=== PATIENT | male | born 1990 | race Caucasian/White ===

== ENCOUNTER 2020-03-05 22:45 | Inpatient (IN) | payer SELFPAY ==
[2020-03-05 23:04] VITALS: BP 137/91; PULSE 89; RESP 16; TEMP 37.1; O2SAT 99; BMI 35.6
--- NOTE | 2020-03-05 23:11 | W.ED.PSYCH ---
HPI - Psych General: Chief Complaint: Psychiatric Symptoms Stated Complaint: mhe Time Seen by Provider: 03/05/20 23:03 History of Present Illness: HPI Narrative: Patient is a 29-year-old male who comes to the ED with suicidal ideation. Patient has been thinking about suicide for the last 2 days. He has thought about jumping in front of traffic or overdosing. Patient denies having a plan. He currently feels depressed and down due to his grandfather recently passing. Has had a loss of interest in activities but denies any sleep issues. He is currently stressed and says he hears voices that tell him about stuff that scared him as a child. He also says he has panic attacks and is very afraid of dogs due to an incident when he was a child when he was attacked by dog. Patient also says he has visual hallucinations of dogs. He denies taking any medications to overdose today. Patient did say that he also has homicidal ideation. He does not have anybody in particular that he thinks about hurting. Patient states he came in to get help. Associated symptoms: Reports auditory hallucinations, visual hallucinations, depression, homicidal ideation and suicidal ideation Review of Systems Const: Denies: fever, chills or fatigue Eyes: Denies: change in vision or eye discomfort ENMT: Denies: throat pain, painful swallowing, nasal discharge or nasal congestion Card: Denies: chest pain, palpitations, edema, swelling of feet/ankles, shortness of breath on exertion or shortness of breath when lying down Resp: Denies: shortness of breath, productive cough or non-productive cough GI: Denies: abdominal pain, nausea, vomiting, diarrhea, constipation or blood in stool : Denies: flank pain, difficulty urinating, painful urination or blood in urine Musc: Denies: neck pain, back pain or extremity swelling Skin/Breast: Denies: rash or new lesion Neuro: Denies: headache, numbness in extremities or weakness in extremities Psych: Reports: depression, panic attacks, visual hallucinations, auditory hallucinations, suicidal ideation and homicidal ideation [facility] ED PFSH: Social History Smoking and tobacco status: current every day smoker Physical Exam Const: COMMON NORMALS: no apparent distress and oriented x3 GENERAL APPEARANCE: cooperative ORIENTATION/CONSCIOUSNESS: Yes awake, Yes oriented to person and Yes oriented to place HENMT: COMMON NORMALS: normocephalic HEAD & SCALP: normocephalic MOUTH: oral and palatal mucosa normal THROAT: posterior oropharynx normal and uvula midline Neck/C-Spine: COMMON NORMALS: supple GENERAL: Yes normal visual inspection Resp: COMMON NORMALS: normal respiratory effort, no retractions, no use of accessory muscles and clear to auscultation bilaterally EFFORT & INSPECTION: Yes able to speak in complete sentences, No respiratory distress and No labored AUSCULTATION: clear to auscultation bilaterally Cardio: COMMON NORMALS: regular rate, regular rhythm, S1 normal heart sound, S2 normal heart sound, no gallops, no clicks, no murmurs and peripheral pulses 2+ throughout RATE: regular rate RHYTHM: regular rhythm HEART SOUNDS: S1 normal and S2 normal PERIPHERAL PULSES: pulses 2+ throughout GI: COMMON NORMALS: normal to inspection, nondistended, normoactive bowel sounds, soft to palpation, non-tender and no masses PALPATION: Yes soft : COMMON NORMALS: Yes no CVA tenderness BLADDER/KIDNEY EXAM: Yes no CVA tenderness Back/Pelvis: COMMON NORMALS: no CVA tenderness Extremity: COMMON NORMALS: normal to inspection Neuro: COMMON NORMALS: oriented x3 and moves all extremities SENSORIUM/ORIENTATION: Yes oriented to person and Yes oriented to place Psych: COMMON NORMALS: mental status grossly normal and speech normal APPEARANCE: Yes grossly normal ATTITUDE: Yes calm ACTIVITY/MOTOR BEHAVIOR: Yes appropriate eye contact SPEECH: Yes normal speech MOOD & AFFECT: Yes depressed mood THOUGHT PROCESS: tangential THOUGHT CONTENT: Yes suicidality and Yes phobia(s) (scared of dogs) ATTENTION/CONCENTRATION: Yes attention grossly intact and Yes concentration grossly intact MEMORY/COGNITION: Yes memory grossly intact INSIGHT: fair JUDGEMENT: fair Skin: COMMON NORMALS: no rashes or lesions noted GENERAL SKIN EXAM: no rashes or lesions noted and dry skin MDM - Psych MDM Narrative: Medical decision making narrative: Patient is a 29-year-old male who comes into the ED with SI. I contacted Dr. Tubbs to discuss patient case and he approved for patient to get admitted. I talked with Dr. Aranda here in the ED and he handled the admitting orders and the rest of the admission process. Lab Data: Attestation: I reviewed the patient's lab results. Labs: Lab Results 03/05/20 03/05/20 03/05/20 Range/Units 23:21 23:21 23:21 WBC 10.6 H (4.0-10.0) 10^3/ uL RBC 5.22 (4.1-5.3) 10^6/u L Hgb 16.4 (11.7-16.6) g/dL Hct 49.2 (42.0-52.0) % MCV 94.3 H (80-94) fL MCH 31.4 (28.0-34.0) pg MCHC 33.3 (30.0-36.0) g/dL RDW 11.7 L (12.1-15.1) % Plt Count 249 (130-400) 10^3/c mm MPV 10.3 (7.4-10.4) fL Neut % (Auto) 62.3 % Lymph % (Auto) 27.1 % [place] % (Auto) 9.3 % Eos % (Auto) 0.7 % Baso % (Auto) 0.4 % Neut # (Auto) 6.6 (1.8-7.7) 10^3/u L Lymph # (Auto) 2.9 (0.8-4.8) 10^3/u L [place] # (Auto) 1.0 H (0.2-0.9) 10^3/u L Eos # (Auto) 0.1 (0.0-0.8) 10^3/u L Baso # (Auto) 0.0 (0.0-0.1) 10^3/u L Nucleated RBC % (a uto) 0 % Nucleated RBCs # 0.0 /100WBC Sodium 138 (136-145) mmol/L Potassium 3.2 L (3.5-5.1) mmol/L Chloride 95 L (98-107) mmol/L Carbon Dioxide 26 (22-29) mmol/L Anion Gap 20.2 H (5-19) BUN 5 L (6-20) mg/dL Creatinine 0.9 (0.7-1.2) mg/dL GFR Calculation 100.5 (90-130) mL/min Glucose 79 (65-115) mg/dL POC Glucose (70-110) mg/dL Calculated Osmolal ity 281 L (285-295) mOsm/k g Calcium 9.6 (8.5-10.5) mg/dL Total Bilirubin 1.2 (0.15-1.2) mg/dL AST 19 (0-40) U/L ALT 15 (0-41) U/L Alkaline Phosphata se 76 (40-130) IU/L Total Protein 8.2 (6.6-8.7) g/dL Albumin 4.8 (3.5-5.2) g/dL Globulin 3.4 (1.3-4.6) g/dL TSH 2.52 (0.27-4.20) uIU/ mL Urine Color Yellow (Yellow) Urine Appearance Sl cloudy A (CLEAR) Urine pH 5 (5-7) Ur Specific Gravit y 1.020 (1.005-1.030) Urine Protein Neg (Negative) Urine Glucose (UA) Norm (Normal) Urine Ketones 1+ H (Negative) Urine Blood 2+ H (Negative) Urine Nitrate Negative (Negative) Urine Bilirubin 1+ H (NEGATIVE) Urine Urobilinogen 1 H (Negative) mg/dL Ur Leukocyte Nette ase Negative (Negative) Urine RBC 0-4 H (0-2) /hpf Urine WBC 0-4 H (0-5) /hpf Ur Squamous Epith Cells 0-4 H (0-5) Urine Bacteria 1+ H (NONE) Hyaline Casts 0-4 H Urine Mucus 2+ Salicylates < 0.3 L (3-10) mg/dL Urine Opiates Scre en (Negative) ng/mL Acetaminophen < 5.0 L (10-30) ug/mL Ur Barbiturates Sc reen (Negative) ng/mL Ur Phencyclidine S crn (Negative) ng/mL Ur Amphetamines Sc reen (Negative) ng/mL U Benzodiazepines Scrn (Negative) ng/mL Urine Cocaine Scre en (Negative) ng/mL U Marijuana (THC) Screen (Negative) ng/mL Ethyl Alcohol < 10 (0-10) mg/dL 03/05/20 03/05/20 Range/Units 23:21 23:30 WBC (4.0-10.0) 10^3/ uL RBC (4.1-5.3) 10^6/u L Hgb (11.7-16.6) g/dL Hct (42.0-52.0) % MCV (80-94) fL MCH (28.0-34.0) pg MCHC (30.0-36.0) g/dL RDW (12.1-15.1) % Plt Count (130-400) 10^3/c mm MPV (7.4-10.4) fL Neut % (Auto) % Lymph % (Auto) % [place] % (Auto) % Eos % (Auto) % Baso % (Auto) % Neut # (Auto) (1.8-7.7) 10^3/u L Lymph # (Auto) (0.8-4.8) 10^3/u L [place] # (Auto) (0.2-0.9) 10^3/u L Eos # (Auto) (0.0-0.8) 10^3/u L Baso # (Auto) (0.0-0.1) 10^3/u L Nucleated RBC % (a uto) % Nucleated RBCs # /100WBC Sodium (136-145) mmol/L Potassium (3.5-5.1) mmol/L Chloride (98-107) mmol/L Carbon Dioxide (22-29) mmol/L Anion Gap (5-19) BUN (6-20) mg/dL Creatinine (0.7-1.2) mg/dL GFR Calculation (90-130) mL/min Glucose (65-115) mg/dL POC Glucose 84 (70-110) mg/dL Calculated Osmolal ity (285-295) mOsm/k g Calcium (8.5-10.5) mg/dL Total Bilirubin (0.15-1.2) mg/dL AST (0-40) U/L ALT (0-41) U/L Alkaline Phosphata se (40-130) IU/L Total Protein (6.6-8.7) g/dL Albumin (3.5-5.2) g/dL Globulin (1.3-4.6) g/dL TSH (0.27-4.20) uIU/ mL Urine Color (Yellow) Urine Appearance (CLEAR) Urine pH (5-7) Ur Specific Gravit y (1.005-1.030) Urine Protein (Negative) Urine Glucose (UA) (Normal) Urine Ketones (Negative) Urine Blood (Negative) Urine Nitrate (Negative) Urine Bilirubin (NEGATIVE) Urine Urobilinogen (Negative) mg/dL Ur Leukocyte Nette ase (Negative) Urine RBC (0-2) /hpf Urine WBC (0-5) /hpf Ur Squamous Epith Cells (0-5) Urine Bacteria (NONE) Hyaline Casts Urine Mucus Salicylates (3-10) mg/dL Urine Opiates Scre en Negative (Negative) ng/mL Acetaminophen (10-30) ug/mL Ur Barbiturates Sc reen Negative (Negative) ng/mL Ur Phencyclidine S crn Negative (Negative) ng/mL Ur Amphetamines Sc reen Negative (Negative) ng/mL U Benzodiazepines Scrn Negative (Negative) ng/mL Urine Cocaine Scre en Negative (Negative) ng/mL U Marijuana (THC) Screen Positive H (Negative) ng/mL Ethyl Alcohol (0-10) mg/dL Discharge Plan Discharge Patient Disposition: Admitted As Inpatient Admit Provider: Kleber Tubbs Discharge Date/Time: 03/06/20 00:47 Coding Level of Care Code ED [employer] Fwd Exam Comprehensive
--- NOTE | 2020-03-05 23:32 | PC.NURSE ---
Patient glucose is 84, patient is also changed out and gave a UA
--- NOTE | 2020-03-05 23:45 | PC.NURSE ---
PATIENT STATES HE STARTED FEELING SUICIDAL A MONTH AGO AND THE FEELINGS HAVE STAYED PRETTY CONSTANT. PATIENT STATES HE THAT THE LOSS OF HIS GRANDFATHER MIGHT HAVE TRIGGERED HIS THOUGHTS BUT HE IS UNSURE. PATIENT STATES HE DOESNT HAVE A PLAN TO HURT HIMSELF. PATIENT STATES HE HAS PANIC ATTACKS. PATIENT STATES HE HAS HAD SIMILAR FEELINGS IN THE PAST.
--- NOTE | 2020-03-05 23:52 | PC.NURSE ---
1:[address], PATIENT IN GOWN AND MASK ON PATIENT.
[2020-03-05 23:57] LABS: Basophils % 0.4 %; Eosinophils # 0.1 10^3/uL (0.0-0.8); Eosinophils % 0.7 %; Hematocrit 49.2 % (42.0-52.0); Hemoglobin 16.4 g/dL (11.7-16.6); Lymphocytes # 2.9 10^3/uL (0.8-4.8); Lymphocytes % 27.1 %; Mean Corpuscular HGB Conc 33.3 g/dL (30.0-36.0); Mean Corpuscular Hemoglobin 31.4 pg (28.0-34.0); Mean Corpuscular Volume 94.3 fL (80-94); Mean Platelet Volume 10.3 fL (7.4-10.4); Monocytes % 9.3 %; Neutrophils # 6.6 10^3/uL (1.8-7.7); Neutrophils % 62.3 %; Nucleated Red Blood Cells % 0 %; Platelet Count 249 10^3/cmm (130-400); Red Blood Count 5.22 10^6/uL (4.1-5.3); Red Cell Distribution Width 11.7 % (12.1-15.1); White Blood Count 10.6 10^3/uL (4.0-10.0)
[2020-03-06 00:23] LABS: Alanine Aminotransferase 15 U/L (0-41); Albumin Level 4.8 g/dL (3.5-5.2); Alkaline Phosphatase 76 IU/L (40-130); Anion Gap 20.2 (5-19); Aspartate Amino Transferase 19 U/L (0-40); Blood Urea Nitrogen 5 mg/dL (6-20); Calcium 9.6 mg/dL (8.5-10.5); Carbon Dioxide 26 mmol/L (22-29); Chloride 95 mmol/L (98-107); Cocaine Screen Urine Negative (Negative); Globulin 3.4 g/dL (1.3-4.6); Glomerular Filtration Rate 100.5 mL/min (90-130); Glucose 79 mg/dL (65-115); Opiate Screen Urine Negative (Negative); Osmolality Calculated 281 mOsm/kg (285-295); PCP Screen Urine Negative (Negative); Potassium 3.2 mmol/L (3.5-5.1); Sodium 138 mmol/L (136-145); THC Screen Urine Positive (Negative); Thyroid Stimulating Hormone 2.52 uIU/mL (0.27-4.20); Total Bilirubin 1.2 mg/dL (0.15-1.2); Total Protein 8.2 g/dL (6.6-8.7)
[2020-03-06 00:25] LABS: Acetaminophen < 5.0 ug/mL (10-30); Alcohol Level < 10 mg/dL (0-10); Salicylate < 0.3 mg/dL (3-10)
[2020-03-06] MEDS: LORazepam 1 mg Tablet PO (00:28)
[2020-03-06 00:40] LABS: Add Urine Microscopic? YES; Bacteria Urine 1+; Bilirubin Urine 1+ (NEGATIVE); Blood Urine 2+ (Negative); Glucose Urine UA Norm (Normal); Hyaline Casts Urine 0-4; Ketones Urine 1+ (Negative); Leukocyte Esterase Urine Negative (Negative); Mucus Urine 2+; Nitrate Urine Negative (Negative); Protein Urine Neg (Negative); RBC Urine 0-4 /hpf (0-2); Squamous Epithelial Cell Urine 0-4 (0-5); Urine Color Yellow (Yellow); Urobilinogen Urine 1 mg/dL (Negative); WBC Urine 0-4 /hpf (0-5); pH Urine 5 (5-7)
[2020-03-06 00:41] LABS: Add Urine Culture? No
[2020-03-06 00:42] VITALS: BP 126/84; PULSE 84; RESP 16; O2SAT 97
[2020-03-06 00:49] LABS: Amphetamines Screen Urine Negative (Negative); Barbiturates Screen Urine Negative (Negative); Benzodiazepines Screen Urine Negative (Negative)
[2020-03-06 00:51] VITALS: BP 128/84; PULSE 83; RESP 21; TEMP 36.9; O2SAT 99
[2020-03-06 01:32] LABS: Glucose Point of Care 84 mg/dL (70-110)
[2020-03-06 06:00] VITALS: BP 118/74; PULSE 60; RESP 18; TEMP 36.9; O2SAT 99
[2020-03-06] MEDS: hyDROXYzine 25 mg Capsule 50 MG PO (12:16)
--- NOTE | 2020-03-06 12:16 | PC.NURSE ---
Addendum entered by Nubia Taveras LPN 03/06/20 13:24: PRN MED EFFECTIVE NO FURTHER C/O ANXIETY CURRENTLY Original Note: PRN VISTARIL 50 MG GIVEN PO PER PT C/O ANXIETY. WILL CONT TO MONITOR.
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
[2020-03-06 14:00] VITALS: BP 118/70; PULSE 68; RESP 17; TEMP 36.8; O2SAT 97
[2020-03-06] MEDS: trazodone 50 mg Tablet PO (20:31)
--- NOTE | 2020-03-06 20:31 | PC.NURSE ---
Pt given prn med trazodone at this time.
[2020-03-06 21:06] VITALS: BP 109/74; PULSE 83; RESP 18; TEMP 36.6; O2SAT 98
[2020-03-06] MEDS: acetaminophen 325 mg Tablet 650 MG PO (22:23)
--- NOTE | 2020-03-06 22:24 | PC.NURSE ---
Pt given tylenol per his request for restless legs.
[2020-03-07 06:00] VITALS: BP 94/61; PULSE 58; RESP 16; TEMP 36.4; O2SAT 99
[2020-03-07] MEDS: OLANZapine ODT 5 MG TABLET PO (08:38)
[2020-03-07] MEDS: ARIPiprazole 10 mg Tablet PO (08:38)
--- NOTE | 2020-03-07 08:38 | PC.NURSE ---
Addendum entered by Yasmin Joshua LPN 03/07/20 09:47: MEDICATION EFFECTIVE. PATIENT IS LYING IN BED RESTING, RESPIRATIONS EVEN AND UNLABORED. Original Note: PRN ZYPREXA ZYDIS ZYPREXA ZYDIS 5MG PO PER PATIENT C/O AGITATION/PSYCHOSIS. WILL CONTINUE TO MONITOR FOR MEDICATION EFFECTIVENESS.
[2020-03-07 14:00] VITALS: BP 111/76; PULSE 89; RESP 18; TEMP 36.9; O2SAT 99
--- NOTE | 2020-03-07 16:35 | P.PN_ITS ---
Subjective NPU Subjective: Interval history: Ruben presents today reporting that he is doing okay. He had some odd statements about what is going on that really did not make sense but he did report that he is tolerating medication and that he is hopeful that he will be able to continue to improve. We had a brief discussion about his addiction issues and he continues to be fairly resistant to having a discussion about the impact that marijuana might be having on his mental health and psychosis. But he does endorse that he is been doing better with the amphetamines and as noted previously his last 2 screens for amphetamines has been negative. He reports that he has been sleeping a lot try to catch up on sleep but otherwise he reports that he thinks things are going in the right direction. Mental Status Exam MSE Comments: This is an overweight, versus obese, white male, with adequate dress, grooming, and eye contact. No abnormal movements except for mild psychomotor retardation. Cooperative with exam in no acute distress. Speech was decreased rate and volume. Mood described as a little better; affect congruent. Thought process, mostly organized. Thought content: patient denied any suicidal or homicidal ideation, there were no delusions noted, but he endorsed paranoia. He endorsed hearing and seeing things. Attention, concentration, and memory appear intact but were not formally tested. He is alert and oriented times three. Insight and judgment are limited but improving. Vitals/I&O/Wt Last Vital Signs Temp 97.8 F 03/07/20 22:00 Pulse 69 03/07/20 22:00 Resp 18 03/07/20 22:00 BP 106/70 03/07/20 22:00 Pulse Ox 98 03/07/20 22:00 Weight last 48 hrs Weight 99.79 kg Home Medications No Known Home Medications 03/05/20 [History Confirmed 03/05/20] Active Medications Acetaminophen (Tylenol) 650 mg PO Q4H PRN PRN Reason: MILD PAIN Last Admin: 03/06/20 22:23 Dose: 650 mg Documented by: Aripiprazole (Abilify) 10 mg PO DAILY ELLIE Last Admin: 03/07/20 08:38 Dose: 10 mg Documented by: Benztropine Mesylate (Cogentin) 1 mg PO BID PRN PRN Reason: Mild Extrapyramidal symptoms Camphor/Menthol/Phenol (Blistex) 1 applic TOPICAL Q1H PRN PRN Reason: DRYNESS Diphenhydramine HCl (Benadryl) 50 mg IM ONCE PRN PRN Reason: Severe Extrapyramidal Symptoms Diphenhydramine HCl (Benadryl) 50 mg IM Q4H PRN PRN Reason: Severe Aggression Haloperidol (Haldol) 5 mg PO Q4H PRN PRN Reason: AGITATION Haloperidol Lactate (Haldol Inj) 5 mg IM Q4H PRN PRN Reason: Severe Aggression Hydroxyzine Pamoate (Vistaril) 50 mg PO Q6H PRN PRN Reason: ANXIETY Last Admin: 03/06/20 12:16 Dose: 50 mg Documented by: Loperamide HCl (Imodium Capsule) 2 mg PO Q6H PRN PRN Reason: DIARRHEA Lorazepam (Ativan) 2 mg IM Q4H PRN PRN Reason: Severe Aggression Nicotine (Nicoderm 21 Mg Patch) 1 patch TRANSDERMA DAILY PRN PRN Reason: NICOTINE WITHDRAWAL Nicotine Polacrilex (Nicorette) 2 mg BUCCAL Q2H PRN PRN Reason: NICOTINE WITHDRAWAL Olanzapine (Zyprexa Zydis) 5 mg PO Q4H PRN PRN Reason: Agitation/Psychosis Last Admin: 03/07/20 08:38 Dose: 5 mg Documented by: Ondansetron HCl (Zofran) 4 mg PO Q6H PRN PRN Reason: NAUSEA AND VOMITING Data NPU : 03/05/20 23:21 03/05/20 23:21 A&P Additional A&P Information This is a 29 year old, white male, with a history of psychosis, possibly secondary to substances, but he has a diagnosis of schizophrenia and reports that there have been times that he has had psychosis with distant drug use, not current, but this is the dilemma normally with psychosis with people that use, is it the cause of it or is it a coping mechanism that is adopted, and he has a history of PTSD with recent reports of hypervigilance and sleep disruption and nightmares. It is unclear if he has kojo flashbacks, who presents off medication and reporting a plan to re-engage in treatment. Continue current medication. Encourage individual, group, and milieu therapy. Continue q 15-minute checks for safety. Encourage discharge to sober living treatment at the highest level of care to which he is willing to commit. Involuntary Hold Information 96 Hour Hold: 96 Hour Involuntary Admission: No Attestations NPU Medical Necessity Statement*: Inpatient hospitalization is medically necessary and the clinically appropriate intervention at this time. We will monitor medication and titrate to affect. Likely length of stay 3-5 days. Coding Level of Care Code Acute Reimbursement Coordinator for Pete Ruiz
[2020-03-07] MEDS: trazodone 50 mg Tablet PO (21:31)
--- NOTE | 2020-03-07 21:31 | PC.NURSE ---
pt given prn trazodone per request at this time.
[2020-03-07 22:00] VITALS: BP 106/70; PULSE 69; RESP 18; TEMP 36.6; O2SAT 98
[2020-03-08 06:00] VITALS: BP 98/64; PULSE 78; RESP 16; TEMP 36.7
[2020-03-08] MEDS: ARIPiprazole 10 mg Tablet PO (08:58)
[2020-03-08 14:00] VITALS: BP 107/66; PULSE 78; RESP 18; TEMP 36.8; O2SAT 98
[2020-03-08] MEDS: acetaminophen 325 mg Tablet 650 MG PO (14:43)
--- NOTE | 2020-03-08 17:52 | PM.NPN ---
Subjective NPU Subjective: Interval history: Ruben presents today reporting that he is feeling a little better. It is noteworthy that, for the first time, I saw him erect and interactive. He reports that he feels the medication is helpful, and as the medication has helped he is starting to get some sleep, which he reports he feels he probably really needed. We discussed the risks, benefits, and alternatives of increasing the Abilify up to the 15, where it had been, and he understood and agreed to proceed with that increase. This is a well-nourished, well-developed, white male, with adequate dress, grooming, and eye contact. No abnormal movements. Cooperative with exam in no acute distress. Speech was more normal rate and volume. Mood described as a little better; affect congruent. Thought process, organized. Thought content: patient denied any suicidal or homicidal ideation, there were no delusions reported or noted, patient denied any auditory or visual hallucinations. Attention, concentration, and memory appeared intact but were not formally tested. Alert and oriented times three. Insight and judgment are limited but improving. Mental Status Exam MSE Comments: This is a well-nourished, well-developed, white male, with adequate dress, grooming, and eye contact. No abnormal movements. Cooperative with exam in no acute distress. Speech was more normal rate and volume. Mood described as a little better; affect congruent. Thought process, organized. Thought content: patient denied any suicidal or homicidal ideation, there were no delusions reported or noted, patient denied any auditory or visual hallucinations. Attention, concentration, and memory appeared intact but were not formally tested. Alert and oriented times three. Insight and judgment are limited but improving. Vitals/I&O/Wt Last Vital Signs Temp 98.3 F 03/08/20 20:59 Pulse 75 03/08/20 20:59 Resp 18 03/08/20 20:59 BP 103/68 03/08/20 20:59 Pulse Ox 97 03/08/20 20:59 Data NPU : 03/05/20 23:21 03/05/20 23:21 A&P Additional A&P Information This is a 29 year old, white male, with a history of psychosis, possibly secondary to substances, but he has a diagnosis of schizophrenia and reports that there have been times that he has had psychosis with distant drug use, not current, but this is the dilemma normally with psychosis with people that use, is it the cause of it or is it a coping mechanism that is adopted, and he has a history of PTSD with recent reports of hypervigilance and sleep disruption and nightmares. It is unclear if he has kojo flashbacks, who presents off medication and reporting a plan to re-engage in treatment. Continue current medication. Except increase abilify to 15mg po qam Encourage individual, group, and milieu therapy. Continue q 15-minute checks for safety. Encourage discharge to sober living treatment at the highest level of care to which he is willing to commit. Involuntary Hold Information 96 Hour Hold: 96 Hour Involuntary Admission: No Attestations NPU Medical Necessity Statement*: Inpatient hospitalization is medically necessary and the clinically appropriate intervention at this time. We will monitor medication and titrate to affect. Likely length of stay 2-4 days. Coding Level of Care Code Acute Business Controller for Pete Ruiz
[2020-03-08] MEDS: hyDROXYzine 25 mg Capsule 50 MG PO (20:55)
--- NOTE | 2020-03-08 20:55 | PC.NURSE ---
pt given prn trazodone at this time per pt request.
[2020-03-08 20:59] VITALS: BP 103/68; PULSE 75; RESP 18; TEMP 36.8; O2SAT 97
[2020-03-09 06:00] VITALS: BP 99/56; PULSE 66; RESP 16; TEMP 36.8; O2SAT 93
[2020-03-09] MEDS: ARIPiprazole 10 mg Tablet 15 MG PO (08:17)
[2020-03-09] MEDS: acetaminophen 325 mg Tablet 650 MG PO ×2 (09:21→19:34)
[2020-03-09 14:00] VITALS: BP 116/71; PULSE 72; RESP 20; TEMP 37.1; O2SAT 99
--- NOTE | 2020-03-09 18:34 | PM.NPN ---
Subjective NPU Subjective: Interval history: Ruben presents today reporting that the medication increase has helped. He reports that he feels the 15 mg is better than the previous dose. He reports that he is starting to think a little clearer. This is likely the first day that he has not had moments in our interview where he communicates as if he is saying something clearly and it is not really all that clear what he is talking about, so there is certainly improvement. We discussed his home situation and he reports a plan to go back to live with his brother. We agreed that likely we could work on getting him out of here by Saturday. We will work with the treatment team and the social workers to make sure we have everything in place by that time. Mental Status Exam MSE Comments: This is an overweight versus obese, white male, with adequate dress, grooming, and eye contact. No abnormal movements. Cooperative with exam in no acute distress. Speech was normal rate and volume with less confusing conversation. Mood described as better; affect less odd. Thought process, more organized. Thought content: patient denied any suicidal or homicidal ideation, there were no delusions reported or noted, patient denied any auditory or visual hallucinations. Attention, concentration, and memory appeared intact but were not formally tested. He is alert and oriented times three. Insight and judgment are limited but improving. Vitals/I&O/Wt Last Vital Signs Temp 98.8 F 03/09/20 14:00 Pulse 72 03/09/20 14:00 Resp 20 H 03/09/20 14:00 BP 116/71 03/09/20 14:00 Pulse Ox 99 03/09/20 14:00 Data NPU : 03/05/20 23:21 03/05/20 23:21 A&P Additional A&P Information This is a 29 year old, white male, with a history of psychosis, possibly secondary to substances, but he has a diagnosis of schizophrenia and reports that there have been times that he has had psychosis with distant drug use, not current, but this is the dilemma normally with psychosis with people that use, is it the cause of it or is it a coping mechanism that is adopted, and he has a history of PTSD with recent reports of hypervigilance and sleep disruption and nightmares. It is unclear if he has kojo flashbacks, who presents off medication and reporting a plan to re-engage in treatment. Continue current medication. Encourage individual, group, and milieu therapy. Continue q 15-minute checks for safety. Encourage discharge to sober living treatment at the highest level of care to which he is willing to commit. Involuntary Hold Information 96 Hour Hold: 96 Hour Involuntary Admission: No Attestations NPU Medical Necessity Statement*: Inpatient hospitalization is medically necessary and the clinically appropriate intervention at this time. We will monitor medication and titrate to affect. Likely length of stay 1-3 days. Coding Level of Care Code Acute Speedboat Operator for Pete Ruiz
[2020-03-09 21:28] VITALS: BP 119/75; PULSE 64; RESP 17; TEMP 36.4; O2SAT 99
[2020-03-10 06:00] VITALS: BP 115/76; PULSE 68; RESP 18; TEMP 36.6; O2SAT 98
[2020-03-10] MEDS: ARIPiprazole 10 mg Tablet 15 MG PO (08:09)
[2020-03-10] MEDS: acetaminophen 325 mg Tablet 650 MG PO (08:40)
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
[2020-03-10 11:33] VITALS: BP 115/76; PULSE 68; RESP 18; TEMP 36.6; O2SAT 98
== END 2020-03-10 11:56 | disposition home or self-care (01) | DRG 885 ==
LOC: ER 23:14 → NP 03-06 00:46
PROVIDERS: Admitting Provider Psychiatry & Neurology Psychiatry; Emergency Provider Physician Assistant; Visit Provider Psychiatry & Neurology Psychiatry
DX: F23 Brief psychotic disorder (principal); F12.10 Cannabis abuse, uncomplicated; F43.11 Post-traumatic stress disorder, acute; F17.210 Nicotine dependence, cigarettes, uncomplicated; Z81.8 Family history of other mental and behavioral disorders; F41.9 Anxiety disorder, unspecified
CPT/HCPCS: 12345; 36416; 80053; 80306; 80307; 81001; 82962; 84443; 85025; 99284

== ENCOUNTER 2020-03-19 14:58 | Inpatient (IN) | payer SELFPAY ==
[2020-03-19 15:07] VITALS: BMI 36.9
[2020-03-19 15:12] VITALS: BP 127/90; PULSE 90; RESP 16; TEMP 36.8; O2SAT 98
--- NOTE | 2020-03-19 15:16 | W.ED.PSYCH ---
HPI - Psych General: Chief Complaint: Psychiatric Symptoms Stated Complaint: mhe Time Seen by Provider: 03/19/20 15:14 History of Present Illness: HPI Narrative: Pt states he has been seeing and hearing things that arent there. He is supposed to be on meds for this but he statesit causes his legs to shuffle really badly so he stopped it a few days ago. He was recently admitted to psych but he thinks he didnt get better enough and yoselin home too soon, and he needs to go back. Denies suicidal or homicidal ideations . complaint: feels depressed Onset (ago): day(s) Duration: constant History of same: Yes Relieving factors: none Exacerbating factors: none Context: not taking psychiatric medications Associated psychiatric symptoms: depression, auditory hallucinations and visual hallucinations Associated symptoms: Reports auditory hallucinations, visual hallucinations and depression; Deny homicidal ideation or suicidal ideation Treatments prior to arrival: none Review of Systems General: Reports: 10 or more systems reviewed and unremarkable except in HPI and below Const: Denies: fever, chills or fatigue ENMT: Denies: throat pain Card: Denies: chest pain or swelling of feet/ankles Resp: Denies: shortness of breath or productive cough GI: Denies: abdominal pain, nausea, vomiting, diarrhea, constipation or blood in stool Musc: Denies: back pain or extremity swelling Skin/Breast: Denies: rash Neuro: Denies: headache, numbness in extremities or weakness in extremities Psych: Reports: depression, panic attacks, visual hallucinations and auditory hallucinations; Denies: suicidal ideation or homicidal ideation [facility] ED PFSH: Social History Smoking and tobacco status: current every day smoker Physical Exam Const: COMMON NORMALS: no apparent distress and oriented x3 GENERAL APPEARANCE: cooperative; not in distress HENMT: COMMON NORMALS: normocephalic HEAD & SCALP: normal to inspection and normocephalic MOUTH: oral and palatal mucosa normal and lip normal Neck/C-Spine: COMMON NORMALS: full ROM, no lymphadenopathy, supple and no meningeal signs GENERAL: Yes normal visual inspection and Yes trachea midline Chest: COMMONS NORMALS: inspection of chest normal Resp: COMMON NORMALS: normal respiratory effort and clear to auscultation bilaterally EFFORT & INSPECTION: Yes able to speak in complete sentences and No respiratory distress AUSCULTATION: clear to auscultation bilaterally, no rales, no rhonchi and no wheezes Cardio: COMMON NORMALS: regular rate, regular rhythm, S1 normal heart sound, S2 normal heart sound and no murmurs RATE: regular rate RHYTHM: regular rhythm HEART SOUNDS: S1 normal and S2 normal PERIPHERAL PULSES: radial pulses present and dorsalis pedis pulses present GI: COMMON NORMALS: normal to inspection, nondistended, normoactive bowel sounds, soft to palpation and non-tender INSPECTION: Yes normal to inspection AUSCULTATION: Yes normoactive bowel sounds PALPATION: Yes soft, No tender, No guarding and No rigid RECTAL EXAM: Yes deferred : COMMON NORMALS: Yes no CVA tenderness BLADDER/KIDNEY EXAM: Yes no CVA tenderness Back/Pelvis: COMMON NORMALS: no CVA tenderness Extremity: COMMON NORMALS: normal to inspection, full ROM, normal capillary refill, no calf tenderness and no pedal edema Neuro: COMMON NORMALS: oriented x3, CN's II-XII intact bilaterally, moves all extremities and no focal motor deficits MENINGEAL SIGNS: Yes no meningeal signs Skin: COMMON NORMALS: no rashes or lesions noted GENERAL SKIN EXAM: no rashes or lesions noted MDM - Psych MDM Narrative: Medical decision making narrative: Pt is voluntary and admits to seeing and hearing things and not taking his meds,. Dr Cornell states he will admit the pt. labs are normal Lab Data: Attestation: I reviewed the patient's lab results. Labs: Lab Results 03/19/20 03/19/20 03/19/20 Range/Units 15:37 16:05 16:05 WBC 9.5 (4.0-10.0) 10^3/ uL RBC 5.13 (4.1-5.3) 10^6/u L Hgb 16.0 (11.7-16.6) g/dL Hct 48.6 (42.0-52.0) % MCV 94.7 H (80-94) fL MCH 31.2 (28.0-34.0) pg MCHC 32.9 (30.0-36.0) g/dL RDW 11.9 L (12.1-15.1) % Plt Count 204 (130-400) 10^3/c mm MPV 10.0 (7.4-10.4) fL Neut % (Auto) 65.2 % Lymph % (Auto) 24.3 % [place] % (Auto) 7.9 % Eos % (Auto) 1.6 % Baso % (Auto) 0.7 % Neut # (Auto) 6.2 (1.8-7.7) 10^3/u L Lymph # (Auto) 2.3 (0.8-4.8) 10^3/u L [place] # (Auto) 0.8 (0.2-0.9) 10^3/u L Eos # (Auto) 0.2 (0.0-0.8) 10^3/u L Baso # (Auto) 0.1 (0.0-0.1) 10^3/u L Nucleated RBC % (a uto) 0 % Nucleated RBCs # 0.0 /100WBC Sodium 139 (136-145) mmol/L Potassium 3.8 (3.5-5.1) mmol/L Chloride 99 (98-107) mmol/L Carbon Dioxide 29 (22-29) mmol/L Anion Gap 14.8 (5-19) BUN 11 (6-20) mg/dL Creatinine 0.6 L (0.7-1.2) mg/dL GFR Calculation 160.4 H (90-130) mL/min Glucose 89 (65-115) mg/dL Calculated Osmolal ity 284 L (285-295) mOsm/k g Calcium 9.7 (8.5-10.5) mg/dL Total Bilirubin 0.6 (0.15-1.2) mg/dL AST 13 (0-40) U/L ALT 10 (0-41) U/L Alkaline Phosphata se 111 (40-130) IU/L Total Protein 7.6 (6.6-8.7) g/dL Albumin 4.6 (3.5-5.2) g/dL Globulin 3.0 (1.3-4.6) g/dL Salicylates < 0.3 L (3-10) mg/dL Urine Opiates Scre en Negative (Negative) ng/mL Acetaminophen < 5.0 L (10-30) ug/mL Ur Barbiturates Sc reen Negative (Negative) ng/mL Ur Phencyclidine S crn Negative (Negative) ng/mL Ur Amphetamines Sc reen Negative (Negative) ng/mL U Benzodiazepines Scrn Negative (Negative) ng/mL Urine Cocaine Scre en Negative (Negative) ng/mL U Marijuana (THC) Screen Negative (Negative) ng/mL Ethyl Alcohol < 10 (0-10) mg/dL Discharge Plan Discharge Prescriptions: No Action aripiprazole 15 mg tablet 15 mg PO DAILY 30 Days Qty: 30 RF: 1 Coding Level of Care Code ED Applied Behavior Science Specialist for Pete Fwd Exam Comprehensive
[2020-03-19 16:13] LABS: Basophils # 0.1 10^3/uL (0.0-0.1); Basophils % 0.7 %; Eosinophils # 0.2 10^3/uL (0.0-0.8); Eosinophils % 1.6 %; Hematocrit 48.6 % (42.0-52.0); Lymphocytes # 2.3 10^3/uL (0.8-4.8); Lymphocytes % 24.3 %; Mean Corpuscular HGB Conc 32.9 g/dL (30.0-36.0); Mean Corpuscular Hemoglobin 31.2 pg (28.0-34.0); Mean Corpuscular Volume 94.7 fL (80-94); Monocytes # 0.8 10^3/uL (0.2-0.9); Monocytes % 7.9 %; Neutrophils # 6.2 10^3/uL (1.8-7.7); Neutrophils % 65.2 %; Nucleated Red Blood Cells % 0 %; Platelet Count 204 10^3/cmm (130-400); Red Blood Count 5.13 10^6/uL (4.1-5.3); Red Cell Distribution Width 11.9 % (12.1-15.1); White Blood Count 9.5 10^3/uL (4.0-10.0)
[2020-03-19 16:32] LABS: Amphetamines Screen Urine Negative (Negative); Barbiturates Screen Urine Negative (Negative); Benzodiazepines Screen Urine Negative (Negative); Cocaine Screen Urine Negative (Negative); Opiate Screen Urine Negative (Negative); PCP Screen Urine Negative (Negative); THC Screen Urine Negative (Negative)
[2020-03-19] MEDS: water for injection-sterile 10 ML 1.2 ML (16:32)
[2020-03-19] MEDS: ziprasidone 20 mg/mL SDV IM (16:33)
[2020-03-19 16:35] LABS: Alanine Aminotransferase 10 U/L (0-41); Albumin Level 4.6 g/dL (3.5-5.2); Alkaline Phosphatase 111 IU/L (40-130); Anion Gap 14.8 (5-19); Aspartate Amino Transferase 13 U/L (0-40); Blood Urea Nitrogen 11 mg/dL (6-20); Calcium 9.7 mg/dL (8.5-10.5); Carbon Dioxide 29 mmol/L (22-29); Chloride 99 mmol/L (98-107); Glomerular Filtration Rate 160.4 mL/min (90-130); Glucose 89 mg/dL (65-115); Osmolality Calculated 284 mOsm/kg (285-295); Potassium 3.8 mmol/L (3.5-5.1); Sodium 139 mmol/L (136-145); Total Bilirubin 0.6 mg/dL (0.15-1.2); Total Protein 7.6 g/dL (6.6-8.7)
[2020-03-19 16:36] LABS: Acetaminophen < 5.0 ug/mL (10-30); Alcohol Level < 10 mg/dL (0-10); Salicylate < 0.3 mg/dL (3-10)
[2020-03-19 17:22] VITALS: BP 130/86; PULSE 84; RESP 16; O2SAT 99
[2020-03-19 17:48] VITALS: BP 130/86; PULSE 89; RESP 18; TEMP 36.5; O2SAT 98
[2020-03-19 22:00] VITALS: BP 121/82; PULSE 99; RESP 17; TEMP 36.6; O2SAT 98
[2020-03-20] MEDS: acetaminophen 325 mg Tablet 650 MG PO (01:40)
[2020-03-20 06:00] VITALS: BP 127/88; PULSE 66; RESP 18; TEMP 36.6; O2SAT 99
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
[2020-03-20 14:00] VITALS: BP 130/78; PULSE 78; RESP 17; TEMP 36.8; O2SAT 98
[2020-03-20] MEDS: ARIPiprazole 10 mg Tablet PO (15:47)
[2020-03-20] MEDS: benztropine 1 mg Tablet PO (17:26)
[2020-03-20] MEDS: trazodone 50 mg Tablet PO (21:20)
[2020-03-20] MEDS: OLANZapine ODT 5 MG TABLET PO (21:20)
[2020-03-20 21:37] VITALS: BP 121/81; PULSE 66; RESP 23; TEMP 37.2; O2SAT 99
--- NOTE | 2020-03-20 21:44 | PC.NURSE ---
Pt given prn trazodone for sleep at 2119.
[2020-03-21 06:00] VITALS: BP 101/61; PULSE 55; RESP 16; TEMP 36.7; O2SAT 97
[2020-03-21] MEDS: benztropine 1 mg Tablet PO ×2 (08:12→17:02)
[2020-03-21] MEDS: ARIPiprazole 10 mg Tablet PO (08:12)
[2020-03-21] MEDS: acetaminophen 325 mg Tablet 650 MG PO ×2 (08:12→20:38)
[2020-03-21 14:00] VITALS: BP 115/74; PULSE 74; RESP 20; TEMP 36.6; O2SAT 98
--- NOTE | 2020-03-21 14:54 | P.PN_ITS ---
Subjective NPU Subjective: Interval history: Ruben presented today reporting that things are feeling much better on the lower dose of the Abilify. He reports that it really was just overwhelming how his legs felt when he took the 15 mg vs the 10 mg. He also acknowledged that it is possible that the Cogentin is assisting in how he is feeling in relation to the Abilify. He reports that is really all that he felt was challenging him and the reason why he came in, overall. We discussed the risks, benefits, and alternatives of considering discharge tomorrow, if he continues to feel this way without incident or side effects, and he understood and agreed to proceed as is documented in this note. Mental Status Exam MSE Comments: This is an overweight versus obese, white male, with adequate dress, grooming, and eye contact. No abnormal movements, except for mild psychomotor retardation. Cooperative with exam in no acute distress. Speech was decreased rate and volume. Mood described as better; affect congruent. Thought process, organized. Thought content: patient denied any suicidal or homicidal ideation, there were no delusions reported or noted, he denied any auditory or visual hallucinations. Attention, concentration, and memory appeared intact but were not formally tested. He is alert and oriented times three. Insight and judgment are fair. Vitals/I&O/Wt Last Vital Signs Temp 97.8 F 03/21/20 14:00 Pulse 74 03/21/20 14:00 Resp 20 H 03/21/20 14:00 BP 115/74 03/21/20 14:00 Pulse Ox 98 03/21/20 14:00 Weight last 48 hrs Weight 100.516 kg Weight 127.006 kg Home Medications aripiprazole 15 mg PO DAILY 30 Days #30 tab 03/10/20 [Rx Confirmed 03/19/20] Active Medications Acetaminophen (Tylenol) 650 mg PO Q4H PRN PRN Reason: MILD PAIN Last Admin: 03/21/20 08:12 Dose: 650 mg Documented by: Aripiprazole (Abilify) 10 mg PO DAILY [facility] Last Admin: 03/21/20 08:12 Dose: 10 mg Documented by: Benztropine Mesylate (Cogentin) 1 mg PO BID PRN PRN Reason: Mild Extrapyramidal symptoms Benztropine Mesylate (Cogentin) 1 mg PO BID [facility] Last Admin: 03/21/20 08:12 Dose: 1 mg Documented by: Camphor/Menthol/Phenol (Blistex) 1 applic TOPICAL Q1H PRN PRN Reason: DRYNESS Diphenhydramine HCl (Benadryl) 50 mg IM ONCE PRN PRN Reason: Severe Extrapyramidal Symptoms Diphenhydramine HCl (Benadryl) 50 mg IM Q4H PRN PRN Reason: Severe Aggression Haloperidol (Haldol) 5 mg PO Q4H PRN PRN Reason: AGITATION Haloperidol Lactate (Haldol Inj) 5 mg IM Q4H PRN PRN Reason: Severe Aggression Hydroxyzine Pamoate (Vistaril) 50 mg PO Q6H PRN PRN Reason: ANXIETY Loperamide HCl (Imodium Capsule) 2 mg PO Q6H PRN PRN Reason: DIARRHEA Lorazepam (Ativan) 2 mg IM Q4H PRN PRN Reason: Severe Aggression Nicotine (Nicoderm 21 Mg Patch) 1 patch TRANSDERMA DAILY PRN PRN Reason: NICOTINE WITHDRAWAL Nicotine Polacrilex (Nicorette) 2 mg BUCCAL Q2H PRN PRN Reason: NICOTINE WITHDRAWAL Olanzapine (Zyprexa Zydis) 5 mg PO Q4H PRN PRN Reason: Agitation/Psychosis Last Admin: 03/20/20 21:20 Dose: 5 mg Documented by: Ondansetron HCl (Zofran) 4 mg PO Q6H PRN PRN Reason: NAUSEA AND VOMITING Trazodone HCl (Desyrel) 50 mg PO BEDTIME PRN PRN Reason: SLEEP Last Admin: 03/20/20 21:20 Dose: 50 mg Documented by: Data NPU : 03/19/20 16:05 03/19/20 16:05 A&P Additional A&P Information This is a 29 year old, white male, with a history of psychosis, possibly secondary to substances, but he has a diagnosis of schizophrenia and reports that there have been times that he has had psychosis with distant drug use, and he has a history of PTSD with recent reports of hypervigilance and sleep disruption and nightmares. It is unclear if he has kojo flashbacks, who presents off medication secondary to higher discharge dose causing restless legs. Continue current medication. Encourage individual, group, and milieu therapy. Continue q 15-minute checks for safety. Encourage discharge to sober living treatment at the highest level of care to which he is willing to commit. Involuntary Hold Information 96 Hour Hold: 96 Hour Involuntary Admission: No Attestations NPU Medical Necessity Statement*: Inpatient hospitalization is medically necessary and the clinically appropriate intervention at this time. We will monitor medication and titrate to affect. Likely length of stay 1-3 days. Tentative plan for discharge tomorrow. Coding Level of Care Code Acute Rn Practitioner for Pete Ruiz
[2020-03-21] MEDS: trazodone 50 mg Tablet PO (20:38)
[2020-03-21] MEDS: hyDROXYzine 25 mg Capsule 50 MG PO (20:38)
--- NOTE | 2020-03-21 21:45 | PC.NURSE ---
Pt given visteril for anxiety, trazodone for sleep and tylenol for rt toe pain at 2037.
[2020-03-21 22:00] VITALS: BP 125/81; PULSE 77; RESP 16; TEMP 37.2; O2SAT 98
[2020-03-22 05:51] VITALS: BP 112/77; PULSE 71; RESP 18; TEMP 36.7; O2SAT 100
[2020-03-22] MEDS: benztropine 1 mg Tablet PO (08:05)
[2020-03-22] MEDS: ARIPiprazole 10 mg Tablet PO (08:05)
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
[2020-03-22 11:43] VITALS: BP 112/77; PULSE 71; RESP 18; TEMP 36.7; O2SAT 100
--- NOTE | 2020-03-22 12:56 | PC.SOCIAL ---
patient did do his [facility] intake immediately after discharge. He has his [facility] medication delivered and he had an [employer] ride.
== END 2020-03-22 12:09 | disposition home or self-care (01) | DRG 881 ==
LOC: ER 16:50 → NP 17:07
PROVIDERS: Admitting Provider Psychiatry & Neurology Psychiatry; Emergency Provider Emergency Medicine; Visit Provider Psychiatry & Neurology Psychiatry
DX: F32.9 Major depressive disorder, single episode, unspecified (principal); R45.851 Suicidal ideations; G25.81 Restless legs syndrome; F17.210 Nicotine dependence, cigarettes, uncomplicated; Z81.8 Family history of other mental and behavioral disorders
CPT/HCPCS: 12345; 36415; 80053; 80306; 80307; 85025; 96372; 99284; A9270; J3486

== ENCOUNTER 2020-03-31 11:26 | Inpatient (IN) | payer SELFPAY ==
[2020-03-31 11:26] VITALS: RESP 17; O2SAT 98
--- NOTE | 2020-03-31 11:32 | W.ED.PSYCH ---
HPI - Psych General: Chief Complaint: Psychiatric Symptoms Stated Complaint: SI Time Seen by Provider: 03/31/20 11:28 Source: patient Mode of arrival: ambulatory Limitations: no limitations History of Present Illness: HPI Narrative: 29-year-old male who has a history of depression states he has had suicidal thoughts over the last 2 to 3 days. He states he was recently placed on Abilify and states it does not work. He has no specific plan but states he needs admitted for help. Denies any worsening or improving factors. MD complaint: suicidal ideation Onset (ago): day(s) Duration: constant Relieving factors: none Exacerbating factors: none Associated symptoms: Reports depression and suicidal ideation Review of Systems Const: Denies: fever, chills, body aches or change in appetite Eyes: Denies: blurry vision or eye discomfort ENMT: Denies: throat pain or dental pain Card: Denies: chest pain Resp: Denies: shortness of breath GI: Denies: abdominal pain, nausea, vomiting or diarrhea : Denies: painful urination Musc: Denies: neck pain or back pain Skin/Breast: Denies: rash Neuro: Denies: headache Psych: Reports: depression and suicidal ideation Nolan/Lymph: Denies: easy bruising All/Imm: Denies: hives PFSH ED PFSH: Social History Smoking and tobacco status: current every day smoker Current gender identity: Male Physical Exam Const: COMMON NORMALS: no apparent distress, oriented x3 and healthy appearing HENMT: COMMON NORMALS: normocephalic and head/scalp atraumatic HEAD & SCALP: normocephalic and atraumatic Eye: COMMON NORMALS: PERRL and EOMs intact bilaterally PUPIL: Yes PERRL Neck/C-Spine: COMMON NORMALS: full ROM and supple Chest: COMMONS NORMALS: inspection of chest normal and palpation of chest normal Resp: COMMON NORMALS: normal respiratory effort, no retractions, no use of accessory muscles and clear to auscultation bilaterally AUSCULTATION: clear to auscultation bilaterally Cardio: COMMON NORMALS: regular rate, regular rhythm and no murmurs RATE: regular rate RHYTHM: regular rhythm GI: COMMON NORMALS: normal to inspection, nondistended, normoactive bowel sounds, soft to palpation, non-tender and no masses PALPATION: Yes soft Extremity: COMMON NORMALS: normal to inspection and full ROM Neuro: COMMON NORMALS: oriented x3, moves all extremities and no focal motor deficits Psych: COMMON NORMALS: mental status grossly normal, thought process normal and cooperative THOUGHT PROCESS: normal thought process THOUGHT CONTENT: Yes suicidality Skin: COMMON NORMALS: no rashes or lesions noted and no wounds GENERAL SKIN EXAM: no rashes or lesions noted MDM - Psych MDM Narrative: Medical decision making narrative: Patient presents here with suicidal ideations and he states his Abilify is not working. I spoke to Dr. Tubbs patient is medically cleared and will admit to the psychiatric unit. Lab Data: Labs: Lab Results 03/31/20 03/31/20 03/31/20 Range/Units 11:44 12:03 12:03 WBC 8.4 (4.0-10.0) 10^3/ uL RBC 5.42 H (4.1-5.3) 10^6/u L Hgb 16.9 H (11.7-16.6) g/dL Hct 50.8 (42.0-52.0) % MCV 93.7 (80-94) fL MCH 31.2 (28.0-34.0) pg MCHC 33.3 (30.0-36.0) g/dL RDW 12.2 (12.1-15.1) % Plt Count 228 (130-400) 10^3/c mm MPV 9.7 (7.4-10.4) fL Neut % (Auto) 63.6 % Lymph % (Auto) 24.3 % [place] % (Auto) 10.0 % Eos % (Auto) 1.1 % Baso % (Auto) 0.6 % Neut # (Auto) 5.3 (1.8-7.7) 10^3/u L Lymph # (Auto) 2.0 (0.8-4.8) 10^3/u L [place] # (Auto) 0.8 (0.2-0.9) 10^3/u L Eos # (Auto) 0.1 (0.0-0.8) 10^3/u L Baso # (Auto) 0.1 (0.0-0.1) 10^3/u L Nucleated RBC % (a uto) 0 % Nucleated RBCs # 0.0 /100WBC Sodium 141 (136-145) mmol/L Potassium 3.6 (3.5-5.1) mmol/L Chloride 100 (98-107) mmol/L Carbon Dioxide 28 (22-29) mmol/L Anion Gap 16.6 (5-19) BUN 4 L (6-20) mg/dL Creatinine 0.9 (0.7-1.2) mg/dL GFR Calculation 100.5 (90-130) mL/min Glucose 91 (65-115) mg/dL Calculated Osmolal ity 287 (285-295) mOsm/k g Calcium 10.1 (8.5-10.5) mg/dL Total Bilirubin 0.9 (0.15-1.2) mg/dL AST 16 (0-40) U/L ALT 13 (0-41) U/L Alkaline Phosphata se 80 (40-130) IU/L Total Protein 7.9 (6.6-8.7) g/dL Albumin 4.8 (3.5-5.2) g/dL Globulin 3.1 (1.3-4.6) g/dL Salicylates < 0.3 L (3-10) mg/dL Urine Opiates Scre en Negative (Negative) ng/mL Acetaminophen < 5.0 L (10-30) ug/mL Ur Barbiturates Sc reen Negative (Negative) ng/mL Ur Phencyclidine S crn Negative (Negative) ng/mL Ur Amphetamines Sc reen Negative (Negative) ng/mL U Benzodiazepines Scrn Negative (Negative) ng/mL Urine Cocaine Scre en Negative (Negative) ng/mL U Marijuana (THC) Screen Positive H (Negative) ng/mL Ethyl Alcohol < 10 (0-10) mg/dL Discharge Plan Discharge Patient Disposition: Admitted As Inpatient Admit Provider: Kleber Tubbs Clinical Impression: Suicidal ideation Condition: Stable Coding Level of Care Code ED Ict Account Manager for Pete Fwd Exam Comprehensive
[2020-03-31 11:34] VITALS: BP 125/86; PULSE 99; RESP 18; TEMP 36.8; O2SAT 98; BMI 33.6
[2020-03-31 12:07] VITALS: RESP 17
[2020-03-31 12:08] LABS: Basophils # 0.1 10^3/uL (0.0-0.1); Basophils % 0.6 %; Eosinophils # 0.1 10^3/uL (0.0-0.8); Eosinophils % 1.1 %; Hematocrit 50.8 % (42.0-52.0); Hemoglobin 16.9 g/dL (11.7-16.6); Lymphocytes % 24.3 %; Mean Corpuscular HGB Conc 33.3 g/dL (30.0-36.0); Mean Corpuscular Hemoglobin 31.2 pg (28.0-34.0); Mean Corpuscular Volume 93.7 fL (80-94); Mean Platelet Volume 9.7 fL (7.4-10.4); Monocytes # 0.8 10^3/uL (0.2-0.9); Neutrophils # 5.3 10^3/uL (1.8-7.7); Neutrophils % 63.6 %; Nucleated Red Blood Cells % 0 %; Platelet Count 228 10^3/cmm (130-400); Red Blood Count 5.42 10^6/uL (4.1-5.3); Red Cell Distribution Width 12.2 % (12.1-15.1); White Blood Count 8.4 10^3/uL (4.0-10.0)
[2020-03-31 12:27] LABS: Alanine Aminotransferase 13 U/L (0-41); Albumin Level 4.8 g/dL (3.5-5.2); Alkaline Phosphatase 80 IU/L (40-130); Anion Gap 16.6 (5-19); Aspartate Amino Transferase 16 U/L (0-40); Blood Urea Nitrogen 4 mg/dL (6-20); Calcium 10.1 mg/dL (8.5-10.5); Carbon Dioxide 28 mmol/L (22-29); Chloride 100 mmol/L (98-107); Globulin 3.1 g/dL (1.3-4.6); Glomerular Filtration Rate 100.5 mL/min (90-130); Glucose 91 mg/dL (65-115); Osmolality Calculated 287 mOsm/kg (285-295); Potassium 3.6 mmol/L (3.5-5.1); Sodium 141 mmol/L (136-145); Total Bilirubin 0.9 mg/dL (0.15-1.2); Total Protein 7.9 g/dL (6.6-8.7)
[2020-03-31 12:28] LABS: Acetaminophen < 5.0 ug/mL (10-30); Alcohol Level < 10 mg/dL (0-10); Salicylate < 0.3 mg/dL (3-10)
[2020-03-31] MEDS: LORazepam 2 mg/mL INJ 1 mL IM (12:35)
[2020-03-31 12:53] LABS: Amphetamines Screen Urine Negative (Negative); Barbiturates Screen Urine Negative (Negative); Benzodiazepines Screen Urine Negative (Negative); Cocaine Screen Urine Negative (Negative); Opiate Screen Urine Negative (Negative); PCP Screen Urine Negative (Negative); THC Screen Urine Positive (Negative)
[2020-03-31 13:15] VITALS: BP 114/78; PULSE 92; RESP 20; O2SAT 99
[2020-03-31 13:30] VITALS: BP 120/75; PULSE 70; RESP 18; O2SAT 98
[2020-03-31] MEDS: acetaminophen 325 mg Tablet 650 MG PO ×2 (14:12→19:51)
[2020-03-31 21:30] VITALS: BP 128/85; PULSE 80; RESP 18; TEMP 37; O2SAT 98
[2020-03-31] MEDS: trazodone 50 mg Tablet PO (21:32)
--- NOTE | 2020-03-31 21:33 | PC.NURSE ---
PRN TRAZODONE PT REQUESTING SLEEP AID. ADMINISTERED TRAZODONE 50 MG PO. WILL MONITOR FOR MEDICATION EFFECTIVENESS.
[2020-04-01 06:00] VITALS: BP 93/53; PULSE 74; RESP 16; TEMP 36.7; O2SAT 96
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
[2020-04-01 14:00] VITALS: BP 107/67; PULSE 82; RESP 20; TEMP 37; O2SAT 98
[2020-04-01] MEDS: paliperidone ER 6 mg Tablet PO (15:53)
[2020-04-01 19:35] VITALS: BP 108/73; PULSE 70; RESP 17; TEMP 36.8; O2SAT 98
[2020-04-01] MEDS: trazodone 50 mg Tablet PO (20:23)
--- NOTE | 2020-04-01 20:25 | PC.NURSE ---
PRN TRAZODONE PT REQUESTING SLEEP AID. ADMINISTERED TRAZODONE 50 MG PO. WILL MONITOR FOR MEDICATION EFFECTIVENESS
[2020-04-02 06:00] VITALS: BP 95/61; PULSE 69; RESP 16; TEMP 36.5; O2SAT 97
[2020-04-02] MEDS: paliperidone ER 6 mg Tablet PO (07:51)
[2020-04-02] MEDS: acetaminophen 325 mg Tablet 650 MG PO ×2 (07:52→17:31)
[2020-04-02 12:59] VITALS: BP 103/64; PULSE 97; RESP 18; TEMP 36.8; O2SAT 100
--- NOTE | 2020-04-02 13:49 | PM.NPN ---
Subjective NPU Subjective: Interval history: Ruben presents today for his third hospitalization in a very short period of time. He presents again this time saying that even at the decreased dose with the Cogentin, that the Abilify was causing significant restless legs and he could just not take it. He is not interested in taking the Abilify anymore just because he is worried that even our adjustment of the medication for EPS, that he might be stuck with that feeling, and he would rather try something else. We had a long discussion about the options and agreed that a medication like Invega, that is like Abilify, would give him a chance for a long acting injectable would be the best next answer and he understood and agreed to proceed with that as our plan. He has not really commented at this point on the injection, but we agreed on having the possibility for that makes the most sense. Today he reported that he denied any problem from the oral medication thus far and feels like he is doing pretty well. Mental Status Exam MSE Comments: This is an obese, white male, with adequate dress, grooming, and eye contact. No abnormal movements except for psychomotor retardation. Cooperative with exam in no acute distress. Speech was decreased rate and volume with limited prosody. Mood described as a little better; affect congruent. Thought process, organized. Thought content: patient denied any suicidal or homicidal ideation, there were no delusions reported or noted, patient denied any auditory or visual hallucinations. Attention, concentration, and memory appeared intact but were not formally tested. Alert and oriented times three. Insight and judgment are limited but improving. Vitals/I&O/Wt Last Vital Signs Temp 98.2 F 04/02/20 12:59 Pulse 97 04/02/20 12:59 Resp 18 04/02/20 12:59 BP 103/64 04/02/20 12:59 Pulse Ox 100 04/02/20 12:59 Data NPU : 03/31/20 12:03 03/31/20 12:03 A&P Additional A&P Information (1) Suicidal ideation: This is a 29 year old, white male, with a history of psychosis, possibly secondary to substances, but he has a diagnosis of schizophrenia and reports that there have been times that he has had psychosis with distant drug use, and he has a history of PTSD with recent reports of hypervigilance and sleep disruption and nightmares. It is unclear if he has kojo flashbacks, who presents off medication secondary to higher discharge dose causing restless legs. Continue current medication. Encourage individual, group, and milieu therapy. Continue q 15-minute checks for safety. Encourage discharge to sober living treatment at the highest level of care to which he is willing to commit. (2) Posttraumatic stress disorder: (3) Cannabis abuse: (4) Schizophrenia: (5) Depression: Involuntary Hold Information 96 Hour Hold: 96 Hour Involuntary Admission: No Attestations NPU Medical Necessity Statement*: Inpatient hospitalization is medically necessary and the clinically appropriate intervention at this time. We will monitor medication and titrate to affect. Likely length of stay 2-4 days. Coding Level of Care Code Acute An/Sqq 89(V)15 [employer] System Journeyman for Pete Ruiz
[2020-04-02 20:04] VITALS: BP 107/69; PULSE 79; RESP 19; TEMP 36.6; O2SAT 98
[2020-04-03] MEDS: trazodone 50 mg Tablet PO ×2 (00:05→20:45)
[2020-04-03 06:00] VITALS: BP 99/58; PULSE 82; RESP 19; TEMP 36.5; O2SAT 97
[2020-04-03] MEDS: paliperidone ER 6 mg Tablet PO (09:06)
[2020-04-03 14:00] VITALS: BP 101/66; PULSE 91; RESP 18; TEMP 36.7
--- NOTE | 2020-04-03 16:34 | P.PN_ITS ---
Subjective NPU Subjective: Interval history: Ruben presents today reporting that he feels like the change in Invega has been an improvement. He denies any issues with restless leg. He endorses that he feels better overall. We discussed a plan to meet with the treatment team in the morning and identify what resources are necessary for safe return and avoidance of a rebound back to the hospital. He denies that there are any issues with his living arrangement at this time. Mental Status Exam MSE Comments: This is an overweight, versus obese, white male, with adequate dress, grooming, and eye contact. No abnormal movements except for psychomotor retardation. Cooperative with exam in no acute distress. Speech was decreased rate and volume. Mood described as pretty good; affect congruent. Thought process, organized. Thought content: patient denied any suicidal or homicidal ideation, there were no delusions reported or noted, patient denied any auditory or visual hallucinations. Attention, concentration, and memory appeared intact but were not formally tested. Alert and oriented times three. Insight and judgment are improving. Vitals/I&O/Wt Last Vital Signs Temp 98.3 F 04/03/20 20:41 Pulse 67 04/03/20 20:41 Resp 18 04/03/20 20:41 BP 112/73 04/03/20 20:41 Pulse Ox 98 04/03/20 20:41 Weight last 48 hrs Weight 101.264 kg Data NPU : 03/31/20 12:03 03/31/20 12:03 A&P Additional A&P Information (1) Suicidal ideation: This is a 29 year old, white male, with a history of psychosis, possibly secondary to substances, but he has a diagnosis of schizophrenia and reports that there have been times that he has had psychosis with distant drug use, and he has a history of PTSD with recent reports of hypervigilance and sleep disruption and nightmares. It is unclear if he has kojo flashbacks, who presents off medication secondary to higher discharge dose causing restless le gs. Continue current medication. Encourage individual, group, and milieu therapy. Continue q 15-minute checks for safety. Encourage discharge to sober living treatment at the highest level of care to which he is willing to commit. (2) Posttraumatic stress disorder: (3) Cannabis abuse: (4) Schizophrenia: (5) Depression: Involuntary Hold Information 96 Hour Hold: 96 Hour Involuntary Admission: No Attestations NPU Medical Necessity Statement*: Inpatient hospitalization is medically necessary and the clinically appropriate intervention at this time. We will monitor medication and titrate to affect. Likely length of stay 1-3 days. Coding Level of Care Code Acute Agency Sales Representative for Pete Ruiz
[2020-04-03] MEDS: acetaminophen 325 mg Tablet 650 MG PO (16:46)
[2020-04-03 20:41] VITALS: BP 112/73; PULSE 67; RESP 18; TEMP 36.8; O2SAT 98
[2020-04-03] MEDS: hyDROXYzine 25 mg Capsule 50 MG PO (20:45)
[2020-04-04 06:00] VITALS: BP 102/63; PULSE 70; RESP 16; TEMP 36.8; O2SAT 98
[2020-04-04] MEDS: paliperidone ER 6 mg Tablet PO (10:00)
[2020-04-04] MEDS: benztropine 1 mg Tablet PO (13:59)
[2020-04-04 14:00] VITALS: BP 140/57; PULSE 90; RESP 20; TEMP 37.1; O2SAT 99
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
[2020-04-04 14:26] VITALS: BP 102/63; PULSE 70; RESP 16; TEMP 36.8; O2SAT 98
== END 2020-04-04 17:44 | disposition home or self-care (01) | DRG 885 ==
LOC: ER 12:39 → NP 12:59
PROVIDERS: Admitting Provider Psychiatry & Neurology Psychiatry; Emergency Provider Emergency Medicine; Visit Provider Psychiatry & Neurology Psychiatry
DX: F33.1 Major depressive disorder, recurrent, moderate (principal); R45.851 Suicidal ideations; F17.210 Nicotine dependence, cigarettes, uncomplicated; G25.81 Restless legs syndrome; F12.10 Cannabis abuse, uncomplicated; F20.9 Schizophrenia, unspecified; F43.10 Post-traumatic stress disorder, unspecified; Z81.1 Family history of alcohol abuse and dependence; Z81.8 Family history of other mental and behavioral disorders
CPT/HCPCS: 12345; 36415; 80053; 80306; 80307; 85025; 96372; 99284; J2060

== ENCOUNTER 2020-04-24 16:54 | Emergency (ER) | payer SELFPAY ==
[2020-04-24 17:07] VITALS: BP 112/76; PULSE 116; RESP 18; TEMP 36.4; O2SAT 97; BMI 33.0
--- NOTE | 2020-04-24 17:31 | XR_ITS ---
WS: [id number] PORTABLE CHEST HISTORY: syncope, dyspnea COMPARISON: 04/25/2018 Lungs are clear and well expanded. No pleural effusion or pneumothorax. Cardiac size: Normal. Mediastinum/Aorta: Normal mediastinum. No osseous abnormality seen. XR/XR chest 1V portable [id number] IMPRESSION: Unremarkable portable chest.
--- NOTE | 2020-04-24 17:54 | PC.NURSE ---
laying HR 84 BP 113/65 SITTING HR 113 BP 112/68 STANDING HR 140 BP 102/63
--- NOTE | 2020-04-24 18:09 | PC.NURSE ---
FLUIDS GIVEN FOR PATIENT TO DRINK
--- NOTE | 2020-04-24 18:45 | PC.NURSE ---
FOOD AND DRINK GIVEN
[2020-04-24 19:13] VITALS: BP 109/73; PULSE 82; RESP 18; O2SAT 100
--- NOTE | 2020-04-24 19:15 | PC.NURSE ---
Meal provided 100% consumed Pt. tolerated well. Pt. consumed two large cups of water. Reports feeling much better.
[2020-04-24] MEDS: doxycycline 100 mg Tablet PO (19:53)
--- NOTE | 2020-04-24 20:30 | ED_ITS ---
HPI - General Adult General: Chief complaint: General Medical Stated complaint: near syncope, sob Time Seen by Provider: 04/24/20 17:16 History of Present Illness: HPI narrative: Patient is a 29-year-old male who presents today with complaints of shortness of breath and nearly passing out. He is concerned that he has COVID. He has not been exposed to anyone with COVID and has not been traveling anywhere. He said that today he was standing up eating a honey bun at the gas station when he almost passed out. He really cannot give me any details of how he feels or describe these episodes to me. He says he is been having them daily or multiple times a day for a month. He also has had a cough but does not think he is had a fever. He has a history of psychiatric disease. He does not currently have a primary care physician he tells me because Dr. Perez retired. Onset (ago): month(s) (1) Associated symptoms: Reports dyspnea; Deny chest pain, headache(s), malaise, nausea, rash or vomiting Review of Systems General: Reports: 10 or more systems reviewed and unremarkable except in HPI and below Const: Denies: fever(s), chills, fatigue or malaise Eyes: Denies: change in vision ENMT: Denies: odynophagia Card: Reports: pre-syncope; Denies: chest pain or swelling of feet/ankles Resp: Reports: dyspnea and productive cough; Denies: non-productive cough GI: Denies: abdominal pain, nausea or vomiting : Denies: flank pain Musc: Denies: neck pain or back pain Skin/Breast: Denies: rash Neuro: Denies: headache(s), numbness in extremities or weakness in extremities Nolan/Lymph: Denies: easy bruising or easy bleeding PFSH ED PFSH: Social History Smoking and tobacco status: current every day smoker Current gender identity: Male Physical Exam Const: COMMON NORMALS: no acute distress, patient oriented x3, no limitations and alert GENERAL APPEARANCE: cooperative and comfortable HENMT: HEAD & SCALP: normal to inspection FACE & SINUS: normal facial exam Eye: GENERAL EYE: appearance normal, both eyes and all related structures Neck/C-Spine: COMMON NORMALS: supple, no meningeal signs and no JVD Chest: COMMONS NORMALS: normal inspection of the chest Resp: COMMON NORMALS: normal respiratory effort, No use of accessory muscles and clear to auscultation bilaterally AUSCULTATION: clear to auscultation bilaterally Cardio: COMMON NORMALS: no JVD, regular rate, regular rhythm and No murmurs present (Cardio) RATE: regular rate RHYTHM: regular rhythm GI: COMMON NORMALS: Normal to inspection, nondistended, normoactive bowel sounds present, Soft to palpation and non-tender INSPECTION: Yes normal to inspection AUSCULTATION: Yes normoactive bowel sounds PALPATION: Yes Soft to palpation Back/Pelvis: COMMON NORMALS: thoracic and lumbar spine normal to inspection Extremity: COMMON NORMALS: normal to inspection Neuro: COMMON NORMALS: patient oriented x3, moves all extremities, no focal motor deficits and no sensory deficits noted SENSORIUM/ORIENTATION: Yes alert MENINGEAL SIGNS: Yes no meningeal signs Psych: COMMON NORMALS: mental status grossly normal, cooperative and normal affect Skin: COMMON NORMALS: no rashes or lesions noted and turgor normal GENERAL SKIN EXAM: no rashes or lesions noted and turgor normal Course ED course: Patient was orthostatic on his initial evaluation. He was given p lenty of food and drink and felt much better afterward. I do think his chest x- ray showed a left lower lobe infiltrate and I am putting him on doxycycline for possible pneumonia. Of also put in a consult for case management to help him find a primary care physician. Vital Signs: Vital signs: Vital Signs Temperature 97.5 F L 04/24/20 17:07 Pulse Rate 82 04/24/20 19:13 Respiratory Rate 18 04/24/20 19:13 Blood Pressure 109/73 04/24/20 19:13 Pulse Oximetry 100 04/24/20 19:13 Discharge Plan Discharge Patient Disposition: Home, Self-Care Clinical Impression: Acute dehydration Pneumonia Qualifiers: Pneumonia type: due to unspecified organism Laterality: left Lung location: lower lobe of lung Qualified Code(s): J18.9 - Pneumonia, unspecified organism Condition: Stable Prescriptions: New doxycycline hyclate 100 mg tablet 100 mg PO BID 7 Days Qty: 14 RF: 0 No Action benztropine 2 mg tablet 2 mg PO BID 30 Days Qty: 60 RF: 1 trazodone 50 mg Tablet 50 mg PO BEDTIME PRN (Reason: Insomnia) 30 Days Qty: 30 RF: 1 paliperidone 6 mg Tablet Extended Release 24hr 6 mg PO DAILY 30 Days Qty: 30 RF: 1 Discharge Orders: Discharge Order (Routine); Ordered 04/24/20 Ordered By: Lianne Guzman Referrals: Jimbo Perez, [Primary Care Provider] - Discharge Diet: Usual diet Discharge Activity: Resume usual activity Patient Instructions: Pneumonia (ED) Activity Restrictions/Additional Instructions: Make sure to drink plenty of fluids and take the antibiotic as prescribed. Follow up with a new primary care doctor. The can help you find one if needed. Return to the ED if worse in any way. Coding Level of Care Code ED Cigar Packer And Grader for Pete Ruiz
[2020-04-24 20:52] VITALS: BP 131/87; PULSE 73; RESP 17; O2SAT 97
--- NOTE | 2020-04-27 10:09 | DCPLANNER ---
underwriting operations manager had message to speak with patient about getting established with a primary care physician. underwriting operations manager is unable to speak with patient due to no phone number. underwriting operations manager called patients brother phone number, unable to leave a voicemail.
== END 2020-04-24 20:53 | disposition home or self-care (01) ==
PROVIDERS: Emergency Provider Emergency Medicine; PCP Family Medicine
DX: J18.9 Pneumonia, unspecified organism (principal); E86.0 Dehydration; F17.210 Nicotine dependence, cigarettes, uncomplicated
CPT/HCPCS: 12345; 71045; 99281; 99283

== ENCOUNTER 2020-11-11 22:49 | Inpatient (IN) | payer SELFPAY ==
[2020-11-11 22:52] VITALS: BP 141/99; PULSE 124; RESP 24; TEMP 36.4; O2SAT 98; BMI 26.4
--- NOTE | 2020-11-11 23:02 | ECG_ITS ---
[facility] Test Date: 2020-11-12 Pat Name: Ruben Horan Department: Room: 151 Gender: Male Business Resiliency Manager: : 1990 Requested By: Olya Guzman Order Number: [id number] Lana MD: ERVIN SCOTT Measurements Intervals [place] Rate: 81 P: 58 AK: 165 QRS: 79 QRSD: 118 T: 34 QT: 280 QTc: 326 Interpretive Statements SINUS RHYTHM MODERATE INTRAVENTRICULAR CONDUCTION DELAY [110+ ms QRS DURATION] NONSPECIFIC T-WAVE ABNORMALITY Compared to ECG 07/28/2019 21:25:07 T-wave abnormality now present Electronically Signed On 11-12-2020 18:55:05 TEACHING SUPERVISOR by ERVIN SCOTT [id number]
[2020-11-11] MEDS: haloperidol inj 5 mg/mL INJ 1 mL IM (23:27)
[2020-11-11 23:30] LABS: Basophils % 0.3 %; Eosinophils # 0.1 10^3/uL (0.0-0.8); Hematocrit 47.8 % (42.0-52.0); Hemoglobin 16.6 g/dL (11.7-16.6); Lymphocytes # 2.7 10^3/uL (0.8-4.8); Lymphocytes % 22.4 %; Mean Corpuscular HGB Conc 34.7 g/dL (30.0-36.0); Mean Corpuscular Hemoglobin 31.7 pg (28.0-34.0); Mean Corpuscular Volume 91.2 fL (80-94); Mean Platelet Volume 9.9 fL (7.4-10.4); Monocytes # 1.3 10^3/uL (0.2-0.9); Monocytes % 10.9 %; Neutrophils # 7.89 10^3/uL (1.8-7.7); Neutrophils % 65.1 %; Nucleated Red Blood Cells % 0 %; Platelet Count 280 10^3/cmm (130-400); Red Blood Count 5.24 10^6/uL (4.1-5.3); White Blood Count 12.1 10^3/uL (4.0-10.0)
[2020-11-11 23:41] LABS: Amphetamines Screen Urine Positive (Negative); Barbiturates Screen Urine Negative (Negative); Benzodiazepines Screen Urine Negative (Negative); Cocaine Screen Urine Negative (Negative); Opiate Screen Urine Negative (Negative); PCP Screen Urine Negative (Negative); THC Screen Urine Positive (Negative)
[2020-11-12 00:05] LABS: Alanine Aminotransferase 10 U/L (0-41); Albumin Level 4.6 g/dL (3.5-5.2); Alkaline Phosphatase 87 IU/L (40-130); Anion Gap 17.6 (5-19); Aspartate Amino Transferase 13 U/L (0-40); Blood Urea Nitrogen 12 mg/dL (6-20); Calcium 9.9 mg/dL (8.5-10.5); Carbon Dioxide 23 mmol/L (22-29); Chloride 101 mmol/L (98-107); Creatinine Clr Calc Pharmacy 144.2781; Globulin 3.2 g/dL (1.3-4.6); Glomerular Filtration Rate 99.8 mL/min (90-130); Glucose 133 mg/dL (65-115); Osmolality Calculated 288 mOsm/kg (285-295); Potassium 3.6 mmol/L (3.5-5.1); Salicylate 0.5 mg/dL (3-10); Sodium 138 mmol/L (136-145); Thyroid Stimulating Hormone 1.72 uIU/mL (0.27-4.20); Total Bilirubin 1.1 mg/dL (0.15-1.2); Total Protein 7.8 g/dL (6.6-8.7)
[2020-11-12 00:06] LABS: Acetaminophen < 5.0 ug/mL (10-30); Alcohol Level < 10 mg/dL (0-10)
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
[2020-11-12] MEDS: LORazepam 1 mg Tablet PO (00:39)
[2020-11-12 01:57] VITALS: BP 116/59; PULSE 96; RESP 18; O2SAT 99
--- NOTE | 2020-11-12 03:04 | PC.NURSE ---
Skin assessment revealed no wounds, injuries, scars.
[2020-11-12 03:55] VITALS: BP 129/85; PULSE 102; RESP 18; TEMP 36.9; O2SAT 96
[2020-11-12 05:38] VITALS: BP 129/85; PULSE 102; RESP 18; TEMP 36.9; O2SAT 96
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
[2020-11-12 13:42] VITALS: BP 119/61; PULSE 89; RESP 18; TEMP 36.9
--- NOTE | 2020-11-12 16:11 | PC.NURSE ---
INFLUENZA VACCINE 0.5 ML GIVEN IM IN RIGHT DELTOID. PT EDUCATED ON MED GIVEN & PT VERBALIZED UNDERSTANDING. WILL CONT TO MONITOR INJECTION SITE FOR ANY REDNESS, SWELLING, OR IRRITATION. LOT [id number] EXP 05/31/21
[2020-11-12 19:58] VITALS: BP 113/72; PULSE 99; RESP 17; TEMP 36.9; O2SAT 96
[2020-11-12] MEDS: hyDROXYzine 25 mg Capsule 50 MG PO (20:14)
[2020-11-12] MEDS: trazodone 50 mg Tablet PO (20:14)
[2020-11-13 06:00] VITALS: BP 115/78; PULSE 92; RESP 15; TEMP 36.8; O2SAT 96
[2020-11-13] MEDS: paliperidone ER 6 mg Tablet PO (08:05)
[2020-11-13 14:00] VITALS: BP 105/64; PULSE 96; RESP 20; TEMP 36.9; O2SAT 96
--- NOTE | 2020-11-13 14:59 | PM.NPN ---
Subjective NPU Subjective: Interval history: Ruben presents today reporting that he is feeling a little better. He still experiencing significant psychosis and is being fairly isolative but he does report that he is getting some sleep and that he is eating okay and starting to be noticed outside of the room a little bit more. He denied any issues with the resumption of the Invega and we discussed considerations for the injection with concerns related to access to affordable care if we went in that direction. Mental Status Exam MSE Comments: This is an overweight versus obese, white male in hospital scrubs with adequate grooming, and eye contact. No abnormal movements, except for mild psychomotor retardation. Cooperative with exam in no acute distress. Speech was decreased rate and volume. Mood described as a little better; affect congruent. Thought process, organized. Thought content: patient denied any suicidal or homicidal ideation, there were no delusions reported but some paranoia was noted, he denied any auditory or visual hallucinations. Attention, concentration, and memory appeared limited but were not formally tested. He is alert and oriented times three. Insight and judgment are limited, impulse control is impaired. Vitals/I&O/Wt Last Vital Signs Temp 98.6 F 11/13/20 20:10 Pulse 85 11/13/20 20:10 Resp 17 11/13/20 20:10 BP 120/72 11/13/20 20:10 Pulse Ox 97 11/13/20 20:10 Weight last 48 hrs Weight 90.718 kg Data NPU : 11/11/20 23:15 11/11/20 23:15 A&P Additional A&P Information (1) Suicidal ideation: (2) Chronic schizophrenia: (3) Depression: (4) Posttraumatic stress disorder: (5) Cannabis abuse: (6) Methamphetamine abuse: This is a 30-year-old white male with a long history of psychosis but additional history of active addiction who presents with a positive UDS, off of medication with psychotic symptoms. 1. Continue current medication. 2. Continue every 15 minute checks for safety. 3. Encourage individual, group and milieu therapy. 4. Encourage sober living treatment after discharge at the highest level of care to which he is willing to commit. Involuntary Hold Information 96 Hour Hold: 96 Hour Involuntary Admission: Yes 96 Hour Hold Ending Date: 11/17/20 96 Hour Hold Ending Time: 23:28 Attestations NPU Medical Necessity Statement*: Inpatient hospitalization is medically necessary and the clinically appropriate intervention at this time. We will monitor medication and titrate to affect. Likely length of stay 2-4 days. Coding Level of Care Code Acute Sheet Metal Erector for Pete Ruiz
--- NOTE | 2020-11-13 19:55 | PC.NURSE ---
PATIENT LAYING IN BED, APPEARS DEPRESSED. MUMBLES WHEN HE TALKS AND HARD TO UNDERSTAND AT TIMES. DENIES WANTING TO HARM SELF OR OTHERS. PLEASANT.
[2020-11-13] MEDS: hyDROXYzine 25 mg Capsule 50 MG PO (20:06)
[2020-11-13] MEDS: trazodone 50 mg Tablet PO (20:07)
[2020-11-13 20:10] VITALS: BP 120/72; PULSE 85; RESP 17; TEMP 37; O2SAT 97
[2020-11-14 06:00] VITALS: BP 106/67; PULSE 71; RESP 16; TEMP 36.9; O2SAT 97
[2020-11-14] MEDS: paliperidone ER 6 mg Tablet PO (08:03)
[2020-11-14 13:38] VITALS: BP 111/74; PULSE 88; RESP 18; TEMP 37.1; O2SAT 98
--- NOTE | 2020-11-14 13:41 | PC.RESP ---
Smoking Cessation information sent to patient.
--- NOTE | 2020-11-14 15:57 | P.PN_ITS ---
Subjective NPU Subjective: Interval history: Ruben presents today reporting that he is feeling a little better. He had had no difficulty and is denying any major side effects at this time. He reports he is eating fine and sleeping less during the day. Little less isolative. We discussed the possibility of discharge within the next 48 hours but also discussed the importance of him making his [facility] follow-up. Mental Status Exam MSE Comments: This is an overweight versus obese, white male in hospital scrubs with adequate grooming, and eye contact. No abnormal movements, except for mild psychomotor retardation. Cooperative with exam in no acute distress. Speech was decreased rate and volume. Mood described as a little better; affect congruent. Thought process, organized. Thought content: patient denied any suicidal or homicidal ideation, there were no delusions reported but some paranoia was noted, he denied any auditory or visual hallucinations. Attention, concentration, and memory appeared limited but were not formally tested. He is alert and oriented times three. Insight and judgment are limited, impulse control is impaired. Vitals/I&O/Wt Last Vital Signs Temp 100.0 F H 11/14/20 21:29 Pulse 86 11/14/20 21:29 Resp 14 11/14/20 21:29 BP 119/77 11/14/20 21:29 Pulse Ox 98 11/14/20 21:29 Weight last 48 hrs Weight 90.718 kg Data NPU : 11/11/20 23:15 11/11/20 23:15 A&P Additional A&P Information (1) Suicidal ideation: (2) Chronic schizophrenia: (3) Depression: (4) Posttraumatic stress disorder: (5) Cannabis abuse: (6) Methamphetamine abuse: This is a 30-year-old white male with a long history of psychosis but additional history of active addiction who presents with a positive UDS, off of medication with psychotic symptoms. 1. Continue current medication. 2. Continue every 15 minute checks for safety. 3. Encourage individual, group and milieu therapy. 4. Encourage sober living treatment after discharge at the highest level of care to which he is willing to commit. Involuntary Hold Information 96 Hour Hold: 96 Hour Involuntary Admission: Yes 96 Hour Hold Ending Date: 11/17/20 96 Hour Hold Ending Time: 23:28 Attestations NPU Medical Necessity Statement*: Inpatient hospitalization is medically necessary and the clinically appropriate intervention at this time. We will monitor medication and titrate to affect. Likely length of stay 1-3 days. Coding Level of Care Code Acute Tent Finisher for Pete Ruiz
[2020-11-14 21:29] VITALS: BP 119/77; PULSE 86; RESP 14; TEMP 37.8; O2SAT 98
--- NOTE | 2020-11-14 21:45 | PC.NURSE ---
LAYING IN ROOM IN DARK, MUMBLES WHEN TALKS, APPEARS DEPRESSED. DID GO TO DAY ROOM FOR SNACKS
[2020-11-14] MEDS: hyDROXYzine 25 mg Capsule 50 MG PO (22:04)
[2020-11-14] MEDS: trazodone 50 mg Tablet PO (22:07)
--- NOTE | 2020-11-15 00:25 | PC.NURSE ---
vISTERIL/tRAZODONE @2207 pT REQUESTED MEDICATION FOR INCREASED ANXIETY AND INABILITY TO SLEEP. pT WAS GIVEN 50MG PO TRAZODONE FOR SLEEP AND VISTERIL 50MG PO FOR ANXIETY. @2300 pT IS RESTING IN HIS ROOM. NO APPARENT S/S STRESS AT THIS TIME. WILL CONTINUE TO MONITOR
[2020-11-15 06:00] VITALS: BP 111/70; PULSE 74; RESP 15; TEMP 36.6; O2SAT 95
[2020-11-15] MEDS: paliperidone ER 6 mg Tablet PO (08:18)
[2020-11-15 14:00] VITALS: BP 105/64; PULSE 67; RESP 16; TEMP 36.8; O2SAT 95
[2020-11-15 15:31] VITALS: BP 105/64; PULSE 67; RESP 16; TEMP 36.8; O2SAT 95
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
== END 2020-11-15 15:50 | disposition home or self-care (01) | DRG 885 ==
LOC: ER 11-12 01:28 → NP 11-12 01:49
PROVIDERS: Admitting Provider Psychiatry & Neurology Psychiatry; Emergency Provider Emergency Medicine; PCP Family Medicine; Visit Provider Psychiatry & Neurology Psychiatry
DX: F33.1 Major depressive disorder, recurrent, moderate (principal); R45.851 Suicidal ideations; F20.9 Schizophrenia, unspecified; F15.10 Other stimulant abuse, uncomplicated; F12.10 Cannabis abuse, uncomplicated; F43.11 Post-traumatic stress disorder, acute; Z91.5 Personal history of self-harm
CPT/HCPCS: 12345; 70450; 70486; 80053; 80306; 80307; 84443; 85025; 90471; 90686; 93005; 96372; 99284; J1630

== ENCOUNTER 2020-12-01 05:00 | Emergency (ER) | payer SELFPAY ==
[2020-12-01 05:04] VITALS: BP 119/68; PULSE 84; RESP 16; TEMP 36.4; O2SAT 98; BMI 36.9
--- NOTE | 2020-12-01 05:11 | XR_ITS ---
WS: [id number] Exam: XR foot RT min 3V* [id number] Date/Time of Exam: 12/01/2020 5:12 AM Reason For Exam: injury Findings: The foot was examined in multiple views and reveals no fractures or displacements of bone. No bony a nomalies are noted. The bony elements are in adequate alignment. The joint spaces are smooth and eq uidistant. XR/XR foot RT min 3V* [id number] IMPRESSION: Negative right foot.
--- NOTE | 2020-12-01 05:11 | XR_ITS ---
WS: [id number] Exam: XR ankle RT min 3V* [id number] Date/Time of Exam: 12/01/2020 5:13 AM Reason For Exam: injury Findings: Multiple views of the ankle reveal no fracture or displacements of bone. No soft tissue swelling is present. There are no periosteal reactions noted. The talus and calcaneus are in adequate position. The joint space is smooth and equidistant. XR/XR ankle RT min 3V* [id number] IMPRESSION: Negative right ankle.
--- NOTE | 2020-12-01 05:15 | ED_ITS ---
HPI - Extremity Problem General: Chief complaint: Extremity Problem,Nontraumatic Stated complaint: leg injury Time Seen by Provider: 12/01/20 05:08 Source: patient Mode of arrival: ambulatory Limitations: no limitations History of Present Illness: HPI Narrative: 30-year-old male who states he tripped over her dog earlier today. He states he had some slight pain in his right ankle that happened this worsened throughout the day. States pain is now 4 out of 10 and worse with walking. Denies any other injuries. Denies any knee pain. Associated symptoms: Deny chest pain, fever(s) or rash Review of Systems Const: Denies: fever(s), chills, body aches or change in appetite Eyes: Denies: blurry vision or eye discomfort ENMT: Denies: throat pain or dental pain Card: Denies: chest pain Resp: Denies: dyspnea GI: Denies: abdominal pain, nausea, vomiting or diarrhea : Denies: dysuria Musc: Reports: extremity pain Skin/Breast: Denies: rash Neuro: Denies: headache(s) Psych: Denies: depression Nolan/Lymph: Denies: easy bruising All/Imm: Denies: urticaria PFSH ED PFSH: Medical History (Updated 12/01/20 @ 05:18 by Daniela Kaur MD) Cannabis abuse Depression Posttraumatic stress disorder Schizophrenia Social History Smoking and tobacco status: current every day smoker Current gender identity: Male Physical Exam Const: COMMON NORMALS: no acute distress, patient oriented x3 and healthy sari earing HENMT: COMMON NORMALS: normocephalic and atraumatic HEAD & SCALP: normocephalic and atraumatic Eye: COMMON NORMALS: Equal, round and reactive pupils present and EOMs intact bilaterally PUPIL: Yes Equal, round and reactive pupils present Neck/C-Spine: COMMON NORMALS: full ROM and supple Chest: COMMONS NORMALS: normal inspection of the chest and normal palpation of entire chest wall Resp: COMMON NORMALS: normal respiratory effort, No retractions, No use of accessory muscles and clear to auscultation bilaterally AUSCULTATION: clear to auscultation bilaterally Cardio: COMMON NORMALS: regular rate, regular rhythm and No murmurs present (Cardio) RATE: regular rate RHYTHM: regular rhythm GI: COMMON NORMALS: Normal to inspection, nondistended, normoactive bowel sounds present, Soft to palpation, non-tender and no masses PALPATION: Yes Soft to palpation Extremity: COMMON NORMALS: normal to inspection NARRATIVE EXTREMITY EXAM: No swelling on exam slight tenderness over right lateral ankle Neuro: COMMON NORMALS: patient oriented x3, moves all extremities and no focal motor deficits Psych: COMMON NORMALS: mental status grossly normal, Normal thought process present and cooperative THOUGHT PROCESS: Normal thought process present Skin: COMMON NORMALS: no rashes or lesions noted and no wounds GENERAL SKIN EXAM: no rashes or lesions noted Course Vital Signs: Vital signs: Vital Signs Temperature 97.5 F L 12/01/20 05:04 Pulse Rate 84 12/01/20 05:04 Respiratory Rate 16 12/01/20 05:04 Blood Pressure 119/68 12/01/20 05:04 Pulse Oximetry 98 12/01/20 05:04 MDM - Extremity (Nontraumatic) MDM Narrative: Medical decision making narrative: 30-year-old presents here with a likely mild ankle sprain. X-ray shows no fracture. Will place patient in Jimi wrap and prescribed Naprosyn and he is to ice and rest. He is to follow- up PCP in 2 to 4 days return if worsening. Imaging Data^: X-ray right ankle: Attestation: I personally reviewed and interpreted this imaging study as follows: My impression: No acute abnormality X-ray right foot: My impression: No acute abnormality Discharge Plan Discharge Patient Disposition: Home Clinical Impression: Sprain of ankle Qualifiers: Encounter type: initial encounter Involved ligament of ankle: unspecified ligament Laterality: right Qualified Code(s): S93.401A - Sprain of unspecified ligament of right ankle, initial encounter Condition: Stable Prescriptions: No Action trazodone 50 mg tablet 50 mg PO BEDTIME 30 Days Qty: 30 RF: 1 paliperidone 6 mg Tablet Extended Release 24hr 6 mg PO DAILY 30 Days Qty: 30 RF: 1 Discharge Orders: Discharge ED (Routine); Ordered 12/01/20 Ordered By: Daniela Kaur Referrals: Jimbo Perez DO [Primary Care Provider] - 1-3 days Discharge Diet: Advance as tolerated Discharge Activity: Resume usual activity Patient Instructions: Ankle Sprain (ED) Coding Level of Care Code ED Embosser Apprentice for Chg Fwd Exam Comprehensive
[2020-12-01] MEDS: naproxen 500 mg Tablet PO (05:18)
[2020-12-01 05:44] VITALS: PULSE 78
[2020-12-01 05:58] VITALS: BP 120/71; PULSE 80; RESP 18; O2SAT 99
== END 2020-12-01 05:58 | disposition home or self-care (01) ==
PROVIDERS: Emergency Provider Emergency Medicine; PCP Family Medicine
DX: S93.401A Sprain of unspecified ligament of right ankle, initial encounter (principal); F17.210 Nicotine dependence, cigarettes, uncomplicated; W01.0XXA Fall on same level from slipping, tripping and stumbling without subsequent striking against object, initial encounter
CPT/HCPCS: 12345; 73610; 73630; 99281; 99283

== ENCOUNTER 2021-05-28 22:14 | Emergency (ER) | payer SELFPAY ==
[2021-05-28 22:20] VITALS: BP 130/81; PULSE 99; RESP 16; TEMP 36.9; O2SAT 98; BMI 28.5
[2021-05-29] MEDS: tetanus-diphtheria tox (adult) 0.5 mL SDV IM (00:10)
--- NOTE | 2021-05-29 00:25 | ED_ITS ---
HPI - Wound/Laceration General: Chief Complaint: Wound/Laceration Stated Complaint: left leg lac Time Seen by Provider: 05/29/21 00:11 Source: patient Mode of arrival: ambulatory Limitations: no limitations History of Present Illness: HPI narrative: Patient is a 30-year-old male here for evaluation of a left lower leg laceration that he sustained after cutting it on a piedad wire fence today. Last tetanus is unknown. Onset (ago): hour(s) Extremity Location: Left: lower leg Place: home Patient tetanus UTD: No Context: accidental Associated symptoms: Reports no associated symptoms; Denies chills or fever(s) Review of Systems Const: Denies: fever(s), chills, body aches, fatigue or malaise Musc: Reports: extremity pain; Denies: extremity swelling, joint pain or joint swelling Skin/Breast: Reports: other (L LE laceration) Neuro: Denies: numbness in extremities or sensory changes PFS ED PFSH: Medical History (Updated 05/29/21 @ 00:41 by BASIL Saavedra) Cannabis abuse Depression Posttraumatic stress disorder Schizophrenia Social History Smoking and tobacco status: current every day smoker Current gender identity: Male Physical Exam Const: COMMON NORMALS: no acute distress, average body habitus, patient oriented x3, no limitations, healthy appearing, alert and well nourished Extremity: NARRATIVE EXTREMITY EXAM: small 1.5 cm laceration to L posterior lower leg; no bleeding; does not involve muscle layer Neuro: COMMON NORMALS: patient oriented x3, moves all extremities, no focal motor deficits and no sensory deficits noted SENSORIUM/ORIENTATION: Yes alert Skin: NARRATIVE SKIN EXAM: L LE laceration Procedures Laceration Laceration 1: Site: lower extremity Side (If applicable): left Size (cm): 1.5 Description: linear Depth: simple, single layer Local Anesthetic: lidocaine 1% and with epi Amount of anesthesia used (mL): 2.0 Pre-repair: wound explored and irrigated extensively Skin layer closed with: nylon Size (cm): 4-0 Number of sutures: 3 Technique: simple, interrupted Course ED course: Tetanus updated Vital Signs: Vital signs: Vital Signs Temperature 98.4 F 05/28/21 22:20 Pulse Rate 99 06/27/21 22:20 Respiratory Rate 16 05/28/21 22:20 Blood Pressure 130/81 05/28/21 22:20 Pulse Oximetry 98 05/28/21 22:20 Discharge Plan Discharge Patient Disposition: Home Clinical Impression: Laceration of left lower leg Qualifiers: Encounter type: initial encounter Qualified Code(s): S81.812A - Laceration without foreign body, left lower leg, initial encounter Condition: Stable Prescriptions: No Action trazodone 50 mg tablet 50 mg PO BEDTIME 30 Days Qty: 30 RF: 1 paliperidone 6 mg Tablet Extended Release 24hr 6 mg PO DAILY 30 Days Qty: 30 RF: 1 Discharge Orders: Discharge ED (Routine); Ordered 05/29/21 Ordered By: Krystle Solis Patient Instructions: Suture Care (ED), Laceration (ED) Activity Restrictions/Additional Instructions: Keep wound/laceration clean with warm soap and water twice daily. Monitor for signs of infection such as redness, swelling, increased pain, or drainage. Please seek medical re-evaluation if these occur. If you received sutures today these will need to be removed (unless you were told by the provider that they are absorbable). The provider should have discussed with you the length of time until removal-7 days. You may return to the emergency department for this service. If your wound was closed with Steri-Strips or glue/adhesive these will fall off within the next week or so. Coding Level of Care Code ED Projection Welding Machine Operator for Pete Ruiz
== END 2021-05-29 00:54 | disposition home or self-care (01) ==
PROVIDERS: Emergency Provider Physician Assistant
DX: S81.812A Laceration without foreign body, left lower leg, initial encounter (principal); F17.210 Nicotine dependence, cigarettes, uncomplicated; W26.8XXA Contact with other sharp object(s), not elsewhere classified, initial encounter; Z23 Encounter for immunization
CPT/HCPCS: 12001; 90471; 90714; 99282

== ENCOUNTER 2021-06-06 01:23 | Inpatient (IN) | payer SELFPAY ==
--- NOTE | 2021-06-06 02:12 | W.ED.PSYCH ---
HPI - Psych General: Chief Complaint: Psychiatric Symptoms Stated Complaint: SI/pt requesting stress unit Time Seen by Provider: 06/06/21 01:30 Source: patient Mode of arrival: ambulatory Limitations: no limitations History of Present Illness: HPI Narrative: 30-year-old male states has been having suicidal thoughts over the last 3 to 4 days. He states he has a plan but he will not tell it to me. Patient avoids eye contact here and states that he just does not really feel like talking about it currently. States he has a long psychiatric history and is supposed to be on medicines but is not been taking them for quite some time. He states he is just having severe depression does not want to live anymore. Associated symptoms: Reports depression and suicidal ideation Review of Systems Const: Denies: fever(s), chills, body aches or change in appetite Eyes: Denies: blurry vision or eye discomfort ENMT: Denies: throat pain or dental pain Card: Denies: chest pain Resp: Denies: dyspnea GI: Denies: abdominal pain, nausea, vomiting or diarrhea : Denies: dysuria Musc: Denies: neck pain or back pain Skin/Breast: Denies: rash Neuro: Denies: headache(s) Psych: Reports: depression and suicidal ideation Nolan/Lymph: Denies: easy bruising All/Imm: Denies: urticaria PFSH ED PFSH: Medical History (Updated 06/06/21 @ 04:15 by Daniela Kaur MD) Cannabis abuse Depression Posttraumatic stress disorder Schizophrenia Social History Smoking and tobacco status: current every day smoker Current gender identity: Male Physical Exam Const: COMMON NORMALS: no acute distress, patient oriented x3 and healthy appearing HENMT: COMMON NORMALS: normocephalic and atraumatic HEAD & SCALP: normocephalic and atraumatic Eye: COMMON NORMALS: Equal, round and reactive pupils present and EOMs intact bilaterally PUPIL: Yes Equal, round and reactive pupils present Neck/C-Spine: COMMON NORMALS: full ROM and supple Chest: COMMONS NORMALS: normal inspection of the chest and normal palpation of entire chest wall Resp: COMMON NORMALS: normal respiratory effort, No retractions, No use of accessory muscles and clear to auscultation bilaterally AUSCULTATION: clear to auscultation bilaterally Cardio: COMMON NORMALS: regular rate, regular rhythm and No murmurs present (Cardio) RATE: regular rate RHYTHM: regular rhythm GI: COMMON NORMALS: Normal to inspection, nondistended, normoactive bowel sounds present, Soft to palpation, non-tender and no masses PALPATION: Yes Soft to palpation Extremity: COMMON NORMALS: normal to inspection and full ROM Neuro: COMMON NORMALS: patient oriented x3, moves all extremities and no focal motor deficits Psych: COMMON NORMALS: mental status grossly normal, Normal thought process present and cooperative ACTIVITY/MOTOR BEHAVIOR: Yes Avoids eye contact (attititude/behavior) MOOD & AFFECT: Yes depressed mood and Yes Flat affect present THOUGHT PROCESS: Normal thought process present THOUGHT CONTENT: Yes Suicidality present Skin: COMMON NORMALS: no rashes or lesions noted and no wounds GENERAL SKIN EXAM: no rashes or lesions noted Course Vital Signs: Vital signs: Vital Signs Temperature 97.7 F 06/06/21 03:34 Pulse Rate 70 06/06/21 03:34 Respiratory Rate 16 06/06/21 03:34 Blood Pressure 129/82 06/06/21 03:34 Pulse Oximetry 98 06/06/21 03:34 MDM - Psych MDM Narrative: Medical decision making narrative: Patient presents for suicidal ideation. Patient is medically cleared well-appearing here. I spoke to psychiatrist and will admit. Lab Data: Labs: Lab Results 06/06/21 06/06/21 06/06/21 Range/Units 02:30 03:30 03:30 WBC 8.2 (4.0-10.0) 10^3/ uL RBC 4.43 (4.1-5.3) 10^6/u L Hgb 14.1 (11.7-16.6) g/dL Hct 42.4 (42.0-52.0) % MCV 95.7 H (80-94) fL MCH 31.8 (28.0-34.0) pg MCHC 33.3 (30.0-36.0) g/dL RDW 12.2 (12.1-15.1) % Plt Count 193 (130-400) 10^3/c mm MPV 10.5 H (7.4-10.4) fL Neut % (Auto) 46.2 % Lymph % (Auto) 38.1 % [place] % (Auto) 12.8 % Eos % (Auto) 2.2 % Baso % (Auto) 0.5 % Neut # (Auto) 3.79 (1.8-7.7) 10^3/u L Lymph # (Auto) 3.1 (0.8-4.8) 10^3/u L [place] # (Auto) 1.1 H (0.2-0.9) 10^3/u L Eos # (Auto) 0.2 (0.0-0.8) 10^3/u L Baso # (Auto) 0.0 (0.0-0.1) 10^3/u L Nucleated RBC % (a uto) 0 % Nucleated RBCs # 0.0 /100WBC Sodium 136 (136-145) mmol/L Potassium 4.1 (3.5-5.1) mmol/L Chloride 101 (98-107) mmol/L Carbon Dioxide 28 (22-29) mmol/L Anion Gap 11.1 (5-19) BUN 11 (6-20) mg/dL Creatinine 0.8 (0.7-1.2) mg/dL GFR Calculation 114.3 (90-130) mL/min Glucose 86 (65-115) mg/dL Calculated Osmolal ity 281 L (285-295) mOsm/k g Calcium 9.0 (8.5-10.5) mg/dL Total Bilirubin 0.8 (0.15-1.2) mg/dL AST 13 (0-40) U/L ALT 11 (0-41) U/L Alkaline Phosphata se 76 (40-130) IU/L Total Protein 6.4 L (6.6-8.7) g/dL Albumin 4.1 (3.5-5.2) g/dL Globulin 2.3 (1.3-4.6) g/dL Salicylates 0.5 L (3-10) mg/dL Urine Opiates Scre en Negative (Negative) ng/mL Acetaminophen < 5.0 L (10-30) ug/mL Ur Barbiturates Sc reen Negative (Negative) ng/mL Ur Phencyclidine S crn Negative (Negative) ng/mL Ur Amphetamines Sc reen Negative (Negative) ng/mL U Benzodiazepines Scrn Negative (Negative) ng/mL Urine Cocaine Scre en Negative (Negative) ng/mL U Marijuana (THC) Screen Positive H (Negative) ng/mL Ethyl Alcohol < 10 (0-10) mg/dL Discharge Plan Discharge Patient Disposition: Admitted As Inpatient Clinical Impression: Suicidal ideation Condition: Stable Coding Level of Care Code ED Agricultural Extension Specialist for Pete Ruiz Exam Comprehensive
[2021-06-06 03:34] VITALS: BP 129/82; PULSE 70; RESP 16; TEMP 36.5; O2SAT 98; BMI 24.4
[2021-06-06 03:37] LABS: Basophils % 0.5 %; Eosinophils # 0.2 10^3/uL (0.0-0.8); Eosinophils % 2.2 %; Hematocrit 42.4 % (42.0-52.0); Hemoglobin 14.1 g/dL (11.7-16.6); Lymphocytes # 3.1 10^3/uL (0.8-4.8); Lymphocytes % 38.1 %; Mean Corpuscular HGB Conc 33.3 g/dL (30.0-36.0); Mean Corpuscular Hemoglobin 31.8 pg (28.0-34.0); Mean Corpuscular Volume 95.7 fL (80-94); Mean Platelet Volume 10.5 fL (7.4-10.4); Monocytes # 1.1 10^3/uL (0.2-0.9); Monocytes % 12.8 %; Neutrophils # 3.79 10^3/uL (1.8-7.7); Neutrophils % 46.2 %; Nucleated Red Blood Cells % 0 %; Platelet Count 193 10^3/cmm (130-400); Red Blood Count 4.43 10^6/uL (4.1-5.3); Red Cell Distribution Width 12.2 % (12.1-15.1); White Blood Count 8.2 10^3/uL (4.0-10.0)
[2021-06-06 03:58] LABS: Acetaminophen < 5.0 ug/mL (10-30); Alanine Aminotransferase 11 U/L (0-41); Albumin Level 4.1 g/dL (3.5-5.2); Alcohol Level < 10 mg/dL (0-10); Alkaline Phosphatase 76 IU/L (40-130); Anion Gap 11.1 (5-19); Aspartate Amino Transferase 13 U/L (0-40); Blood Urea Nitrogen 11 mg/dL (6-20); Carbon Dioxide 28 mmol/L (22-29); Chloride 101 mmol/L (98-107); Creatinine Clr Calc Pharmacy 152.6612; Globulin 2.3 g/dL (1.3-4.6); Glomerular Filtration Rate 114.3 mL/min (90-130); Glucose 86 mg/dL (65-115); Osmolality Calculated 281 mOsm/kg (285-295); Potassium 4.1 mmol/L (3.5-5.1); Salicylate 0.5 mg/dL (3-10); Sodium 136 mmol/L (136-145); Total Bilirubin 0.8 mg/dL (0.15-1.2); Total Protein 6.4 g/dL (6.6-8.7)
[2021-06-06 04:05] LABS: Amphetamines Screen Urine Negative (Negative); Barbiturates Screen Urine Negative (Negative); Benzodiazepines Screen Urine Negative (Negative); Cocaine Screen Urine Negative (Negative); Opiate Screen Urine Negative (Negative); PCP Screen Urine Negative (Negative); THC Screen Urine Positive (Negative)
[2021-06-06] MEDS: LORazepam 2 mg Tablet PO (05:08)
--- NOTE | 2021-06-06 05:12 | PC.NURSE ---
Pt began yelling out, nonsensical things; talking about people who are not in the room; stating if I just had a gun I would just end it! Pt given ativan PO and sandwich and he is now calm and cooperative.
--- NOTE | 2021-06-06 05:20 | PC.NURSE ---
Pt has been calm and cooperative for most of the time he has been here, with occasional bouts of flight of ideas, paranoia, yelling incoherent thoughts and pacing the room. He is easily redirected with calm voice.
--- NOTE | 2021-06-06 06:11 | PC.NURSE ---
Pt now resting, eyes closed, even rise and fall of chest. Calm and cooperative.
[2021-06-06 06:19] VITALS: BP 137/86; PULSE 80; RESP 16; O2SAT 98
[2021-06-06 06:57] VITALS: BP 115/68; PULSE 78; RESP 15; TEMP 37.1; O2SAT 98
--- NOTE | 2021-06-06 12:37 | P.HP_ITS ---
Providers/Chief Complaint Admitting Physician: Huseyin Lora DO Chief Complaint: SI/pt requesting stress unit HPI NPU History of Present Illness Ruben Horan is a 30 year old male with past history of polysubstance abuse to include methamphetamine and near daily marijuana use with current UDS positive for cannabis presented to the emergency department with complaint of worsening depressive symptoms and worsening auditory hallucinations although patient does not provide any details about any recent circumstances exacerbating his symptoms. Patient states that last suicidal ideation was around the time that he was brought to the unit with no subsequent episodes. He does report ongoing depressive symptoms, low mood, decreased motivation and interest. Patient also states that last auditory hallucinations were just prior to coming to the unit but does not describe the quality or frequency of these auditory hallucinations, denies any visual hallucinations, denies any delusions. Denies past or recent hypomanic or manic episodes. Patient states last use of methamphetamine was a few months ago and states his last use of substance was a couple months ago despite his previous statement that he uses marijuana near daily and currently has a positive UDS. Patient reports psychiatric review of systems is otherwise negative. Patient states that he has been off of medication pretty much the duration of time since his last psychiatric hospitalization in November 2020. He denies compliance with psychiatry follow-up. Patient reports unstable living arrangement and is unable to currently site where he stays and reports that he will likely have to go to a residential and does not really like talking about the circumstances leading to his unstable living situation. Review of Systems General: Reports: 10 or more systems reviewed and unremarkable except in HPI and below Meds NPU Home Medications Medication Instructions Recorded Confirmed Last Taken Type No Known Home Medications 06/06/21 06/06/21 Unknown History Allergies Allergy/AdvReac Type Severity Reaction Status Date / Time nickel Allergy ALGY-Rash Verified 05/28/21 22:24 PFSH NPU 2 PFSH: Medical History Cannabis abuse Depression Posttraumatic stress disorder Schizophrenia Social History Smoking and tobacco status: current every day smoker Current gender identity: Male Other Psychiatric History: Other Psychiatric History: Per above, patient with no consistent outpatient follow-up, last psychiatric hospitalization in November 2020 at this facility Reports multiple past psychiatric hospitalizations Denies past suicide attempts although multiple presentations with suicidal ideation but no active intent or plan, denies history of self-harm behavior Mental Status Exam MSE Comments: Disheveled, unkempt, tired appearing, poor eye contact Psychomotor activity is decreased, no agitation Speech is low volume, normal rate, spontaneous, not pressured, fair articulation I feel depressed, congruent affect, flat, not labile Alert and oriented to person, place, time, situation Memory and concentration appear to be fair at best. Review Intellectual functioning appears to be below average to average at best based on vocabulary, interview Thought process, delayed, linear but brief, no flight of ideas, no looseness of associations Thought content, no delusions, does not appear to be attending to any internal stimuli, no suicidal or homicidal ideation Insight and judgment appear to be fair to intact Vitals/I&O/Wt Last Vital Signs Temp 98.8 F 06/06/21 06:57 Pulse 78 06/06/21 06:57 Resp 15 06/06/21 06:57 BP 115/68 06/06/21 06:57 Pulse Ox 98 06/06/21 06:57 Weight last 48 hrs Weight 81.647 kg Data NPU : 06/06/21 03:30 06/06/21 03:30 A&P Assessment and plan (1) Suicidal ideation: Status: Acute (2) Depression: Status: Acute Qualifiers: Active/Remission status: currently active Depression Type: major depressive disorder Major depression episode severity: moderate Major depression recurrence: recurrent Qualified Code(s): F33.1 - Major depressive disorder, recurrent, moderate (3) Cannabis abuse: Status: Acute (4) Acute psychosis: Status: Acute Additional A&P Information Patient with report of worsening depressive symptoms and worsening suicidal ideation as well as worsening psychotic symptoms with near daily cannabis use and unstable living arrangement off of medication for 6 months. INVOLUNTARY ADMIT to inpatient psychiatry START fluoxetine 10 mg daily targeting depressive symptoms START olanzapine 5 mg twice daily targeting psychotic symptoms, mood Coordinate with socially responsible investment adviser for post discharge mental health care follow-up, substance treatment/counseling Involuntary Hold Information 96 Hour Hold: 96 Hour Involuntary Admission: Yes 96 Hour Hold Ending Date: 06/12/21 96 Hour Hold Ending Time: 02:20 Attestations NPU Medical Necessity Statement*: Psychiatric hospitalization is indicated for medication stabilization, coordination for safe discharge Anticipate hospital stay to exceed 2 midnights Time Spent in Patient Care: Greater than 35 minutes (>than 50% of time spent in counselling and/or direct pt care on unit) . Coding Level of Care Code Acute Breast Trimmer for Albertg Fwd Diagnoses Suicidal ideation R45.851 Depression F33.1 Active/Remission status: currently active Depression Type: major depressive disorder Major depression episode severity: moderate Major depression recurrence: recurrent Cannabis abuse F12.10 Acute psychosis F23
[2021-06-06] MEDS: fluoxetine 10 mg Capsule PO (13:07)
[2021-06-06] MEDS: OLANZapine 5 mg TABLET PO ×2 (13:07→17:58)
[2021-06-06 13:11] VITALS: BP 115/68; PULSE 78; RESP 15; TEMP 37.1; O2SAT 98
[2021-06-06 20:56] VITALS: BP 120/68; PULSE 92; RESP 18; TEMP 37.1; O2SAT 99
[2021-06-07 06:00] VITALS: BP 100/64; PULSE 86; RESP 17; TEMP 37.1; O2SAT 97
[2021-06-07] MEDS: OLANZapine 5 mg TABLET PO (09:29)
[2021-06-07] MEDS: fluoxetine 10 mg Capsule PO (09:29)
--- NOTE | 2021-06-07 13:48 | PM.NPN ---
Subjective NPU Subjective: Interval history: Initially lying in bed but goes to the day room for interview, starts making a nonsensical rant about nothing making sense Patient states that he feels like he is getting gang banged by 16, no 20 people. Reports ongoing depressive symptoms, reports passive suicidal ideation Per staff, patient mostly staying in room, no interval behavioral disturbances Mental Status Exam MSE Comments: Sitting in the day room, disheveled, unkempt, tired appearing, poor eye contact Psychomotor activity is decreased, occasional verbal agitation Speech is low volume, normal rate, spontaneous, not pressured, fair articulation I feel bad, congruent affect, flat, not labile Alert and oriented to person, place, time, situation Memory and concentration appear to be fair at best. Review Thought process, delayed, disorganized, loose associations Thought content, bizarre statements with no stated delusions, does not appear to be attending to any internal stimuli, no suicidal or homicidal ideation Insight and judgment appear to be fair to intact Vitals/I&O/Wt Last Vital Signs Temp 98.7 F 06/07/21 06:00 Pulse 86 06/07/21 06:00 Resp 17 06/07/21 06:00 BP 100/64 06/07/21 06:00 Pulse Ox 97 06/07/21 06:00 Weight last 48 hrs Weight 81.647 kg Data NPU : 06/06/21 03:30 06/06/21 03:30 A&P Assessment and plan (1) Suicidal ideation: Status: Acute (2) Acute psychosis: Status: Acute (3) Depression: Status: Acute Qualifiers: Active/Remission status: currently active Depression Type: major depressive disorder Major depression episode severity: moderate Major depression recurrence: recurrent Qualified Code(s): F33.1 - Major depressive disorder, recurrent, moderate (4) Cannabis abuse: Status: Acute (5) Methamphetamine abuse: Status: Acute (6) Posttraumatic stress disorder: Status: Acute Additional A&P Information Patient acting somewhat bizarrely making nonsensical statements, making rants INCREASE to fluoxetine 20 mg daily INCREASE to olanzapine 5 mg daily and 10 mg at bedtime Involuntary Hold Information 96 Hour Hold: 96 Hour Involuntary Admission: Yes 96 Hour Hold Ending Date: 06/12/21 96 Hour Hold Ending Time: 02:20 Attestations NPU Medical Necessity Statement*: Continues to require psychiatric hospitalization for medication stabilization Coding Level of Care Code Acute Marble Ceiling Installer for g Fwd Diagnoses Suicidal ideation R45.851 Acute psychosis F23 Depression F33.1 Active/Remission status: currently active Depression Type: major depressive disorder Major depression episode severity: moderate Major depression recurrence: recurrent Cannabis abuse F12.10 Methamphetamine abuse F15.10 Posttraumatic stress disorder F43.10
[2021-06-07 14:00] VITALS: BP 114/65; PULSE 59; RESP 16; TEMP 36.9; O2SAT 98
[2021-06-07] MEDS: hyDROXYzine 25 mg Capsule 50 MG PO (21:27)
[2021-06-07] MEDS: acetaminophen 325 mg Tablet 650 MG PO (21:27)
[2021-06-07] MEDS: OLANZapine 10 mg TABLET PO (21:27)
[2021-06-07] MEDS: ondansetron 4 MG Tablet PO (21:28)
[2021-06-07] MEDS: trazodone 50 mg Tablet PO (21:28)
--- NOTE | 2021-06-07 21:30 | PC.NURSE ---
Addendum entered by Katie Lazo RN 06/08/21 02:05: @2300 pt is sleeping flacc 0 pain, no nausea noted, pt is sleeping calmly without any visible signs of anxiety at this time. Sleeping soundly. @0200 Pt is still sleeping. Original Note: PRN's PT given tylenol 650mg po given for headache, posterior, no vision changes, but sensitive to sound, rated 7 on 1-10 pain scale pt is nauseated, given 4mg PO zofran. Crackers and water provided also. Pt states he is anxious d/t seeing his grandpa that at the nurses desk. pt is tearful. Pt requested medication to help him sleep, provided Trazodone 50mg PO
--- NOTE | 2021-06-07 21:33 | PC.NURSE ---
PM Assessment Pt is anxious, nauseated, reports a headache, and inability to rest or go to sleep. Medication requested. Med Nurse NOtified. Pt states, I am seeing my grandfather at the nurses desk.I can see him talking, hear something, but can not make it out. Pt denies active or current SI.Says he was SI earlier tonight. Became tearful while talking about it. Pt wanted a hug, he is hurting over this loss. Denies HI. Will continue to observe pt the remainder of shift.
[2021-06-07 22:00] VITALS: BP 121/71; PULSE 74; RESP 15; TEMP 36.9; O2SAT 99
[2021-06-08 06:00] VITALS: BP 105/66; PULSE 65; RESP 15; TEMP 36.4; O2SAT 98
--- NOTE | 2021-06-08 06:51 | PC.RESP ---
SMOKING CESSATION INFORMATION SENT TO PATIENT.
[2021-06-08] MEDS: OLANZapine 5 mg TABLET PO (09:16)
[2021-06-08] MEDS: fluoxetine 10 mg Capsule 20 MG PO (09:16)
--- NOTE | 2021-06-08 09:41 | P.PN_ITS ---
Subjective NPU Subjective: Interval history: Reports 8/10 depression but reports a little bit improvement in motivation, interest Denies any interval suicidal ideation Reports significant improvement in auditory hallucinations Reports some grogginess but states that he has been compliant with medication Reports improved sleep Mental Status Exam MSE Comments: Initially sitting on his bed but comes to the day room for interview, continues to be unkempt, wearing hospital scrubs, calm, cooperative, interactive, good eye contact Psychomotor activity is neither increased nor decreased, no agitation Speech is normal volume, normal rate, spontaneous, not pressured, fair articulation I feel little better, constricted, not labile Alert and oriented to person, place, time, situation Memory and concentration appear to be fair to intact per interview Thought process, linear, no flight of ideas, no loose associations Thought content, no stated delusions, no hallucinations, no suicidal or homicidal ideation Insight and judgment appear to be fair to intact Vitals/I&O/Wt Last Vital Signs Temp 97.6 F 06/08/21 06:00 Pulse 65 06/08/21 06:00 Resp 15 06/08/21 06:00 BP 105/66 06/08/21 06:00 Pulse Ox 98 06/08/21 06:00 Data NPU : 06/06/21 03:30 06/06/21 03:30 A&P Assessment and plan (1) Suicidal ideation: Status: Acute (2) Acute psychosis: Status: Acute (3) Depression: Status: Acute Qualifiers: Active/Remission status: currently active Depression Type: major depressive disorder Major depression episode severity: moderate Major depression recurrence: recurrent Qualified Code(s): F33.1 - Major depressive disorder, recurrent, moderate (4) Cannabis abuse: Status: Acute (5) Methamphetamine abuse: Status: Acute (6) Posttraumatic stress disorder: Status: Acute (7) Chronic schizophrenia: Status: Acute Additional A&P Information Ongoing depressive symptoms, reports some improvement in psychotic symptoms INCREASE to fluoxetine 40 mg daily CONTINUE other medication, continue to monitor Involuntary Hold Information 96 Hour Hold: 96 Hour Involuntary Admission: Yes 96 Hour Hold Ending Date: 06/12/21 96 Hour Hold Ending Time: 02:20 Attestations NPU Medical Necessity Statement*: Continues to require psychiatric hospitalization for medication stabilization Coding Level of Care Code Acute Health Lead for [facility] 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
[2021-06-08 13:38] VITALS: BP 100/64; PULSE 97; RESP 17; TEMP 36.9; O2SAT 98
[2021-06-08 19:37] VITALS: BP 114/71; PULSE 73; RESP 18; TEMP 36.6; O2SAT 96
[2021-06-08] MEDS: acetaminophen 325 mg Tablet 650 MG PO (19:51)
[2021-06-08] MEDS: nicotine 2 mg Gum BUCCAL (19:51)
[2021-06-08] MEDS: trazodone 50 mg Tablet PO (19:52)
--- NOTE | 2021-06-08 19:57 | PC.NURSE ---
PRN Trazodone 50mg PO given for sleep. Tylenol 650PO given for neck pain rated 7 Pt provided personal hygiene products, scrubs, towels for shower.
[2021-06-08] MEDS: OLANZapine 10 mg TABLET PO (21:00)
--- NOTE | 2021-06-09 05:49 | PC.NURSE ---
Laceration/Suture Removal needed for this pt. Pt just brought this issue to me regarding an incident where he cut his leg with bobwire, pt has 3 sutures still in his left lower posterior calf. Needs to be removed.Placed on 05/29/21. ED physician said they should be removed in 7 days. Today is day 11 of them in his leg. Discharge Orders: Discharge ED (Routine); Ordered 05/29/21 Ordered By: Krystle Solis Patient Instructions: Suture Care (ED), Laceration (ED) Activity Restrictions/Additional Instructions: Keep wound/laceration clean with warm soap and water twice daily. Monitor for signs of infection such as redness, swelling, increased pain, or drainage. Please seek medical re-evaluation if these occur. If you received sutures today these will need to be removed (unless you were told by the provider that they are absorbable). The provider should have discussed with you the length of time until removal-7 days. You may return to the emergency department for this service. If your wound was closed with Steri-Strips or glue/adhesive these will fall off within the next week or so.
[2021-06-09 06:00] VITALS: BP 108/66; PULSE 75; RESP 17; TEMP 36.7; O2SAT 98
[2021-06-09] MEDS: fluoxetine 20 mg Capsule 40 MG PO (07:50)
[2021-06-09] MEDS: OLANZapine 5 mg TABLET PO (07:50)
[2021-06-09 14:00] VITALS: BP 117/73; PULSE 74; RESP 16; TEMP 36.5; O2SAT 98
--- NOTE | 2021-06-09 14:07 | P.PN_ITS ---
Subjective NPU Subjective: Interval history: Reports significant improvement in mood, depressive symptoms 01/11, denies any interval suicidal ideation Reports significant improvement in psychotic symptoms, minimal auditory destinations, no delusions, no visual hallucinations Reports being compliant with his medication, denies any medication side effects Reports good appetite Reports improved sleep Mental Status Exam MSE Comments: Sitting in the day room for interview, wearing hospital scrubs, calm, cooperative, interactive, good eye contact Psychomotor activity is neither increased nor decreased, no agitation Speech is normal volume, normal rate, spontaneous, not pressured, fair articulation I feel better, constricted, not labile Alert and oriented to person, place, time, situation Memory and concentration appear to be fair to intact per interview Thought process, linear, no flight of ideas, no loose associations Thought content, no stated delusions, no hallucinations, no suicidal or ho micidal ideation Insight and judgment appear to be fair to intact Vitals/I&O/Wt Last Vital Signs Temp 98.0 F 06/09/21 06:00 Pulse 75 06/09/21 06:00 Resp 17 06/09/21 06:00 BP 108/66 06/09/21 06:00 Pulse Ox 98 06/09/21 06:00 Data NPU : 06/06/21 03:30 06/06/21 03:30 A&P Assessment and plan (1) Suicidal ideation: Status: Acute (2) Acute psychosis: Status: Acute (3) Depression: Status: Acute Qualifiers: Active/Remission status: currently active Depression Type: major depressive disorder Major depression episode severity: moderate Major depression recurrence: recurrent Qualified Code(s): F33.1 - Major depressive disorder, recurrent, moderate (4) Cannabis abuse: Status: Acute (5) Methamphetamine abuse: Status: Acute (6) Posttraumatic stress disorder: Status: Acute (7) Chronic schizophrenia: Status: Acute Additional A&P Information Improving CONTINUE current medication, continue to monitor Involuntary Hold Information 96 Hour Hold: 96 Hour Involuntary Admission: Yes 96 Hour Hold Ending Date: 06/12/21 96 Hour Hold Ending Time: 02:20 Attestations NPU Medical Necessity Statement*: Continues to require psychiatric hospitalization for medication stabilization Coding Level of Care Code 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
[2021-06-09] MEDS: acetaminophen 325 mg Tablet 650 MG PO (14:21)
[2021-06-09] MEDS: OLANZapine 10 mg TABLET PO (20:18)
[2021-06-09] MEDS: hyDROXYzine 25 mg Capsule 50 MG PO (21:22)
[2021-06-09] MEDS: trazodone 50 mg Tablet PO (21:23)
[2021-06-09 22:00] VITALS: BP 100/66; PULSE 82; RESP 20; TEMP 37; O2SAT 97
[2021-06-10] MEDS: acetaminophen 325 mg Tablet 650 MG PO ×2 (00:48→15:12)
[2021-06-10] MEDS: trazodone 50 mg Tablet PO (00:48)
[2021-06-10 06:00] VITALS: BP 99/71; PULSE 61; RESP 20; TEMP 36.6; O2SAT 97
[2021-06-10] MEDS: fluoxetine 20 mg Capsule 40 MG PO (08:53)
[2021-06-10] MEDS: OLANZapine 5 mg TABLET PO (08:53)
--- NOTE | 2021-06-10 10:12 | PM.NPN ---
Subjective NPU Subjective: Interval history: Continues report depressive symptoms, 07/11, denies any interval suicidal ideation Reports significant improvement in his psychotic symptoms, minimal auditory hallucinations Reports being compliant with medication, denies any medication side effects Reports improving appetite Reports improving sleep No interval behavioral disturbances Mental Status Exam MSE Comments: Lying in bed, calm, cooperative, interactive, good eye contact Psychomotor activity is neither increased nor decreased, no agitation Speech is normal volume, normal rate, spontaneous, not pressured, fair articulation I feel okay, constricted, not labile Alert and oriented to person, place, time, situation Memory and concentration appear to be fair to intact per interview Thought process, linear, no flight of ideas, no loose associations Thought content, no stated delusions, no hallucinations, no suicidal or homicidal ideation Insight and judgment appear to be fair to intact Vitals/I&O/Wt Last Vital Signs Temp 97.9 F 06/10/21 06:00 Pulse 61 06/10/21 06:00 Resp 20 H 06/10/21 06:00 BP 99/71 06/10/21 06:00 Pulse Ox 97 06/10/21 06:00 Data NPU : 06/06/21 03:30 06/06/21 03:30 A&P Assessment and plan (1) Suicidal ideation: Status: Acute (2) Acute psychosis: Status: Acute (3) Depression: Status: Acute Qualifiers: Active/Remission status: currently active Depression Type: major depressive disorder Major depression episode severity: moderate Major depression recurrence: recurrent Qualified Code(s): F33.1 - Major depressive disorder, recurrent, moderate (4) Cannabis abuse: Status: Acute (5) Methamphetamine abuse: Status: Acute (6) Posttraumatic stress disorder: Status: Acute (7) Chronic schizophrenia: Status: Acute Additional A&P Information Continues report depressive symptoms, improving psychotic symptoms INCREASE to fluoxetine 60 mg daily CONTINUE other medication, continue to monitor Involuntary Hold Information 96 Hour Hold: 96 Hour Involuntary Admission: Yes 96 Hour Hold Ending Date: 06/12/21 96 Hour Hold Ending Time: 02:20 Attestations NPU Medical Necessity Statement*: Continues to require psychiatric hospitalization for medication stabilization Coding Level of Care Code 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
[2021-06-10 14:00] VITALS: BP 93/57; PULSE 68; RESP 18; TEMP 36.1; O2SAT 97
[2021-06-10] MEDS: OLANZapine 10 mg TABLET PO (20:09)
[2021-06-10 20:57] VITALS: BP 103/71; PULSE 65; RESP 20; TEMP 36.7; O2SAT 99
[2021-06-10] MEDS: hyDROXYzine 25 mg Capsule 50 MG PO (21:44)
--- NOTE | 2021-06-10 21:48 | PC.NURSE ---
pt requesting anxiety med due to thunderstorms, Vistaril 50mg po given.
[2021-06-11 06:00] VITALS: BP 102/68; PULSE 57; RESP 18; TEMP 36.6; O2SAT 99
[2021-06-11] MEDS: fluoxetine 20 mg Capsule 60 MG PO (08:11)
[2021-06-11] MEDS: OLANZapine 5 mg TABLET PO (08:11)
--- NOTE | 2021-06-11 10:36 | P.PN_ITS ---
Subjective NPU Subjective: Interval history: Patient reports feeling much better but continues to report occasional auditory hallucinations Reports improved mood, denies any interval suicidal ideation States that he is compliant with his medication and denies any medication side effects Per staff, patient more interactive and up on the unit walking and watching TV in the day room, no interval behavioral disturbances Mental Status Exam MSE Comments: Sitting in the day room, watching TV, appropriately groomed and dressed wearing hospital scrubs, polite, interactive, good eye contact Psychomotor activity is neither increased nor decreased, no agitation Speech is normal volume, normal rate, spontaneous, not pressured, fair articulation I feel better, full range, not labile Alert and oriented to person, place, time, situation Memory and concentration appear to be fair to intact per interview Thought process, linear, no flight of ideas, no loose associations Thought content, no stated delusions, no hallucinations, no suicidal or homicidal ideation Insight and judgment appear to be fair to intact Vitals/I&O/Wt Last Vital Signs Temp 97.8 F 06/11/21 06:00 Pulse 57 L 06/11/21 06:00 Resp 18 06/11/21 06:00 BP 102/68 06/11/21 06:00 Pulse Ox 99 06/11/21 06:00 Data NPU : 06/06/21 03:30 06/06/21 03:30 A&P Assessment and plan (1) Suicidal ideation: Status: Acute (2) Acute psychosis: Status: Acute (3) Depression: Status: Acute Qualifiers: Active/Remission status: currently active Depression Type: major depressive disorder Major depression episode severity: moderate Major depression recurrence: recurrent Qualified Code(s): F33.1 - Major depressive disorder, recurrent, moderate (4) Cannabis abuse: Status: Acute (5) Methamphetamine abuse: Status: Acute (6) Posttraumatic stress disorder: Status: Acute (7) Chronic schizophrenia: Status: Acute Additional A&P Information Improving, some auditory hallucinations, improving mood CONTINUE current medication, continue to monitor Involuntary Hold Information 96 Hour Hold: 96 Hour Involuntary Admission: Yes 96 Hour Hold Ending Date: 06/12/21 96 Hour Hold Ending Time: 02:20 Attestations NPU Medical Necessity Statement*: Continues to require psychiatric hospitalization for medication stabilization Coding Level of Care Code 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
[2021-06-11 14:00] VITALS: BP 115/74; PULSE 53; RESP 18; TEMP 36.1; O2SAT 100
[2021-06-11] MEDS: acetaminophen 325 mg Tablet 650 MG PO (16:28)
--- NOTE | 2021-06-11 16:29 | PC.NURSE ---
Patient requested Tylenol for his headache. PRN Tylenol administered
[2021-06-11 20:09] VITALS: BP 116/77; PULSE 76; RESP 15; TEMP 37.1; O2SAT 100
[2021-06-11] MEDS: OLANZapine 10 mg TABLET PO (20:34)
[2021-06-12 06:00] VITALS: BP 115/78; PULSE 55; RESP 16; TEMP 36.2; O2SAT 99
[2021-06-12] MEDS: fluoxetine 20 mg Capsule 60 MG PO (08:37)
[2021-06-12] MEDS: OLANZapine 5 mg TABLET PO (08:37)
--- NOTE | 2021-06-12 10:52 | PM.NDC ---
Diagnoses at Discharge Discharge Diagnosis (1) Suicidal ideation: Status: Acute (2) Acute psychosis: Status: Acute (3) Depression: Status: Acute Qualifiers: Active/Remission status: currently active Depression Type: major depressive disorder Major depression episode severity: moderate Major depression recurrence: recurrent Qualified Code(s): F33.1 - Major depressive disorder, recurrent, moderate (4) Cannabis abuse: Status: Acute (5) Methamphetamine abuse: Status: Acute (6) Posttraumatic stress disorder: Status: Acute (7) Chronic schizophrenia: Status: Acute Reason for Visit Reason for Visit: SI/pt requesting stress unit Hospital Course Hospital Course 30 year old male with past history of polysubstance abuse to include methamphetamine and near daily marijuana use with current UDS positive for cannabis presented to the emergency department with complaint of worsening depressive symptoms and worsening auditory hallucinations although patient does not provide any details about any recent circumstances exacerbating his symptoms. Patient states that last suicidal ideation was around the time that he was brought to the unit with no subsequent episodes. He does report ongoing depressive symptoms, low mood, decreased motivation and interest. Patient also states that last auditory hallucinations were just prior to coming to the unit but does not describe the quality or frequency of these auditory hallucinations, denies any visual hallucinations, denies any delusions. Patient continued to report psychotic symptoms at the time of his admission as well as depressive symptoms and was started on olanzapine which was titrated up to olanzapine 5 mg daily and olanzapine 10 mg at bedtime with good effect decreasing his auditory hallucinations with no reported impairment. Patient was started on fluoxetine which was titrated up to fluoxetine 60 mg with significant improvement of his mood symptoms reporting no depressive symptoms and denying any suicidal ideation. Patient tolerated medication changes well with no reports of any medication side effects. Patient demonstrated increased social interaction on the unit with improvement in no reports of any behavioral disturbances. Patient was not suicidal and was not demonstrating any psychotic behavior and with no psychiatric symptoms being endorsed at the time of discharge and did not appear to pose an imminent threat of harm to self or others. Low to moderate risk of harm to self given no current suicidal ideation and no report of any psychotic symptoms although patient's risk may continue to be elevated if he is not compliant with his discharge instructions and continues to use any substances of abuse leading to unexpected, impulsive behavior. Risk mitigation included psychiatric hospitalization, medication stabilization, recommendation to abstain from use of substances and alcohol as well as the need for compliance with his medication, medication management and substance counseling/treatment. Patient was able to communicate his understanding of the need to abstain from use of substances and alcohol as well as the need for compliance with his medication, medication management and substance counseling/treatment in order to further mitigate his risk of harm to self and others. Involuntary Hold Information 96 Hour Hold: 96 Hour Involuntary Admission: Yes 96 Hour Hold Ending Date: 06/12/21 96 Hour Hold Ending Time: 02:20 Mental Status Exam MSE Comments: Calm, cooperative, interactive, appropriately groomed and dressed, good eye contact Psychomotor activity is neither increased nor decreased, no agitation Speech is normal volume, normal rate, spontaneous, not pressured, fair articulation I feel good, full range, smiles appropriately at times during interview, not labile Alert and oriented to person, place, time, situation Memory and concentration appear to be fair to intact per interview Thought process, linear, no flight of ideas, no loose associations Thought content, no stated delusions, no hallucinations, no suicidal or homicidal ideation Insight and judgment appear to be fair to intact Discharge Data Vitals: Last Vital Signs Temp 97.2 F L 06/12/21 06:00 Pulse 55 L 06/12/21 06:00 Resp 16 06/12/21 06:00 BP 115/78 06/12/21 06:00 Pulse Ox 99 06/12/21 06:00 Discharge Plan Discharge Patient Disposition: Home Condition: Stable Prescriptions: New olanzapine 5 mg Tablet 5 mg PO DAILY Qty: 30 RF: 0 olanzapine 10 mg Tablet 10 mg PO BEDTIME Qty: 30 RF: 0 fluoxetine 20 mg Capsule 60 mg PO DAILY Qty: 90 RF: 0 Discharge Orders: Discharge Order (Routine); Ordered 06/12/21 Ordered By: Huseyin Lora Referrals: [facility] [Outside] (Initial assessments are done by walk-in Saturday through Saturday 7:30am to 3pm.) [facility] [Outside] Discharge Diet: Regular Discharge Activity: Resume usual activity Patient Instructions: Opioid Safety Discharge Attestations NPU Time Spent in Discharge Care*: greater than 30 min Status at Discharge: Cognitive status at discharge: cognitively intact, Behavioral status at discharge: cooperative, Functional status at discharge: independent ambulation Overall status at discharge: patient is back to baseline Coding Level of Care Code Acute Chg FW DC note 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
[2021-06-12 10:54] VITALS: BP 115/78; PULSE 55; RESP 16; TEMP 36.2; O2SAT 99
== END 2021-06-12 11:06 | disposition home or self-care (01) | DRG 885 ==
LOC: ER 04:15 → NP 08:04
PROVIDERS: Admitting Provider Psychiatry & Neurology Psychiatry; Emergency Provider Emergency Medicine; Visit Provider Psychiatry & Neurology Psychiatry
DX: F33.1 Major depressive disorder, recurrent, moderate (principal); R45.851 Suicidal ideations; F20.9 Schizophrenia, unspecified; F12.159 Cannabis abuse with psychotic disorder, unspecified; F17.200 Nicotine dependence, unspecified, uncomplicated; F43.10 Post-traumatic stress disorder, unspecified; F15.10 Other stimulant abuse, uncomplicated; Z91.14 Patient's other noncompliance with medication regimen
CPT/HCPCS: 80053; 80306; 80307; 85025; 99285; Q0162

== ENCOUNTER 2021-10-24 20:39 | Inpatient (IN) | payer MEDICAID, SELFPAY ==
[2021-10-24 20:52] VITALS: BP 111/69; PULSE 73; RESP 16; TEMP 36.8; O2SAT 97; BMI 27.1
--- NOTE | 2021-10-24 21:27 | W.ED.PSYCHS ---
HPI - Psych General: Chief Complaint: Psychiatric Symptoms Stated Complaint: SI Time Seen by Provider: 10/24/21 21:06 History of Present Illness: HPI Narrative: Patient is a 31-year-old male comes to the ED with SI. Patient has a past medical history of depression, methamphetamine abuse, schizophrenia and PTSD. His increased thoughts of suicide started yesterday. He does not have a plan currently states he wants to get help. He also endorses hearing voices but does not want to talk about it. He has been hospitalized for SI in the past. Endorses HI as well. Patient says he is not currently taking any medications. Associated symptoms: Reports auditory hallucinations, homicidal ideation and suicidal ideation Review of Systems Const: Denies: fever(s), chills or fatigue Eyes: Denies: change in vision or eye discomfort ENMT: Denies: throat pain, odynophagia, nasal discharge or nasal congestion Card: Denies: chest pain, palpitations, edema, swelling of feet/ankles, dyspnea on exertion or orthopnea Resp: Denies: dyspnea, productive cough or non-productive cough GI: Denies: abdominal pain, nausea, vomiting, diarrhea, constipation or hematochezia : Denies: flank pain, difficulty urinating, dysuria or hematuria Musc: Denies: neck pain, back pain or extremity swelling Skin/Breast: Denies: rash or new lesions Neuro: Denies: headache(s), numbness in extremities or weakness in extremities Psych: Reports: auditory hallucinations, suicidal ideation and homicidal ideation PFS ED PFSH: Medical History Cannabis abuse Depression Posttraumatic stress disorder Schizophrenia Social History Smoking and tobacco status: current every day smoker Current gender identity: Male Physical Exam Const: COMMON NORMALS: no acute distress, patient oriented x3 and alert GENERAL APPEARANCE: cooperative and comfortable HENMT: COMMON NORMALS: normocephalic HEAD & SCALP: normocephalic MOUTH: Normal oral and palatal mucosa present THROAT: posterior oropharynx normal and uvula midline Neck/C-Spine: COMMON NORMALS: supple GENERAL: Yes normal visual inspection Resp: COMMON NORMALS: normal respiratory effort, No retractions, No use of accessory muscles and clear to auscultation bilaterally AUSCULTATION: clear to auscultation bilaterally Cardio: COMMON NORMALS: regular rate, regular rhythm, S1 normal heart sound present, S2 normal heart sound present, No gallops present (Cardio), No clicks present (Cardio), No murmurs present (Cardio) and Peripheral pulses 2+ throughout RATE: regular rate RHYTHM: regular rhythm HEART SOUNDS: S1 normal heart sound present and S2 normal heart sound present PERIPHERAL PULSES: Peripheral pulses 2+ throughout GI: COMMON NORMALS: Normal to inspection, nondistended, normoactive bowel sounds present, Soft to palpation, non-tender and no masses PALPATION: Yes Soft to palpation : COMMON NORMALS: Yes no CVA tenderness BLADDER/KIDNEY EXAM: Yes no CVA tenderness Back/Pelvis: COMMON NORMALS: no CVA tenderness Extremity: COMMON NORMALS: normal to inspection Neuro: COMMON NORMALS: patient oriented x3 and moves all extremities SENSORIUM/ORIENTATION: Yes alert Psych: COMMON NORMALS: mental status grossly normal, Normal thought process present and speech normal APPEARANCE: Yes grossly normal ATTITUDE: Yes calm ACTIVITY/MOTOR BEHAVIOR: Yes appropriate eye contact SPEECH: Yes normal speech MOOD & AFFECT: Yes depressed mood THOUGHT PROCESS: Normal thought process present THOUGHT CONTENT: Yes Suicidality present, Yes Homicidality present and Yes Hallucination(s) present auditory ATTENTION/CONCENTRATION: Yes attention grossly intact and Yes concentration grossly intact MEMORY/COGNITION: Yes memory grossly intact and Yes cognition grossly intact INSIGHT: Fair insight present (Psych) JUDGEMENT: Fair judgement present (Psych) Skin: GENERAL SKIN EXAM: dry skin Course Consultations: Consultation #1: I contacted the psych on-call physician Dr. Mcgraw and talk to him about patient case. He agreed to have patient admitted into the NPU. Time: 22:10 Vital Signs: Vital signs: Vital Signs Temperature 98.2 F 10/25/21 01:30 Pulse Rate 78 10/25/21 01:30 Respiratory Rate 18 10/25/21 01:30 Blood Pressure 128/72 10/25/21 01:30 Pulse Oximetry 99 10/25/21 01:30 MDM - Psych MDM Narrative: Medical decision making narrative: Patient is a 31-year-old male comes to the ED with SI, HI and auditory hallucinations. Patient is a history of schizophrenia, PTSD, depression and methamphetamine abuse. He denies being on any current medications. Screening labs performed and urine drug screen just showed marijuana. I contacted Dr. Mcgraw told about patient case and he agreed with admission of patient into the NPU. Dr. Kaur placed the admitting orders. Lab Data: Attestation: I reviewed the patient's lab results. Labs: Lab Results 10/24/21 10/24/21 10/24/21 21:40 21:40 21:40 WBC 9.0 10^3/uL 10^3/ uL (4.0-10.0) RBC 4.90 10^6/uL 10^6 /uL (4.1-5.3) Hgb 15.7 g/dL g/dL (11.7-16.6) Hct 46.0 % % (42.0-52.0) MCV 93.9 fl fl (80-94) MCH 32.0 pg pg (28.0-34.0) MCHC 34.1 g/dL g/dL (30.0-36.0) RDW 11.9 % L % (12.1-15.1) Plt Count 199 10^3/cmm 10^3 /cmm (130-400) MPV 10.6 fL H fL (7.4-10.4) Neut % (Auto) 61.6 % % Lymph % (Auto) 25.4 % % Weber % (Auto) 9.8 % % Eos % (Auto) 2.0 % % Baso % (Auto) 0.6 % % Neut # (Auto) 5.55 10^3/uL 10^3 /uL (1.8-7.7) Lymph # (Auto) 2.3 10^3/uL 10^3/ uL (0.8-4.8) Weber # (Auto) 0.9 10^3/uL 10^3/ uL (0.2-0.9) Eos # (Auto) 0.2 10^3/uL 10^3/ uL (0.0-0.8) Baso # (Auto) 0.1 10^3/uL 10^3/ uL (0.0-0.1) Nucleated RBC % (a uto) 0 % % Nucleated RBCs # 0.0 /100WBC /100W BC Sodium 137 mmol/L mmol/L (136-145) Potassium 3.8 mmol/L mmol/L (3.5-5.1) Chloride 101 mmol/L mmol/L (98-107) Carbon Dioxide 23 mmol/L mmol/L (22-29) Anion Gap 16.8 (5-19) BUN 11 mg/dL mg/dL (6-20) Creatinine 0.6 mg/dL L mg/dL (0.7-1.2) GFR Calculation 158.2 mL/min H mL /min (90-130) Glucose 79 mg/dL mg/dL (65-115) Calculated Osmolal ity 282 mOsm/kg L mOs m/kg (285-295) Calcium 8.9 mg/dL mg/dL (8.5-10.5) Total Bilirubin 0.6 mg/dL mg/dL (0.15-1.2) AST 14 U/L U/L (0-40) ALT 11 U/L U/L (0-41) Alkaline Phosphata se 69 IU/L IU/L (40-130) Total Protein 6.7 g/dL g/dL (6.6-8.7) Albumin 4.3 g/dL g/dL (3.5-5.2) Globulin 2.4 g/dL g/dL (1.3-4.6) Salicylates < 0.3 mg/dL L mg/ dL (3-10) Urine Opiates Scre en Negative ng/mL ng /mL (Negative) Acetaminophen < 5.0 ug/mL L ug/ mL (10-30) Ur Barbiturates Sc reen Negative ng/mL ng /mL (Negative) Ur Phencyclidine S crn Negative ng/mL ng /mL (Negative) Ur Amphetamines Sc reen Negative ng/mL ng /mL (Negative) U Benzodiazepines Scrn Negative ng/mL ng /mL (Negative) Urine Cocaine Scre en Negative ng/mL ng /mL (Negative) U Marijuana (THC) Screen Positive ng/mL H ng/mL (Negative) Ethyl Alcohol < 10 mg/dL mg/dL (0-10) Discharge Plan Discharge Patient Disposition: Admitted As Inpatient Admit Provider: Geovanni Mcgraw Clinical Impression: Suicidal ideation Condition: Stable Coding Level of Care Code 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
[2021-10-24 21:51] LABS: Basophils # 0.1 10^3/uL (0.0-0.1); Basophils % 0.6 %; Eosinophils # 0.2 10^3/uL (0.0-0.8); Hemoglobin 15.7 g/dL (11.7-16.6); Lymphocytes # 2.3 10^3/uL (0.8-4.8); Lymphocytes % 25.4 %; Mean Corpuscular HGB Conc 34.1 g/dL (30.0-36.0); Mean Corpuscular Volume 93.9 fl (80-94); Mean Platelet Volume 10.6 fL (7.4-10.4); Monocytes # 0.9 10^3/uL (0.2-0.9); Monocytes % 9.8 %; Neutrophils # 5.55 10^3/uL (1.8-7.7); Neutrophils % 61.6 %; Nucleated Red Blood Cells % 0 %; Platelet Count 199 10^3/cmm (130-400); Red Cell Distribution Width 11.9 % (12.1-15.1)
[2021-10-24 22:01] LABS: Amphetamines Screen Urine Negative (Negative); Barbiturates Screen Urine Negative (Negative); Benzodiazepines Screen Urine Negative (Negative); Cocaine Screen Urine Negative (Negative); Opiate Screen Urine Negative (Negative); PCP Screen Urine Negative (Negative); THC Screen Urine Positive (Negative)
[2021-10-24 22:19] LABS: Alanine Aminotransferase 11 U/L (0-41); Albumin Level 4.3 g/dL (3.5-5.2); Alkaline Phosphatase 69 IU/L (40-130); Anion Gap 16.8 (5-19); Aspartate Amino Transferase 14 U/L (0-40); Blood Urea Nitrogen 11 mg/dL (6-20); Calcium 8.9 mg/dL (8.5-10.5); Carbon Dioxide 23 mmol/L (22-29); Chloride 101 mmol/L (98-107); Globulin 2.4 g/dL (1.3-4.6); Glomerular Filtration Rate 158.2 mL/min (90-130); Glucose 79 mg/dL (65-115); Osmolality Calculated 282 mOsm/kg (285-295); Potassium 3.8 mmol/L (3.5-5.1); Sodium 137 mmol/L (136-145); Total Bilirubin 0.6 mg/dL (0.15-1.2); Total Protein 6.7 g/dL (6.6-8.7)
[2021-10-24 22:22] LABS: Acetaminophen < 5.0 ug/mL (10-30); Alcohol Level < 10 mg/dL (0-10); Salicylate < 0.3 mg/dL (3-10)
[2021-10-25 01:30] VITALS: BP 128/72; PULSE 78; RESP 18; TEMP 36.8; O2SAT 99
[2021-10-25 01:53] VITALS: BP 117/77; PULSE 60; RESP 15; O2SAT 98
--- NOTE | 2021-10-25 02:55 | PC.ADMIT ---
[facility] Admission Note: Ruben Horan is a 31 year old male who reports he called EMS to bring him to the ED for suicidal ideations with a plan to maddie Nasreen and give it to my girlfriend to kill herself. Patient is alert and oriented. He denies current suicidal ideation. He reports a history of hallucinations but denies hallucinations at this time. Patient reports he has a history of concussions that affects how he processes and imparts information. Patient's mood is euthymic with flat affect. He has some thought blocking and delayed response to questions. His speech is clear with normal rate and volume. He reports he has no medical history. He is a poor historian, often giving conflicting information. No skin abnormalities noted on assessment. Patient's skin is warm/dry. Respirations even/unlabored. Comfort measures addressed. Safety checks initiated upon arrival to NPU. Continue to monitor. The patient,Ruben Horan,31 y/o, was given written information regarding hospital policies, unit procedures and contact persons. Patient's smoking status: current every day smoker. Vital Signs - 8 hr 10/24/21 20:52 10/25/21 01:30 10/25/21 01:53 Temperature 98.2 F 98.2 F Pulse Rate 73 78 60 Respiratory Rate 16 18 15 Blood Pressure 111/69 128/72 117/77 Pulse Oximetry 97 99 98
[2021-10-25 06:00] VITALS: RESP 17
--- NOTE | 2021-10-25 08:29 | P.NPUHP_ITS ---
Providers/Chief Complaint Admitting Physician: Geovanni Mcgraw MD Chief Complaint: SI HPI NPU History of Present Illness Ruben Horan is a 31 year old male was admitted through the emergency department with the following report: HPI Narrative: Patient is a 31-year-old male comes to the ED with SI. Patient has a past medical history of depression, methamphetamine abuse, schizophrenia and PTSD. His increased thoughts of suicide started yesterday. He does not have a plan currently states he wants to get help. He also endorses hearing voices but does not want to talk about it. He has been hospitalized for SI in the past. Endorses HI as well. Patient says he is not currently taking any medications. Associated symptoms: Reports auditory hallucinations, homicidal ideation and suicidal ideation He was admitted to the hospital and June of this year with the following evaluation: History of Present Illness Ruben Horan is a 30 year old male with past history of polysubstance abuse to include methamphetamine and near daily marijuana use with current UDS positive for cannabis presented to the emergency department with complaint of worsening depressive symptoms and worsening auditory hallucinations although patient does not provide any details about any recent circumstances exacerbating his symptoms. Patient states that last suicidal ideation was around the time that he was brought to the unit with no subsequent episodes. He does report ongoing depressive symptoms, low mood, decreased motivation and interest. Patient also states that last auditory hallucinations were just prior to coming to the unit but does not describe the quality or frequency of these auditory hallucinations, denies any visual hallucinations, denies any delusions. Denies past or recent hypomanic or manic episodes. Patient states last use of methamphetamine was a few months ago and states his last use of substance was a couple months ago despite his previous statement that he uses marijuana near daily and currently has a positive UDS. Patient reports psychiatric review of systems is otherwise negative. Patient states that he has been off of medication pretty much the duration of time since his last psychiatric hospitalization in November 2020. He denies compliance with psychiatry follow-up. Patient reports unstable living arrangement and is unable to currently site where he stays and reports that he will likely have to go to a [place] [facility] facility and does not really like talking about the circumstances leading to his unstable living situation. Hospital course 30 year old male with past history of polysubstance abuse to include methamphetamine and near daily marijuana use with current UDS positive for cannabis presented to the emergency department with complaint of worsening depressive symptoms and worsening auditory hallucinations although patient does not provide any details about any recent circumstances exacerbating his symptoms. Patient states that last suicidal ideation was around the time that he was brought to the unit with no subsequent episodes. He does report ongoing depressive symptoms, low mood, decreased motivation and interest. Patient also states that last auditory hallucinations were just prior to coming to the unit but does not describe the quality or frequency of these auditory hallucinations, denies any visual hallucinations, denies any delusions. Patient continued to report psychotic symptoms at the time of his admission as well as depressive symptoms and was started on olanzapine which was titrated up to olanzapine 5 mg daily and olanzapine 10 mg at bedtime with good effect decreasing his auditory hallucinations with no reported impairment. Patient was started on fluoxetine which was titrated up to fluoxetine 60 mg with significant improvement of his mood symptoms reporting no depressive symptoms and denying any suicidal ideation. Patient tolerated medication changes well with no reports of any medication side effects. Patient demonstrated increased social interaction on the unit with improvement in no reports of any behavioral disturbances. Patient was not suicidal and was not demonstrating any psychotic behavior and with no psychiatric symptoms being endorsed at the time of discharge and did not appear to pose an imminent threat of harm to self or others. Low to moderate risk of harm to self given no current suicidal ideation and no report of any psychotic symptoms although patient's risk may continue to be elevated if he is not compliant with his discharge instructions and continues to use any substances of abuse leading to unexpected, impulsive behavior. Risk mitigation included psychiatric hospitalization, medication stabilization, recommendation to abstain from use of substances and alcohol as well as the need for compliance with his medication, medication management and substance counseling/treatment. Patient was able to communicate his understanding of the need to abstain from use of substances and alcohol as well as the need for compliance with his medication, medication management and substance counselin g/treatment in order to further mitigate his risk of harm to self and others. He was admitted for definitive treatment of these issues. He says that it has been about 1 year since he has been in the hospital. He said that he was compliant with his medications for several months after but then did not get around to following up and getting refills on the medication. He said that he forgets whether or not the Zyprexa did anything. He does not think that the Prozac helped his depression. He would like to go back on the Zyprexa and try different antidepressant. He did not think that he gained weight on the Zyprexa. He says he really does not remember. He said that he has been hearing voices since he stopped taking the medication. The suicidal ideation just has been for the last couple of days but he has suicidal ideation off and on. PAST PSYCHIATRIC HISTORY AND SOCIAL HISTORY is as above. Meds NPU Home Medications Medication Instructions Recorded Confirmed Last Taken Type fluoxetine 60 mg PO DAILY #90 cap 06/12/21 10/25/21 Unknown Rx olanzapine 5 mg PO DAILY #30 tab 06/12/21 10/25/21 Unknown Rx olanzapine 10 mg PO BEDTIME #30 tab 06/12/21 10/25/21 Unknown Rx Allergies Allergy/AdvReac Type Severity Reaction Status Date / Time nickel Allergy ALGY-Rash Verified 10/24/21 20:52 PFSH NPU PFSH: Medical History Cannabis abuse Depression Posttraumatic stress disorder Schizophrenia Social History Smoking and tobacco status: current every day smoker Current gender identity: Male Mental Status Exam MSE Comments: This is a 31-year-old thin, well-developed and well-nourished male of about his stated age in no acute distress. He was found in his bed at 1 PM asleep. He awoke with some difficulty. He is in hospital scrubs and somewhat disheveled. psychomotor activity about normal.. Speech is at a regular rate and rhythm, normal volume, good articulation, not pressured. Alert, oriented X3 Attention and concentration seem within normal limits. Memory is intact Mood is depressed. Affect is mildly dysphoric. Thought process is logical and goal-directed. Thought content: He admits to auditory hallucinations. He says they talk about various things. Nothing in particular. He denies visual hallucinations. No delusions or paranoia are noted. No current suicidal ideation but even today would rather be ., He denies homicidal ideation. Insight and judgment appear to be fair. Impulse control is fair as well. Vitals/I&O/Wt Last Vital Signs Temp 98.2 F 10/25/21 01:30 Pulse 60 10/25/21 01:53 Resp 17 10/25/21 06:00 BP 117/77 10/25/21 01:53 Pulse Ox 98 10/25/21 01:53 Weight last 48 hrs Weight 90.718 kg Data NPU : 10/24/21 21:40 10/24/21 21:40 A&P Assessment and plan (1) Chronic schizophrenia: Plan: 1. Continue restart Zyprexa 5 mg in the morning and 5 mg at bedtime. We will increase bedtime dose to 10 mg as tolerated. We will change to Lexapro instead of Prozac because he did not feel that it worked. 2. Continue every 15 minute checks for safety. 3. Encourage individual, group and milieu therapies. 4. Encourage sober living treatment after discharge at the highest level of care to which he is willing to commit. 5. We will monitor for safety for himself in the community prior to discharge. Status: Acute (2) Posttraumatic stress disorder: Status: Acute (3) Methamphetamine abuse: Status: Acute (4) Cannabis abuse: Status: Acute (5) Depression: Status: Acute Qualifiers: Active/Remission status: currently active Depression Type: major depressive disorder Major depression episode severity: moderate Major depression recurrence: recurrent Qualified Code(s): F33.1 - Major depressive disorder, recurrent, moderate (6) Suicidal ideation: Status: Acute Involuntary Hold Information 96 Hour Hold: 96 Hour Involuntary Admission: No 96 Hour Hold Ending Date: 06/12/21 96 Hour Hold Ending Time: 02:20 Attestations NPU Medical Necessity Statement*: Inpatient hospitalization is medically necessary and the clinically appropriate intervention at this time. We will initiate medications and make changes as indicated. He will be in the hospital for over 2 midnights. 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
[2021-10-25] MEDS: fluoxetine 20 mg Capsule 60 MG PO (08:51)
[2021-10-25] MEDS: OLANZapine 5 mg TABLET PO (08:51)
--- NOTE | 2021-10-25 13:07 | NPU.GN ---
[facility] Unit Group Topic:Group Topic: Pie of Emotions, Coping, and Supports General Mood of Group: Ruben did not attend group. He was sleeping. This senior writer did meet with patient and aided in completing the intake packet. He stated that he needs all services and he is also homeless.
[2021-10-25 14:00] VITALS: BP 94/55; PULSE 86; RESP 20; TEMP 36.6; O2SAT 97
[2021-10-25 21:03] VITALS: BP 127/84; PULSE 76; RESP 16; O2SAT 98
[2021-10-25] MEDS: OLANZapine 10 mg TABLET PO (21:16)
[2021-10-26 06:00] VITALS: RESP 16
[2021-10-26] MEDS: OLANZapine 5 mg TABLET PO (08:52)
[2021-10-26] MEDS: fluoxetine 20 mg Capsule 60 MG PO (08:53)
[2021-10-26] MEDS: acetaminophen 325 mg Tablet 650 MG PO (09:59)
--- NOTE | 2021-10-26 13:10 | W.PM.NPUPNS ---
Subjective NPU Subjective: Interval history: He says that he is doing about the same. He continues to be depressed and feel like he would be better off . Hallucinations are about the same. He has not had side effects from his medications. Mental Status Exam MSE Comments: This is a 31-year-old thin, well-developed and well-nourished male of about his stated age in no acute distress. He was found in his bed at 1 PM asleep. He awoke with some difficulty. He is in hospital scrubs and somewhat disheveled. psychomotor activity about normal.. Speech is at a regular rate and rhythm, normal volume, good articulation, not pressured. Alert, oriented X3 Attention and concentration seem within normal limits. Memory is intact Mood is depressed. Affect is mildly dysphoric. Thought process is logical and goal-directed. Thought content: He admits to auditory hallucinations. He says they talk about various things. Nothing in particular. He denies visual hallucinations. No delusions or paranoia are noted. No current suicidal ideation but even today would rather be ., He denies homicidal ideation. Insight and judgment appear to be fair. Impulse control is fair as well. Cognition: Patient Appearance: Disheveled/Poor Hygiene Level of Consciousness: Awake, Alert and Follows Commands Patient Cognition Impaired: No Ability to Follow Directions: Fair Patient Orientation (long list): Person, Place and Birthday Comprehension Ability: No Impairment Hallucination Type: None Delusion Description: Paranoid Ideation Thought Process: Disorganized and Tangential Affect: Affect Description: Anxious, [place] and [place] Behavior: Patient Behavior: Cooperative Speech Pattern: Appropriate and Clear Vitals/I&O/Wt Last Vital Signs Temp 97.5 F L 10/26/21 19:13 Pulse 58 L 10/26/21 19:13 Resp 16 10/27/21 05:33 BP 104/66 10/26/21 19:13 Pulse Ox 98 10/26/21 19:13 Data NPU : 10/24/21 21:40 10/24/21 21:40 A&P Assessment and plan (1) Chronic schizophrenia: Plan: 1. Continue Zyprexa 5 mg in the morning and 10 mg at bedtime. We will change to Lexapro instead of Prozac because he did not feel that it worked. 2. Continue every 15 minute checks for safety. 3. Encourage individual, group and milieu therapies. 4. Encourage sober living treatment after discharge at the highest level of care to which he is willing to commit. 5. We will monitor for safety for himself in the community prior to discharge. Status: Acute (2) Posttraumatic stress disorder: Status: Acute (3) Methamphetamine abuse: Status: Acute (4) Cannabis abuse: Status: Acute (5) Depression: Status: Acute Qualifiers: Active/Remission status: currently active Depression Type: major depressive disorder Major depression episode severity: moderate Major depression recurrence: recurrent Qualified Code(s): F33.1 - Major depressive disorder, recurrent, moderate (6) Suicidal ideation: Status: Acute Involuntary Hold Information 96 Hour Hold: 96 Hour Involuntary Admission: No 96 Hour Hold Ending Date: 06/12/21 96 Hour Hold Ending Time: 02:20 Attestations U Medical Necessity Statement*: Inpatient hospitalization is medically necessary and the clinically appropriate intervention at this time. We will initiate medications and make changes as indicated. Coding Level of Care Code Acute Hoop Punch And Coiler Operator Helper for Pete Ruiz Diagnoses Chronic schizophrenia F20.9 Posttraumatic stress disorder F43.10 Methamphetamine abuse F15.10 Cannabis abuse F12.10 Depression F33.1 Active/Remission status: currently active Depression Type: major depressive disorder Major depression episode severity: moderate Major depression recurrence: recurrent Suicidal ideation R45.851
--- NOTE | 2021-10-26 13:58 | W.PM.NPUPNS ---
Subjective NPU Subjective: Interval history: He was found in bed at 2 PM. He says that he is doing well. He says he is about the same. His voices are about the same. He has not had any side effects from the Zyprexa or Prozac. He would like to change the Prozac to Lexapro. Mental Status Exam MSE Comments: This is a 31-year-old thin, well-developed and well-nourished male of about his stated age in no acute distress. He was found in his bed at 1 PM asleep. He awoke with some difficulty. He is in hospital scrubs and somewhat disheveled. psychomotor activity about normal.. Speech is at a regular rate and rhythm, normal volume, good articulation, not pressured. Alert, oriented X3 Attention and concentration seem within normal limits. Memory is intact Mood is depressed. Affect is mildly dysphoric. Thought process is logical and goal-directed. Thought content: He admits to auditory hallucinations. He says they talk about various things. Nothing in particular. He denies visual hallucinations. No delusions or paranoia are noted. No current suicidal ideation but even today would rather be ., He denies homicidal ideation. Insight and judgment appear to be fair. Impulse control is fair as well. Cognition: Patient Appearance: Disheveled/Poor Hygiene Level of Consciousness: Awake, Alert and Follows Commands Patient Cognition Impaired: No Ability to Follow Directions: Fair Patient Orientation (long list): Person, Place and Birthday Comprehension Ability: No Impairment Hallucination Type: None Delusion Description: Paranoid Ideation Thought Process: Disorganized and Tangential Affect: Affect Description: Anxious, [place] and [place] Behavior: Patient Behavior: Cooperative Speech Pattern: Appropriate and Clear Vitals/I&O/Wt Last Vital Signs Temp 98 F 10/25/21 14:00 Pulse 76 10/25/21 21:03 Resp 16 10/26/21 06:00 BP 127/84 10/25/21 21:03 Pulse Ox 98 10/25/21 21:03 Weight last 48 hrs Weight 90.718 kg Data NPU : 10/24/21 21:40 10/24/21 21:40 A&P Assessment and plan (1) Chronic schizophrenia: Plan: 1. Continue Zyprexa 5 mg in the morning and 10 mg at bedtime. We will change to Lexapro instead of Prozac because he did not feel that it worked. 2. Continue every 15 minute checks for safety. 3. Encourage individual, group and milieu therapies. 4. Encourage sober living treatment after discharge at the highest level of care to which he is willing to commit. 5. We will monitor for safety for himself in the community prior to discharge. Status: Acute (2) Posttraumatic stress disorder: Status: Acute (3) Methamphetamine abuse: Status: Acute (4) Cannabis abuse: Status: Acute (5) Depression: Status: Acute Qualifiers: Active/Remission status: currently active Depression Type: major depressive disorder Major depression episode severity: moderate Major depression recurrence: recurrent Qualified Code(s): F33.1 - Major depressive disorder, recurrent, moderate (6) Suicidal ideation: Status: Acute Involuntary Hold Information 96 Hour Hold: 96 Hour Involuntary Admission: No 96 Hour Hold Ending Date: 06/12/21 96 Hour Hold Ending Time: 02:20 Attestations NPU Medical Necessity Statement*: Inpatient hospitalization is medically necessary and the clinically appropriate intervention at this time. We will initiate medications and make changes as indicated. Coding Level of Care Code Acute Media Planner for Albert Fwd Diagnoses Chronic schizophrenia F20.9 Posttraumatic stress disorder F43.10 Methamphetamine abuse F15.10 Cannabis abuse F12.10 Depression F33.1 Active/Remission status: currently active Depression Type: major depressive disorder Major depression episode severity: moderate Major depression recurrence: recurrent Suicidal ideation R45.851
[2021-10-26 14:00] VITALS: BP 127/84; PULSE 76; RESP 16; TEMP 36.6; O2SAT 98
[2021-10-26 19:13] VITALS: BP 104/66; PULSE 58; RESP 16; TEMP 36.4; O2SAT 98
[2021-10-26] MEDS: OLANZapine 10 mg TABLET PO (21:15)
[2021-10-27 05:33] VITALS: RESP 16
[2021-10-27] MEDS: OLANZapine 5 mg TABLET PO (09:48)
[2021-10-27] MEDS: fluoxetine 20 mg Capsule 60 MG PO (09:48)
[2021-10-27 14:00] VITALS: BP 104/67; PULSE 79; RESP 18; TEMP 36.9; O2SAT 96
--- NOTE | 2021-10-27 14:15 | P.NPUPN_ITS ---
Subjective NPU Subjective: Interval history: He says that he is doing about the same. He continues to have suicidal ideation but it is decreasing. His auditory and visual hallucinations are also decreasing. He had both the Lexapro and Prozac today and denies any side effects from that. We will do that for 1 more day and then changed to just Lexapro. This is actually the documentation for October 28 and the one that is listed as October 28 was for the . Mental Status Exam MSE Comments: This is a 31-year-old thin, well-developed and well-nourished male of about his stated age in no acute distress. He was found in his bed at 2 PM asleep. He awoke without much difficulty. He is in hospital scrubs and somewhat disheveled. psychomotor activity about normal.. Speech is at a regular rate and rhythm, normal volume, good articulation, not pressured. Alert, oriented to person and place but not the date Attention and concentration seem within normal limits. Memory is intact Mood is depressed. Affect is somewhat blunted mildly dysphoric. Thought process is logical and goal-directed. Thought content: He admits to auditory and visual hallucinations but they are both improving. No delusions or paranoia are noted. No current suicidal ideation but even today would rather be but those thoughts are decreasing., He denies homicidal ideation. Insight and judgment appear to be fair. Impulse control is fair as well. Cognition: Patient Appearance: Disheveled/Poor Hygiene Level of Consciousness: Awake, Alert and Follows Commands Patient Cognition Impaired: No Ability to Follow Directions: Fair Patient Orientation (long list): Person, Place and Birthday Comprehension Ability: No Impairment Hallucination Type: None Delusion Description: Paranoid Ideation Thought Process: Disorganized and Tangential Affect: Affect Description: [place] and Calm Behavior: Patient Behavior: Appropriate Speech Pattern: Appropriate Vitals/I&O/Wt Last Vital Signs Temp 98.0 F 10/27/21 20:25 Pulse 78 10/27/21 20:25 Resp 17 10/28/21 05:58 BP 121/83 10/27/21 20:25 Pulse Ox 98 10/27/21 20:25 Data NPU : 10/24/21 21:40 10/24/21 21:40 A&P Assessment and plan (1) Chronic schizophrenia: Plan: 1. Continue Zyprexa 5 mg in the morning and 10 mg at bedtime. We will change to Lexapro instead of Prozac because he did not feel that it worked. 2. Continue every 15 minute checks for safety. 3. Encourage individual, group and milieu therapies. 4. Encourage sober living treatment after discharge at the highest level of care to which he is willing to commit. 5. We will monitor for safety for himself in the community prior to discharge. Status: Acute (2) Posttraumatic stress disorder: Status: Acute (3) Methamphetamine abuse: Status: Acute (4) Cannabis abuse: Status: Acute (5) Depression: Status: Acute Qualifiers: Active/Remission status: currently active Depression Type: major depressive disorder Major depression episode severity: moderate Major depression recurrence: recurrent Qualified Code(s): F33.1 - Major depressive disorder, recurrent, moderate (6) Suicidal ideation: Status: Acute Involuntary Hold Information 96 Hour Hold: 96 Hour Involuntary Admission: No 96 Hour Hold Ending Date: 06/12/21 96 Hour Hold Ending Time: 02:20 Attestations NPU Medical Necessity Statement*: Inpatient hospitalization is medically necessary and the clinically appropriate intervention at this time. We will initiate medications and make changes as indicated. Coding Level of Care Code Acute Optometry Doctor for Pete Fwd Diagnoses Chronic schizophrenia F20.9 Posttraumatic stress disorder F43.10 Methamphetamine abuse F15.10 Cannabis abuse F12.10 Depression F33.1 Active/Remission status: currently active Depression Type: major depressive disorder Major depression episode severity: moderate Major depression recurrence: recurrent Suicidal ideation R45.851
[2021-10-27] MEDS: OLANZapine 10 mg TABLET PO (20:21)
[2021-10-27 20:25] VITALS: BP 121/83; PULSE 78; RESP 18; TEMP 36.7; O2SAT 98
[2021-10-28 05:58] VITALS: RESP 17
[2021-10-28] MEDS: escitalopram 10 mg Tablet 20 MG PO (10:32)
[2021-10-28] MEDS: OLANZapine 5 mg TABLET PO (10:33)
[2021-10-28] MEDS: fluoxetine 20 mg Capsule PO (10:33)
[2021-10-28] MEDS: acetaminophen 325 mg Tablet 650 MG PO ×2 (10:35→16:10)
[2021-10-28 14:00] VITALS: BP 118/80; PULSE 51; RESP 20; TEMP 36.4; O2SAT 99
--- NOTE | 2021-10-28 14:46 | P.NPUPN_ITS ---
Subjective NPU Subjective: Interval history: He says that he is doing about the same. He continues to be depressed and feel like he would be better off . Hallucinations are a little better. He has not had side effects from his medications. He wanted to change from the Prozac to Lexapro. Mental Status Exam MSE Comments: This is a 31-year-old thin, well-developed and well-nourished male of about his stated age in no acute distress. He was found in his bed at 11 AM asleep. He awoke without much difficulty. He is in hospital scrubs and somewhat disheveled. psychomotor activity about normal.. Speech is at a regular rate and rhythm, normal volume, good articulation, not pressured. Alert, oriented to person and place but not the date Attention and concentration seem within normal limits. Memory is intact Mood is depressed. Affect is mildly dysphoric. Thought process is logical and goal-directed. Thought content: He admits to auditory hallucinations. He says they talk about various things. Nothing in particular. He denies visual hallucinations. No delusions or paranoia are noted. No current suicidal ideation but even today would rather be ., He denies homicidal ideation. Insight and judgment appear to be fair. Impulse control is fair as well. Cognition: Patient Appearance: Disheveled/Poor Hygiene Level of Consciousness: Awake, Alert and Follows Commands Patient Cognition Impaired: No Ability to Follow Directions: Fair Patient Orientation (long list): Person, Place and Birthday Comprehension Ability: No Impairment Hallucination Type: None Delusion Description: Paranoid Ideation Thought Process: Disorganized and Tangential Affect: Affect Description: [place] and Calm Behavior: Patient Behavior: Appropriate Speech Pattern: Appropriate Vitals/I&O/Wt Last Vital Signs Temp 98.0 F 10/27/21 20:25 Pulse 78 10/27/21 20:25 Resp 17 10/28/21 05:58 BP 121/83 10/27/21 20:25 Pulse Ox 98 10/27/21 20:25 Data NPU : 10/24/21 21:40 10/24/21 21:40 A&P Assessment and plan (1) Chronic schizophrenia: Plan: 1. Continue Zyprexa 5 mg in the morning and 10 mg at bedtime. We will change to Lexapro instead of Prozac because he did not feel that it worked. 2. Continue every 15 minute checks for safety. 3. Encourage individual, group and milieu therapies. 4. Encourage sober living treatment after discharge at the highest level of care to which he is willing to commit. 5. We will monitor for safety for himself in the community prior to discharge. Status: Acute (2) Posttraumatic stress disorder: Status: Acute (3) Methamphetamine abuse: Status: Acute (4) Cannabis abuse: Status: Acute (5) Depression: Status: Acute Qualifiers: Active/Remission status: currently active Depression Type: major depressive disorder Major depression episode severity: moderate Major depression recurrence: recurrent Qualified Code(s): F33.1 - Major depressive disorder, recurrent, moderate (6) Suicidal ideation: Status: Acute Involuntary Hold Information 96 Hour Hold: 96 Hour Involuntary Admission: No 96 Hour Hold Ending Date: 06/12/21 96 Hour Hold Ending Time: 02:20 Attestations NPU Medical Necessity Statement*: Inpatient hospitalization is medically necessary and the clinically appropriate intervention at this time. We will initiate medications and make changes as indicated. 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
[2021-10-28 19:42] VITALS: BP 121/71; PULSE 52; RESP 17; TEMP 36.7; O2SAT 98
[2021-10-28] MEDS: OLANZapine 10 mg TABLET PO (20:38)
[2021-10-29 06:00] VITALS: RESP 16; BMI 27.1
[2021-10-29] MEDS: OLANZapine 5 mg TABLET PO (09:16)
[2021-10-29] MEDS: fluoxetine 20 mg Capsule PO (09:16)
[2021-10-29] MEDS: escitalopram 10 mg Tablet 20 MG PO (09:16)
[2021-10-29] MEDS: acetaminophen 325 mg Tablet 650 MG PO ×2 (10:00→14:48)
--- NOTE | 2021-10-29 10:49 | P.NPUPN_ITS ---
Subjective NPU Subjective: Interval history: He says that both the suicidal ideations and wishes for as well as the auditory hallucinations are decreasing. He says that they are not there all the time now. He is optimistic that his medications will work soon and that he will be able to go home in 2 or 3 days. He is sleeping well. He does not feel that he has side effects from his medications. Mental Status Exam MSE Comments: This is a 31-year-old thin, well-developed and well-nourished C aucasian male of about his stated age in no acute distress. He was up walking in the hallway at 10:30 AM. He is in hospital scrubs and somewhat disheveled. psychomotor activity about normal.. Speech is at a regular rate and rhythm, normal volume, good articulation, not pressured. Alert, oriented to person and place but not the date Attention and concentration seem within normal limits. Memory is intact Mood is depressed. Affect is somewhat blunted mildly dysphoric. Thought process is logical and goal-directed. Thought content: He admits to auditory and visual hallucinations but they are both improving. No delusions or paranoia are noted. No current suicidal ideation but even today would rather be but those thoughts are decreasing., He denies homicidal ideation. Insight and judgment appear to be fair. Impulse control is fair as well. Cognition: Patient Appearance: Disheveled/Poor Hygiene Level of Consciousness: Awake, Alert and Follows Commands Patient Cognition Impaired: No Ability to Follow Directions: Fair Patient Orientation (long list): Person, Place and Birthday Comprehension Ability: No Impairment Hallucination Type: None Delusion Description: Paranoid Ideation Thought Process: Disorganized and Tangential Affect: Affect Description: Appropriate Behavior: Patient Behavior: Appropriate Speech Pattern: Appropriate Vitals/I&O/Wt Last Vital Signs Temp 98.1 F 10/28/21 19:42 Pulse 52 L 10/28/21 19:42 Resp 16 10/29/21 06:00 BP 121/71 10/28/21 19:42 Pulse Ox 98 10/28/21 19:42 Weight last 48 hrs Weight 90.718 kg Data NPU : 10/24/21 21:40 10/24/21 21:40 A&P Assessment and plan (1) Chronic schizophrenia: Plan: 1. Continue Zyprexa 5 mg in the morning and 10 mg at bedtime. Discontinue Pro martine and increase Lexapro to 30 mg tomorrow. 2. Continue every 15 minute checks for safety. 3. Encourage individual, group and milieu therapies. 4. Encourage sober living treatment after discharge at the highest level of care to which he is willing to commit. 5. We will monitor for safety for himself in the community prior to discharge. Status: Acute (2) Posttraumatic stress disorder: Status: Acute (3) Methamphetamine abuse: Status: Acute (4) Cannabis abuse: Status: Acute (5) Depression: Status: Acute Qualifiers: Active/Remission status: currently active Depression Type: major depressive disorder Major depression episode severity: moderate Major depression recurrence: recurrent Qualified Code(s): F33.1 - Major depressive disorder, recurrent, moderate (6) Suicidal ideation: Status: Acute Involuntary Hold Information 96 Hour Hold: 96 Hour Involuntary Admission: No 96 Hour Hold Ending Date: 06/12/21 96 Hour Hold Ending Time: 02:20 Attestations NPU Medical Necessity Statement*: Inpatient hospitalization is medically necessary and the clinically appropriate intervention at this time. We will initiate medications and make changes as indicated. 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
[2021-10-29 14:00] VITALS: BP 119/77; PULSE 79; RESP 16; TEMP 36.3; O2SAT 98
[2021-10-29] MEDS: OLANZapine 10 mg TABLET PO (20:47)
[2021-10-29 21:36] VITALS: BP 124/88; PULSE 73; RESP 17; TEMP 36.7; O2SAT 99
[2021-10-30 06:00] VITALS: RESP 18
[2021-10-30] MEDS: escitalopram 10 mg Tablet 30 MG PO (09:29)
[2021-10-30] MEDS: OLANZapine 5 mg TABLET PO (09:29)
--- NOTE | 2021-10-30 10:30 | P.NPUPN_ITS ---
Subjective NPU Subjective: Interval history: He says that he has not had suicidal ideation today. He had suicidal ideation intermittently yesterday. The voices are intermittent today but continue. He thinks he might be ready to go home in a couple of days. His ankle is hurting and he wanted to know if I would increase the Tylenol above the standard dose and he agreed to try changing to some ibuprofen. He said he always takes 800 mg. Mental Status Exam MSE Comments: This is a 31-year-old thin, well-developed and well-nourished male of about his stated age in no acute distress. He was up walking in the hallway at 10:30 AM. He is in hospital scrubs and somewhat disheveled. psychomotor activity about normal.. Speech is at a regular rate and rhythm, normal volume, good articulation, not pressured. Alert, oriented to person and place but not the date Attention and concentration seem within normal limits. Memory is intact Mood is depressed. Affect is somewhat blunted mildly dysphoric. Thought process is logical and goal-directed. Thought content: He admits to auditory and visual hallucinations but they are both improving. No delusions or paranoia are noted. No current suicidal ideation or wishes for today. He denies homicidal ideation. Insight and judgment appear to be fair. Impulse control is fair as well. Cognition: Patient Appearance: Disheveled/Poor Hygiene Level of Consciousness: Awake, Alert and Follows Commands Patient Cognition Impaired: No Ability to Follow Directions: Fair Patient Orientation (long list): Person, Place and Birthday Comprehension Ability: No Impairment Hallucination Type: None Delusion Description: Paranoid Ideation Thought Process: Disorganized and Tangential Affect: Affect Description: Appropriate Behavior: Patient Behavior: Appropriate Speech Pattern: Clear Vitals/I&O/Wt Last Vital Signs Temp 98.0 F 10/29/21 21:36 Pulse 73 10/29/21 21:36 Resp 18 10/30/21 06:00 BP 124/88 10/29/21 21:36 Pulse Ox 99 10/29/21 21:36 Weight last 48 hrs Weight 90.718 kg Data NPU : 10/24/21 21:40 10/24/21 21:40 A&P Assessment and plan (1) Chronic schizophrenia: Plan: 1. Continue Zyprexa 5 mg in the morning and 10 mg at bedtime. Discontinue Prozac and increase Lexapro to 30 mg tomorrow. 2. Continue every 15 minute checks for safety. 3. Encourage individual, group and milieu therapies. 4. Encourage sober living treatment after discharge at the highest level of care to which he is willing to commit. 5. We will monitor for safety for himself in the community prior to discharge. Status: Acute (2) Posttraumatic stress disorder: Status: Acute (3) Methamphetamine abuse: Status: Acute (4) Cannabis abuse: Status: Acute (5) Depression: Status: Acute Qualifiers: Active/Remission status: currently active Depression Type: major depressive disorder Major depression episode severity: moderate Major depression recurrence: recurrent Qualified Code(s): F33.1 - Major depressive disorder, recurrent, moderate (6) Suicidal ideation: Status: Acute Involuntary Hold Information 96 Hour Hold: 96 Hour Involuntary Admission: No 96 Hour Hold Ending Date: 06/12/21 96 Hour Hold Ending Time: 02:20 Attestations NPU Medical Necessity Statement*: Inpatient hospitalization is medically necessary and the clinically appropriate intervention at this time. We will initiate medications and make changes as indicated. Coding Level of Care Code Acute Administrative Director for Albert Fwd Diagnoses Chronic schizophrenia F20.9 Posttraumatic stress disorder F43.10 Methamphetamine abuse F15.10 Cannabis abuse F12.10 Depression F33.1 Active/Remission status: currently active Depression Type: major depressive disorder Major depression episode severity: moderate Major depression recurrence: recurrent Suicidal ideation R45.851
[2021-10-30 14:00] VITALS: BP 110/75; PULSE 81; RESP 18; TEMP 36.4; O2SAT 96
[2021-10-30] MEDS: ibuprofen 800 mg tablet PO (16:16)
[2021-10-30] MEDS: OLANZapine 10 mg TABLET PO (20:21)
[2021-10-30 21:19] VITALS: BP 120/70; PULSE 57; RESP 17; O2SAT 98
[2021-10-31 06:30] VITALS: BP 126/84; PULSE 72; RESP 18; TEMP 36.2; O2SAT 98
[2021-10-31] MEDS: acetaminophen 325 mg Tablet 650 MG PO ×2 (08:32→16:27)
[2021-10-31] MEDS: OLANZapine 5 mg TABLET PO (08:32)
[2021-10-31] MEDS: escitalopram 10 mg Tablet 30 MG PO (08:33)
--- NOTE | 2021-10-31 10:06 | P.NPUPN_ITS ---
Subjective NPU Subjective: Interval history: He says that he has not had suicidal ideation yesterday or today. The voices were intermittent yesterday but he has not heard any today. He thinks he might be ready to go home tomorrow. Mental Status Exam MSE Comments: his is a 31-year-old thin, well-developed and well-nourished male of about his stated age in no acute distress. He was up walking in the hallway at 10:00 AM. He is in hospital scrubs and somewhat disheveled. psychomotor activity about normal.. Speech is at a regular rate and rhythm, normal volume, good articulation, not pressured. Alert, oriented to person and place but not the date Attention and concentration seem within normal limits. Memory is intact Mood is mildly depressed. Affect is somewhat blunted. Thought process is logical and goal-directed. Thought content: He denies auditory and visual hallucinations. No delusions or paranoia are noted. No current suicidal ideation or wishes for today. He denies homicidal ideation. Insight and judgment appear to be fair. Impulse control is fair as well. Cognition: Patient Appearance: Disheveled/Poor Hygiene Level of Consciousness: Awake, Alert and Follows Commands Patient Cognition Impaired: No Ability to Follow Directions: Fair Patient Orientation (long list): Person, Place and Birthday Comprehension Ability: No Impairment Hallucination Type: None Delusion Description: Paranoid Ideation Thought Process: Disorganized and Tangential Affect: Affect Description: Appropriate Behavior: Patient Behavior: Appropriate Speech Pattern: Appropriate Vitals/I&O/Wt Last Vital Signs Temp 97.2 F L 10/31/21 06:30 Pulse 72 10/31/21 06:30 Resp 18 10/31/21 06:30 BP 126/84 10/31/21 06:30 Pulse Ox 98 10/31/21 06:30 Data NPU : 10/24/21 21:40 10/24/21 21:40 A&P Assessment and plan (1) Chronic schizophrenia: Plan: 1. Continue Zyprexa 5 mg in the morning and 10 mg at bedtime. Continue Lexapro to 30 mg tomorrow. Will probably discharge on 40 mg 2. Continue every 15 minute checks for safety. 3. Encourage individual, group and milieu therapies. 4. Encourage sober living treatment after discharge at the highest level of care to which he is willing to commit. 5. We will monitor for safety for himself in the community prior to discharge. Status: Acute (2) Posttraumatic stress disorder: Status: Acute (3) Methamphetamine abuse: Status: Acute (4) Cannabis abuse: Status: Acute (5) Depression: Status: Acute Qualifiers: Active/Remission status: currently active Depression Type: major depressive disorder Major depression episode severity: moderate Major depression recurrence: recurrent Qualified Code(s): F33.1 - Major depressive disorder, recurrent, moderate (6) Suicidal ideation: Status: Acute Involuntary Hold Information 96 Hour Hold: 96 Hour Involuntary Admission: No 96 Hour Hold Ending Date: 06/12/21 96 Hour Hold Ending Time: 02:20 Attestations NPU Medical Necessity Statement*: Inpatient hospitalization is medically necessary and the clinically appropriate intervention at this time. We will initiate medications and make changes as indicated. Coding Level of Care Code Acute Sales Representative Marine [employer] for Pete Fwd Diagnoses Chronic schizophrenia F20.9 Posttraumatic stress disorder F43.10 Methamphetamine abuse F15.10 Cannabis abuse F12.10 Depression F33.1 Active/Remission status: currently active Depression Type: major depressive disorder Major depression episode severity: moderate Major depression recurrence: recurrent Suicidal ideation R45.851
--- NOTE | 2021-10-31 13:21 | NPU.GN ---
[facility] Group Topic:Depression [place] General Mood of Group: Ruben did attend group and participated and did well. His hygiene is ok. He seemed in a good mind set.
[2021-10-31 14:00] VITALS: BP 119/88; PULSE 72; RESP 18; TEMP 36.4; O2SAT 99
[2021-10-31] MEDS: OLANZapine 5 mg ODT PO (18:49)
[2021-10-31] MEDS: ibuprofen 800 mg tablet PO (19:12)
[2021-10-31] MEDS: OLANZapine 10 mg TABLET PO (21:13)
[2021-10-31 22:00] VITALS: RESP 16
[2021-11-01 06:00] VITALS: RESP 16
--- NOTE | 2021-11-01 08:19 | P.NPUDS_ITS ---
Diagnoses at Discharge Discharge Diagnosis (1) Chronic schizophrenia: Status: Acute (2) Posttraumatic stress disorder: Status: Acute (3) Methamphetamine abuse: Status: Acute (4) Cannabis abuse: Status: Acute (5) Depression: Status: Acute Qualifiers: Active/Remission status: currently active Depression Type: major depressive disorder Major depression episode severity: moderate Major depression recurrence: recurrent Qualified Code(s): F33.1 - Major depressive disorder, recurrent, moderate (6) Suicidal ideation: Status: Acute Reason for Visit Reason for Visit: SI Brief History: HPI [facility] History of Present Illness Ruben Horan is a 31 year old male was admitted through the emergency department with the following report: HPI Narrative: Patient is a 31-year-old male comes to the ED with SI. Patient has a past medical history of depression, methamphetamine abuse, schizophrenia and PTSD. His increased thoughts of suicide started yesterday. He does not have a plan currently states he wants to get help. He also endorses hearing voices but does not want to talk about it. He has been hospitalized for SI in the past. Endorses HI as well. Patient says he is not currently taking any medications. Associated symptoms: Reports auditory hallucinations, homicidal ideation and suicidal ideation He was admitted to the hospital and June of this year with the following evaluation: History of Present Illness Ruben Horan is a 30 year old male with past history of polysubstance abuse to include methamphetamine and near daily marijuana use with current UDS positive for cannabis presented to the emergency department with complaint of worsening depressive symptoms and worsening auditory hallucinations although patient does not provide any details about any recent circumstances exacerbating his symptoms. Patient states that last suicidal ideation was around the time that he was brought to the unit with no subsequent episodes. He does report ongoing depressive symptoms, low mood, decreased motivation and interest. Patient also states that last auditory hallucinations were just prior to coming to the unit but does not describe the quality or frequency of these auditory hallucinations, denies any visual hallucinations, denies any delusions. Denies past or recent hypomanic or manic episodes. Patient states last use of methamphetamine was a few months ago and states his last use of substance was a couple months ago despite his previous statement that he uses marijuana near daily and currently has a positive UDS. Patient reports psychiatric review of systems is otherwise negative. Patient states that he has been off of medication pretty much the duration of time since his last psychiatric hospitalization in November 2020. He denies compliance with psychiatry follow-up. Patient reports unstable living arrangement and is unable to currently site where he stays and reports that he will likely have to go to a nursing home and does not really like talking about the circumstances leading to his unstable living situation. Hospital course 30 year old male with past history of polysubstance abuse to include methamphetamine and near daily marijuana use with current UDS positive for cannabis presented to the emergency department with complaint of worsening depressive symptoms and worsening auditory hallucinations although patient does not provide any details about any recent circumstances exacerbating his symptoms. Patient states that last suicidal ideation was around the time that he was brought to the unit with no subsequent episodes. He does report ongoing depressive symptoms, low mood, decreased motivation and interest. Patient also states that last auditory hallucinations were just prior to coming to the unit but does not describe the quality or frequency of these auditory hallucinations, denies any visual hallucinations, denies any delusions. Patient continued to report psychotic symptoms at the time of his admission as well as depressive symptoms and was started on olanzapine which was titrated up to olanzapine 5 mg daily and olanzapine 10 mg at bedtime with good effect decreasing his auditory hallucinations with no reported impairment. Patient was started on fluoxetine which was titrated up to fluoxetine 60 mg with significant improvement of his mood symptoms reporting no depressive symptoms and denying any suicidal ideatio n. Patient tolerated medication changes well with no reports of any medication side effects. Patient demonstrated increased social interaction on the unit with improvement in no reports of any behavioral disturbances. Patient was not suicidal and was not demonstrating any psychotic behavior and with no psychiatric symptoms being endorsed at the time of discharge and did not appear to pose an imminent threat of harm to self or others. Low to moderate risk of harm to self given no current suicidal ideation and no report of any psychotic symptoms although patient's risk may continue to be isabela vated if he is not compliant with his discharge instructions and continues to use any substances of abuse leading to unexpected, impulsive behavior. Risk mitigation included psychiatric hospitalization, medication stabilization, recommendation to abstain from use of substances and alcohol as well as the need for compliance with his medication, medication management and substance counseling/treatment. Patient was able to communicate his understanding of the need to abstain from use of substances and alcohol as well as the need for compliance with his medication, medication management and substance counseling/treatment in order to further mitigate his risk of harm to self and others. He was admitted for definitive treatment of these issues. He says that it has been about 1 year since he has been in the hospital. He said that he was compliant with his medications for several months after but then did not get around to following up and getting refills on the medication. He said that he forgets whether or not the Zyprexa did anything. He does not think that the Prozac helped his depression. He would like to go back on the Zyprexa and try different antidepressant. He did not think that he gained weight on the Zyprexa. He says he really does not remember. He said that he has been hearing voices since he stopped taking the medication. The suicidal ideation just has been for the last couple of days but he has suicidal ideation off and on. PAST PSYCHIATRIC HISTORY AND SOCIAL HISTORY is as above. Hospital Course Hospital Course He slowly acclimated to the individual, group and milieu therapies provided. He was restarted on his Zyprexa 15 mg daily. He did not feel that Prozac had been helpful and he was changed to Lexapro 40 mg. He tolerated these doses and showed steady improvement during his stay. He was able to contract for safety outside hospital prior to discharge. During the hospitalization, patient had routine laboratory studies which were within normal limits except for few outliers. Additionally there was a general medical evaluation which was also within normal limits and revealed no new acute processes. Discharge Summary: At the time of discharge, lethality was denied and psychosis was resolving. Mood and anxiety were well managed. Patient endorsed a plan to follow-up with the aftercare recommendations of the treatment team. Patient was evaluated and deemed to be absent credible lethality, and had achieved the maximum benefit from an inpatient hospitalization, so was discharged. Involuntary Hold Information 96 Hour Hold: 96 Hour Involuntary Admission: No 96 Hour Hold Ending Date: 06/12/21 96 Hour Hold Ending Time: 02:20 Mental Status Exam MSE Comments: his is a 31-year-old thin, well-developed and well-nourished male of about his stated age in no acute distress. He was up being on his bed at 8:00 AM. He is in hospital scrubs and somewhat disheveled. psychomotor activity about normal.. Speech is at a regular rate and rhythm, normal volume, good articulation, not pressured. Alert, oriented to person and place but not the date Attention and concentration seem within normal limits. Memory is intact Mood is good. Affect is somewhat blunted. Thought process is logical and goal-directed. Thought content: He denies auditory and visual hallucinations for the last 2 days. No delusions or paranoia are noted. No current suicidal ideation or wishes for last 3 days. He denies homicidal ideation. Insight and judgment appear to be fair. Impulse control is fair as well. Cognition: Patient Appearance: Disheveled/Poor Hygiene Level of Consciousness: Awake, Alert and Follows Commands Patient Cognition Impaired: No Ability to Follow Directions: Fair Patient Orientation (long list): Person, Place and Birthday Comprehension Ability: No Impairment Hallucination Type: None Delusion Description: Paranoid Ideation Thought Process: Disorganized and Tangential Affect: Affect Description: Appropriate Behavior: Patient Behavior: Appropriate Speech Pattern: Appropriate and Clear Discharge Data Vitals: Last Vital Signs Temp 97.6 F 10/31/21 14:00 Pulse 72 10/31/21 14:00 Resp 16 11/01/21 06:00 BP 119/88 10/31/21 14:00 Pulse Ox 99 10/31/21 14:00 Discharge Plan Discharge Patient Disposition: Home Condition: Stable Prescriptions: New ibuprofen 800 mg Tablet 800 mg PO Q8H PRN (Reason: Pain) 30 Days Qty: 60 RF: 0 escitalopram oxalate 10 mg Tablet 40 mg PO DAILY 30 Days Qty: 120 RF: 1 Continued olanzapine 5 mg Tablet 5 mg PO DAILY Qty: 30 RF: 0 olanzapine 10 mg Tablet 10 mg PO BEDTIME Qty: 30 RF: 0 Discontinued fluoxetine 20 mg Capsule 60 mg PO DAILY Qty: 90 RF: 0 Discharge Orders: Discharge Order (Routine); Ordered 11/01/21 Ordered By: Geovanni Mcgraw Discharge Diet: Regular Discharge Activity: Resume usual activity Patient Instructions: Opioid Safety Discharge Attestations NPU Time Spent in Discharge Care*: less than 30 min Specific Discharge Activities: Specific discharge activities: educating patient, discussing with home health care case manager/social workers/dc planners, documenting/other paperwork and evaluating patient/reviewing data Status at Discharge: Cognitive status at discharge: cognitively intact , Behavioral status at discharge: cooperative , Coding Level of Care Code Acute [facility] DC note Diagnoses Chronic schizophrenia F20.9 Posttraumatic stress disorder F43.10 Methamphetamine abuse F15.10 Cannabis abuse F12.10 Depression F33.1 Active/Remission status: currently active Depression Type: major depressive disorder Major depression episode severity: moderate Major depression recurrence: recurrent Suicidal ideation R44.697
[2021-11-01] MEDS: escitalopram 10 mg Tablet 40 MG PO (08:33)
[2021-11-01] MEDS: OLANZapine 5 mg TABLET PO (08:33)
[2021-11-01] MEDS: acetaminophen 325 mg Tablet 650 MG PO (08:33)
[2021-11-01 10:18] VITALS: BP 128/76; PULSE 88; RESP 16; O2SAT 99
== END 2021-11-01 12:04 | disposition home or self-care (01) | DRG 885 ==
LOC: ER 21:16 → NP 23:56
PROVIDERS: Emergency Medicine; Admitting Provider Psychiatry & Neurology Psychiatry; Emergency Provider Physician Assistant; Visit Provider Psychiatry & Neurology Psychiatry
DX: F20.9 Schizophrenia, unspecified (principal); F33.1 Major depressive disorder, recurrent, moderate; R45.851 Suicidal ideations; F43.10 Post-traumatic stress disorder, unspecified; F15.10 Other stimulant abuse, uncomplicated; F12.10 Cannabis abuse, uncomplicated; R45.850 Homicidal ideations; F17.200 Nicotine dependence, unspecified, uncomplicated
CPT/HCPCS: 80053; 80306; 80307; 85025; 97165; 99285

== ENCOUNTER 2021-11-21 13:15 | Emergency (ER) | payer MEDICAID, SELFPAY ==
[2021-11-21 13:55] VITALS: BP 124/77; PULSE 76; RESP 16; TEMP 37; O2SAT 97; BMI 36.9
--- NOTE | 2021-11-21 15:01 | W.ED.PSYCHS ---
Documented by User: BASIL Saavedra 11/21/21 15:52 HPI - Psych General: Chief Complaint: Psychiatric Symptoms Stated Complaint: Emotional Doesn't wanna talk about it Time Seen by Provider: 11/21/21 14:31 Source: patient Mode of arrival: ambulatory Limitations: no limitations History of Present Illness: HPI Narrative: Patient is a 31-year-old male who presents to ED today with a complaint of suicidal ideations. Patient states he has a plan to slit his wrist. He reports previous suicide attempts. Patient feels like his suicidality is secondary to a nickel allergy . When further questioned on this he seems fixated on nickels and states he gets like this when they touch his skin and feels like he has nickels in his head. Patient also reporting hallucinations although he refuses to elaborate on these. Patient was released from [facility] approximately 3 weeks ago. He is denying any drug use since discharge. MD complaint: suicidal ideation Associated symptoms: Reports auditory hallucinations, visual hallucinations, depression and suicidal ideation; Deny homicidal ideation Review of Systems Const: Denies: fever(s) or chills Card: Denies: chest pain, palpitations, lightheadedness or syncope Resp: Denies: dyspnea GI: Denies: abdominal pain, nausea, vomiting or diarrhea Skin/Breast: Denies: rash Neuro: Denies: headache(s) Psych: Reports: anxiety, depression, visual hallucinations, auditory hallucinations and suicidal ideation; Denies: homicidal ideation [facility] ED PFSH: Medical History Cannabis abuse Depression Posttraumatic stress disorder Psychiatric care Schizophrenia Social History Smoking and tobacco status: current every day smoker Current gender identity: Male Physical Exam Const: COMMON NORMALS: no acute distress, no limitations and alert GENERAL APPEARANCE: cooperative Resp: COMMON NORMALS: normal respiratory effort and clear to auscultation bilaterally AUSCULTATION: clear to auscultation bilaterally Cardio: COMMON NORMALS: regular rate and regular rhythm RATE: regular rate RHYTHM: regular rhythm Neuro: PHI COMA SCALE: document GCS findings [place] coma scale eye opening: Spontaneous Phi coma scale verbal response: Orientated Phi coma scale motor response: Obey commands [place] coma scale total score: 15 SENSORIUM/ORIENTATION: Yes alert Psych: COMMON NORMALS: mental status grossly normal and speech normal APPEARANCE: Yes grossly normal ATTITUDE: Yes calm ACTIVITY/MOTOR BEHAVIOR: Yes other (pulls beanie hat over his eyes) SPEECH: Yes normal speech MOOD & AFFECT: Yes euthymic mood THOUGHT PROCESS: Illogical thought process present ATTENTION/CONCENTRATION: Yes attention grossly intact and Yes concentration grossly intact MEMORY/COGNITION: Yes memory grossly intact INSIGHT: Limited insight present (Psych) JUDGEMENT: Fair judgement present (Psych) Course Consultations: Consultation #1: Dr. Mcgraw-stated we do not have any [facility] beds at this time Vital Signs: Vital signs: Vital Signs Temperature 98.2 F 11/21/21 23:00 Pulse Rate 60 11/21/21 23:00 Respiratory Rate 16 11/21/21 23:00 Blood Pressure 127/81 11/21/21 23:00 Pulse Oximetry 98 11/21/21 23:00 MDM - Psych MDM Narrative: Medical decision making narrative: We currently do not have any beds at [facility] available. Affidavit was placed on the chart at the recommendation of Dr. Mcgraw/psychiatrist. Will work on possible transfer. Lab Data: Labs: Lab Results 11/21/21 11/21/21 11/21/21 13:50 15:39 15:39 WBC 10.9 10^3/uL H 10 ^3/uL (4.0-10.0) RBC 4.37 10^6/uL 10^6 /uL (4.1-5.3) Hgb 14.1 g/dL g/dL (11.7-16.6) Hct 42.7 % % (42.0-52.0) MCV 97.7 fl H fl (80-94) MCH 32.3 pg pg (28.0-34.0) MCHC 33.0 g/dL g/dL (30.0-36.0) RDW 12.6 % % (12.1-15.1) Plt Count 215 10^3/cmm 10^3 /cmm (130-400) MPV 9.8 fL fL (7.4-10.4) Neut % (Auto) 55.2 % % Lymph % (Auto) 29.8 % % [place] % (Auto) 10.9 % % Eos % (Auto) 2.7 % % Baso % (Auto) 0.6 % % Neut # (Auto) 6.02 10^3/uL 10^3 /uL (1.8-7.7) Lymph # (Auto) 3.3 10^3/uL 10^3/ uL (0.8-4.8) [place] # (Auto) 1.2 10^3/uL H 10^ 3/uL (0.2-0.9) Eos # (Auto) 0.3 10^3/uL 10^3/ uL (0.0-0.8) Baso # (Auto) 0.1 10^3/uL 10^3/ uL (0.0-0.1) Nucleated RBC % (a uto) 0 % % Nucleated RBCs # 0.0 /100WBC /100W BC Sodium 147 mmol/L H mmol /L (136-145) Potassium 4.2 mmol/L mmol/L (3.5-5.1) Chloride 105 mmol/L mmol/L (98-107) Carbon Dioxide 25 mmol/L mmol/L (22-29) Anion Gap 21.2 H (5-19) BUN 12 mg/dL mg/dL (6-20) Creatinine 0.7 mg/dL mg/dL (0.7-1.2) GFR Calculation 132.4 mL/min H mL /min (90-130) Glucose 96 mg/dL mg/dL (65-115) Calculated Osmolal ity 304 mOsm/kg H mOs m/kg (285-295) Calcium 8.9 mg/dL mg/dL (8.5-10.5) Total Bilirubin 0.2 mg/dL mg/dL (0.15-1.2) AST 24 U/L U/L (0-40) ALT 36 U/L U/L (0-41) Alkaline Phosphata se 105 IU/L IU/L (40-130) Total Protein 6.8 g/dL g/dL (6.6-8.7) Albumin 4.3 g/dL g/dL (3.5-5.2) Globulin 2.5 g/dL g/dL (1.3-4.6) Salicylates < 0.3 mg/dL L mg/ dL (3-10) Urine Opiates Scre en Negative ng/mL ng /mL (Negative) Acetaminophen < 5.0 ug/mL L ug/ mL (10-30) Ur Barbiturates Sc reen Negative ng/mL ng /mL (Negative) Ur Phencyclidine S crn Negative ng/mL ng /mL (Negative) Ur Amphetamines Sc reen Negative ng/mL ng /mL (Negative) U Benzodiazepines Scrn Negative ng/mL ng /mL (Negative) Urine Cocaine Scre en Negative ng/mL ng /mL (Negative) U Marijuana (THC) Screen Positive ng/mL H ng/mL (Negative) Ethyl Alcohol < 10 mg/dL mg/dL (0-10) Coronavirus 229E ( PCR) SARS-CoV-2 (PCR) 11/21/21 20:25 WBC RBC Hgb Hct MCV MCH MCHC RDW Plt Count MPV Neut % (Auto) Lymph % (Auto) [place] % (Auto) Eos % (Auto) Baso % (Auto) Neut # (Auto) Lymph # (Auto) [place] # (Auto) Eos # (Auto) Baso # (Auto) Nucleated RBC % (a uto) Nucleated RBCs # Sodium Potassium Chloride Carbon Dioxide Anion Gap BUN Creatinine GFR Calculation Glucose Calculated Osmolal ity Calcium Total Bilirubin AST ALT Alkaline Phosphata se Total Protein Albumin Globulin Salicylates Urine Opiates Scre en Acetaminophen Ur Barbiturates Sc reen Ur Phencyclidine S crn Ur Amphetamines Sc reen U Benzodiazepines Scrn Urine Cocaine Scre en U Marijuana (THC) Screen Ethyl Alcohol Coronavirus 229E ( PCR) Not detected (NOT DETECT) SARS-CoV-2 (PCR) Not detected (NOT DETECT) Discharge Plan Discharge Clinical Impression: Suicidal ideation, Acute psychosis Condition: Stable Prescriptions: No Action ibuprofen 800 mg Tablet 800 mg PO Q8H PRN (Reason: Pain) 30 Days Qty: 60 RF: 0 escitalopram oxalate 10 mg Tablet 40 mg PO DAILY 30 Days Qty: 120 RF: 1 olanzapine 5 mg Tablet 5 mg PO DAILY Qty: 30 RF: 0 olanzapine 10 mg Tablet 10 mg PO BEDTIME Qty: 30 RF: 0 Sign Out Sign Out Data: Patient Sign Out occurred on 11/21/21 at 17:16. Patient's care was discussed, and care was transferred from to BASIL Medeiros. Coding Level of Care Code ED Auction Block Clerk for g Fwd Exam Detailed Documented by User: BASIL Medeiros 11/22/21 02:34 HPI - Psych General: Chief Complaint: Psychiatric Symptoms Stated Complaint: Emotional Doesn't wanna talk about it Time Seen by Provider: 11/21/21 14:31 PFSH ED PFSH: Medical History Cannabis abuse Depression Posttraumatic stress disorder Psychiatric care Schizophrenia Social History Smoking and tobacco status: current every day smoker Current gender identity: Male Course Vital Signs: Vital signs: Vital Signs Temperature 98.2 F 11/21/21 23:00 Pulse Rate 60 11/21/21 23:00 Respiratory Rate 16 11/21/21 23:00 Blood Pressure 127/81 11/21/21 23:00 Pulse Oximetry 98 11/21/21 23:00 MDM - Psych MDM Narrative: Medical decision making narrative: Nurse called around to facilities and [facility] has a bed available. Labs and reports were faxed over to [facility] and they reviewed patient case and accept transfer patient to their facility. Dr. Burton is the accepting doctor at [facility]. Pt set up for transfer at 7am. Lab Data: Attestation: I reviewed the patient's lab results. Labs: Lab Results 11/21/21 11/21/21 11/21/21 13:50 15:39 15:39 WBC 10.9 10^3/uL H 10 ^3/uL (4.0-10.0) RBC 4.37 10^6/uL 10^6 /uL (4.1-5.3) Hgb 14.1 g/dL g/dL (11.7-16.6) Hct 42.7 % % (42.0-52.0) MCV 97.7 fl H fl (80-94) MCH 32.3 pg pg (28.0-34.0) MCHC 33.0 g/dL g/dL (30.0-36.0) RDW 12.6 % % (12.1-15.1) Plt Count 215 10^3/cmm 10^3 /cmm (130-400) MPV 9.8 fL fL (7.4-10.4) Neut % (Auto) 55.2 % % Lymph % (Auto) 29.8 % % [place] % (Auto) 10.9 % % Eos % (Auto) 2.7 % % Baso % (Auto) 0.6 % % Neut # (Auto) 6.02 10^3/uL 10^3 /uL (1.8-7.7) Lymph # (Auto) 3.3 10^3/uL 10^3/ uL (0.8-4.8) [place] # (Auto) 1.2 10^3/uL H 10^ 3/uL (0.2-0.9) Eos # (Auto) 0.3 10^3/uL 10^3/ uL (0.0-0.8) Baso # (Auto) 0.1 10^3/uL 10^3/ uL (0.0-0.1) Nucleated RBC % (a uto) 0 % % Nucleated RBCs # 0.0 /100WBC /100W BC Sodium 147 mmol/L H mmol /L (136-145) Potassium 4.2 mmol/L mmol/L (3.5-5.1) Chloride 105 mmol/L mmol/L (98-107) Carbon Dioxide 25 mmol/L mmol/L (22-29) Anion Gap 21.2 H (5-19) BUN 12 mg/dL mg/dL (6-20) Creatinine 0.7 mg/dL mg/dL (0.7-1.2) GFR Calculation 132.4 mL/min H mL /min (90-130) Glucose 96 mg/dL mg/dL (65-115) Calculated Osmolal ity 304 mOsm/kg H mOs m/kg (285-295) Calcium 8.9 mg/dL mg/dL (8.5-10.5) Total Bilirubin 0.2 mg/dL mg/dL (0.15-1.2) AST 24 U/L U/L (0-40) ALT 36 U/L U/L (0-41) Alkaline Phosphata se 105 IU/L IU/L (40-130) Total Protein 6.8 g/dL g/dL (6.6-8.7) Albumin 4.3 g/dL g/dL (3.5-5.2) Globulin 2.5 g/dL g/dL (1.3-4.6) Salicylates < 0.3 mg/dL L mg/ dL (3-10) Urine Opiates Scre en Negative ng/mL ng /mL (Negative) Acetaminophen < 5.0 ug/mL L ug/ mL (10-30) Ur Barbiturates Sc reen Negative ng/mL ng /mL (Negative) Ur Phencyclidine S crn Negative ng/mL ng /mL (Negative) Ur Amphetamines Sc reen Negative ng/mL ng /mL (Negative) U Benzodiazepines Scrn Negative ng/mL ng /mL (Negative) Urine Cocaine Scre en Negative ng/mL ng /mL (Negative) U Marijuana (THC) Screen Positive ng/mL H ng/mL (Negative) Ethyl Alcohol < 10 mg/dL mg/dL (0-10) Coronavirus 229E ( PCR) SARS-CoV-2 (PCR) 11/21/21 20:25 WBC RBC Hgb Hct MCV MCH MCHC RDW Plt Count MPV Neut % (Auto) Lymph % (Auto) [place] % (Auto) Eos % (Auto) Baso % (Auto) Neut # (Auto) Lymph # (Auto) [place] # (Auto) Eos # (Auto) Baso # (Auto) Nucleated RBC % (a uto) Nucleated RBCs # Sodium Potassium Chloride Carbon Dioxide Anion Gap BUN Creatinine GFR Calculation Glucose Calculated Osmolal ity Calcium Total Bilirubin AST ALT Alkaline Phosphata se Total Protein Albumin Globulin Salicylates Urine Opiates Scre en Acetaminophen Ur Barbiturates Sc reen Ur Phencyclidine S crn Ur Amphetamines Sc reen U Benzodiazepines Scrn Urine Cocaine Scre en U Marijuana (THC) Screen Ethyl Alcohol Coronavirus 229E ( PCR) Not detected (NOT DETECT) SARS-CoV-2 (PCR) Not detected (NOT DETECT) Discharge Plan Discharge Clinical Impression: Suicidal ideation, Acute psychosis Condition: Stable Prescriptions: No Action ibuprofen 800 mg Tablet 800 mg PO Q8H PRN (Reason: Pain) 30 Days Qty: 60 RF: 0 escitalopram oxalate 10 mg Tablet 40 mg PO DAILY 30 Days Qty: 120 RF: 1 olanzapine 5 mg Tablet 5 mg PO DAILY Qty: 30 RF: 0 olanzapine 10 mg Tablet 10 mg PO BEDTIME Qty: 30 RF: 0 Sign Out Sign Out Data: Patient Sign Out occurred on 11/21/21 at 17:16. Patient's care was discussed, and care was transferred from to BASIL Medeiros. Coding Level of Care Code ED Auction Block Clerk for Chg Fwd Exam Detailed
[2021-11-21 15:45] LABS: Basophils # 0.1 10^3/uL (0.0-0.1); Basophils % 0.6 %; Eosinophils # 0.3 10^3/uL (0.0-0.8); Eosinophils % 2.7 %; Hematocrit 42.7 % (42.0-52.0); Hemoglobin 14.1 g/dL (11.7-16.6); Lymphocytes # 3.3 10^3/uL (0.8-4.8); Lymphocytes % 29.8 %; Mean Corpuscular Hemoglobin 32.3 pg (28.0-34.0); Mean Corpuscular Volume 97.7 fl (80-94); Mean Platelet Volume 9.8 fL (7.4-10.4); Monocytes # 1.2 10^3/uL (0.2-0.9); Monocytes % 10.9 %; Neutrophils # 6.02 10^3/uL (1.8-7.7); Neutrophils % 55.2 %; Nucleated Red Blood Cells % 0 %; Platelet Count 215 10^3/cmm (130-400); Red Blood Count 4.37 10^6/uL (4.1-5.3); Red Cell Distribution Width 12.6 % (12.1-15.1); White Blood Count 10.9 10^3/uL (4.0-10.0)
[2021-11-21 16:24] LABS: Alanine Aminotransferase 36 U/L (0-41); Albumin Level 4.3 g/dL (3.5-5.2); Alkaline Phosphatase 105 IU/L (40-130); Anion Gap 21.2 (5-19); Aspartate Amino Transferase 24 U/L (0-40); Blood Urea Nitrogen 12 mg/dL (6-20); Calcium 8.9 mg/dL (8.5-10.5); Carbon Dioxide 25 mmol/L (22-29); Chloride 105 mmol/L (98-107); Globulin 2.5 g/dL (1.3-4.6); Glomerular Filtration Rate 132.4 mL/min (90-130); Glucose 96 mg/dL (65-115); Osmolality Calculated 304 mOsm/kg (285-295); Potassium 4.2 mmol/L (3.5-5.1); Sodium 147 mmol/L (136-145); Total Bilirubin 0.2 mg/dL (0.15-1.2); Total Protein 6.8 g/dL (6.6-8.7)
[2021-11-21 16:28] LABS: Acetaminophen < 5.0 ug/mL (10-30); Alcohol Level < 10 mg/dL (0-10); Salicylate < 0.3 mg/dL (3-10)
[2021-11-21 16:43] LABS: Amphetamines Screen Urine Negative (Negative); Barbiturates Screen Urine Negative (Negative); Benzodiazepines Screen Urine Negative (Negative); Cocaine Screen Urine Negative (Negative); Opiate Screen Urine Negative (Negative); PCP Screen Urine Negative (Negative); THC Screen Urine Positive (Negative)
--- NOTE | 2021-11-21 18:20 | PC.NURSE ---
Pt upset in hunt, cursing, stating If I had a shotgun I'd blow my fucking brains out my fucking head . Provider notified, security responding.
--- NOTE | 2021-11-21 18:24 | PC.NURSE ---
Pt standing at doorway yelling, states he wants something to eat or drink, I am going nuts, my brother enedina needs to leave me the fuck alone and quit calling me. I swear if I had a shotgun right now Id just blow my brains off, get me a sandwich or something . Pt given a sandwich and snacks
[2021-11-21 19:16] VITALS: BP 134/84; PULSE 78; RESP 20; TEMP 37.1; O2SAT 98
[2021-11-21] MEDS: acetaminophen 500 mg Tablet 1000 MG PO (20:23)
[2021-11-21] MEDS: OLANZapine 10 mg TABLET PO (20:24)
[2021-11-21 22:13] LABS: Adenovirus Not Detected (NOT DETECT); Chlamydia Pneumoniae Not Detected (NOT DETECT); Coronavirus 229E,HKU1,NL63,OC4 Not Detected (NOT DETECT); Human Metapneumovirus Not Detected (NOT DETECT); Human Rhinovirus/Enterovirus Not Detected (NOT DETECT); Influenza A Not Detected (NOT DETECT); Influenza A H1 Not Detected (NOT DETECT); Influenza A H1-2009 Not Detected (NOT DETECT); Influenza A H3 Not Detected (NOT DETECT); Influenza B Not Detected (NOT DETECT); Mycoplasma Pneumoniae Not Detected (NOT DETECT); Parainfluenza Virus Type 1 Not Detected (NOT DETECT); Parainfluenza Virus Type 2 Not Detected (NOT DETECT); Parainfluenza Virus Type 3 Not Detected (NOT DETECT); Parainfluenza Virus Type 4 Not Detected (NOT DETECT); Respiratory Syncytial Virus A Not Detected (NOT DETECT); Respiratory Syncytial Virus B Not Detected (NOT DETECT); SARS-COV-2 Not Detected (NOT DETECT)
[2021-11-21 23:00] VITALS: BP 127/81; PULSE 60; RESP 16; TEMP 36.8; O2SAT 98
[2021-11-22 03:00] VITALS: BP 126/78; PULSE 60; RESP 16; TEMP 36.9; O2SAT 98
== END 2021-11-22 07:59 ==
PROVIDERS: Physician Assistant; Emergency Provider Physician Assistant
DX: R45.851 Suicidal ideations (principal); F23 Brief psychotic disorder; F17.200 Nicotine dependence, unspecified, uncomplicated
CPT/HCPCS: 80053; 80306; 80307; 85025; 87635; 99285

== ENCOUNTER 2021-12-22 12:29 | Inpatient (IN) | payer MEDICAID, SELFPAY ==
[2021-12-22 12:33] VITALS: BP 157/81; PULSE 78; RESP 14; TEMP 36.4; O2SAT 99; BMI 39.3
--- NOTE | 2021-12-22 12:43 | PC.NURSE ---
UPDATED STEPHENS,CN ON PATIENT
--- NOTE | 2021-12-22 13:27 | ED.C_ITS ---
HPI - Psych General: Chief Complaint: Psychiatric Symptoms Stated Complaint: SI Time Seen by Provider: 12/22/21 12:44 Source: patient Mode of arrival: ambulatory Limitations: no limitations History of Present Illness: HPI Narrative: Patient is a 31-year-old male who presents to ED today stating he is suicidal. He states suicidal thoughts of been present over the past 2 to 3 days. He states he has a lot going on right now that he refuses to elaborate on. He has no specific plan at the moment. He does endorse previous suicide attempts. Patient has a history of chronic schizophrenia. He is not complaining of hallucinations or psychotic symptoms currently. He denies homicidal ideations. MD complaint: suicidal ideation Onset (ago): day(s) Duration: constant History of same: Yes Context: significant life stressor Associated psychiatric symptoms: depression and suicidal ideation Associated symptoms: Reports depression and suicidal ideation; Deny auditory hallucinations or homicidal ideation Treatments prior to arrival: none If self harm: admits thoughts of self harm Review of Systems Const: Denies: fever(s) or chills Card: Denies: chest pain, palpitations, lightheadedness or syncope Resp: Denies: dyspnea GI: Denies: abdominal pain, nausea, vomiting or diarrhea Skin/Breast: Denies: rash Neuro: Denies: headache(s) Psych: Reports: anxiety, depression and suicidal ideation; Denies: auditory hallucinations or homicidal ideation [facility] ED PFSH: Medical History Cannabis abuse Depression Posttraumatic stress disorder Psychiatric care Schizophrenia Social History Smoking and tobacco status: current every day smoker Current gender identity: Male Physical Exam Const: COMMON NORMALS: no acute distress, patient oriented x3, alert and well nourished GENERAL APPEARANCE: cooperative and well kempt Resp: COMMON NORMALS: normal respiratory effort and clear to auscultation bilaterally AUSCULTATION: clear to auscultation bilaterally Cardio: COMMON NORMALS: regular rate and regular rhythm RATE: regular rate RHYTHM: regular rhythm Neuro: COMMON NORMALS: patient oriented x3 SENSORIUM/ORIENTATION: Yes alert Psych: COMMON NORMALS: mental status grossly normal, Normal thought process present, cooperative, normal affect, speech normal, activity/motor behavior normal, denies hallucinations and denies homicidal ideation APPEARANCE: Yes grossly normal and Yes well kempt ATTITUDE: Yes calm ACTIVITY/MOTOR BEHAVIOR: Yes appropriate eye contact and No psychomotor agitation SPEECH: Yes normal speech MOOD & AFFECT: Yes euthymic mood THOUGHT PROCESS: Normal thought process present ATTENTION/CONCENTRATION: Yes attention grossly intact and Yes concentration grossly intact MEMORY/COGNITION: Yes memory grossly intact and Yes cognition grossly intact INSIGHT: Fair insight present (Psych) JUDGEMENT: Fair judgement present (Psych) Course Consultations: Consultation #1: Dr. Mcgraw-accepts to NPU Vital Signs: Vital signs: Vital Signs Temperature 97.6 F 12/22/21 12:33 Pulse Rate 78 12/22/21 12:33 Respiratory Rate 14 12/22/21 12:33 Blood Pressure 157/81 12/22/21 12:33 Pulse Oximetry 99 12/22/21 12:33 MDM - Psych Lab Data: Labs: Lab Results 12/22/21 12/22/21 12/22/21 14:15 14:15 14:15 WBC 9.7 10^3/uL 10^3/ uL (4.0-10.0) RBC 4.66 10^6/uL 10^6 /uL (4.1-5.3) Hgb 14.6 g/dL g/dL (11.7-16.6) Hct 44.0 % % (42.0-52.0) MCV 94.4 fl H fl (80-94) MCH 31.3 pg pg (28.0-34.0) MCHC 33.2 g/dL g/dL (30.0-36.0) RDW 12.4 % % (12.1-15.1) Plt Count 187 10^3/cmm 10^3 /cmm (130-400) MPV 9.9 fL fL (7.4-10.4) Neut % (Auto) 64.9 % % Lymph % (Auto) 22.9 % % [place] % (Auto) 9.5 % % Eos % (Auto) 1.6 % % Baso % (Auto) 0.4 % % Neut # (Auto) 6.26 10^3/uL 10^3 /uL (1.8-7.7) Lymph # (Auto) 2.2 10^3/uL 10^3/ uL (0.8-4.8) [place] # (Auto) 0.9 10^3/uL 10^3/ uL (0.2-0.9) Eos # (Auto) 0.2 10^3/uL 10^3/ uL (0.0-0.8) Baso # (Auto) 0.0 10^3/uL 10^3/ uL (0.0-0.1) Nucleated RBC % (a uto) 0 % % Nucleated RBCs # 0.0 /100WBC /100W BC Sodium 138 mmol/L mmol/L (136-145) Potassium 4.0 mmol/L mmol/L (3.5-5.1) Chloride 104 mmol/L mmol/L (98-107) Carbon Dioxide 26 mmol/L mmol/L (22-29) Anion Gap 12.0 (5-19) BUN 11 mg/dL mg/dL (6-20) Creatinine 0.7 mg/dL mg/dL (0.7-1.2) GFR Calculation 132.4 mL/min H mL /min (90-130) Glucose 83 mg/dL mg/dL (65-115) Calculated Osmolal ity 285 mOsm/kg mOsm/ kg (285-295) Calcium 8.2 mg/dL L mg/dL (8.5-10.5) Total Bilirubin 0.4 mg/dL mg/dL (0.15-1.2) AST 11 U/L U/L (0-40) ALT 12 U/L U/L (0-41) Alkaline Phosphata se 104 IU/L IU/L (40-130) Total Protein 6.1 g/dL L g/dL (6.6-8.7) Albumin 4.4 g/dL g/dL (3.5-5.2) Globulin 1.7 g/dL g/dL (1.3-4.6) Salicylates < 0.3 mg/dL L mg/ dL (3-10) Urine Opiates Scre en Negative ng/mL ng /mL (Negative) Acetaminophen < 5.0 ug/mL L ug/ mL (10-30) Ur Barbiturates Sc reen Negative ng/mL ng /mL (Negative) Ur Phencyclidine S crn Negative ng/mL ng /mL (Negative) Ur Amphetamines Sc reen Negative ng/mL ng /mL (Negative) U Benzodiazepines Scrn Negative ng/mL ng /mL (Negative) Urine Cocaine Scre en Negative ng/mL ng /mL (Negative) U Marijuana (THC) Screen Positive ng/mL H ng/mL (Negative) Ethyl Alcohol < 10 mg/dL mg/dL (0-10) Discharge Plan Discharge Patient Disposition: Admitted As Inpatient Clinical Impression: Suicidal ideation Condition: Stable Coding Level of Care Code ED [employer] for Pete Fwd Exam Expanded Problem Focused
[2021-12-22 14:28] LABS: Basophils % 0.4 %; Eosinophils # 0.2 10^3/uL (0.0-0.8); Eosinophils % 1.6 %; Hemoglobin 14.6 g/dL (11.7-16.6); Lymphocytes # 2.2 10^3/uL (0.8-4.8); Lymphocytes % 22.9 %; Mean Corpuscular HGB Conc 33.2 g/dL (30.0-36.0); Mean Corpuscular Hemoglobin 31.3 pg (28.0-34.0); Mean Corpuscular Volume 94.4 fl (80-94); Mean Platelet Volume 9.9 fL (7.4-10.4); Monocytes # 0.9 10^3/uL (0.2-0.9); Monocytes % 9.5 %; Neutrophils # 6.26 10^3/uL (1.8-7.7); Neutrophils % 64.9 %; Nucleated Red Blood Cells % 0 %; Platelet Count 187 10^3/cmm (130-400); Red Blood Count 4.66 10^6/uL (4.1-5.3); Red Cell Distribution Width 12.4 % (12.1-15.1); White Blood Count 9.7 10^3/uL (4.0-10.0)
[2021-12-22 14:39] LABS: Amphetamines Screen Urine Negative (Negative); Barbiturates Screen Urine Negative (Negative); Benzodiazepines Screen Urine Negative (Negative); Cocaine Screen Urine Negative (Negative); Opiate Screen Urine Negative (Negative); PCP Screen Urine Negative (Negative); THC Screen Urine Positive (Negative)
[2021-12-22 14:49] LABS: Acetaminophen < 5.0 ug/mL (10-30); Alanine Aminotransferase 12 U/L (0-41); Albumin Level 4.4 g/dL (3.5-5.2); Alcohol Level < 10 mg/dL (0-10); Alkaline Phosphatase 104 IU/L (40-130); Aspartate Amino Transferase 11 U/L (0-40); Blood Urea Nitrogen 11 mg/dL (6-20); Calcium 8.2 mg/dL (8.5-10.5); Carbon Dioxide 26 mmol/L (22-29); Chloride 104 mmol/L (98-107); Globulin 1.7 g/dL (1.3-4.6); Glomerular Filtration Rate 132.4 mL/min (90-130); Glucose 83 mg/dL (65-115); Osmolality Calculated 285 mOsm/kg (285-295); Salicylate < 0.3 mg/dL (3-10); Sodium 138 mmol/L (136-145); Total Bilirubin 0.4 mg/dL (0.15-1.2); Total Protein 6.1 g/dL (6.6-8.7)
--- NOTE | 2021-12-22 15:24 | PC.NURSE ---
REPORT GIVEN TO XIMENA RUDOLPH.
[2021-12-22 15:56] VITALS: RESP 16
[2021-12-22 16:43] VITALS: BP 148/87; PULSE 61; RESP 16; TEMP 36.7; O2SAT 100
[2021-12-22] MEDS: acetaminophen 325 mg Tablet 650 MG PO (18:13)
[2021-12-22] MEDS: hyDROXYzine 25 mg Capsule 50 MG PO ×2 (18:13→20:34)
[2021-12-22 20:32] VITALS: BP 118/72; PULSE 71; RESP 17; O2SAT 97
[2021-12-22] MEDS: trazodone 50 mg Tablet PO (20:34)
--- NOTE | 2021-12-23 03:00 | PC.NURSE ---
PRN administration Patient stated I usually take vistaril and trazodone to help me sleep. Given PRN trazodone and vistaril PO as ordered with noted effectiveness.
[2021-12-23 06:00] VITALS: BP 109/74; PULSE 97; RESP 16; TEMP 36.6; O2SAT 100
[2021-12-23] MEDS: multivitamin therapeutic Tablet 1 TAB PO (08:59)
--- NOTE | 2021-12-23 10:24 | P.NPUHP_ITS ---
Providers/Chief Complaint Admitting Physician: Geovanni Mcgraw MD Chief Complaint: SI HPI NPU History of Present Illness Ruben Horan is a 31 year old male who was admitted through the emergency department with the following report: HPI - Psych General: Chief Complaint: Psychiatric Symptoms Stated Complaint: SI Time Seen by Provider: 12/22/21 12:44 Source: patient Mode of arrival: ambulatory Limitations: no limitations History of Present Illness: HPI Narrative: Patient is a 31-year-old male who presents to ED today stating he is suicidal. He states suicidal thoughts of been present over the past 2 to 3 days. He states he has a lot going on right now that he refuses to elaborate on. He has no specific plan at the moment. He does endorse previous suicide attempts. Patient has a history of chronic schizophrenia. He is not complaining of hallucinations or psychotic symptoms currently. He denies homicidal ideations. complaint: suicidal ideation Onset (ago): day(s) Duration: constant History of same: Yes Context: significant life stressor Associated psychiatric symptoms: depression and suicidal ideation Associated symptoms: Reports depression and suicidal ideation; Deny auditory hallucinations or homicidal ideation Treatments prior to arrival: none If self harm: admits thoughts of self harm He was admitted to the neuropsychiatry unit for medication treatment of these issues. He was released from this hospital in October on Zyprexa 15 mg daily and Lexapro 40 mg daily. He said that he did okay for almost a month but had depression and worsening auditory hallucinations again. He came to our emergency room did not have beds and he was sent to [place]. He said that he was there for about 1 week. He says that family discharged him on Vistaril 50 mg 100 mg at bedtime and trazodone. He said that even with that the voices were improved for about 1 week. However after 1 week started having depression for hallucinations again and now is back in the hospital. He says that he thinks the Invega 6 mg that he was released on in November 2024 depressed. He was able to stay out of the hospital for about 8 months. He was not on antidepressant at that time. When he was admitted in June 2021 he said that he had been noncompliant with his medications most of the time since his last hospitalization. He has not been able to stay out of the hospital for very long since then. He also was not taking medications when he came back into the hospital October of last year. He says that he has been compliant with his medications since then but has never been able to stay out of the hospital for a few weeks. He is currently drug screen has been consistently positive for marijuana but no other drugs. To try back to the Invega. Below is the discharge summary from his admission in October 2021 for context. Diagnoses at Discharge Discharge Diagnosis (1) Chronic schizophrenia: Status: Acute (2) Posttraumatic stress disorder: Status: Acute (3) Methamphetamine abuse: Status: Acute (4) Cannabis abuse: Status: Acute (5) Depression: Status: Acute Qualifiers: Active/Remission status: currently active Depression Type: major depressive disorder Major depression episode severity: moderate Major depression recurrence: recurrent Qualified Code(s): F33.1 - Major depressive disorder, recurrent, moderate (6) Suicidal ideation: Status: Acute Reason for Visit Reason for Visit: SI Brief History: HPI NPU History of Present Illness Ruben Horan is a 31 year old male was admitted through the emergency departm ent with the following report: HPI Narrative: Patient is a 31-year-old male comes to the ED with SI. Patient has a past medical history of depression, methamphetamine abuse, schizophrenia and PTSD. His increased thoughts of suicide started yesterday. He does not have a plan currently states he wants to get help. He also endorses hearing voices but does not want to talk about it. He has been hospitalized for SI in the past. Endorses HI as well. Patient says he is not currently taking any medications. Associated symptoms: Reports auditory hallucinations, homicidal ideation and suicidal ideation He was admitted to the hospital and June of this year with the following evaluation: History of Present Illness Ruben Horan is a 30 year old male with past history of polysubstance abuse to include methamphetamine and near daily marijuana use with current UDS positive for cannabis presented to the emergency department with complaint of worsening depressive symptoms and worsening auditory hallucinations although patient does not provide any details about any recent circumstances exacerbating his symptoms. Patient states that last suicidal ideation was around the time that he was brought to the unit with no subsequent episodes. He does report ongoing depressive symptoms, low mood, decreased motivation and interest. Patient also states that last auditory hallucinations were just prior to coming to the unit but does not describe the quality or frequency of these auditory darryn lucinations, denies any visual hallucinations, denies any delusions. Denies past or recent hypomanic or manic episodes. Patient states last use of methamphetamine was a few months ago and states his last use of substance was a couple months ago despite his previous statement that he uses marijuana near daily and currently has a positive UDS. Patient reports psychiatric review of systems is otherwise negative. Patient states that he has been off of medication pretty much the duration of time since his last psychiatric hospitalization in November 2020. He denies compliance with psychiatry follow-up. Patient reports unstable living arrangement and is unable to currently site where he stays and reports that he will likely have to go to a [facility] and does not really like talking about the circumstances leading to his unstable living situation. Hospital course 30 year old male with past history of polysubstance abuse to include methamphetamine and near daily marijuana use with current UDS positive for cannabis presented to the emergency department with complaint of worsening depressive symptoms and worsening auditory hallucinations although patient does not provide any details about any recent circumstances exacerbating his symptoms. Patient states that last suicidal ideation was around the time that he was brought to the unit with no subsequent episodes. He does report ongoing depressive symptoms, low mood, decreased motivation and interest. Patient also states that last auditory hallucinations were just prior to coming to the unit but does not describe the quality or frequency of these auditory hallucinations, denies any visual hallucinations, denies any delusions. Patient continued to report psychotic symptoms at the time of his admission as well as depressive symptoms and was started on olanzapine which was titrated up to olanzapine 5 mg daily and olanzapine 10 mg at bedtime with good effect decreasing his auditory hallucinations with no reported impairment. Patient was started on fluoxetine which was titrated up to fluoxetine 60 mg with significant improvement of his mood symptoms reporting no depressive symptoms and denying any suicidal ideation. Patient tolerated medication changes well with no reports of any medication side effects. Patient demonstrated increased social interaction on the unit with improvement in no reports of any behavioral disturbances. Patient was not suicidal and was not demonstrating any psychotic behavior and with no psychiatric symptoms being endorsed at the time of discharge and did not appear to pose an imminent threat of harm to self or others. Low to moderate risk of harm to self given no current suicidal ideation and no report of any psychotic symptoms although patient's risk may continue to be elevated if he is not compliant with his discharge instructions and continues to use any substances of abuse leading to unexpected, impulsive behavior. Risk mitigation included psychiatric hospitalization, medication stabilization, recommendation to abstain from use of substances and alcohol as well as the need for compliance with his medication, medication management and substance counseling/treatment. Patient was able to communicate his understanding of the need to abstain from use of substances and alcohol as well as the need for compliance with his medication, medication management and substance counseling/treatment in order to further mitigate his risk of harm to self and others. He was admitted for definitive treatment of these issues. He says that it has been about 1 year since he has been in the hospital. He said that he was compliant with his medications for several months after but then did not get around to following up and getting refills on the medication. He said that he forgets whether or not the Zyprexa did anything. He does not think that the Prozac helped his depression. He would like to go back on the Zyprexa and try different antidepressant. He did not think that he gained weight on the Zyprexa. He says he really does not remember. He said that he has been hearing voices since he stopped taking the medication. The suicidal ideation just has been for the last couple of days but he has suicidal ideation off and on. PAST PSYCHIATRIC HISTORY AND SOCIAL HISTORY is as above. Hospital Course He slowly acclimated to the individual, group and milieu therapies provided. He was restarted on his Zyprexa 15 mg daily. He did not feel that Prozac had been helpful and he was changed to Lexapro 40 mg. He tolerated these doses and showed steady improvement during his stay. He was able to contract for safety outside hospital prior to discharge. During the hospitalization, patient had routine laboratory studies which were within normal limits except for few outliers. Additionally there was a general medical evaluation which was also within normal limits and revealed no new acute processes. Discharge Summary: At the time of discharge, lethality was denied and psychosis was resolving. Mood and anxiety were well managed. Patient endorsed a plan to follow-up with the aftercare recommendations of the treatment team. Patient was evaluated and deemed to be absent credible lethality, and had achieved the maximum benefit from an inpatient hospitalization, so was discharged. Meds NPU Home Medications Medication Instructions Recorded Confirmed Last Taken Type A-Z Multi Vitamin 1 tab PO DAILY 12/22/21 12/22/21 12/20/21 History calcium 500 mg PO DAILY 12/22/21 12/22/21 12/20/21 History hydroxyzine pamoate 50 mg PO QID PRN 12/22/21 12/22/21 12/20/21 History omega-3 fatty acids [Fish Oil] 1,250 mg PO DAILY 12/22/21 12/22/21 12/20/21 History trazodone 100 mg PO BEDTIME 12/22/21 12/22/21 12/20/21 History Allergies Allergy/AdvReac Type Severity Reaction Status Date / Time nickel Allergy ALGY-Rash Verified 12/22/21 12:32 PFSH NPU PFSH: Medical History Cannabis abuse Depression Posttraumatic stress disorder Psychiatric care Schizophrenia Social History Smoking and tobacco status: current every day smoker Current gender identity: Male Mental Status Exam MSE Comments: This is a 31-year-old male who appears approximately his stated age and is in no acute distress. He is dressed in hospital scrubs with good eye contact. He is pleasant and cooperative. psychomotor activity is normal. Speech is at a regular rate and rhythm, normal volume, good articulation, not pressured. Alert, oriented X3 Attention and concentration appears to be normal. Memory is intact Mood is depressed. Affect is mildly dysphoric. Thought process is logical and goal-directed. Thought content: He reports auditory hallucinations but no visual hallucinations. no delusions or paranoia are noted. Reports suicidal ideation with no plan but no homicidal ideation. Fund of knowledge is average. Insight and judgment appear to be poor. Impulse control is fair. Vitals/I&O/Wt Last Vital Signs Temp 98 F 12/23/21 06:00 Pulse 97 12/23/21 06:00 Resp 16 12/23/21 06:00 BP 109/74 12/23/21 06:00 Pulse Ox 100 12/23/21 06:00 Weight last 48 hrs Weight 131.542 kg Data NPU : 12/22/21 14:15 12/22/21 14:15 A&P Assessment and plan (1) Cannabis abuse: Status: Acute (2) Posttraumatic stress disorder: Status: Acute (3) Suicidal ideation: Status: Acute (4) Depression: Status: Acute Qualifiers: Active/Remission status: currently active Depression Type: major depressive disorder Major depression episode severity: moderate Major depression recurrence: recurrent Qualified Code(s): F33.1 - Major depressive disorder, recurrent, moderate (5) Chronic schizophrenia: Status: Acute Additional A&P Information This is a 31-year-old male with multiple hospitalizations for worsening hallucinations and suicidal ideation. Plan: 1. We will try to go back to Invega again at his request. We will also restart Lexapro. 2. Continue every 15 minute checks for safety. 3. Encourage individual, group and milieu therapies. 4. Encourage sober living treatment after discharge at the highest level of care to which he is willing to commit. 5. We will monitor for safety for himself in the community prior to discharge. Involuntary Hold Information 96 Hour Hold: 96 Hour Involuntary Admission: No Attestations NPU Medical Necessity Statement*: Inpatient hospitalization is medically necessary and the clinically appropriate intervention at this time. We will initiate medications and make changes as indicated. He will be in the hospital for over 2 midnights. Likely length of stay 4-6 days Coding Level of Care Code Acute Ambulance Driver Paramedic for [facility] Ruiz Diagnoses Cannabis abuse F12.10 Posttraumatic stress disorder F43.10 Suicidal ideation R45.851 Depression F33.1 Active/Remission status: currently active Depression Type: major depressive disorder Major depression episode severity: moderate Major depression recurrence: recurrent Chronic schizophrenia F20.9
[2021-12-23] MEDS: acetaminophen 325 mg Tablet 650 MG PO (10:52)
[2021-12-23] MEDS: escitalopram 10 mg Tablet PO (11:00)
[2021-12-23] MEDS: paliperidone ER 6 mg Tablet PO (11:00)
[2021-12-23 14:00] VITALS: BP 126/83; PULSE 73; RESP 17; O2SAT 98
[2021-12-23] MEDS: ibuprofen 600 mg Tablet PO (16:59)
[2021-12-23] MEDS: hyDROXYzine 25 mg Capsule 50 MG PO (19:05)
[2021-12-23] MEDS: trazodone 100 mg Tablet PO (20:10)
[2021-12-23 20:16] VITALS: BP 118/81; PULSE 65; RESP 17; O2SAT 99
[2021-12-24 05:49] VITALS: BP 118/81; PULSE 65; RESP 17; TEMP 36.6; O2SAT 99; BMI 39.3
[2021-12-24 07:01] VITALS: BP 121/71; PULSE 78; RESP 20; TEMP 37.3; O2SAT 98
[2021-12-24] MEDS: acetaminophen 325 mg Tablet 650 MG PO ×2 (07:09→16:54)
[2021-12-24] MEDS: escitalopram 10 mg Tablet PO (08:31)
[2021-12-24] MEDS: paliperidone ER 6 mg Tablet PO (08:31)
[2021-12-24] MEDS: multivitamin therapeutic Tablet 1 TAB PO (08:31)
[2021-12-24] MEDS: hyDROXYzine 25 mg Capsule 50 MG PO (08:50)
[2021-12-24 14:00] VITALS: BP 107/70; PULSE 99; RESP 18; TEMP 37; O2SAT 97
[2021-12-24] MEDS: ibuprofen 600 mg Tablet PO (14:29)
--- NOTE | 2021-12-24 14:31 | W.PM.NPUPNS ---
Subjective NPU Subjective: Interval history: He says that he feels like the Invega is already helping somewhat with the voices. They are decreased. His mood is a little better. He still feels like he has anxiety and would like to take something from that. He was reminded that the Lexapro 40 mg seemed to help with his anxiety prescribed that earlier. He seemed to remember that. Mental Status Exam MSE Comments: This is a 31-year-old male who appears approximately his stated age and is in no acute distress. He is dressed in hospital scrubs with good eye contact. He is pleasant and cooperative. psychomotor activity is normal. Speech is at a regular rate and rhythm, normal volume, good articulation, not pressured. Alert, oriented X3 Attention and concentration appears to be normal. Memory is intact Mood is depressed much better. Affect is mildly dysphoric. Thought process is logical and goal-directed. Thought content: He reports auditory hallucinations but they are improving. No visual hallucinations. no delusions or paranoia are noted. Reports suicidal ideation with no plan but no homicidal ideation. Fund of knowledge is average. Insight and judgment appear to be poor. Impulse control is fair. Cognition: Patient Appearance: Disheveled/Poor Hygiene Level of Consciousness: Awake, Alert, Appropriate and Follows Commands Patient Cognition Impaired: No Ability to Follow Directions: Good Patient Orientation (long list): Person, Place, Time, Name and Age Comprehension Ability: Understands Concepts Hallucination Type: None Delusion Description: Not Present Thought Process: Appropriate Affect: Affect Description: Calm Behavior: Patient Behavior: Cooperative Speech Pattern: Clear Vitals/I&O/Wt Last Vital Signs Temp 98.6 F 12/24/21 14:00 Pulse 99 12/24/21 14:00 Resp 18 12/24/21 14:00 BP 107/70 12/24/21 14:00 Pulse Ox 97 12/24/21 14:00 Weight last 48 hrs Weight 131.542 kg Data NPU : 12/22/21 14:15 12/22/21 14:15 A&P Assessment and plan (1) Cannabis abuse: Status: Acute (2) Posttraumatic stress disorder: Status: Acute (3) Suicidal ideation: Status: Acute (4) Depression: Status: Acute Qualifiers: Active/Remission status: currently active Depression Type: major depressive disorder Major depression episode severity: moderate Major depression recurrence: recurrent Qualified Code(s): F33.1 - Major depressive disorder, recurrent, moderate (5) Chronic schizophrenia: Status: Acute Additional A&P Information This is a 31-year-old male with multiple hospitalizations for worsening hallucinations and suicidal ideation. Plan: 1. We will try to go back to Invega again at his request. We will also restart Lexapro. 2. Continue every 15 minute checks for safety. 3. Encourage individual, group and milieu therapies. 4. Encourage sober living treatment after discharge at the highest level of care to which he is willing to commit. 5. We will monitor for safety for himself in the community prior to discharge. Involuntary Hold Information 96 Hour Hold: 96 Hour Involuntary Admission: No Attestations NPU Medical Necessity Statement*: Inpatient hospitalization is medically necessary and the clinically appropriate intervention at this time. We will initiate medications and make changes as indicated. Coding Level of Care Code Acute Manual Arts Therapist for Pete Ruiz Diagnoses Cannabis abuse F12.10 Posttraumatic stress disorder F43.10 Suicidal ideation R45.851 Depression F33.1 Active/Remission status: currently active Depression Type: major depressive disorder Major depression episode severity: moderate Major depression recurrence: recurrent Chronic schizophrenia F20.9
[2021-12-24] MEDS: OLANZapine 5 mg ODT PO (17:17)
[2021-12-24] MEDS: trazodone 100 mg Tablet PO (20:39)
[2021-12-24 20:41] VITALS: BP 117/71; PULSE 84; RESP 17; TEMP 36.8; O2SAT 97
[2021-12-25 06:00] VITALS: BP 115/79; PULSE 99; RESP 16; TEMP 36.3; O2SAT 97
[2021-12-25] MEDS: escitalopram 10 mg Tablet PO (08:37)
[2021-12-25] MEDS: paliperidone ER 6 mg Tablet PO (08:37)
[2021-12-25] MEDS: multivitamin therapeutic Tablet 1 TAB PO (08:37)
[2021-12-25] MEDS: acetaminophen 325 mg Tablet 650 MG PO ×2 (10:18→16:34)
[2021-12-25] MEDS: NON-FORMULARY MEDICATION (Calcium 500 mg Tablet) 500 EACH PO (10:52)
[2021-12-25] MEDS: hyDROXYzine 25 mg Capsule 50 MG PO (11:26)
--- NOTE | 2021-12-25 12:19 | P.NPUPN_ITS ---
Subjective NPU Subjective: Interval history: He says that he is doing significantly better. He only heard voices briefly this morning. His mood is good. He said he had some difficulty sleeping last night and will ask for some trazodone tonight. He thinks that he will be ready to go home tomorrow. Mental Status Exam MSE Comments: This is a 31-year-old male who appears approximately his stated age and is in no acute distress. He is dressed in hospital scrubs with good eye contact. He is pleasant and cooperative. psychomotor activity is normal. Speech is at a regular rate and rhythm, normal volume, good articulation, not pressured. Alert, oriented X3 Attention and concentration appears to be normal. Memory is intact Mood is good. Affect is euthymic Thought process is logical and goal-directed. Thought content: He reports auditory hallucinations but they are improving. No visual hallucinations. no delusions or paranoia are noted. Reports suicidal ideation with no plan but no homicidal ideation. Fund of knowledge is average. Insight and judgment appear to be poor. Impulse control is fair. Cognition: Patient Appearance: Appropriate Level of Consciousness: Awake, Alert, Appropriate and Follows Commands Patient Cognition Impaired: No Ability to Follow Directions: Good Patient Orientation (long list): Person, Place, Time, Name, Age, Birthday, Month, Time of Day and Year Comprehension Ability: Understands Concepts Hallucination Type: None Delusion Description: Not Present Thought Process: Appropriate Affect: Affect Description: Appropriate Behavior: Patient Behavior: Appropriate Speech Pattern: Appropriate Vitals/I&O/Wt Last Vital Signs Temp 97.4 F L 12/25/21 06:00 Pulse 99 12/25/21 06:00 Resp 16 12/25/21 06:00 BP 115/79 12/25/21 06:00 Pulse Ox 97 12/25/21 06:00 Weight last 48 hrs Weight 131.542 kg Data NPU : 12/22/21 14:15 12/22/21 14:15 A&P Assessment and plan (1) Cannabis abuse: Status: Acute (2) Posttraumatic stress disorder: Status: Acute (3) Suicidal ideation: Status: Acute (4) Depression: Status: Acute Qualifiers: Active/Remission status: currently active Depression Type: major depressive disorder Major depression episode severity: moderate Major depression recurrence: recurrent Qualified Code(s): F33.1 - Major depressive disorder, recurrent, moderate (5) Chronic schizophrenia: Status: Acute Additional A&P Information This is a 31-year-old male with multiple hospitalizations for worsening hallucinations and suicidal ideation. Plan: 1. continue Invega 6 mg and Lexapro 10 mg daily With a plan to increase gradually to 40 mg 2. Continue every 15 minute checks for safety. 3. Encourage individual, group and milieu therapies. 4. Encourage sober living treatment after discharge at the highest level of care to which he is willing to commit. 5. We will monitor for safety for himself in the community prior to discharge. Involuntary Hold Information 96 Hour Hold: 96 Hour Involuntary Admission: No Attestations NPU Medical Necessity Statement*: Inpatient hospitalization is medically necessary and the clinically appropriate intervention at this time. We will initiate medications and make changes as indicated. 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
[2021-12-25 13:52] VITALS: BP 119/77; PULSE 73; RESP 18; TEMP 36.3; O2SAT 98
[2021-12-25] MEDS: trazodone 100 mg Tablet PO (20:06)
[2021-12-25 20:27] VITALS: BP 117/76; PULSE 75; RESP 18; O2SAT 96
[2021-12-26 06:00] VITALS: BP 117/67; PULSE 86; RESP 20; TEMP 36.7; O2SAT 97
--- NOTE | 2021-12-26 08:32 | P.NPUDS_ITS ---
Diagnoses at Discharge Discharge Diagnosis (1) Cannabis abuse: Status: Acute (2) Posttraumatic stress disorder: Status: Acute (3) Suicidal ideation: Status: Acute (4) Depression: Status: Acute Qualifiers: Active/Remission status: currently active Depression Type: major depressive disorder Major depression episode severity: moderate Major depression recurrence: recurrent Qualified Code(s): F33.1 - Major depressive disorder, recurrent, moderate (5) Chronic schizophrenia: Status: Acute Reason for Visit Reason for Visit: SI Brief History: History of Present Illness Ruben Horan is a 31 year old male who was admitted through the emergency department with the following report: HPI - Psych General:?? Chief Complaint: Psychiatric Symptoms Stated Complaint: SI Time Seen by Provider: 12/22/21 12:44 Source: patient Mode of arrival: ambulatory Limitations: no limitations History of Present Illness:?? HPI Narrative: Patient is a 31-year-old male who presents to ED today stating he is suicidal.? He states suicidal thoughts of been present over the past 2 to 3 days.? He states he has a lot going on right now that he refuses to elaborate on.? He has no specific plan at the moment.? He does endorse previous suicide attempts.? Patient has a history of chronic schizophrenia.? He is not complaining of hallucinations or psychotic symptoms currently.? He denies homicidal ideations. complaint: suicidal ideation Onset (ago): day(s) Duration: constant History of same: Yes Context: significant life stressor Associated psychiatric symptoms: depression and suicidal ideation Associated symptoms: Reports depression and suicidal ideation; Deny auditory hallucinations or homicidal ideation Treatments prior to arrival: none If self harm: admits thoughts of self harm He was admitted to the neuropsychiatry unit for medication treatment of these issues.? He was released from this hospital in October on Zyprexa 15 mg daily and Lexapro 40 mg daily.? He said that he did okay for almost a month but had depression and worsening auditory hallucinations again.? He came to our emergency room did not have beds and he was sent to [facility].? He said that he was there for about 1 week.? He says that family discharged him on Vistaril 50 mg 100 mg at bedtime and trazodone.? He said that even with that the voices were improved for about 1 week.? However after 1 week started having depression for hallucinations again and now is back in the hospital.? He says that he thinks the Invega 6 mg that he was released on in November 2024 depressed.? He was able to stay out of the hospital for about 8 months.? He was not on antidepressant at that time.? When he was admitted in June 2021 he said that he had been noncompliant with his medications most of the time since his last hospitalization.? He has not been able to stay out of the hospital for very long since then.? He also was not taking medications when he came back into the hospital October of last year.? He says that he has been compliant with his medications since then but has never been able to stay out of the hospital for a few weeks.? He is currently drug screen has been consistently positive for m arijuana but no other drugs.? To try back to the Invega. Hospital Course Hospital Course He slowly acclimated to the individual, group and milieu therapies provided. Started on Invega 6 mg and restarted back on his Lexapro 10 mg with the intention of increasing gradually to 40 mg. He also was taking trazodone 100 mg for sleep. He tolerated these doses and showed steady improvement during his stay. He was able to contract for safety outside hospital prior to discharge. During the hospitalization, patient had routine laboratory studies which were within normal limits except for few outliers. Additionally there was a general medical evaluation which was also within normal limits and revealed no new acute processes. Discharge Summary: At the time of discharge, lethality was denied and psychosis was resolving. Mood and anxiety were well managed. Patient endorsed a plan to follow-up with the aftercare recommendations of the treatment team. Patient was evaluated and deemed to be absent credible lethality, and had achieved the maximum benefit from an inpatient hospitalization, so was discharged. Involuntary Hold Information 96 Hour Hold: 96 Hour Involuntary Admission: No Mental Status Exam MSE Comments: This is a 31-year-old male who appears approximately his stated age and is in no acute distress. He is dressed in hospital scrubs with good eye contact. He is pleasant and cooperative. psychomotor activity is normal. Speech is at a regular rate and rhythm, normal volume, good articulation, not pressured. Alert, oriented X3 Attention and concentration appears to be normal. Memory is intact Mood is good. Affect is euthymic Thought process is logical and goal-directed. Thought content: He denies auditory hallucinations for the last 35 hours or so. No visual hallucinations. no delusions or paranoia are noted. Reports suicidal ideation with no plan but no homicidal ideation. Fund of knowledge is average. Insight and judgment appear to be poor. Impulse control is fair. Cognition: Patient Appearance: Appropriate Level of Consciousness: Awake, Alert, Appropriate and Follows Commands Patient Cognition Impaired: No Ability to Follow Directions: Good Patient Orientation (long list): Person, Place, Time, Name, Age, Birthday, Month, Time of Day and Year Comprehension Ability: Understands Concepts Hallucination Type: None Delusion Description: Not Present Thought Process: Appropriate Affect: Affect Description: Appropriate and Calm Behavior: Patient Behavior: Appropriate and Cooperative Speech Pattern: Appropriate and Clear Discharge Data Vitals: Last Vital Signs Temp 98.0 F 12/26/21 06:00 Pulse 86 12/26/21 06:00 Resp 20 H 12/26/21 06:00 BP 117/67 12/26/21 06:00 Pulse Ox 97 12/26/21 06:00 Discharge Plan Discharge Patient Disposition: Home Condition: Stable Prescriptions: New escitalopram oxalate 10 mg Tablet 20 mg PO DAILY 30 Days Qty: 30 1RF paliperidone 6 mg Tablet Extended Release 24hr 6 mg PO DAILY 30 Days Qty: 30 1RF Continued A-Z Multi Vitamin 1 tab PO DAILY 0RF calcium 500 mg Tablet 500 mg PO DAILY 0RF hydroxyzine pamoate 50 mg capsule 50 mg PO QID PRN (Reason: Anxiety) 0RF omega-3 fatty acids Capsule 1,250 mg PO DAILY 0RF trazodone 100 mg tablet 100 mg PO BEDTIME 30 Days Qty: 30 0RF Discharge Orders: Discharge Order (Routine); Ordered 12/26/21 Ordered By: Geovanni Mcgraw Referrals: [facility] [Outside] - 01/01/22 1:30 pm (Initial assessment) Discharge Diet: Regular Discharge Activity: Resume usual activity Patient Instructions: Opioid Safety Discharge Attestations NPU Time Spent in Discharge Care*: less than 30 min Status at Discharge: Cognitive status at discharge: cognitively intact , Behavioral status at discharge: cooperative , Coding Level of Care Code Acute [facility] note Diagnoses Cannabis abuse F12.10 Posttraumatic stress disorder F43.10 Suicidal ideation R45.851 Depression F33.1 Active/Remission status: currently active Depression Type: major depressive disorder Major depression episode severity: moderate Major depression recurrence: recurrent Chronic schizophrenia F20.9
[2021-12-26] MEDS: acetaminophen 325 mg Tablet 650 MG PO (08:55)
[2021-12-26] MEDS: multivitamin therapeutic Tablet 1 TAB PO (08:57)
[2021-12-26] MEDS: paliperidone ER 6 mg Tablet PO (08:57)
[2021-12-26] MEDS: escitalopram 10 mg Tablet PO (08:57)
[2021-12-26 09:35] VITALS: BP 117/67; PULSE 86; RESP 20; TEMP 36.7; O2SAT 97
[2021-12-26 14:00] VITALS: BP 117/67; PULSE 86; RESP 20; TEMP 36.7; O2SAT 97
== END 2021-12-26 14:18 | disposition home or self-care (01) | DRG 885 ==
LOC: ER 13:49 → NP 15:14
PROVIDERS: Admitting Provider Psychiatry & Neurology Psychiatry; Emergency Provider Physician Assistant; Visit Provider Psychiatry & Neurology Psychiatry
DX: F25.1 Schizoaffective disorder, depressive type (principal); R45.851 Suicidal ideations; F12.10 Cannabis abuse, uncomplicated; F43.10 Post-traumatic stress disorder, unspecified; F17.210 Nicotine dependence, cigarettes, uncomplicated
CPT/HCPCS: 36415; 80053; 80306; 80307; 85025; 90471; 90686; 97150; 97165; 99285

== ENCOUNTER 2022-01-11 22:28 | Inpatient (IN) | payer MEDICAID, SELFPAY ==
[2022-01-11 22:36] VITALS: BP 115/73; PULSE 99; RESP 18; TEMP 36.6; O2SAT 97; BMI 38.0
--- NOTE | 2022-01-11 23:06 | ED.C_ITS ---
Documented by User: Daniela Kaur MD 01/14/22 05:48 HPI - Psych General: Chief Complaint: ER Hold Stated Complaint: SI Time Seen by Provider: 01/11/22 22:36 Source: patient Mode of arrival: ambulatory Limitations: no limitations History of Present Illness: 31-year-old male who states he has been having suicidal ideations and increased depression over the last 2 to 3 days. He states he been having a lot of problems at home especially with his brother. He states over the last he started having worsening thoughts with plans of killing himself by overdosing on pills or slitting his wrists he states that he would like to get help since he 70s worsening thoughts. He denies any recent suicide attempts Associated symptoms: Reports depression Review of Systems Const: Denies: fever(s), chills, body aches or change in appetite Eyes: Denies: blurry vision or eye discomfort ENMT: Denies: throat pain or dental pain Card: Denies: chest pain Resp: Denies: dyspnea GI: Denies: abdominal pain, nausea, vomiting or diarrhea : Denies: dysuria Musc: Denies: neck pain or back pain Skin/Breast: Denies: rash Neuro: Denies: headache(s) Psych: Reports: depression Nolan/Lymph: Denies: easy bruising All/Imm: Denies: urticaria PFSH ED PFSH: Medical History Cannabis abuse Depression Posttraumatic stress disorder Psychiatric care Schizophrenia Social History Smoking and tobacco status: current every day smoker Current gender identity: Male Physical Exam Const: COMMON NORMALS: no acute distress, patient oriented x3 and healthy appearing HENMT: COMMON NORMALS: normocephalic and atraumatic HEAD & SCALP: normocephalic and atraumatic Eye: COMMON NORMALS: Equal, round and reactive pupils present and EOMs intact bilaterally PUPIL: Yes Equal, round and reactive pupils present Neck/C-Spine: COMMON NORMALS: full ROM and supple Chest: COMMONS NORMALS: normal inspection of the chest and normal palpation of entire chest wall Resp: COMMON NORMALS: normal respiratory effort, No retractions, No use of accessory muscles and clear to auscultation bilaterally AUSCULTATION: clear to auscultation bilaterally Cardio: COMMON NORMALS: regular rate, regular rhythm and No murmurs present (Cardio) RATE: regular rate RHYTHM: regular rhythm GI: COMMON NORMALS: Normal to inspection, nondistended, normoactive bowel sounds present, Soft to palpation, non-tender and no masses PALPATION: Yes Soft to palpation Extremity: COMMON NORMALS: normal to inspection and full ROM Neuro: COMMON NORMALS: patient oriented x3, moves all extremities and no focal motor deficits Psych: COMMON NORMALS: mental status grossly normal, Normal thought process present and cooperative MOOD & AFFECT: Yes depressed mood THOUGHT PROCESS: Normal thought process present THOUGHT CONTENT: Yes Suicidality present Skin: COMMON NORMALS: no rashes or lesions noted and no wounds GENERAL SKIN EXAM: no rashes or lesions noted Course Vital Signs: Vital signs: Vital Signs Temperature 97.5 F L 01/16/22 22:00 Pulse Rate 73 01/16/22 22:00 Respiratory Rate 18 01/16/22 22:00 Blood Pressure 109/73 01/16/22 22:00 Pulse Oximetry 97 01/16/22 22:00 MDM - Psych Medical Decision Making Patient presents here with suicidal ideations patient is medically cleared I spoke to Dr. Brock and will admit Lab Data : 01/11/22 23:05 01/11/22 23:05 Laboratory Results WBC 13.4 10^3/uL (4.0-10.0) H 01/11/22 23:05 RBC 5.03 10^6/uL (4.1-5.3) 01/11/22 23:05 Hgb 16.3 g/dL (11.7-16.6) 01/11/22 23:05 Hct 48.1 % (42.0-52.0) 01/11/22 23:05 MCV 95.6 fl (80-94) H 01/11/22 23:05 MCH 32.4 pg (28.0-34.0) 01/11/22 23:05 MCHC 33.9 g/dL (30.0-36.0) 01/11/22 23:05 RDW 12.5 % (12.1-15.1) 01/11/22 23:05 Plt Count 225 10^3/cmm (130-400) 01/11/22 23:05 MPV 9.7 fL (7.4-10.4) 01/11/22 23:05 Neut % (Auto) 59.0 % 01/11/22 23:05 Lymph % (Auto) 29.5 % 01/11/22 23:05 [place] % (Auto) 9.1 % 01/11/22 23:05 Eos % (Auto) 1.0 % 01/11/22 23:05 Baso % (Auto) 0.4 % 01/11/22 23:05 Neut # (Auto) 7.90 10^3/uL (1.8-7.7) H 01/11/22 23:05 Lymph # (Auto) 3.9 10^3/uL (0.8-4.8) 01/11/22 23:05 [place] # (Auto) 1.2 10^3/uL (0.2-0.9) H 01/11/22 23:05 Eos # (Auto) 0.1 10^3/uL (0.0-0.8) 01/11/22 23:05 Baso # (Auto) 0.1 10^3/uL (0.0-0.1) 01/11/22 23:05 Nucleated RBC % (auto) 0 % 01/11/22 23:05 Nucleated RBCs # 0.0 /100WBC 01/11/22 23:05 Sodium 141 mmol/L (136-145) 01/11/22 23:05 Potassium 3.7 mmol/L (3.5-5.1) 01/11/22 23:05 Chloride 105 mmol/L (98-107) 01/11/22 23:05 Carbon Dioxide 23 mmol/L (22-29) 01/11/22 23:05 Anion Gap 16.7 (5-19) 01/11/22 23:05 BUN 13 mg/dL (6-20) 01/11/22 23:05 Creatinine 0.8 mg/dL (0.7-1.2) 01/11/22 23:05 GFR Calculation 113.5 mL/min (90-130) 01/11/22 23:05 Glucose 70 mg/dL (65-115) 01/11/22 23:05 Calculated Osmolality 291 mOsm/kg (285-295) 01/11/22 23:05 Calcium 8.5 mg/dL (8.5-10.5) 01/11/22 23:05 Total Bilirubin 0.2 mg/dL (0.15-1.2) 01/11/22 23:05 AST 17 U/L (0-40) 01/11/22 23:05 ALT 25 U/L (0-41) 01/11/22 23:05 Alkaline Phosphatase 114 IU/L (40-130) 01/11/22 23:05 Total Protein 7.2 g/dL (6.6-8.7) 01/11/22 23:05 Albumin 4.9 g/dL (3.5-5.2) 01/11/22 23:05 Globulin 2.3 g/dL (1.3-4.6) 01/11/22 23:05 Salicylates 1.2 mg/dL (3-10) L 01/11/22 23:05 Urine Opiates Screen Negative ng/mL (Negative) 01/11/22 23:29 Acetaminophen < 5.0 ug/mL (10-30) L 01/11/22 23:05 Ur Barbiturates Screen Negative ng/mL (Negative) 01/11/22 23:29 Ur Phencyclidine Scrn Negative ng/mL (Negative) 01/11/22 23:29 Ur Amphetamines Screen Negative ng/mL (Negative) 01/11/22 23:29 U Benzodiazepines Scrn Negative ng/mL (Negative) 01/11/22 23:29 Urine Cocaine Screen Negative ng/mL (Negative) 01/11/22 23:29 U Marijuana (THC) Screen Positive ng/mL (Negative) H 01/11/22 23:29 Ethyl Alcohol 188 mg/dL (0-10) H 01/11/22 23:05 Coronavirus 229E (PCR) Not detected (NOT DETECT) 01/11/22 23:29 SARS-CoV-2 (PCR) Not detected (NOT DETECT) 01/11/22 23:29 EKG Data EKG 1: I personally reviewed and interpreted this EKG as follows: EKG interpretation date: 01/11/22 EKG interpretation time: 23:25 Interpretation: nsr hr [address] or t wave abnormalities qrs 109 qtc 386 Discharge Plan Discharge Patient Disposition: Admitted As Inpatient Admit Provider: Geovanni Mcgraw Clinical Impression: Suicidal ideation, Chronic schizophrenia, Methamphetamine abuse, Cannabis abuse, Depression Condition: Stable Sign Out Sign Out Data: Patient Sign Out occurred on 01/12/22 at 06:36. Patient's care was discussed, and care was transferred from to Andrew Mixon DO. Coding Level of Care Code ED Product Safety Officer for Chg Fwd Exam Comprehensive Documented by User: Andrew Mixon DO 01/17/22 06:37 HPI - Psych General: Chief Complaint: ER Hold Stated Complaint: SI Time Seen by Provider: 01/11/22 22:36 History of Present Illness: MD complaint: suicidal ideation and feels depressed PFSH ED PFSH: Medical History Cannabis abuse Depression Posttraumatic stress disorder Psychiatric care Schizophrenia Social History Smoking and tobacco status: current every day smoker Current gender identity: Male Course Vital Signs: Vital signs: Vital Signs Temperature 97.5 F L 01/16/22 22:00 Pulse Rate 73 01/16/22 22:00 Respiratory Rate 18 01/16/22 22:00 Blood Pressure 109/73 01/16/22 22:00 Pulse Oximetry 97 01/16/22 22:00 MDM - Psych Medical Decision Making Patient presents here with suicidal ideations patient is medically cleared I spoke to Dr. Brock and will admit Care assumed a change of shift orders written patient admitted to psychiatry for suicidal ideation. Lab Data : 01/11/22 23:05 01/11/22 23:05 Laboratory Results WBC 13.4 10^3/uL (4.0-10.0) H 01/11/22 23:05 RBC 5.03 10^6/uL (4.1-5.3) 01/11/22 23:05 Hgb 16.3 g/dL (11.7-16.6) 01/11/22 23:05 Hct 48.1 % (42.0-52.0) 01/11/22 23:05 MCV 95.6 fl (80-94) H 01/11/22 23:05 MCH 32.4 pg (28.0-34.0) 01/11/22 23:05 MCHC 33.9 g/dL (30.0-36.0) 01/11/22 23:05 RDW 12.5 % (12.1-15.1) 01/11/22 23:05 Plt Count 225 10^3/cmm (130-400) 01/11/22 23:05 MPV 9.7 fL (7.4-10.4) 01/11/22 23:05 Neut % (Auto) 59.0 % 01/11/22 23:05 Lymph % (Auto) 29.5 % 01/11/22 23:05 [place] % (Auto) 9.1 % 01/11/22 23:05 Eos % (Auto) 1.0 % 01/11/22 23:05 Baso % (Auto) 0.4 % 01/11/22 23:05 Neut # (Auto) 7.90 10^3/uL (1.8-7.7) H 01/11/22 23:05 Lymph # (Auto) 3.9 10^3/uL (0.8-4.8) 01/11/22 23:05 [place] # (Auto) 1.2 10^3/uL (0.2-0.9) H 01/11/22 23:05 Eos # (Auto) 0.1 10^3/uL (0.0-0.8) 01/11/22 23:05 Baso # (Auto) 0.1 10^3/uL (0.0-0.1) 01/11/22 23:05 Nucleated RBC % (auto) 0 % 01/11/22 23:05 Nucleated RBCs # 0.0 /100WBC 01/11/22 23:05 Sodium 141 mmol/L (136-145) 01/11/22 23:05 Potassium 3.7 mmol/L (3.5-5.1) 01/11/22 23:05 Chloride 105 mmol/L (98-107) 01/11/22 23:05 Carbon Dioxide 23 mmol/L (22-29) 01/11/22 23:05 Anion Gap 16.7 (5-19) 01/11/22 23:05 BUN 13 mg/dL (6-20) 01/11/22 23:05 Creatinine 0.8 mg/dL (0.7-1.2) 01/11/22 23:05 GFR Calculation 113.5 mL/min (90-130) 01/11/22 23:05 Glucose 70 mg/dL (65-115) 01/11/22 23:05 Calculated Osmolality 291 mOsm/kg (285-295) 01/11/22 23:05 Calcium 8.5 mg/dL (8.5-10.5) 01/11/22 23:05 Total Bilirubin 0.2 mg/dL (0.15-1.2) 01/11/22 23:05 AST 17 U/L (0-40) 01/11/22 23:05 ALT 25 U/L (0-41) 01/11/22 23:05 Alkaline Phosphatase 114 IU/L (40-130) 01/11/22 23:05 Total Protein 7.2 g/dL (6.6-8.7) 01/11/22 23:05 Albumin 4.9 g/dL (3.5-5.2) 01/11/22 23:05 Globulin 2.3 g/dL (1.3-4.6) 01/11/22 23:05 Salicylates 1.2 mg/dL (3-10) L 01/11/22 23:05 Urine Opiates Screen Negative ng/mL (Negative) 01/11/22 23:29 Acetaminophen < 5.0 ug/mL (10-30) L 01/11/22 23:05 Ur Barbiturates Screen Negative ng/mL (Negative) 01/11/22 23:29 Ur Phencyclidine Scrn Negative ng/mL (Negative) 01/11/22 23:29 Ur Amphetamines Screen Negative ng/mL (Negative) 01/11/22 23:29 U Benzodiazepines Scrn Negative ng/mL (Negative) 01/11/22 23:29 Urine Cocaine Screen Negative ng/mL (Negative) 01/11/22 23:29 U Marijuana (THC) Screen Positive ng/mL (Negative) H 01/11/22 23:29 Ethyl Alcohol 188 mg/dL (0-10) H 01/11/22 23:05 Coronavirus 229E (PCR) Not detected (NOT DETECT) 01/11/22 23:29 SARS-CoV-2 (PCR) Not detected (NOT DETECT) 01/11/22 23:29 Discharge Plan Discharge Patient Disposition: Admitted As Inpatient Admit Provider: Geovanni Mcgraw Clinical Impression: Suicidal ideation, Chronic schizophrenia, Methamphetamine abuse, Cannabis abuse, Depression Condition: Stable Sign Out Sign Out Data: Patient Sign Out occurred on 01/12/22 at 06:36. Patient's care was discussed, and care was transferred from to Andrew Mixon DO. Coding Level of Care Code ED Product Safety Officer for Chg Fwd Exam Comprehensive
--- NOTE | 2022-01-11 23:08 | ECG_ITS ---
[facility] Test Date: 2022-01-11 Pat Name: Ruben Horan Department: Room: Gender: Male Flight Physician: : [id number] Requested By: Daniela Kaur Order Number: [id number] Lana MD: ERVIN SCOTT Measurements Intervals [place] Rate: 74 P: 39 TX: 190 QRS: 46 QRSD: 109 T: 44 QT: 359 QTc: 398 Interpretive Statements SINUS RHYTHM Compared to ECG 11/12/2020 01:29:10 Intraventricular conduction delay no longer present T-wave abnormality no longer present Electronically Signed On 01-12-2022 22:55:40 SENIOR SHAREPOINT ARCHITECT by ERVIN SCOTT [id number]
[2022-01-11 23:13] LABS: Basophils # 0.1 10^3/uL (0.0-0.1); Basophils % 0.4 %; Eosinophils # 0.1 10^3/uL (0.0-0.8); Hematocrit 48.1 % (42.0-52.0); Hemoglobin 16.3 g/dL (11.7-16.6); Lymphocytes # 3.9 10^3/uL (0.8-4.8); Lymphocytes % 29.5 %; Mean Corpuscular HGB Conc 33.9 g/dL (30.0-36.0); Mean Corpuscular Hemoglobin 32.4 pg (28.0-34.0); Mean Corpuscular Volume 95.6 fl (80-94); Mean Platelet Volume 9.7 fL (7.4-10.4); Monocytes # 1.2 10^3/uL (0.2-0.9); Monocytes % 9.1 %; Nucleated Red Blood Cells % 0 %; Platelet Count 225 10^3/cmm (130-400); Red Blood Count 5.03 10^6/uL (4.1-5.3); Red Cell Distribution Width 12.5 % (12.1-15.1); White Blood Count 13.4 10^3/uL (4.0-10.0)
[2022-01-11 23:40] LABS: Alanine Aminotransferase 25 U/L (0-41); Albumin Level 4.9 g/dL (3.5-5.2); Alcohol Level 188 mg/dL (0-10); Alkaline Phosphatase 114 IU/L (40-130); Anion Gap 16.7 (5-19); Aspartate Amino Transferase 17 U/L (0-40); Blood Urea Nitrogen 13 mg/dL (6-20); Calcium 8.5 mg/dL (8.5-10.5); Carbon Dioxide 23 mmol/L (22-29); Chloride 105 mmol/L (98-107); Globulin 2.3 g/dL (1.3-4.6); Glomerular Filtration Rate 113.5 mL/min (90-130); Glucose 70 mg/dL (65-115); Osmolality Calculated 291 mOsm/kg (285-295); Potassium 3.7 mmol/L (3.5-5.1); Salicylate 1.2 mg/dL (3-10); Sodium 141 mmol/L (136-145); Total Bilirubin 0.2 mg/dL (0.15-1.2); Total Protein 7.2 g/dL (6.6-8.7)
[2022-01-11 23:41] LABS: Acetaminophen < 5.0 ug/mL (10-30)
[2022-01-11 23:56] VITALS: BP 115/73; PULSE 99; RESP 18; TEMP 36.6; O2SAT 97
[2022-01-12] MEDS: acetaminophen 500 mg Tablet 1000 MG PO (00:03)
[2022-01-12 00:05] LABS: Amphetamines Screen Urine Negative (Negative); Barbiturates Screen Urine Negative (Negative); Benzodiazepines Screen Urine Negative (Negative); Cocaine Screen Urine Negative (Negative); Opiate Screen Urine Negative (Negative); PCP Screen Urine Negative (Negative); THC Screen Urine Positive (Negative)
[2022-01-12 01:21] LABS: Adenovirus Not Detected (NOT DETECT); Chlamydia Pneumoniae Not Detected (NOT DETECT); Coronavirus 229E,HKU1,NL63,OC4 Not Detected (NOT DETECT); Human Metapneumovirus Not Detected (NOT DETECT); Human Rhinovirus/Enterovirus Not Detected (NOT DETECT); Influenza A Not Detected (NOT DETECT); Influenza A H1 Not Detected (NOT DETECT); Influenza A H1-2009 Not Detected (NOT DETECT); Influenza A H3 Not Detected (NOT DETECT); Influenza B Not Detected (NOT DETECT); Mycoplasma Pneumoniae Not Detected (NOT DETECT); Parainfluenza Virus Type 1 Not Detected (NOT DETECT); Parainfluenza Virus Type 2 Not Detected (NOT DETECT); Parainfluenza Virus Type 3 Not Detected (NOT DETECT); Parainfluenza Virus Type 4 Not Detected (NOT DETECT); Respiratory Syncytial Virus A Not Detected (NOT DETECT); Respiratory Syncytial Virus B Not Detected (NOT DETECT); SARS-COV-2 Not Detected (NOT DETECT)
[2022-01-12 01:41] VITALS: BP 125/69; PULSE 87; RESP 18; TEMP 36.6; O2SAT 98
[2022-01-12] MEDS: LORazepam 2 mg Tablet PO (01:41)
[2022-01-12 03:30] VITALS: BP 137/75; PULSE 81; RESP 18; TEMP 36.6; O2SAT 98
[2022-01-12 07:17] VITALS: BP 135/85; PULSE 97; RESP 20; TEMP 36.1; O2SAT 99
[2022-01-12 14:00] VITALS: BP 135/85; PULSE 79; RESP 20; TEMP 36.1; O2SAT 99
[2022-01-12] MEDS: acetaminophen 325 mg Tablet 650 MG PO (14:45)
[2022-01-12] MEDS: ibuprofen 800 mg tablet PO (19:37)
[2022-01-12 19:40] VITALS: BP 110/74; PULSE 83; RESP 16; TEMP 36.6; O2SAT 96
[2022-01-12] MEDS: trazodone 100 mg Tablet PO (21:11)
[2022-01-12] MEDS: hyDROXYzine 25 mg Capsule 50 MG PO (21:11)
--- NOTE | 2022-01-12 23:28 | PC.NURSE ---
2110 rec'd vistaril for anxiety. 2210-resting in bed with eyes closed.
[2022-01-13 06:00] VITALS: BP 132/74; PULSE 71; RESP 18; TEMP 37.1; O2SAT 97
[2022-01-13] MEDS: escitalopram 10 mg Tablet 20 MG PO (07:46)
[2022-01-13] MEDS: thiamine 100 mg Tablet PO (07:46)
[2022-01-13] MEDS: paliperidone ER 6 mg Tablet PO (07:46)
[2022-01-13] MEDS: folic acid 1 mg Tablet PO (07:47)
[2022-01-13] MEDS: acetaminophen 325 mg Tablet 650 MG PO (07:47)
[2022-01-13] MEDS: multivitamin therapeutic Tablet 1 TAB PO (07:47)
[2022-01-13] MEDS: OLANZapine 10 mg TABLET 15 MG PO (10:03)
--- NOTE | 2022-01-13 11:31 | P.NPUHP_ITS ---
Providers/Chief Complaint Admitting Physician: Geovanni Mcgraw MD Chief Complaint: SI HPI NPU History of Present Illness Ruben Horan is a 31 year old male who was admitted to our emergency department with the following report: 31-year-old male who states he has been having suicidal ideations and increased depression over the last 2 to 3 days.? He states he been having a lot of problems at home especially with his brother.? He states over the last he started having worsening thoughts with plans of killing himself by overdosing on pills or slitting his wrists he states that he would like to get help since he 70s worsening thoughts.? He denies any recent suicide attempts Associated symptoms: Reports depression He was admitted to the neuropsychiatry unit for definitive treatment of these issues. He says that he initially did okay when he went home. He feels like his anxiety has been significantly worse the last few days. He said it is like a toothpick or a needle in his neck. She said it causes claustrophobia. He say that he is not anxious that it is anxiety which is similar to depression. He wonders this is the Invega that is causing the anxiety. He was reminded that we talked about anxiety at his last visit and he was told that Lexapro probably needed to be increased to 40 mg. He agreed to that happening. He said that he had problems with his family in the emergency department but today tells me that there has not been any extra stress and he has been getting along with his family well. He denies any drug or alcohol use recently. He denies any stress causing his anxiety or depression. He agreed to an increased dose of Lexapro to 40 mg. Meds NPU Home Medications Medication Instructions Recorded Confirmed Last Taken Type escitalopram oxalate 10 mg tablet 20 mg PO DAILY 30 Days #30 tab 12/26/21 01/12/22 Unknown Rx paliperidone 6 mg tablet,extended 6 mg PO DAILY 30 Days #30 tab 12/26/21 01/12/22 Unknown Rx release 24 hr trazodone 100 mg tablet 100 mg PO BEDTIME 30 Days #30 tab 12/26/21 01/12/22 Unknown Rx olanzapine 15 mg tablet 15 mg PO DAILY 01/12/22 01/12/22 Unknown History Allergies Allergy/AdvReac Type Severity Reaction Status Date / Time nickel Allergy ALGY-Rash Verified 01/12/22 10:04 PFS NPU PFSH: Medical History Cannabis abuse Depression Posttraumatic stress disorder Psychiatric care Schizophrenia Social History Smoking and tobacco status: current every day smoker Current gender identity: Male Mental Status Exam MSE Comments: This is a obese 31-year-old male who appears approximately his stated age and is in no acute distress. He is dressed in hospital scrubs and was pleasant and cooperative with evaluation. psychomotor activity is average. Speech is at a regular rate and rhythm, normal volume, good articulation, not pressured. Alert, oriented X3 Attention and concentration appear to be intact. Memory is intact Mood is depressed. Affect is somewhat flat. Thought process is logical and goal-directed. Thought content: Denies auditory and visual hallucinations. No delusions or paranoia are noted. No current suicidal ideation, and no homicidal ideation. Fund of knowledge is average. Insight and judgment appear to be only fair. Impulse control is only fair. Vitals/I&O/Wt Last Vital Signs Temp 98.7 F 01/13/22 06:00 Pulse 71 01/13/22 06:00 Resp 18 01/13/22 06:00 BP 132/74 01/13/22 06:00 Pulse Ox 97 01/13/22 06:00 Weight last 48 hrs Weight 127.006 kg Data NPU : 01/11/22 23:05 01/11/22 23:05 A&P Assessment and plan (1) Chronic schizophrenia: Status: Acute (2) Depression: Status: Acute Qualifiers: Active/Remission status: currently active Depression Type: major depressive disorder Major depression episode severity: moderate Major de pression recurrence: recurrent Qualified Code(s): F33.1 - Major depressive disorder, recurrent, moderate (3) Cannabis abuse: Status: Acute (4) Methamphetamine abuse: Status: Acute (5) Posttraumatic stress disorder: Status: Acute Plan This is a 31-year-old male with schizophrenia who has had frequent admissions for suicidal ideation and depression recently. He continues to report significant anxiety as a significant complaint Plan: 1. Continue current medication. Increase Lexapro to 40 mg daily 2. Continue every 15 minute checks for safety. 3. Encourage individual, group and milieu therapies. 4. Encourage sober living treatment after discharge at the highest level of ca re to which he is willing to commit. 5. We will monitor for safety for himself in the community prior to discharge. Involuntary Hold Information 96 Hour Hold: 96 Hour Involuntary Admission: Yes 96 Hour Hold Ending Date: 01/17/22 96 Hour Hold Ending Time: 23:40 Attestations NPU Medical Necessity Statement*: Inpatient hospitalization is medically necessary and the clinically appropriate intervention at this time. We will initiate medications and make changes as indicated. He will be in the hospital for over 2 midnights. 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
[2022-01-13] MEDS: OLANZapine 5 mg ODT PO (11:55)
[2022-01-13] MEDS: hyDROXYzine 25 mg Capsule 50 MG PO (11:55)
[2022-01-13 14:00] VITALS: BP 141/81; PULSE 58; RESP 16; O2SAT 96
[2022-01-13 21:16] VITALS: BP 110/74; PULSE 92; RESP 18; O2SAT 96
--- NOTE | 2022-01-14 03:55 | PC.NURSE ---
He did not take his trazodone. he was already asleep when offered.
[2022-01-14 04:09] VITALS: BMI 38.0
[2022-01-14 06:00] VITALS: BP 124/94; PULSE 83; RESP 16; TEMP 36.4; O2SAT 96
[2022-01-14] MEDS: acetaminophen 325 mg Tablet 650 MG PO ×2 (06:36→18:00)
[2022-01-14] MEDS: OLANZapine 10 mg TABLET 15 MG PO (09:24)
[2022-01-14] MEDS: paliperidone ER 6 mg Tablet PO (09:24)
[2022-01-14] MEDS: folic acid 1 mg Tablet PO (09:25)
[2022-01-14] MEDS: multivitamin therapeutic Tablet 1 TAB PO (09:25)
[2022-01-14] MEDS: thiamine 100 mg Tablet PO (09:25)
[2022-01-14] MEDS: escitalopram 10 mg Tablet 40 MG PO (09:25)
[2022-01-14] MEDS: ibuprofen 800 mg tablet PO (09:29)
--- NOTE | 2022-01-14 09:40 | P.NPUPN_ITS ---
Subjective NPU Subjective: Interval history: He says that his anxiety continues to be elevated. He slept well last night. Voices are still there but not bad. He has not had suicidal thoughts so far today but is not certain that they will not come back. He will have his first dose of Lexapro 40 mg shortly after we talked. He understands that might take a week to take effect. Mental Status Exam MSE Comments: This is a obese 31-year-old male who appears approximately his stated age and is in no acute distress. He is dressed in hospital scrubs and was pleasant and cooperative with evaluation. psychomotor activity is average. Speech is at a regular rate and rhythm, normal volume, good articulation, not pressured. Alert, oriented X3 Attention and concentration appear to be intact. Memory is intact Mood is depressed. But better. Affect is somewhat flat. Thought process is logical and goal-directed. Thought content: Only mild auditory and no visual hallucinations. No delusions or paranoia are noted. No current suicidal ideation, and no homicidal ideation. Fund of knowledge is average. Insight and judgment appear to be only fair. Impulse control is only fair. Cognition: Patient Appearance: Appropriate Level of Consciousness: Awake, Alert, Appropriate and Follows Commands Patient Cognition Impaired: No Ability to Follow Directions: Excellent Patient Orientation (long list): Person, Place and Time Comprehension Ability: No Impairment Hallucination Type: None Delusion Description: Not Present Thought Process: Appropriate Affect: Affect Description: Appropriate and Calm Depressive Symptoms: Hopelessness and Unhappiness Behavior: Patient Behavior: Appropriate and Cooperative Speech Pattern: Appropriate and Clear Vitals/I&O/Wt Last Vital Signs Temp 97.6 F 01/14/22 06:00 Pulse 83 01/14/22 06:00 Resp 16 01/14/22 06:00 BP 124/94 01/14/22 06:00 Pulse Ox 96 01/14/22 06:00 Weight last 48 hrs Weight 127.006 kg Data NPU : 01/11/22 23:05 01/11/22 23:05 A&P Assessment and plan (1) Chronic schizophrenia: Status: Acute (2) Depression: Status: Acute Qualifiers: Active/Remission status: currently active Depression Type: major depressive disorder Major depression episode severity: moderate Major depression recurrence: recurrent Qualified Code(s): F33.1 - Major depressive disorder, recurrent, moderate (3) Cannabis abuse: Status: Acute (4) Methamphetamine abuse: Status: Acute (5) Posttraumatic stress disorder: Status: Acute Plan This is a 31-year-old male with schizophrenia who has had frequent admissions for suicidal ideation and depression recently. He continues to report significant anxiety as a significant complaint Plan: 1. Continue current medication. Increase Lexapro to 40 mg daily 2. Continue every 15 minute checks for safety. 3. Encourage individual, group and milieu therapies. 4. Encourage sober living treatment after discharge at the highest level of care to which he is willing to commit. 5. We will monitor for safety for himself in the community prior to discharge. Involuntary Hold Information 96 Hour Hold: 96 Hour Involuntary Admission: Yes 96 Hour Hold Ending Date: 01/17/22 96 Hour Hold Ending Time: 23:40 Attestations U Medical Necessity Statement*: Inpatient hospitalization is medically necessary and the clinically appropriate intervention at this time. We will initiate medications and make changes as indicated. 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
[2022-01-14] MEDS: hyDROXYzine 25 mg Capsule 50 MG PO (11:31)
[2022-01-14 14:00] VITALS: BP 154/98; PULSE 78; RESP 18; TEMP 36.6; O2SAT 98
[2022-01-14] MEDS: haloperidol 5 mg Tablet PO (15:47)
[2022-01-14] MEDS: OLANZapine 5 mg ODT PO (15:47)
[2022-01-14] MEDS: LORazepam 2 mg Tablet PO (16:11)
[2022-01-14] MEDS: trazodone 100 mg Tablet PO (20:21)
[2022-01-14 21:30] VITALS: BP 123/76; PULSE 67; RESP 17; TEMP 37; O2SAT 97
[2022-01-15 06:00] VITALS: BP 131/85; PULSE 80; RESP 15; TEMP 37; O2SAT 98
[2022-01-15] MEDS: folic acid 1 mg Tablet PO (11:18)
[2022-01-15] MEDS: multivitamin therapeutic Tablet 1 TAB PO (11:18)
[2022-01-15] MEDS: paliperidone ER 6 mg Tablet PO (11:18)
[2022-01-15] MEDS: thiamine 100 mg Tablet PO (11:18)
[2022-01-15] MEDS: OLANZapine 10 mg TABLET 15 MG PO (11:19)
[2022-01-15] MEDS: escitalopram 10 mg Tablet 40 MG PO (11:23)
--- NOTE | 2022-01-15 11:51 | NPU.GN ---
[facility] Neuro[facility] Unit Group Topic: Rajendra Nunez General Mood of Group: Ruben did not attend group.
--- NOTE | 2022-01-15 13:03 | W.PM.NPUPNS ---
Subjective NPU Subjective: Interval history: He said that he was a little groggy today. He thinks it is from his stomach. He said that his anxiety was bad yesterday but today it is much better. His depression might be a little worse. He has suicidal ideation his mind comes and goes. He does not feel that he has side effects from his medications. He would like to continue taking them unchanged. Mental Status Exam MSE Comments: This is a obese 31-year-old male who appears approximately his stated age and is in no acute distress. He is dressed in hospital scrubs and was pleasant and cooperative with evaluation. psychomotor activity is average. Speech is at a regular rate and rhythm, normal volume, good articulation, not pressured. Alert, oriented X3 Attention and concentration appear to be intact. Memory is intact Mood is depressed. A little worse than yesterday. Affect is somewhat flat. Thought process is logical and goal-directed. Thought content: Only mild auditory and no visual hallucinations. No delusions or paranoia are noted. No current suicidal ideation, and no homicidal ideation. Fund of knowledge is average. Insight and judgment appear to be only fair. Impulse control is only fair. Cognition: Patient Appearance: Appropriate Level of Consciousness: Awake, Alert, Appropriate and Follows Commands Patient Cognition Impaired: No Ability to Follow Directions: Excellent Patient Orientation (long list): Person, Place and Time Comprehension Ability: No Impairment Hallucination Type: None Delusion Description: Not Present Thought Process: Appropriate Affect: Affect Description: Appropriate and Calm Depressive Symptoms: Hopelessness and Unhappiness Behavior: Patient Behavior: Appropriate and Cooperative Speech Pattern: Appropriate and Clear Vitals/I&O/Wt Last Vital Signs Temp 98.6 F 01/15/22 06:00 Pulse 80 01/15/22 06:00 Resp 15 01/15/22 06:00 BP 131/85 01/15/22 06:00 Pulse Ox 98 01/15/22 06:00 Weight last 48 hrs Weight 127.006 kg Data NPU : 01/11/22 23:05 01/11/22 23:05 A&P Assessment and plan (1) Chronic schizophrenia: Status: Acute (2) Depression: Status: Acute Qualifiers: Active/Remission status: currently active Depression Type: major depressive disorder Major depression episode severity: moderate Major depression recurrence: recurrent Qualified Code(s): F33.1 - Major depressive disorder, recurrent, moderate (3) Cannabis abuse: Status: Acute (4) Methamphetamine abuse: Status: Acute (5) Posttraumatic stress disorder: Status: Acute Plan This is a 31-year-old male with schizophrenia who has had frequent admissions for suicidal ideation and depression recently. He continues to report significant anxiety as a significant complaint Plan: 1. Continue current medication. Second dose ofLexapro to 40 mg today. 2. Continue every 15 minute checks for safety. 3. Encourage individual, group and milieu therapies. 4. Encourage sober living treatment after discharge at the highest level of care to which he is willing to commit. 5. We will monitor for safety for himself in the community prior to discharge. Involuntary Hold Information 96 Hour Hold: 96 Hour Involuntary Admission: Yes 96 Hour Hold Ending Date: 01/17/22 96 Hour Hold Ending Time: 23:40 Attestations U Medical Necessity Statement*: Inpatient hospitalization is medically necessary and the clinically appropriate intervention at this time. We will initiate medications and make changes as indicated. 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
[2022-01-15 14:00] VITALS: BP 107/70; PULSE 93; RESP 18; TEMP 36.4; O2SAT 96
[2022-01-15 19:59] VITALS: BP 117/79; PULSE 88; RESP 20; TEMP 36.4; O2SAT 97
[2022-01-15] MEDS: trazodone 100 mg Tablet PO (20:21)
[2022-01-16 06:00] VITALS: BP 128/81; PULSE 88; RESP 18; TEMP 37; O2SAT 99
--- NOTE | 2022-01-16 08:56 | P.NPUPN_ITS ---
Subjective NPU Subjective: Interval history: He said that his anxiety is still somewhat reduced. He did have some suicidal thoughts this morning. His depression continues to be significant. Despite his saying that his anxiety was very much reduced with the Lexapro 40 mg he still asked me if there is something he can take as needed for anxiety. He was told that he could take some Vistaril or Zyprexa Zydis which everyone seemed to work best. Mental Status Exam MSE Comments: This is a obese 31-year-old male who appears approximately his stated age and is in no acute distress. He is dressed in hospital scrubs and was pleasant and cooperative with evaluation. psychomotor activity is average. Speech is at a regular rate and rhythm, normal volume, good articulation, not pressured. Alert, oriented X3 Attention and concentration appear to be intact. Memory is intact Mood is depressed. Affect is somewhat flat. Thought process is logical and goal-directed. Thought content: Only mild auditory and no visual hallucinations. No delusions or paranoia are noted. He reports some suicidal ideation this morning but no homicidal ideation. Fund of knowledge is average. Insight and judgment appear to be only fair. Impulse control is only fair. Cognition: Patient Appearance: Appropriate Level of Consciousness: Awake, Alert, Appropriate and Follows Commands Patient Cognition Impaired: No Ability to Follow Directions: Excellent Patient Orientation (long list): Person, Place and Time Comprehension Ability: No Impairment Hallucination Type: None Delusion Description: Not Present Thought Process: Appropriate Affect: Affect Description: Appropriate Depressive Symptoms: Hopelessness and Unhappiness Behavior: Patient Behavior: Appropriate Speech Pattern: Appropriate Vitals/I&O/Wt Last Vital Signs Temp 98.6 F 01/16/22 06:00 Pulse 88 01/16/22 06:00 Resp 18 01/16/22 06:00 BP 128/81 01/16/22 06:00 Pulse Ox 99 01/16/22 06:00 Data NPU : 01/11/22 23:05 01/11/22 23:05 A&P Assessment and plan (1) Chronic schizophrenia: Status: Acute (2) Depression: Status: Acute Qualifiers: Active/Remission status: currently active Depression Type: major depressive disorder Major depression episode severity: moderate Major depression recurrence: recurrent Qualified Code(s): F33.1 - Major depressive disorder, recurrent, moderate (3) Cannabis abuse: Status: Acute (4) Methamphetamine abuse: Status: Acute (5) Posttraumatic stress disorder: Status: Acute Plan This is a 31-year-old male with schizophrenia who has had frequent admissions for suicidal ideation and depression recently. He continues to report significant anxiety as a significant complaint Plan: 1. Continue current medication. Lexapro to 40 mg today. 2. Continue every 15 minute checks for safety. 3. Encourage individual, group and milieu therapies. 4. Encourage sober living treatment after discharge at the highest level of care to which he is willing to commit. 5. We will monitor for safety for himself in the community prior to discharge. Involuntary Hold Information 96 Hour Hold: 96 Hour Involuntary Admission: Yes 96 Hour Hold Ending Date: 01/17/22 96 Hour Hold Ending Time: 23:40 Attestations U Medical Necessity Statement*: Inpatient hospitalization is medically necessary and the clinically appropriate intervention at this time. We will initiate medications and make changes as indicated. 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
[2022-01-16] MEDS: acetaminophen 325 mg Tablet 650 MG PO ×2 (09:10→16:30)
[2022-01-16] MEDS: OLANZapine 10 mg TABLET 15 MG PO (09:15)
[2022-01-16] MEDS: multivitamin therapeutic Tablet 1 TAB PO (09:15)
[2022-01-16] MEDS: folic acid 1 mg Tablet PO (09:15)
[2022-01-16] MEDS: thiamine 100 mg Tablet PO (09:15)
[2022-01-16] MEDS: escitalopram 10 mg Tablet 40 MG PO (09:15)
[2022-01-16] MEDS: paliperidone ER 6 mg Tablet PO (09:15)
--- NOTE | 2022-01-16 11:56 | NPU.GN ---
[facility] Unit Group Topic:Dice Breaker Group Activity General Mood of Group: Ruben did not attend group today. He was sleeping.
[2022-01-16 14:00] VITALS: BP 117/75; PULSE 83; RESP 17; TEMP 36.1; O2SAT 98
[2022-01-16] MEDS: ibuprofen 800 mg tablet PO (14:48)
[2022-01-16] MEDS: hyDROXYzine 25 mg Capsule 50 MG PO (15:25)
[2022-01-16] MEDS: trazodone 100 mg Tablet PO (20:20)
[2022-01-16 22:00] VITALS: BP 109/73; PULSE 73; RESP 18; TEMP 36.4; O2SAT 97
[2022-01-17 06:00] VITALS: BP 96/65; PULSE 66; RESP 18; TEMP 36.9; O2SAT 98
[2022-01-17] MEDS: thiamine 100 mg Tablet PO (09:54)
[2022-01-17] MEDS: folic acid 1 mg Tablet PO (09:54)
[2022-01-17] MEDS: ibuprofen 800 mg tablet PO (09:54)
[2022-01-17] MEDS: paliperidone ER 6 mg Tablet PO (09:55)
[2022-01-17] MEDS: multivitamin therapeutic Tablet 1 TAB PO (09:55)
[2022-01-17] MEDS: OLANZapine 10 mg TABLET 15 MG PO (09:55)
[2022-01-17] MEDS: escitalopram 10 mg Tablet 40 MG PO (09:55)
--- NOTE | 2022-01-17 11:20 | NPU.GN ---
[facility] Unit Group Topic: Thought Process General Mood of Group: Ruben did not attend group today.
[2022-01-17] MEDS: acetaminophen 325 mg Tablet 650 MG PO (11:45)
--- NOTE | 2022-01-17 13:38 | P.NPUPN_ITS ---
Subjective NPU Subjective: Interval history: He says that his anxiety is still high. He still has some auditory hallucinations and still has some mild suicidal ideation. He said that when he was at [place] they gave him a green and white capsule that he said was helpful. After some discussion he decided that it was probably fluoxetine. He would like to change the Lexapro over to that. He is also been taking olanzapine 15 mg every morning and agreed to discontinue that. Mental Status Exam MSE Comments: This is a obese 31-year-old male who appears approximately his stated age and is in no acute distress. He is dressed in hospital scrubs and was pleasant and cooperative with evaluation. psychomotor activity is average. Speech is at a regular rate and rhythm, normal volume, good articulation, not pressured. Alert, oriented X3 Attention and concentration appear to be intact. Memory is intact Mood is depressed. Affect is somewhat flat. Thought process is logical and goal-directed. Thought content: Only mild auditory and no visual hallucinations. No delusions or paranoia are noted. He reports some suicidal ideation this morning but no homicidal ideation. Fund of knowledge is average. Insight and judgment appear to be only fair. Impulse control is only fair. Cognition: Patient Appearance: Appropriate Level of Consciousness: Awake, Alert, Appropriate and Follows Commands Patient Cognition Impaired: No Ability to Follow Directions: Excellent Patient Orientation (long list): Person, Place, Name, Age and Birthday Comprehension Ability: No Impairment Hallucination Type: None Delusion Description: Not Present Thought Process: Appropriate Affect: Affect Description: Appropriate Depressive Symptoms: Hopelessness and Unhappiness Behavior: Patient Behavior: Appropriate Speech Pattern: Appropriate Vitals/I&O/Wt Last Vital Signs Temp 98.4 F 01/17/22 06:00 Pulse 66 01/17/22 06:00 Resp 18 01/17/22 06:00 BP 96/65 01/17/22 06:00 Pulse Ox 98 01/17/22 06:00 Data NPU : 01/11/22 23:05 01/11/22 23:05 A&P Assessment and plan (1) Chronic schizophrenia: Status: Acute (2) Depression: Status: Acute (3) Cannabis abuse: Status: Acute (4) Methamphetamine abuse: Status: Acute (5) Posttraumatic stress disorder: Status: Acute Plan This is a 31-year-old male with schizophrenia who has had frequent admissions for suicidal ideation and depression recently. He continues to report significant anxiety as a significant complaint Plan: 1. Continue current medication. Reduce Lexapro to 20 mg and add fluoxetine 40 mg with the intention to cross taper over to 80 mg of fluoxetine. 2. Continue every 15 minute checks for safety. 3. Encourage individual, group and milieu therapies. 4. Encourage sober living treatment after discharge at the highest level of care to which he is willing to commit. 5. We will monitor for safety for himself in the community prior to discharge. Involuntary Hold Information 96 Hour Hold: 96 Hour Involuntary Admission: Yes 96 Hour Hold Ending Date: 01/17/22 96 Hour Hold Ending Time: 23:40 Attestations NPU Medical Necessity Statement*: Inpatient hospitalization is medically necessary and the clinically appropriate intervention at this time. We will initiate medications and make changes as indicated. 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
[2022-01-17 14:00] VITALS: BP 116/74; PULSE 64; RESP 16; TEMP 36.4; O2SAT 98
[2022-01-17] MEDS: trazodone 100 mg Tablet PO (20:41)
[2022-01-17 22:00] VITALS: BP 100/69; PULSE 70; RESP 18; TEMP 36.7; O2SAT 96
[2022-01-18 06:00] VITALS: BP 104/65; PULSE 74; RESP 18; TEMP 36.8; O2SAT 97
--- NOTE | 2022-01-18 08:12 | W.PM.NPUPNS ---
Subjective NPU Subjective: Interval history: He said that he was depressed yesterday and is not really suicidal. His anxiety was still high. He still wants to continue with the crossover taper to Prozac. He says that he slept fairly well last night. Mental Status Exam MSE Comments: This is a obese 31-year-old male who appears approximately his stated age and is in no acute distress. He is dressed in hospital scrubs and was pleasant and cooperative with evaluation. He was in bed at 8:05 AM after breakfast. psychomotor activity is average for a cal laying in bed after breakfast Speech is at a regular rate and rhythm, normal volume, good articulation, not pressured. Alert, oriented X3 Attention and concentration appear to be intact. Memory is intact Mood is depressed. Affect is somewhat flat. Thought process is logical and goal-directed. Thought content: Only mild auditory and no visual hallucinations. No delusions or paranoia are noted. He reports some denies suicidal ideation yesterday or this morning. no homicidal ideation. Fund of knowledge is average. Insight and judgment appear to be only fair. Impulse control is only fair. Cognition: Patient Appearance: Disheveled/Poor Hygiene Level of Consciousness: Awake, Alert, Appropriate and Follows Commands Patient Cognition Impaired: No Ability to Follow Directions: Excellent Patient Orientation (long list): Person, Place, Name, Age and Birthday Comprehension Ability: No Impairment Hallucination Type: None Delusion Description: Not Present Thought Process: Appropriate Affect: Affect Description: Appropriate and Calm Depressive Symptoms: Hopelessness and Unhappiness Behavior: Patient Behavior: Appropriate and Cooperative Speech Pattern: Appropriate Vitals/I&O/Wt Last Vital Signs Temp 98.2 F 01/18/22 06:00 Pulse 74 01/18/22 06:00 Resp 18 01/18/22 06:00 BP 104/65 01/18/22 06:00 Pulse Ox 97 01/18/22 06:00 Data NPU : 01/11/22 23:05 01/11/22 23:05 A&P Assessment and plan (1) Chronic schizophrenia: Status: Acute (2) Depression: Status: Acute (3) Cannabis abuse: Status: Acute (4) Methamphetamine abuse: Status: Acute (5) Posttraumatic stress disorder: Status: Acute Plan This is a 31-year-old male with schizophrenia who has had frequent admissions for suicidal ideation and depression recently. He continues to report significant anxiety as a significant complaint Plan: 1. Continue current medication. Reduce Lexapro to 20 mg and add fluoxetine 40 mg with the intention to cross taper over to 80 mg of fluoxetine. 2. Continue every 15 minute checks for safety. 3. Encourage individual, group and milieu therapies. 4. Encourage sober living treatment after discharge at the highest level of care to which he is willing to commit. 5. We will monitor for safety for himself in the community prior to discharge. Involuntary Hold Information 96 Hour Hold: 96 Hour Involuntary Admission: Yes 96 Hour Hold Ending Date: 01/17/22 96 Hour Hold Ending Time: 23:40 Attestations NPU Medical Necessity Statement*: Inpatient hospitalization is medically necessary and the clinically appropriate intervention at this time. We will initiate medications and make changes as indicated. Coding Level of Care Code Acute Hematologist for Pete Ruiz Diagnoses Chronic schizophrenia F20.9 Depression F32.9 Cannabis abuse F12.10 Methamphetamine abuse F15.10 Posttraumatic stress disorder F43.10
[2022-01-18] MEDS: escitalopram 10 mg Tablet 20 MG PO (08:30)
[2022-01-18] MEDS: folic acid 1 mg Tablet PO (08:30)
[2022-01-18] MEDS: paliperidone ER 6 mg Tablet PO (08:31)
[2022-01-18] MEDS: fluoxetine 20 mg Capsule 40 MG PO (08:31)
[2022-01-18] MEDS: multivitamin therapeutic Tablet 1 TAB PO (08:31)
[2022-01-18] MEDS: thiamine 100 mg Tablet PO (08:31)
[2022-01-18] MEDS: acetaminophen 325 mg Tablet 650 MG PO ×2 (09:27→13:50)
[2022-01-18 13:28] VITALS: BP 122/77; PULSE 98; RESP 26; TEMP 36.3; O2SAT 98
[2022-01-18] MEDS: ibuprofen 800 mg tablet PO (16:57)
[2022-01-18] MEDS: hyDROXYzine 25 mg Capsule 50 MG PO (17:43)
[2022-01-18 20:00] VITALS: BP 123/76; PULSE 56; RESP 14; TEMP 36.8; O2SAT 99
[2022-01-18] MEDS: trazodone 100 mg Tablet PO (21:00)
[2022-01-19 06:00] VITALS: BP 128/75; PULSE 81; RESP 16; TEMP 36.3; O2SAT 98
[2022-01-19] MEDS: escitalopram 10 mg Tablet 20 MG PO (08:50)
[2022-01-19] MEDS: thiamine 100 mg Tablet PO (08:50)
[2022-01-19] MEDS: fluoxetine 20 mg Capsule 40 MG PO (08:50)
[2022-01-19] MEDS: folic acid 1 mg Tablet PO (08:50)
[2022-01-19] MEDS: multivitamin therapeutic Tablet 1 TAB PO (08:50)
[2022-01-19] MEDS: paliperidone ER 6 mg Tablet PO (08:50)
[2022-01-19] MEDS: acetaminophen 325 mg Tablet 650 MG PO ×2 (08:53→13:45)
--- NOTE | 2022-01-19 11:22 | P.NPUPN_ITS ---
Subjective NPU Subjective: Interval history: He says that he is doing well today. He denies any hallucinations or suicidal ideation. He does not think that he had any side effects from the Lexapro, Prozac combination yesterday. He said he was a little bit groggy this morning before he took the medications but afterwards, he was fine. He is hoping he can go home soon. Mental Status Exam MSE Comments: This is a obese 31-year-old male who appears approximately his stated age and is in no acute distress. He is dressed in hospital scrubs and was pleasant and cooperative with evaluation. He was in group in the day room at AM after breakfast. psychomotor activity is average for a cal laying in bed after breakfast Speech is at a regular rate and rhythm, normal volume, good articulation, not pressured. Alert, oriented X3 Attention and concentration appear to be intact. Memory is intact Mood is mildly depressed. Affect is somewhat flat. Thought process is logical and goal-directed. Thought content: denies auditory and no visual hallucinations. No delusions or paranoia are noted. He denies suicidal ideation this morning. no homicidal ideation. Fund of knowledge is average. Insight and judgment appear to be only fair. Impulse control is only fair. Cognition: Patient Appearance: Disheveled/Poor Hygiene Level of Consciousness: Awake, Alert, Appropriate and Follows Commands Patient Cognition Impaired: No Ability to Follow Directions: Excellent Patient Orientation (long list): Person, Place, Name, Age and Birthday Comprehension Ability: No Impairment Hallucination Type: None Delusion Description: Not Present Thought Process: Appropriate Affect: Affect Description: Appropriate and Calm Depressive Symptoms: Hopelessness and Unhappiness Behavior: Patient Behavior: Appropriate and Cooperative Speech Pattern: Appropriate and Clear Vitals/I&O/Wt Last Vital Signs Temp 97.4 F L 01/19/22 06:00 Pulse 81 01/19/22 06:00 Resp 16 01/19/22 06:00 BP 128/75 01/19/22 06:00 Pulse Ox 98 01/19/22 06:00 Data NPU : 01/11/22 23:05 01/11/22 23:05 A&P Assessment and plan (1) Chronic schizophrenia: Status: Acute (2) Depression: Status: Acute (3) Cannabis abuse: Status: Acute (4) Methamphetamine abuse: Status: Acute (5) Posttraumatic stress disorder: Status: Acute Plan This is a 31-year-old male with schizophrenia who has had frequent admissions for suicidal ideation and depression recently. He continues to report significant anxiety as a significant complaint Plan: 1. Continue current medication. Reduce Lexapro to 20 mg and add fluoxetine 40 mg with the intention to cross taper over to 80 mg of fluoxetine. 2. Continue every 15 minute checks for safety. 3. Encourage individual, group and milieu therapies. 4. Encourage sober living treatment after discharge at the highest level of care to which he is willing to commit. 5. We will monitor for safety for himself in the community prior to discharge. Involuntary Hold Information 96 Hour Hold: 96 Hour Involuntary Admission: Yes 96 Hour Hold Ending Date: 01/17/22 96 Hour Hold Ending Time: 23:40 Attestations NPU Medical Necessity Statement*: Inpatient hospitalization is medically necessary and the clinically appropriate intervention at this time. We will initiate medications and make changes as indicated. Coding Level of Care Code Acute Sign Painter Apprentice for Pete Ruiz Diagnoses Chronic schizophrenia F20.9 Depression F32.9 Cannabis abuse F12.10 Methamphetamine abuse F15.10 Posttraumatic stress disorder F43.10
[2022-01-19 13:58] VITALS: BP 104/69; PULSE 92; RESP 22; TEMP 36.6; O2SAT 97
--- NOTE | 2022-01-19 17:11 | PC.NURSE ---
PRN meds- Patient has utilized PRN Tylenol x2 today for c/o mild leg pain. Tylenol has been effective.
[2022-01-19 20:10] VITALS: BP 129/86; PULSE 74; RESP 18; TEMP 36.6; O2SAT 99
[2022-01-19] MEDS: ibuprofen 800 mg tablet PO (20:42)
[2022-01-19] MEDS: trazodone 100 mg Tablet PO (20:43)
[2022-01-19] MEDS: nicotine 2 mg Gum BUCCAL (21:30)
[2022-01-19] MEDS: hyDROXYzine 25 mg Capsule 50 MG PO (22:41)
--- NOTE | 2022-01-20 03:52 | PC.NURSE ---
2041 requested pain meds motrin given po 2141 med was effective.
[2022-01-20 06:00] VITALS: BP 109/73; PULSE 89; RESP 16; TEMP 36.9; O2SAT 97
[2022-01-20] MEDS: multivitamin therapeutic Tablet 1 TAB PO (09:17)
[2022-01-20] MEDS: paliperidone ER 6 mg Tablet PO (09:17)
[2022-01-20] MEDS: acetaminophen 325 mg Tablet 650 MG PO ×2 (09:17→17:10)
[2022-01-20] MEDS: folic acid 1 mg Tablet PO (09:17)
[2022-01-20] MEDS: fluoxetine 20 mg Capsule 40 MG PO (09:17)
[2022-01-20] MEDS: thiamine 100 mg Tablet PO (09:18)
[2022-01-20] MEDS: escitalopram 10 mg Tablet 20 MG PO (09:18)
[2022-01-20] MEDS: nicotine 2 mg Gum BUCCAL (09:18)
--- NOTE | 2022-01-20 11:00 | P.NPUPN_ITS ---
Subjective NPU Subjective: Interval history: He says that he is doing well. He denies any suicidal ideation or hallucinations. He slept well last night. He has not had any side effects from the transition from the Lexapro to Prozac. He is optimistic that he will be able to go home on Saturday and be able to tolerate a full dose of 80 mg Prozac. Mental Status Exam MSE Comments: This is a obese 31-year-old male who appears approximately his stated age and is in no acute distress. He is dressed in hospital scrubs and was pleasant and cooperative with evaluation. He was in group in the day room at AM after breakfast. psychomotor activity is average for a cal laying in bed after breakfast Speech is at a regular rate and rhythm, normal volume, good articulation, not pressured. Alert, oriented X3 Attention and concentration appear to be intact. Memory is intact Mood is mildly depressed. Affect is somewhat flat. Thought process is logical and goal-directed. Thought content: denies auditory and no visual hallucinations. No delusions or paranoia are noted. He denies suicidal ideation this morning. no homicidal ideation. Fund of knowledge is average. Insight and judgment appear to be only fair. Impulse control is only fair. Cognition: Patient Appearance: Appropriate Level of Consciousness: Awake, Alert, Appropriate and Follows Commands Patient Cognition Impaired: No Ability to Follow Directions: Excellent Patient Orientation (long list): Person, Place, Name, Age and Birthday Comprehension Ability: No Impairment Hallucination Type: None Delusion Description: Not Present Thought Process: Appropriate Affect: Affect Description: Appropriate and Calm Depressive Symptoms: Hopelessness and Unhappiness Behavior: Patient Behavior: Appropriate and Cooperative Speech Pattern: Appropriate and Clear Vitals/I&O/Wt Last Vital Signs Temp 98.4 F 01/20/22 06:00 Pulse 89 01/20/22 06:00 Resp 16 01/20/22 06:00 BP 109/73 01/20/22 06:00 Pulse Ox 97 01/20/22 06:00 Data NPU : 01/11/22 23:05 01/11/22 23:05 A&P Assessment and plan (1) Chronic schizophrenia: Status: Acute (2) Depression: Status: Acute (3) Cannabis abuse: Status: Acute (4) Methamphetamine abuse: Status: Acute (5) Posttraumatic stress disorder: Status: Acute Plan This is a 31-year-old male with schizophrenia who has had frequent admissions for suicidal ideation and depression recently. He continues to report significant anxiety as a significant complaint Plan: 1. Continue current medication. Reduce Lexapro to 20 mg and add fluoxetine 40 mg with the intention to cross taper over to 80 mg of fluoxetine. 2. Continue every 15 minute checks for safety. 3. Encourage individual, group and milieu therapies. 4. Encourage sober living treatment after discharge at the highest level of care to which he is willing to commit. 5. We will monitor for safety for himself in the community prior to discharge. Involuntary Hold Information 96 Hour Hold: 96 Hour Involuntary Admission: Yes 96 Hour Hold Ending Date: 01/17/22 96 Hour Hold Ending Time: 23:40 Attestations NPU Medical Necessity Statement*: Inpatient hospitalization is medically necessary and the clinically appropriate intervention at this time. We will initiate medications and make changes as indicated. Coding Level of Care Code Acute Animation Producer for Pete Ruiz Diagnoses Chronic schizophrenia F20.9 Depression F32.9 Cannabis abuse F12.10 Methamphetamine abuse F15.10 Posttraumatic stress disorder F43.10
[2022-01-20] MEDS: ondansetron 4 MG Tablet PO (12:38)
[2022-01-20 14:00] VITALS: BP 109/73; PULSE 89; RESP 16; TEMP 36.9; O2SAT 97
[2022-01-20] MEDS: hyDROXYzine 25 mg Capsule 50 MG PO (17:30)
[2022-01-20] MEDS: trazodone 100 mg Tablet PO (20:34)
[2022-01-20 21:36] VITALS: BP 103/61; PULSE 76; RESP 18; TEMP 36.8; O2SAT 97
[2022-01-21 06:00] VITALS: BP 99/63; PULSE 84; RESP 17; TEMP 36.4; O2SAT 98
--- NOTE | 2022-01-21 07:48 | W.PM.NPUPNS ---
Subjective NPU Subjective: Interval history: He says that he has not had any suicidal ideation or hallucinations for more than 24 hours. His mood is been relatively good. He has not had any difficulty with the transition to Prozac thus far. He agrees to change to 80 mg of Prozac tomorrow and consider discharge if everything is still going well. Mental Status Exam MSE Comments: This is a obese 31-year-old male who appears approximately his stated age and is in no acute distress.? He is dressed in hospital scrubs and was pleasant and cooperative with evaluation.? He was found in his room standing up after breakfast psychomotor activity is normal Speech is at a regular rate and rhythm, normal volume, good articulation, not pressured. Alert, oriented X3 Attention and concentration appear to be intact. Memory is intact Mood is good. ? Affect is euthymic. Thought process is logical and goal-directed. Thought content: denies auditory and no visual hallucinations.? No delusions or paranoia are noted.? He denies suicidal ideation this morning.? no homicidal ideation.? Fund of knowledge is average. Insight and judgment appear to be only fair. Impulse control is only fair. Cognition: Patient Appearance: Appropriate Level of Consciousness: Awake, Alert, Appropriate and Follows Commands Patient Cognition Impaired: No Ability to Follow Directions: Excellent Patient Orientation (long list): Person, Place, Time, Name and Age Comprehension Ability: No Impairment Hallucination Type: None Delusion Description: Not Present Thought Process: Appropriate Affect: Affect Description: Appropriate Depressive Symptoms: Hopelessness and Unhappiness Behavior: Patient Behavior: Appropriate Speech Pattern: Appropriate Vitals/I&O/Wt Last Vital Signs Temp 97.5 F L 01/21/22 06:00 Pulse 84 01/21/22 06:00 Resp 17 01/21/22 06:00 BP 99/63 01/21/22 06:00 Pulse Ox 98 01/21/22 06:00 Weight last 48 hrs Weight 111.856 kg Weight 111.856 kg Data NPU : 01/11/22 23:05 01/11/22 23:05 A&P Assessment and plan (1) Chronic schizophrenia: Status: Acute (2) Depression: Status: Acute (3) Cannabis abuse: Status: Acute (4) Methamphetamine abuse: Status: Acute (5) Posttraumatic stress disorder: Status: Acute Plan This is a 31-year-old male with schizophrenia who has had frequent admissions for suicidal ideation and? depression recently.? He continues to report significant anxiety as a significant complaint Plan: 1.? Continue current medication.? Reduce Lexapro to 20 mg and add fluoxetine 40 mg with the intention to cross taper over to 80 mg of fluoxetine tomorrow. 2.? Continue every 15 minute checks for safety. 3.? Encourage individual, group and milieu therapies. 4.? Encourage sober living treatment after discharge at the highest level of care to which he is willing to commit. 5.? We will monitor for safety for himself in the community prior to discharge. Involuntary Hold Information 96 Hour Hold: 96 Hour Involuntary Admission: Yes 96 Hour Hold Ending Date: 01/17/22 96 Hour Hold Ending Time: 23:40 Attestations U Medical Necessity Statement*: Inpatient hospitalization is medically necessary and the clinically appropriate intervention at this time. We will initiate medications and make changes as indicated. Coding Level of Care Code Acute Warehouse Insulation Worker for Pete Ruiz Diagnoses Chronic schizophrenia F20.9 Depression F32.9 Cannabis abuse F12.10 Methamphetamine abuse F15.10 Posttraumatic stress disorder F43.10
[2022-01-21] MEDS: multivitamin therapeutic Tablet 1 TAB PO (08:36)
[2022-01-21] MEDS: fluoxetine 20 mg Capsule 40 MG PO (08:36)
[2022-01-21] MEDS: thiamine 100 mg Tablet PO (08:36)
[2022-01-21] MEDS: escitalopram 10 mg Tablet 20 MG PO (08:36)
[2022-01-21] MEDS: paliperidone ER 6 mg Tablet PO (08:36)
[2022-01-21] MEDS: folic acid 1 mg Tablet PO (08:36)
[2022-01-21] MEDS: acetaminophen 325 mg Tablet 650 MG PO ×2 (09:36→15:49)
--- NOTE | 2022-01-21 11:00 | PC.NURSE ---
TOOK PRN TYLENOL FOR KNEE PAIN RATED AT 4. REPORTS THAT TYLENOL HAS BEEN EFFECTIVE.
[2022-01-21 14:00] VITALS: BP 123/78; PULSE 73; RESP 18; TEMP 37.1; O2SAT 98
[2022-01-21] MEDS: hyDROXYzine 25 mg Capsule 50 MG PO (16:14)
[2022-01-21 19:40] VITALS: BP 119/75; PULSE 78; RESP 18; TEMP 36.9; O2SAT 98
[2022-01-21] MEDS: ibuprofen 800 mg tablet PO (20:19)
[2022-01-21] MEDS: trazodone 100 mg Tablet PO (20:19)
[2022-01-22 06:34] VITALS: BP 117/80; PULSE 75; RESP 17; TEMP 36.6; O2SAT 97
--- NOTE | 2022-01-22 07:33 | P.NPUDS_ITS ---
Diagnoses at Discharge Discharge Diagnosis (1) Chronic schizophrenia: Status: Acute (2) Depression: Status: Acute (3) Cannabis abuse: Status: Acute (4) Methamphetamine abuse: Status: Acute (5) Posttraumatic stress disorder: Status: Acute Reason for Visit Reason for Visit: SI Brief History: History of Present Illness:?? HPI Narrative: Patient is a 31-year-old male who presents to ED today stating he is suicidal.? He states suicidal thoughts of been present over the past 2 to 3 days.? He states he has a lot going on right now that he refuses to elaborate on.? He has no specific plan at the moment.? He does endorse previous suicide attempts.? Patient has a history of chronic schizophrenia.? He is not complaining of hallucinations or psychotic symptoms currently.? He denies homicidal ideations. MD complaint: suicidal ideation Onset (ago): day(s) Duration: constant History of same: Yes Context: significant life stressor Associated psychiatric symptoms: depression and suicidal ideation Associated symptoms: Reports depression and suicidal ideation; Deny auditory hallucinations or homicidal ideation Treatments prior to arrival: none If self harm: admits thoughts of self harm He was admitted to the neuropsychiatry unit for medication treatment of these issues.? He was released from this hospital in October on Zyprexa 15 mg daily and Lexapro 40 mg daily.? He said that he did okay for almost a month but had depression and worsening auditory hallucinations again.? He came to our emergency room did not have beds and he was sent to [facility].? He said that he was there for about 1 week.? He says that family discharged him on Vistaril 50 mg 100 mg at bedtime and trazodone.? He said that even with that the voices were improved for about 1 week.? However after 1 week started having depression for hallucinations again and now is back in the hospital.? He says that he thinks the Invega 6 mg that he was released on in November 2024 depressed.? He was able to stay out of the hospital for about 8 months.? He was not on antidepressant at that time.? When he was admitted in June 2021 he said that he had been noncompliant with his medications most of the time since his last hospita lization.? He has not been able to stay out of the hospital for very long since then.? He also was not taking medications when he came back into the hospital October of last year.? He says that he has been compliant with his medications since then but has never been able to stay out of the hospital for a few weeks.? He is currently drug screen has been consistently positive for marijuana but no other drugs.? To try back to the Invega. Hospital Course Hospital Course He slowly acclimated to the individual, group and milieu therapies provided. He was started on Invega 6 mg in the morning. He requested a foreign exchange clerk from Lexapro to Prozac. He remembers taking a white and green capsule some years ago that was helpful for his anxiety. He tolerated these doses and showed steady improvement during his stay. He was able to contract for safety outside hospital prior to discharge. During the hospitalization, patient had routine laboratory studies which were within normal limits except for few outliers. Additionally there was a general medical evaluation which was also within normal limits and revealed no new acute processes. Discharge Summary: At the time of discharge, lethality was denied and psychosis was resolving. Mood and anxiety were well managed. Patient endorsed a plan to follow-up with the aftercare recommendations of the treatment team. Patient was evaluated and deemed to be absent credible lethality, and had achieved the maximum benefit from an inpatient hospitalization, so was discharged. Involuntary Hold Information 96 Hour Hold: 96 Hour Involuntary Admission: Yes 96 Hour Hold Ending Date: 01/17/22 96 Hour Hold Ending Time: 23:40 Mental Status Exam MSE Comments: This is a obese 31-year-old male who appears approximately his stated age and is in no acute distress.? He is dressed in hospital scrubs and was pleasant and cooperative with evaluation.? He was found in his room standing up after breakfast psychomotor activity is normal Speech is at a regular rate and rhythm, normal volume, good articulation, not pressured. Alert, oriented X3 Attention and concentration appear to be intact. Memory is intact Mood is good. ? Affect is euthymic. Thought process is logical and goal-directed. Thought content: denies auditory and no visual hallucinations.? No delusions or paranoia are noted.? He denies suicidal ideation this morning.? no homicidal ideation.? Fund of knowledge is average. Insight and judgment appear to be only fair. Impulse control is only fair. Cognition: Patient Appearance: Appropriate Level of Consciousness: Awake, Alert, Appropriate and Follows Commands Patient Cognition Impaired: No Ability to Follow Directions: Excellent Patient Orientation (long list): Person, Place, Time, Name and Age Comprehension Ability: No Impairment Hallucination Type: None Delusion Description: Not Present Thought Process: Appropriate Affect: Affect Description: Appropriate Depressive Symptoms: Hopelessness and Unhappiness Behavior: Patient Behavior: Appropriate Speech Pattern: Appropriate Discharge Data Studies Completed and Pending: Laboratory Results WBC 13.4 10^3/uL (4.0 -10.0) H 01/11/22 23:05 RBC 5.03 10^6/uL (4.1 -5.3) 01/11/22 23:05 Hgb 16.3 g/dL (11.7-1 6.6) 01/11/22 23:05 Hct 48.1 % (42.0-52.0 ) 01/11/22 23:05 MCV 95.6 fl (80-94) H 01/11/22 23:05 MCH 32.4 pg (28.0-34. 0) 01/11/22 23:05 MCHC 33.9 g/dL (30.0-3 6.0) 01/11/22 23:05 RDW 12.5 % (12.1-15.1 ) 01/11/22 23:05 Plt Count 225 10^3/cmm (130 -400) 01/11/22 23:05 MPV 9.7 fL (7.4-10.4) 01/11/22 23:05 Neut % (Auto) 59.0 % 01/11/22 23:05 Lymph % (Auto) 29.5 % 01/11/22 23:05 [place] % (Auto) 9.1 % 01/11/22 23:05 Eos % (Auto) 1.0 % 01/11/22 23:05 Baso % (Auto) 0.4 % 01/11/22 23:05 Neut # (Auto) 7.90 10^3/uL (1.8 -7.7) H 01/11/22 23:05 Lymph # (Auto) 3.9 10^3/uL (0.8- 4.8) 01/11/22 23:05 [place] # (Auto) 1.2 10^3/uL (0.2- 0.9) H 01/11/22 23:05 Eos # (Auto) 0.1 10^3/uL (0.0- 0.8) 01/11/22 23:05 Baso # (Auto) 0.1 10^3/uL (0.0- 0.1) 01/11/22 23:05 Nucleated RBC % (a uto) 0 % 01/11/22 23:05 Nucleated RBCs # 0.0 /100WBC 01/11/22 23:05 Sodium 141 mmol/L (136-1 45) 01/11/22 23:05 Potassium 3.7 mmol/L (3.5-5 .1) 01/11/22 23:05 Chloride 105 mmol/L (98-10 7) 01/11/22 23:05 Carbon Dioxide 23 mmol/L (22-29) 01/11/22 23:05 Anion Gap 16.7 (5-19) 01/11/22 23:05 BUN 13 mg/dL (6-20) 01/11/22 23:05 Creatinine 0.8 mg/dL (0.7-1. 2) 01/11/22 23:05 GFR Calculation 113.5 mL/min (90- 130) 01/11/22 23:05 Glucose 70 mg/dL (65-115) 01/11/22 23:05 Calculated Osmolal ity 291 mOsm/kg (285- 295) 01/11/22 23:05 Calcium 8.5 mg/dL (8.5-10 .5) 01/11/22 23:05 Total Bilirubin 0.2 mg/dL (0.15-1 .2) 01/11/22 23:05 AST 17 U/L (0-40) 01/11/22 23:05 ALT 25 U/L (0-41) 01/11/22 23:05 Alkaline Phosphata se 114 IU/L (40-130) 01/11/22 23:05 Total Protein 7.2 g/dL (6.6-8.7 ) 01/11/22 23:05 Albumin 4.9 g/dL (3.5-5.2 ) 01/11/22 23:05 Globulin 2.3 g/dL (1.3-4.6 ) 01/11/22 23:05 Salicylates 1.2 mg/dL (3-10) L 01/11/22 23:05 Urine Opiates Scre en Negative ng/mL (N egative) 01/11/22 23:29 Acetaminophen < 5.0 ug/mL (10-3 0) L 01/11/22 23:05 Ur Barbiturates Sc reen Negative ng/mL (N egative) 01/11/22 23:29 Ur Phencyclidine S crn Negative ng/mL (N egative) 01/11/22 23:29 Ur Amphetamines Sc reen Negative ng/mL (N egative) 01/11/22 23:29 U Benzodiazepines Scrn Negative ng/mL (N egative) 01/11/22 23:29 Urine Cocaine Scre en Negative ng/mL (N egative) 01/11/22 23:29 U Marijuana (THC) Screen Positive ng/mL (N egative) H 01/11/22 23:29 Ethyl Alcohol 188 mg/dL (0-10) H 01/11/22 23:05 Coronavirus 229E ( PCR) Not detected (NO T DETECT) 01/11/22 23:29 SARS-CoV-2 (PCR) Not detected (NO T DETECT) 01/11/22 23:29 Vitals: Last Vital Signs Temp 97.9 F 01/22/22 06:34 Pulse 75 01/22/22 06:34 Resp 17 01/22/22 06:34 BP 117/80 01/22/22 06:34 Pulse Ox 97 01/22/22 06:34 Discharge Plan Discharge Patient Disposition: Home Condition: Stable Prescriptions: New fluoxetine 40 mg capsule 80 mg PO DAILY 30 Days Qty: 60 1RF hydroxyzine pamoate 25 mg Capsule 50 mg PO Q8H PRN (Reason: Anxiety) 30 Days Qty: 60 0RF Continued trazodone 100 mg tablet 100 mg PO BEDTIME 30 Days Qty: 30 1RF paliperidone 6 mg Tablet Extended Release 24hr 6 mg PO DAILY 30 Days Qty: 30 1RF Discontinued escitalopram oxalate 10 mg Tablet 20 mg PO DAILY 30 Days Qty: 30 1RF olanzapine 15 mg Tablet 15 mg PO DAILY 0RF Discharge Orders: Discharge Order (Routine); Ordered 01/22/22 Ordered By: Geovanni Mcgraw Discharge Diet: Regular Discharge Activity: Resume usual activity Patient Instructions: Opioid Safety Discharge Attestations NPU Time Spent in Discharge Care*: less than 30 min Specific Discharge Activities: Specific discharge activities: educating patient, discussing with rn case manager hospice/social workers/dc planners, documenting/other paperwork and evaluating patient/reviewing data Status at Discharge: Cognitive status at discharge: cognitively intact , Behavioral status at discharge: cooperative , Coding Level of Care Code Acute [facility] [place] note Diagnoses Chronic schizophrenia F20.9 Depression F32.9 Cannabis abuse F12.10 Methamphetamine abuse F15.10 Posttraumatic stress disorder F43.10
[2022-01-22] MEDS: paliperidone ER 6 mg Tablet PO (08:09)
[2022-01-22] MEDS: folic acid 1 mg Tablet PO (08:09)
[2022-01-22] MEDS: fluoxetine 20 mg Capsule 80 MG PO ×2 (08:09→10:29)
[2022-01-22] MEDS: multivitamin therapeutic Tablet 1 TAB PO (08:09)
[2022-01-22] MEDS: thiamine 100 mg Tablet PO (08:09)
[2022-01-22 10:02] VITALS: BP 117/80; PULSE 75; RESP 17; TEMP 36.6; O2SAT 97
== END 2022-01-22 11:37 | disposition home or self-care (01) | DRG 885 ==
LOC: ER 01-12 06:36 → NP 01-12 12:11
PROVIDERS: Emergency Medicine; Admitting Provider Psychiatry & Neurology Psychiatry; Emergency Provider Family Medicine; Visit Provider Psychiatry & Neurology Psychiatry
DX: F25.1 Schizoaffective disorder, depressive type (principal); R45.851 Suicidal ideations; F12.10 Cannabis abuse, uncomplicated; F15.10 Other stimulant abuse, uncomplicated; F43.10 Post-traumatic stress disorder, unspecified; F17.210 Nicotine dependence, cigarettes, uncomplicated
CPT/HCPCS: 80053; 80306; 80307; 85025; 87635; 93005; 97150; 97165; 99285; Q0162

== ENCOUNTER 2022-03-07 16:27 | Inpatient (IN) | payer MEDICAID, SELFPAY ==
[2022-03-07 16:37] VITALS: BP 142/76; PULSE 71; RESP 15; TEMP 36.8; O2SAT 96; BMI 38.9
--- NOTE | 2022-03-07 17:00 | W.ED.PSYCHS ---
HPI - Psych General: Chief Complaint: Psychiatric Symptoms Stated Complaint: psych eval Time Seen by Provider: 03/07/22 17:00 History of Present Illness: Mr. Horan is a 31-year-old gentleman with significant past medical history of schizophrenia who presents the emergency department due to worsening hallucinations. He reports compliance with his medication regimen however baseline there are perhaps intermittent hallucinations. Over the past day these have worsened and are telling him to kill himself. Therefore he has thought about killing himself. He otherwise denies medical complaints or injuries. He has not acted on any suicide attempt. Overall the course of symptoms has worsened. Intensity is moderate. No other specific changes in health, exacerbating, or alleviating factors identified. Onset (ago): day(s) Duration: getting worse History of same: Yes Associated psychiatric symptoms: suicidal ideation and auditory hallucinations Review of Systems General: Reports: 10 or more systems reviewed and unremarkable except in HPI and below PFSH ED PFSH: Medical History Cannabis abuse Depression Posttraumatic stress disorder Schizophrenia Social History Smoking and tobacco status: current every day smoker Current gender identity: Male Physical Exam Const: COMMON NORMALS: alert GENERAL APPEARANCE: cooperative and well developed HENMT: COMMON NORMALS: normocephalic and atraumatic HEAD & SCALP: normocephalic and atraumatic Eye: COMMON NORMALS: conjunctivae normal CONJUNCTIVA: Yes conjunctivae normal SCLERA: sclerae normal Neck/C-Spine: COMMON NORMALS: supple GENERAL: Yes trachea midline Resp: COMMON NORMALS: normal respiratory effort EFFORT & INSPECTION: Yes able to speak in complete sentences Cardio: COMMON NORMALS: regular rate and regular rhythm RATE: regular rate RHYTHM: regular rhythm GI: COMMON NORMALS: Soft to palpation PALPATION: Yes Soft to palpation and No Tenderness to palpation present (GI) PERCUSSION: normal to percussion Extremity: GENERAL: Yes normal exam except as noted and No edema Neuro: COMMON NORMALS: moves all extremities SENSORIUM/ORIENTATION: Yes alert and No Orientation impaired Psych: THOUGHT CONTENT: Yes Suicidality present and Yes Hallucination(s) present INSIGHT: Fair insight present (Psych) JUDGEMENT: Fair judgement present (Psych) Course ED course: - Patient was seen and evaluated by me at bedside -Vital signs obtained - Initial evaluation notable for exam as above - Labs personally interpreted by me - Labs notable for mild leukocytosis of unclear etiology, normal hemoglobin. Metabolic panel without acute abnormality to explain symptoms. Urinalysis pending at time of admission, toxic ingestions otherwise negative. - Discussed with psychiatry service and patient to be admitted to neuropsych unit. - Based on ED evaluation at this point there is no obvious condition that would preclude the patient from inpatient management of psychiatric concerns. Note: Click bubbles or prepopulated jeronimo in note writing are used for assistance with data collection and billing and are inherently more limited than narrative and other text portions of this note. Please use narrative for additional clinical history and defer to narrative/free test for any case of contradictory information. If information appears in only free text or click bubble it should be considered present or absent as reported. Please contact note short story writer for clarifications of clinical information or contradictory information. MDM is a brief summary, contradictory or erroneous seeming information should be clarified and full note should be reviewed. Vital Signs: Vital signs: Vital Signs Temperature 97.6 F 03/11/22 20:24 Pulse Rate 65 03/11/22 20:24 Respiratory Rate 17 03/11/22 20:24 Blood Pressure 99/61 03/11/22 20:24 Pulse Oximetry 96 03/11/22 20:24 MDM - Psych Medical Decision Making 31-year-old gentleman with psychiatric history presenting with auditory hallucinations and command hallucinations leading to suicidal ideation. Admitted for further management to the Neuropsych Unit. Medical Records I reviewed the patient's medical records. Lab Data I reviewed the patient's lab results. : 03/07/22 12:00 03/07/22 12:00 Laboratory Results WBC 11.6 10^3/uL (4.0-10.0) H 03/07/22 12:00 RBC 5.02 10^6/uL (4.1-5.3) 03/07/22 12:00 Hgb 15.7 g/dL (11.7-16.6) 03/07/22 12:00 Hct 46.5 % (42.0-52.0) 03/07/22 12:00 MCV 92.6 fl (80-94) 03/07/22 12:00 MCH 31.3 pg (28.0-34.0) 03/07/22 12:00 MCHC 33.8 g/dL (30.0-36.0) 03/07/22 12:00 RDW 12.2 % (12.1-15.1) 03/07/22 12:00 Plt Count 234 10^3/cmm (130-400) 03/07/22 12:00 MPV 10.0 fL (7.4-10.4) 03/07/22 12:00 Neut % (Auto) 76.6 % 03/07/22 12:00 Lymph % (Auto) 15.1 % 03/07/22 12:00 Aurora % (Auto) 7.3 % 03/07/22 12:00 Eos % (Auto) 0.4 % 03/07/22 12:00 Baso % (Auto) 0.3 % 03/07/22 12:00 Neut # (Auto) 8.85 10^3/uL (1.8-7.7) H 03/07/22 12:00 Lymph # (Auto) 1.7 10^3/uL (0.8-4.8) 03/07/22 12:00 Aurora # (Auto) 0.8 10^3/uL (0.2-0.9) 03/07/22 12:00 Eos # (Auto) 0.1 10^3/uL (0.0-0.8) 03/07/22 12:00 Baso # (Auto) 0.0 10^3/uL (0.0-0.1) 03/07/22 12:00 Nucleated RBC % (auto) 0 % 03/07/22 12:00 Nucleated RBCs # 0.0 /100WBC 03/07/22 12:00 Sodium 142 mmol/L (136-145) 03/07/22 12:00 Potassium 3.9 mmol/L (3.5-5.1) 03/07/22 12:00 Chloride 108 mmol/L (98-107) H 03/07/22 12:00 Carbon Dioxide 23 mmol/L (22-29) 03/07/22 12:00 Anion Gap 14.9 (5-19) 03/07/22 12:00 BUN 12 mg/dL (6-20) 03/07/22 12:00 Creatinine 0.7 mg/dL (0.7-1.2) 03/07/22 12:00 GFR Calculation 132.4 mL/min (90-130) H 03/07/22 12:00 Glucose 107 mg/dL (65-115) 03/07/22 12:00 Calculated Osmolality 294 mOsm/kg (285-295) 03/07/22 12:00 Calcium 9.4 mg/dL (8.5-10.5) 03/07/22 12:00 Total Bilirubin 0.8 mg/dL (0.15-1.2) 03/07/22 12:00 AST 49 U/L (0-40) H 03/07/22 12:00 ALT 24 U/L (0-41) 03/07/22 12:00 Alkaline Phosphatase 76 IU/L (40-130) 03/07/22 12:00 Total Protein 7.8 g/dL (6.6-8.7) 03/07/22 12:00 Albumin 4.8 g/dL (3.5-5.2) 03/07/22 12:00 Globulin 3.0 g/dL (1.3-4.6) 03/07/22 12:00 TSH 0.43 uIU/mL (0.27-4.20) 03/07/22 12:00 Salicylates < 0.3 mg/dL (3-10) L 03/07/22 12:00 Acetaminophen < 5.0 ug/mL (10-30) L 03/07/22 12:00 Ethyl Alcohol < 10 mg/dL (0-10) 03/07/22 12:00 Discharge Plan Discharge Patient Disposition: Admitted As Inpatient Admit Provider: Kleber Tubbs Clinical Impression: Chronic schizophrenia, Suicidal ideation, History of command hallucinations Condition: Stable Coding Level of Care Code ED [employer] for [employer]
[2022-03-07 17:04] LABS: Basophils % 0.3 %; Eosinophils # 0.1 10^3/uL (0.0-0.8); Eosinophils % 0.4 %; Hematocrit 46.5 % (42.0-52.0); Hemoglobin 15.7 g/dL (11.7-16.6); Lymphocytes # 1.7 10^3/uL (0.8-4.8); Lymphocytes % 15.1 %; Mean Corpuscular HGB Conc 33.8 g/dL (30.0-36.0); Mean Corpuscular Hemoglobin 31.3 pg (28.0-34.0); Mean Corpuscular Volume 92.6 fl (80-94); Monocytes # 0.8 10^3/uL (0.2-0.9); Monocytes % 7.3 %; Neutrophils # 8.85 10^3/uL (1.8-7.7); Neutrophils % 76.6 %; Nucleated Red Blood Cells % 0 %; Platelet Count 234 10^3/cmm (130-400); Red Blood Count 5.02 10^6/uL (4.1-5.3); Red Cell Distribution Width 12.2 % (12.1-15.1); White Blood Count 11.6 10^3/uL (4.0-10.0)
[2022-03-07 17:35] LABS: Alanine Aminotransferase 24 U/L (0-41); Albumin Level 4.8 g/dL (3.5-5.2); Alkaline Phosphatase 76 IU/L (40-130); Anion Gap 14.9 (5-19); Aspartate Amino Transferase 49 U/L (0-40); Blood Urea Nitrogen 12 mg/dL (6-20); Calcium 9.4 mg/dL (8.5-10.5); Carbon Dioxide 23 mmol/L (22-29); Chloride 108 mmol/L (98-107); Glomerular Filtration Rate 132.4 mL/min (90-130); Glucose 107 mg/dL (65-115); Osmolality Calculated 294 mOsm/kg (285-295); Potassium 3.9 mmol/L (3.5-5.1); Sodium 142 mmol/L (136-145); Thyroid Stimulating Hormone 0.43 uIU/mL (0.27-4.20); Total Bilirubin 0.8 mg/dL (0.15-1.2); Total Protein 7.8 g/dL (6.6-8.7)
[2022-03-07 17:41] LABS: Acetaminophen < 5.0 ug/mL (10-30); Alcohol Level < 10 mg/dL (0-10); Salicylate < 0.3 mg/dL (3-10)
[2022-03-07 21:20] VITALS: BP 126/81; PULSE 64; RESP 15; TEMP 36.6; O2SAT 99
[2022-03-07 22:00] VITALS: BP 126/81; PULSE 64; RESP 15; TEMP 36.6; O2SAT 99
[2022-03-08 06:00] VITALS: BP 121/88; PULSE 81; RESP 18; TEMP 36.4; O2SAT 98
[2022-03-08 09:26] LABS: Amphetamines Screen Urine Negative (Negative); Barbiturates Screen Urine Negative (Negative); Benzodiazepines Screen Urine Negative (Negative); Cocaine Screen Urine Negative (Negative); Opiate Screen Urine Negative (Negative); PCP Screen Urine Negative (Negative); THC Screen Urine Positive (Negative)
[2022-03-08] MEDS: acetaminophen 325 mg Tablet 650 MG PO (11:24)
--- NOTE | 2022-03-08 13:02 | P.NPUHP_ITS ---
Providers/Chief Complaint Admitting Physician: Kleber Tubbs MD Chief Complaint: psych eval HPI NPU History of Present Illness Ruben Horan is a 31 year old male admitted through our emergency department with the following report: Mr. Horan is a 31-year-old gentleman with significant past medical history of schizophrenia who presents the emergency department due to worsening bruce llucinations.? He reports compliance with his medication regimen however baseline there are perhaps intermittent hallucinations.? Over the past day these have worsened and are telling him to kill himself.? Therefore he has thought about killing himself.? He otherwise denies medical complaints or injuries.? He has not acted on any suicide attempt.? Overall the course of symptoms has worsened.? Intensity is moderate.? No other specific changes in health, exacerbating, or alleviating factors identified. He was admitted to the neuropsychiatry unit for definitive treatment of these issues. He initially said that he has been taking his medications. However, he then stated that he stopped taking the Invega about 5 days ago because it made him drowsy when he took it in the morning. He agreed to change that to bedtime. He also stopped taking the Prozac because he felt it was not helping his anxiety. He has been taking that hydroxyzine which does seem to help. He later said that he has been taking a green and white capsule that have been helping his anxiety. He agreed to restart the Prozac. He said that his voices have not been too bad but yesterday at noon these came back very bad. He says he had been somewhat stressed out because it normal normal base events. He said that he did not have coping mechanisms to use when he was stressed out. He had a therapy appointment after his last admission but he did not keep it. He says that the voices are better today but still there and worse than normal and he denies suicidal ideation. Below is his discharge summary from the last hospitalization in January. Diagnoses at Discharge Discharge Diagnosis (1) Chronic schizophrenia: ?Status:?Acute (2) Depression: ?Status:?Acute (3) Cannabis abuse: ?Status:?Acute (4) Methamphetamine abuse: ?Status:?Acute (5) Posttraumatic stress disorder: ?Status:?Acute Reason for Visit Reason for Visit:?? SI? Brief History: History of Present Illness:?? HPI Narrative: Patient is a 31-year-old male who presents to ED today stating he is suicidal.? He states suicidal thoughts of been present over the past 2 to 3 days.? He states he has a lot going on right now that he refuses to elaborate on.? He has no specific plan at the moment.? He does endorse previous suicide attempts.? Patient has a history of chronic schizophrenia.? He is not complaining of hallucinations or psychotic symptoms currently.? He denies homicidal ideations. MD complaint: suicidal ideation Onset (ago): day(s) Duration: constant History of same: Yes Context: significant life stressor Associated psychiatric symptoms: depression and suicidal ideation Associated symptoms: Reports depression and suicidal ideation; Deny auditory hallucinations or homicidal ideation Treatments prior to arrival: none If self harm: admits thoughts of self harm He was admitted to the neuropsychiatry unit for medication treatment of these issues.? He was released from this hospital in October on Zyprexa 15 mg daily and Lexapro 40 mg daily.? He said that he did okay for almost a month but had depression and worsening auditory hallucinations again.? He came to our emergency room did not have beds and he was sent to [place].? He said that he was there for about 1 week.? He says that family discharged him on Vistaril 50 mg 100 mg at bedtime and trazodone.? He said that even with that the voices were improved for about 1 week.? However after 1 week started having depression for hallucinations again and now is back in the hospital.? He says that he thinks the Invega 6 mg that he was released on in November 2024 depressed.? He was able to stay out of the hospital for about 8 months.? He was not on antidepressant at that time.? When he was admitted in June 2021 he said that he had been noncompliant with his medications most of the time since his last hospitalization.? He has not been able to stay out of the hospital for very long since then.? He also was not taking medications when he came back into the hospital October of last year.? He says that he has been compliant with his medications since then but has never been able to stay out of the hospital for a few weeks.? He is currently drug screen has been consistently positive for marijuana but no other drugs.? To try back to the Invega. Hospital Course Hospital Course He slowly acclimated to the individual, group and milieu therapies provided.? He was started on Invega 6 mg in the morning.? He requested a liner roll changer from Lexapro to Prozac.? He remembers taking a white and green capsule some years ago that was helpful for his anxiety.? He tolerated these doses and showed steady improvement during his stay. ? He was able to contract for safety outside hospital prior to discharge.? During the hospitalization, patient had routine laboratory studies which were within normal limits except for few outliers.? Additionally there was a general medical evaluation which was also within normal limits and revealed no new acute processes. Discharge Summary: At the time of discharge, lethality was denied and psychosis was resolving.? Mood and anxiety were well managed.? Patient endorsed a plan to follow-up with the aftercare recommendations of the treatment team.? Patient was evaluated and deemed to be absent credible lethality, and had achieved the maximum benefit from an inpatient hospitalization, so was discharged. Involuntary Hold Information 96 Hour Hold:?? 96 Hour Involuntary Admissio n: Yes? 96 Hour Hold Ending Date: 01/17/22? 96 Hour Hold Ending Time: 23:40 Mental Status Exam MSE Comments:?? This is a obese 31-year-old male who appears approximately his stated age and is in no acute distress.? He is dressed in hospital scrubs and was pleasant and cooperative with evaluation.? He was? found in his room standing up after breakfast psychomotor activity is normal Speech is at a regular rate and rhythm, normal volume, good articulation, not pressured. Alert, oriented X3 Attention and concentration appear to be intact. Memory is intact Mood is good. ? Affect is euthymic. Thought process is logical and goal-directed. Thought content: denies auditory and no visual hallucinations.? No delusions or paranoia are noted.? He denies suicidal ideation this morning.? no homicidal ideation.? Fund of knowledge is average. Insight and judgment appear to be only fair. Impulse control is only fair. Cognition:?? Patient Appearance: Appropriate Level of Consciousness: Awake, Alert, Appropriate and Follows Commands Patient Cognition Impaired: No Ability to Follow Directions: Excellent Patient Orientation (long list): Person, Place, Time, Name and Age Comprehension Ability: No Impairment Hallucination Type: None Delusion Description: Not Present Thought Process: Appropriate Affect:?? Affect Description: Appropriate Depressive Symptoms: Hopelessness and Unhappiness Behavior:?? Patient Behavior: Appropriate Speech Pattern: Appropriate Discharge Data ? Discharge Plan Discharge Patient Disposition: Home Condition: Stable Prescriptions: New ? fluoxetine 40 mg capsule ?? 80 mg PO DAILY 30 Days Qty: 60 1RF ? hydroxyzine pamoate 25 mg Capsule ?? 50 mg PO Q8H PRN (Reason: Anxiety) 30 Days Qty: 60 0RF Continued ? trazodone 100 mg tablet ?? 100 mg PO BEDTIME 30 Days Qty: 30 1RF ? paliperidone 6 mg Tablet Extended Release 24hr ?? 6 mg PO DAILY 30 Days Qty: 30 1RF Discontinued ? escitalopram oxalate 10 mg Tablet ?? 20 mg PO DAILY 30 Days Qty: 30 1RF ? olanzapine 15 mg Tablet ?? 15 mg PO DAILY 0RF Meds NPU Home Medications Medication Instructions Recorded Confirmed Last Taken Type trazodone 100 mg tablet 100 mg PO BEDTIME 30 Days #30 tab 22 03/07/22 Unknown Rx Allergies Allergy/AdvReac Type Severity Reaction Status Date / Time nickel Allergy ALGY-Rash Verified 01/12/22 10:04 PFS NPU PFSH: Medical History (Updated 03/07/22 @ 18:43 by Devaughn Doss MD) Cannabis abuse Depression Posttraumatic stress disorder Schizophrenia Social History Smoking and tobacco status: current every day smoker Current gender identity: Male Mental Status Exam MSE Comments: This is a obese 31-year-old male who appears approximately his stated age and is in no acute distress.? He is dressed in hospital scrubs and was pleasant and cooperative with evaluation.? He was? found in bed at 1 PM and woke up easily. He was pleasant and cooperative with the evaluation. psychomotor activity is normal Speech is at a regular rate and rhythm, normal volume, good articulation, not pressured. Alert, oriented X3 Attention and concentration appear to be intact. Memory is intact Mood is good. ? Affect is euthymic. Thought process is logical and goal-directed. Thought content: Admits to auditory that are present but much better than yesterday. He denies visual hallucinations.? No delusions or paranoia are noted.? He denies suicidal ideation this morning.? no homicidal ideation.? Fund of knowledge is average. Insight and judgment appear to be only fair. Impulse control is only fair. Vitals/I&O/Wt Last Vital Signs Temp 97.6 F 03/08/22 06:00 Pulse 81 03/08/22 06:00 Resp 18 03/08/22 06:00 BP 121/88 03/08/22 06:00 Pulse Ox 98 03/08/22 06:00 Weight last 48 hrs Weight 133.81 kg Data NPU : 03/07/22 12:00 03/07/22 12:00 A&P Assessment and plan (1) Suicidal ideation: Status: Acute (2) History of command hallucinations: Status: Acute (3) Chronic schizophrenia: Status: Acute (4) Depression: Status: Acute (5) Cannabis abuse: Status: Acute (6) Methamphetamine abuse: Status: Acute (7) Psychiatric care: Status: Acute (8) Posttraumatic stress disorder: Status: Acute Plan This is a 39-year-old male who comes in for worsening auditory hallucinations and suicidal ideation. Plan: 1. Continue current medication. Restart Invega 6 mg but change it to bedtime. Restart Prozac 40 mg daily and increase to 80 mg as tolerated. 2. Continue every 15 minute checks for safety. 3. Encourage individual, group and milieu therapies. 4. Encourage sober living treatment after discharge at the highest level of care to which he is willing to commit. 5. We will monitor for safety for himself in the community prior to discharge. Involuntary Hold Information 96 Hour Hold: 96 Hour Involuntary Admission: No 96 Hour Hold Ending Date: 01/17/22 96 Hour Hold Ending Time: 23:40 Attestations NPU Medical Necessity Statement*: Inpatient hospitalization is medically necessary and the clinically appropriate intervention at this time. We will initiate medications and make changes as indicated. He will be in the hospital for over 2 midnights. 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
[2022-03-08 14:00] VITALS: BP 117/75; PULSE 68; RESP 17; TEMP 36.8; O2SAT 99
--- NOTE | 2022-03-08 16:32 | PC.SOCIAL ---
Patient did not attend group.
[2022-03-08 20:36] VITALS: BP 112/70; PULSE 58; RESP 18; TEMP 36.8; O2SAT 98
[2022-03-09 06:00] VITALS: BP 116/78; PULSE 63; RESP 18; TEMP 36.7; O2SAT 96
[2022-03-09] MEDS: paliperidone ER 6 mg Tablet PO ×2 (08:25→20:30)
[2022-03-09] MEDS: fluoxetine 20 mg Capsule 40 MG PO (08:25)
[2022-03-09] MEDS: acetaminophen 325 mg Tablet 650 MG PO ×2 (08:26→15:12)
--- NOTE | 2022-03-09 08:30 | W.PM.NPUPNS ---
Subjective NPU Subjective: He was found in bed at 7:45 AM. The nurses could not wake him up last night to get him to take his Invega and he agreed to take it this morning. He said that the voices are weaning down. He has some suicidal thoughts yesterday but has not had any so far today. Mental Status Exam MSE Comments: This is a obese 31-year-old male who appears approximately his stated age and is in no acute distress.? He is dressed in hospital scrubs and was pleasant and cooperative with evaluation.? He was? found in bed at 7:45 AM and woke up easily. He was pleasant and cooperative with the evaluation. psychomotor activity is normal Speech is at a regular rate and rhythm, normal volume, good articulation, not pressured. Alert, oriented X3 Attention and concentration appear to be intact. Memory is intact Mood is good. ? Affect is euthymic. Thought process is logical and goal-directed. Thought content: Admits to auditory that are present but much better than on admission. He denies visual hallucinations.? No delusions or paranoia are noted.? He denies suicidal ideation this morning.? no homicidal ideation.? Fund of knowledge is average. Insight and judgment appear to be only fair. Impulse control is only fair. Cognition: Patient Appearance: Appropriate Level of Consciousness: Awake Patient Cognition Impaired: No Ability to Follow Directions: Good Patient Orientation (long list): Person, Place, Time, Name, Age, Birthday, Month and Year Comprehension Ability: No Impairment Hallucination Type: None Delusion Description: Not Present Thought Process: Indecisive Affect: Affect Description: Appropriate Depressive Symptoms: Feelings of Worthlessness and Increased Anxiety Behavior: Patient Behavior: Appropriate Speech Pattern: Appropriate Vitals/I&O/Wt Last Vital Signs Temp 98.0 F 03/09/22 06:00 Pulse 63 03/09/22 06:00 Resp 18 03/09/22 06:00 BP 116/78 03/09/22 06:00 Pulse Ox 96 03/09/22 06:00 Weight last 48 hrs Weight 133.81 kg Data NPU : 03/07/22 12:00 03/07/22 12:00 A&P Assessment and plan (1) Suicidal ideation: Status: Acute (2) History of command hallucinations: Status: Acute (3) Chronic schizophrenia: Status: Acute (4) Depression: Status: Acute (5) Cannabis abuse: Status: Acute (6) Methamphetamine abuse: Status: Acute (7) Psychiatric care: Status: Acute (8) Posttraumatic stress disorder: Status: Acute Plan This is a 39-year-old male who comes in for worsening auditory hallucinations and suicidal ideation. Plan: 1. Continue current medication. Restart Invega 6 mg but change it to bedtime. Restart Prozac 40 mg daily and increase to 80 mg as tolerated. 2. Continue every 15 minute checks for safety. 3. Encourage individual, group and milieu therapies. 4. Encourage sober living treatment after discharge at the highest level of care to which he is willing to commit. 5. We will monitor for safety for himself in the community prior to discharge. Involuntary Hold Information 96 Hour Hold: 96 Hour Involuntary Admission: No 96 Hour Hold Ending Date: 01/17/22 96 Hour Hold Ending Time: 23:40 Attestations U Medical Necessity Statement*: Inpatient hospitalization is medically necessary and the clinically appropriate intervention at this time. We will initiate medications and make changes as indicated. 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
[2022-03-09] MEDS: ibuprofen 600 mg Tablet PO (10:32)
--- NOTE | 2022-03-09 13:48 | PC.SOCIAL ---
Patient did not attend group.
[2022-03-09 14:00] VITALS: BP 101/55; PULSE 72; RESP 17; TEMP 36.6; O2SAT 98
[2022-03-09] MEDS: trazodone 100 mg Tablet PO (20:30)
[2022-03-09 21:27] VITALS: BP 101/63; PULSE 49; RESP 16; O2SAT 97
[2022-03-10 05:45] VITALS: BP 99/63; PULSE 64; RESP 17; O2SAT 93
--- NOTE | 2022-03-10 09:42 | P.NPUPN_ITS ---
Subjective NPU Subjective: He denies any hallucinations today or yesterday. He continues to have some suicidal ideation. He likes taking the Invega at bedtime better. He does not feel sedated in the morning. He was found in bed at 9:30 AM. The nurse said that he was asleep when she came to do her assessment earlier. He woke up easily. Mental Status Exam MSE Comments: This is a obese 31-year-old male who appears approximately his stated age and is in no acute distress.? He is dressed in hospital scrubs and was pleasant and cooperative with evaluation.? He was? found in bed at 9:45 AM and woke up easily. He was pleasant and cooperative with the evaluation. psychomotor activity is normal Speech is at a regular rate and rhythm, normal volume, good articulation, not pressured. Alert, oriented X3 Attention and concentration appear to be intact. Memory is intact Mood is good. ? Affect is euthymic. Thought process is logical and goal-directed. Thought content: Denies auditory hallucinations today or yesterday He denies visual hallucinations.? No delusions or paranoia are noted.? Reports mild suicidal ideation this morning and yesterday..? no homicidal ideation.? Fund of knowledge is average. Insight and judgment appear to be only fair. Impulse control is only fair. Cognition: Patient Appearance: Appropriate Level of Consciousness: Awake Patient Cognition Impaired: No Ability to Follow Directions: Good Patient Orientation (long list): Person, Place, Time, Name, Age, Birthday, Month and Year Comprehension Ability: No Impairment Hallucination Type: None Delusion Description: Not Present Thought Process: Appropriate and Blocking Affect: Affect Description: Appropriate Depressive Symptoms: Feelings of Worthlessness and Increased Anxiety Behavior: Patient Behavior: Appropriate and Cooperative Speech Pattern: Appropriate and Clear Vitals/I&O/Wt Last Vital Signs Temp 98 F 03/09/22 14:00 Pulse 64 03/10/22 05:45 Resp 17 03/10/22 05:45 BP 99/63 03/10/22 05:45 Pulse Ox 93 03/10/22 05:45 Data NPU : 03/07/22 12:00 03/07/22 12:00 A&P Assessment and plan (1) Suicidal ideation: Status: Acute (2) History of command hallucinations: Status: Acute (3) Chronic schizophrenia: Status: Acute (4) Depression: Status: Acute (5) Cannabis abuse: Status: Acute (6) Methamphetamine abuse: Status: Acute (7) Psychiatric care: Status: Acute (8) Posttraumatic stress disorder: Status: Acute Plan This is a 39-year-old male who comes in for worsening auditory hallucinations and suicidal ideation. Plan: 1. Continue current medication. Restart Invega 6 mg but change it to bedtime. Restart Prozac 40 mg daily and increase to 80 mg as tolerated. 2. Continue every 15 minute checks for safety. 3. Encourage individual, group and milieu therapies. 4. Encourage sober living treatment after discharge at the highest level of care to which he is willing to commit. 5. We will monitor for safety for himself in the community prior to discharge. Involuntary Hold Information 96 Hour Hold: 96 Hour Involuntary Admission: No 96 Hour Hold Ending Date: 01/17/22 96 Hour Hold Ending Time: 23:40 Attestations U Medical Necessity Statement*: Inpatient hospitalization is medically necessary and the clinically appropriate intervention at this time. We will initiate medications and make changes as indicated. Coding Level of Care Code Acute Quality Control Lab Technician for Pete Ruiz Diagnoses Suicidal ideation R45.851 History of command hallucinations Z86.59 Chronic schizophrenia F20.9 Depression F32.9 Cannabis abuse F12.10 Methamphetamine abuse F15.10 Psychiatric care Posttraumatic stress disorder F43.10
[2022-03-10] MEDS: fluoxetine 20 mg Capsule 40 MG PO (10:14)
[2022-03-10] MEDS: acetaminophen 325 mg Tablet 650 MG PO ×2 (10:46→17:57)
[2022-03-10 14:00] VITALS: BP 110/76; PULSE 66; RESP 17; TEMP 36.6; O2SAT 97
[2022-03-10] MEDS: ibuprofen 600 mg Tablet PO (14:03)
[2022-03-10] MEDS: hyDROXYzine 25 mg Capsule 50 MG PO (15:20)
[2022-03-10] MEDS: OLANZapine 5 mg ODT PO (18:25)
[2022-03-10 19:39] VITALS: BP 129/81; PULSE 57; RESP 18; O2SAT 98
[2022-03-10] MEDS: trazodone 100 mg Tablet PO (20:42)
[2022-03-10] MEDS: paliperidone ER 6 mg Tablet PO (20:42)
[2022-03-10] MEDS: haloperidol 5 mg Tablet PO (20:42)
--- NOTE | 2022-03-10 22:19 | PC.NURSE ---
Patient requested medication for anxiety. Haldol was given. Multiple PRNs given today.
[2022-03-11 06:00] VITALS: BP 100/67; PULSE 48; RESP 18; TEMP 36.6; O2SAT 95
[2022-03-11] MEDS: fluoxetine 20 mg Capsule 40 MG PO (09:08)
[2022-03-11] MEDS: acetaminophen 325 mg Tablet 650 MG PO (13:57)
[2022-03-11 14:00] VITALS: BP 101/55; PULSE 63; RESP 16; TEMP 36.5; O2SAT 95
--- NOTE | 2022-03-11 14:06 | W.PM.NPUPNS ---
Subjective NPU Subjective: He continues to have intermittent suicidal ideation. He also says that the voices are coming in and out again as well. He said that he had a little restlessness in his arms last night after taking the Invega. He wanted to take it in the morning again but that makes him sleepy. He agreed to take it in the evening with dinner. Mental Status Exam MSE Comments: This is a obese 31-year-old male who appears approximately his stated age and is in no acute distress.? He is dressed in hospital scrubs and was pleasant and cooperative with evaluation.? He was? found in bed at 9:45 AM and woke up easily. He was pleasant and cooperative with the evaluation. psychomotor activity is normal Speech is at a regular rate and rhythm, normal volume, good articulation, not pressured. Alert, oriented X3 Attention and concentration appear to be intact. Memory is intact Mood is good. ? Affect is euthymic. Thought process is logical and goal-directed. Thought content: auditory hallucinations intermittently today. He denies visual hallucinations.? No delusions or paranoia are noted.? Reports mild suicidal ideation.? no homicidal ideation.? Fund of knowledge is average. Insight and judgment appear to be only fair. Impulse control is only fair. Cognition: Patient Appearance: Appropriate Level of Consciousness: Awake Patient Cognition Impaired: No Ability to Follow Directions: Good Patient Orientation (long list): Person, Place, Time, Name, Age, Birthday, Month and Year Comprehension Ability: No Impairment Hallucination Type: None Delusion Description: Not Present Thought Process: Appropriate and Blocking Affect: Affect Description: Anxious, [place] and Depressed Depressive Symptoms: Feelings of Worthlessness and Increased Anxiety Behavior: Patient Behavior: Appropriate and Cooperative Speech Pattern: Appropriate and Clear Vitals/I&O/Wt Last Vital Signs Temp 97.9 F 03/11/22 06:00 Pulse 48 L 03/11/22 06:00 Resp 18 03/11/22 06:00 BP 100/67 03/11/22 06:00 Pulse Ox 95 03/11/22 06:00 Data NPU : 03/07/22 12:00 03/07/22 12:00 A&P Assessment and plan (1) Suicidal ideation: Status: Acute (2) History of command hallucinations: Status: Acute (3) Chronic schizophrenia: Status: Acute (4) Depression: Status: Acute (5) Cannabis abuse: Status: Acute (6) Methamphetamine abuse: Status: Acute (7) Psychiatric care: Status: Acute (8) Posttraumatic stress disorder: Status: Acute Plan This is a 39-year-old male who comes in for worsening auditory hallucinations and suicidal ideation. Plan: 1. Continue current medication. Restart Invega 6 mg but change it to dinner.. Restart Prozac 40 mg daily and increase to 80 mg tomorrow. 2. Continue every 15 minute checks for safety. 3. Encourage individual, group and milieu therapies. 4. Encourage sober living treatment after discharge at the highest level of care to which he is willing to commit. 5. We will monitor for safety for himself in the community prior to discharge. Involuntary Hold Information 96 Hour Hold: 96 Hour Involuntary Admission: No 96 Hour Hold Ending Date: 01/17/22 96 Hour Hold Ending Time: 23:40 Attestations U Medical Necessity Statement*: Inpatient hospitalization is medically necessary and the clinically appropriate intervention at this time. We will initiate medications and make changes as indicated. Coding Level of Care Code Acute Meter Repairer Helper for Pete Pascald Diagnoses Suicidal ideation R45.851 History of command hallucinations Z86.59 Chronic schizophrenia F20.9 Depression F32.9 Cannabis abuse F12.10 Methamphetamine abuse F15.10 Psychiatric care Posttraumatic stress disorder F43.10
[2022-03-11] MEDS: ibuprofen 600 mg Tablet PO (15:10)
[2022-03-11] MEDS: paliperidone ER 6 mg Tablet PO (17:08)
[2022-03-11] MEDS: trazodone 100 mg Tablet PO (20:18)
[2022-03-11 20:24] VITALS: BP 99/61; PULSE 65; RESP 17; TEMP 36.4; O2SAT 96
[2022-03-12 06:00] VITALS: BP 90/48; PULSE 58; RESP 20; TEMP 36.4; O2SAT 95
[2022-03-12] MEDS: fluoxetine 20 mg Capsule 80 MG PO (08:34)
[2022-03-12] MEDS: acetaminophen 325 mg Tablet 650 MG PO (10:11)
--- NOTE | 2022-03-12 10:15 | P.NPUDS_ITS ---
Diagnoses at Discharge Discharge Diagnosis (1) Suicidal ideation: Status: Acute (2) History of command hallucinations: Status: Acute (3) Chronic schizophrenia: Status: Acute (4) Depression: Status: Acute (5) Cannabis abuse: Status: Acute (6) Methamphetamine abuse: Status: Acute (7) Psychiatric care: Status: Acute (8) Posttraumatic stress disorder: Status: Acute Reason for Visit Reason for Visit: psych eval Brief History: History of Present Illness Ruben Horan is a 31 year old male admitted through our emergency department with the following report: Mr. Horan is a 31-year-old gentleman with significant past medical history of schizophrenia who presents the emergency department due to worsening hallucinations.? He reports compliance with his medication regimen however baseline there are perhaps intermittent hallucinations.? Over the past day these have worsened and are telling him to kill himself.? Therefore he has thought about killing himself.? He otherwise denies medical complaints or injuries.? He has not acted on any suicide attempt.? Overall the course of symptoms has worsened.? Intensity is moderate.? No other specific changes in health, exacerbating, or alleviating factors identified. He was admitted to the neuropsychiatry unit for definitive treatment of these issues.? He initially said that he has been taking his medications.? However, he then stated that he stopped taking the Invega about 5 days ago because it made him drowsy when he took it in the morning.? He agreed to change that to bedtime.? He also stopped taking the Prozac because he felt it was not helping his anxiety.? He has been taking that hydroxyzine which does seem to help.? He later said that he has been taking a green and white capsule that have been helping his anxiety.? He agreed to restart the Prozac.? He said that his voices have not been too bad but yesterday at noon these came back very bad.? He says he had been somewhat stressed out because it normal normal base events.? He said that he did not have coping mechanisms to use when he was stressed out.? He had a therapy appointment after his last admission but he did not keep it.? He says that the voices are better today but still there and worse than normal and he denies suicidal ideation. Hospital Course Hospital Course He slowly acclimated to the individual, group and milieu therapies provided. Invega was restarted and changed to bedtime because it was making him drowsy during the day and he had stopped taking it. He said it caused some restlessness in his arms when he took it at bedtime and it changed to dinner. He said that worked better. He had also stopped taking the Prozac and it was restarted at 40 mm increased to 80 mg. He tolerated these doses and showed steady improvement during his stay. He was able to contract for safety outside hospital prior to discharge. During the hospitalization, patient had routine laboratory studies which were within normal limits except for few outliers. Additionally there was a general medical evaluation which was also within normal limits and revealed no new acute processes. Discharge Summary: At the time of discharge, lethality was denied and psychosis was resolving. Mood and anxiety were well managed. Patient endorsed a plan to follow-up with the aftercare recommendations of the treatment team. Patient was evaluated and deemed to be absent credible lethality, and had achieved the maximum benefit from an inpatient hospitalization, so was discharged. Involuntary Hold Information 96 Hour Hold: 96 Hour Involuntary Admission: No 96 Hour Hold Ending Date: 01/17/22 96 Hour Hold Ending Time: 23:40 Mental Status Exam MSE Comments: This is a obese 31-year-old male who appears approximately his stated age and is in no acute distress.? He is dressed in hospital scrubs and was pleasant and cooperative with evaluation.? He was? found in bed at 9:45 AM and woke up easily. He was pleasant and cooperative with the evaluation. psychomotor activity is normal Speech is at a regular rate and rhythm, normal volume, good articulation, not pressured. Alert, oriented X3 Attention and concentration appear to be intact. Memory is intact Mood is good. ? Affect is euthymic. Thought process is logical and goal-directed. Thought content: auditory hallucinations intermittently today. They are better than on admission he denies visual hallucinations.? No delusions or paranoia are noted.? Denies suicidal ideation today or yesterday no homicidal ideation.? Fund of knowledge is average. Insight and judgment appear to be only fair. Impulse control is only fair. Cognition: Patient Appearance: Appropriate Level of Consciousness: Awake Patient Cognition Impaired: No Ability to Follow Directions: Good Patient Orientation (long list): Person, Place, Time, Name, Age, Birthday, Month and Year Comprehension Ability: No Impairment Hallucination Type: None Delusion Description: Not Present Thought Process: Appropriate and Blocking Affect: Affect Description: Anxious, [place] and Depressed Depressive Symptoms: Feelings of Worthlessness and Increased Anxiety Behavior: Patient Behavior: Appropriate and Cooperative Speech Pattern: Appropriate and Clear Discharge Data Studies Completed and Pending: Laboratory Results WBC 11.6 10^3/uL (4.0 -10.0) H 03/07/22 12:00 RBC 5.02 10^6/uL (4.1 -5.3) 03/07/22 12:00 Hgb 15.7 g/dL (11.7-1 6.6) 03/07/22 12:00 Hct 46.5 % (42.0-52.0 ) 03/07/22 12:00 MCV 92.6 fl (80-94) 03/07/22 12:00 MCH 31.3 pg (28.0-34. 0) 03/07/22 12:00 MCHC 33.8 g/dL (30.0-3 6.0) 03/07/22 12:00 RDW 12.2 % (12.1-15.1 ) 03/07/22 12:00 Plt Count 234 10^3/cmm (130 -400) 03/07/22 12:00 MPV 10.0 fL (7.4-10.4 ) 03/07/22 12:00 Neut % (Auto) 76.6 % 03/07/22 12:00 Lymph % (Auto) 15.1 % 03/07/22 12:00 [place] % (Auto) 7.3 % 03/07/22 12:00 Eos % (Auto) 0.4 % 03/07/22 12:00 Baso % (Auto) 0.3 % 03/07/22 12:00 Neut # (Auto) 8.85 10^3/uL (1.8 -7.7) H 03/07/22 12:00 Lymph # (Auto) 1.7 10^3/uL (0.8- 4.8) 03/07/22 12:00 [place] # (Auto) 0.8 10^3/uL (0.2- 0.9) 03/07/22 12:00 Eos # (Auto) 0.1 10^3/uL (0.0- 0.8) 03/07/22 12:00 Baso # (Auto) 0.0 10^3/uL (0.0- 0.1) 03/07/22 12:00 Nucleated RBC % (a uto) 0 % 03/07/22 12:00 Nucleated RBCs # 0.0 /100WBC 03/07/22 12:00 Sodium 142 mmol/L (136-1 45) 03/07/22 12:00 Potassium 3.9 mmol/L (3.5-5 .1) 03/07/22 12:00 Chloride 108 mmol/L (98-10 7) H 03/07/22 12:00 Carbon Dioxide 23 mmol/L (22-29) 03/07/22 12:00 Anion Gap 14.9 (5-19) 03/07/22 12:00 BUN 12 mg/dL (6-20) 03/07/22 12:00 Creatinine 0.7 mg/dL (0.7-1. 2) 03/07/22 12:00 GFR Calculation 132.4 mL/min (90- 130) H 03/07/22 12:00 Glucose 107 mg/dL (65-115 ) 03/07/22 12:00 Calculated Osmolal ity 294 mOsm/kg (285- 295) 03/07/22 12:00 Calcium 9.4 mg/dL (8.5-10 .5) 03/07/22 12:00 Total Bilirubin 0.8 mg/dL (0.15-1 .2) 03/07/22 12:00 AST 49 U/L (0-40) H 03/07/22 12:00 ALT 24 U/L (0-41) 03/07/22 12:00 Alkaline Phosphata se 76 IU/L (40-130) 03/07/22 12:00 Total Protein 7.8 g/dL (6.6-8.7 ) 03/07/22 12:00 Albumin 4.8 g/dL (3.5-5.2 ) 03/07/22 12:00 Globulin 3.0 g/dL (1.3-4.6 ) 03/07/22 12:00 TSH 0.43 uIU/mL (0.27 -4.20) 03/07/22 12:00 Salicylates < 0.3 mg/dL (3-10 ) L 03/07/22 12:00 Urine Opiates Scre en Negative ng/mL (N egative) 03/08/22 07:40 Acetaminophen < 5.0 ug/mL (10-3 0) L 03/07/22 12:00 Ur Barbiturates Sc reen Negative ng/mL (N egative) 03/08/22 07:40 Ur Phencyclidine S crn Negative ng/mL (N egative) 03/08/22 07:40 Ur Amphetamines Sc reen Negative ng/mL (N egative) 03/08/22 07:40 U Benzodiazepines Scrn Negative ng/mL (N egative) 03/08/22 07:40 Urine Cocaine Scre en Negative ng/mL (N egative) 03/08/22 07:40 U Marijuana (THC) Screen Positive ng/mL (N egative) H 03/08/22 07:40 Ethyl Alcohol < 10 mg/dL (0-10) 03/07/22 12:00 Vitals: Last Vital Signs Temp 97.6 F 03/12/22 06:00 Pulse 58 L 03/12/22 06:00 Resp 20 H 03/12/22 06:00 BP 90/48 03/12/22 06:00 Pulse Ox 95 03/12/22 06:00 Discharge Plan Discharge Patient Disposition: Home Condition: Stable Prescriptions: New fluoxetine 40 mg capsule 80 mg PO DAILY 30 Days Qty: 60 1RF hydroxyzine pamoate 25 mg Capsule 50 mg PO Q6H PRN (Reason: Anxiety) 30 Days Qty: 60 1RF paliperidone 6 mg Tablet Extended Release 24hr 6 mg PO 1700 30 Days Qty: 30 1RF Continued trazodone 100 mg tablet 100 mg PO BEDTIME 30 Days Qty: 30 1RF Discharge Orders: Discharge Order (Routine); Ordered 03/12/22 Ordered By: Geovanni Mcgraw Referrals: [facility] [place] [facility] [Outside] - 03/21/22 1:30 pm (Initial intake appointment. ) Discharge Diet: Regular Discharge Activity: Resume usual activity Patient Instructions: Opioid Safety Discharge Attestations NPU Time Spent in Discharge Care*: less than 30 min Specific Discharge Activities: Specific discharge activities: educating patient, discussing with therapeutic case manager/social workers/dc planners, documenting/other paperwork and evaluating patient/reviewing data Status at Discharge: Cognitive status at discharge: cognitively intact , Behavioral status at discharge: cooperative , Coding Level of Care Code Acute [facility] note Diagnoses Suicidal ideation R45.851 History of command hallucinations Z86.59 Chronic schizophrenia F20.9 Depression F32.9 Cannabis abuse F12.10 Methamphetamine abuse F15.10 Psychiatric care Posttraumatic stress disorder F43.10
[2022-03-12 11:05] VITALS: BP 90/48; PULSE 58; RESP 20; TEMP 36.4; O2SAT 95
== END 2022-03-12 13:25 | disposition home or self-care (01) | DRG 885 ==
LOC: ER 18:43 → NP 19:19
PROVIDERS: Admitting Provider Psychiatry & Neurology Psychiatry; Emergency Provider Emergency Medicine; Visit Provider Psychiatry & Neurology Psychiatry
DX: F20.9 Schizophrenia, unspecified (principal); R45.851 Suicidal ideations; F12.10 Cannabis abuse, uncomplicated; F43.10 Post-traumatic stress disorder, unspecified; F17.210 Nicotine dependence, cigarettes, uncomplicated; Z91.128 Patient's intentional underdosing of medication regimen for other reason; F15.10 Other stimulant abuse, uncomplicated
CPT/HCPCS: 80053; 80306; 80307; 84443; 85025; 97150; 97165; 99285

== ENCOUNTER 2022-11-06 06:47 | Inpatient (IN) | payer MEDICAID, SELFPAY ==
[2022-11-06 07:01] VITALS: BP 148/96; RESP 18; O2SAT 97
--- NOTE | 2022-11-06 07:16 | ED.C_ITS ---
HPI - Psych General: Chief Complaint: Psychiatric Symptoms Stated Complaint: Would like to 96 himself. Time Seen by Provider: 11/06/22 06:49 Source: patient Mode of arrival: ambulatory History of Present Illness: 32-year-old male history of schizophrenia presents emergency room initially is asking to be 96. Difficult to get a coherent history from he has a advance a full flight of ideas that are all tangential. He does admit to not having been taking his medications. Similar previous presentations to the emergency room. He is also having some auditory and visual hallucinations although he will not give me specifics on what the voices are telling him. Hallucinations are also similar to what he has presented with in the past. No homicidal or suicidal ideation at this time. Onset (ago): unknown Duration: constant History of same: Yes Relieving factors: none Exacerbating factors: none Context: not taking psychiatric medications Associated psychiatric symptoms: racing thoughts, auditory hallucinations, visual hallucinations and delusions Associated symptoms: Reports auditory hallucinations, visual hallucinations, delusions and racing thoughts Treatments prior to arrival: none Review of Systems General: Reports: ROS unobtainable due to mental status Psych: Reports: visual hallucinations and auditory hallucinations [facility] ED PFSH: Medical History Cannabis abuse Depression Posttraumatic stress disorder Schizophrenia Social History Smoking and tobacco status: current every day smoker Current gender identity: Male Physical Exam Const: COMMON NORMALS: no acute distress GENERAL APPEARANCE: cooperative and comfortable ORIENTATION/CONSCIOUSNESS: Yes awake HENMT: COMMON NORMALS: normocephalic, atraumatic and hearing grossly normal bilaterally HEAD & SCALP: normocephalic and atraumatic Resp: COMMON NORMALS: normal respiratory effort, No retractions, No use of accessory muscles and clear to auscultation bilaterally AUSCULTATION: clear to auscultation bilaterally Cardio: COMMON NORMALS: regular rate, regular rhythm and No murmurs present (Cardio) RATE: regular rate RHYTHM: regular rhythm Extremity: COMMON NORMALS: normal to inspection, capillary refill normal, no clubbing, cyanosis or edema, no calf tenderness and no pedal edema Psych: THOUGHT CONTENT: Yes delusions Skin: COMMON NORMALS: no rashes or lesions noted GENERAL SKIN EXAM: no rashes or lesions noted Course Vital Signs: Vital signs: Vital Signs Respiratory Rate 18 11/06/22 07:01 Blood Pressure 148/96 11/06/22 07:01 Pulse Oximetry 97 11/06/22 07:01 MDM - Psych Medical Decision Making Acute psychosis with auditory and visual hallucinations. Patient has not been taking his medications given his current state of mind his random thoughts he definitely would benefit from reimplementation of his medications discussed with Dr. Tubbs. He agrees. Orders written. Patient is agreeable to staying at this point but suspect he will likely change his mind later in the visit. We will place him on a 96-hour hold given his random flight of ideas and auditory and visual loose [place] he is a potential harm to himself and others. Medical Records I reviewed the patient's medical records. Lab Data I reviewed the patient's lab results. 11/06/22 07:25 11/06/22 07:25 Laboratory Results WBC 14.3 10^3/uL (4.0-10.0) H 11/06/22 07:25 RBC 5.34 10^6/uL (4.1-5.3) H 11/06/22 07:25 Hgb 16.9 g/dL (11.7-16.6) H 11/06/22 07:25 Hct 50.4 % (42.0-52.0) 11/06/22 07:25 MCV 94.4 fl (80-94) H 11/06/22 07:25 MCH 31.6 pg (28.0-34.0) 11/06/22 07:25 MCHC 33.5 g/dL (30.0-36.0) 11/06/22 07:25 RDW 12.0 % (12.1-15.1) L 11/06/22 07:25 Plt Count 255 10^3/cmm (130-400) 11/06/22 07:25 MPV 10.1 fL (7.4-10.4) 11/06/22 07:25 Neut % (Auto) 74.0 % 11/06/22 07:25 Lymph % (Auto) 15.3 % 11/06/22 07:25 [place] % (Auto) 9.2 % 11/06/22 07:25 Eos % (Auto) 0.5 % 11/06/22 07:25 Baso % (Auto) 0.4 % 11/06/22 07:25 Neut # (Auto) 10.57 10^3/uL (1.8-7.7) H 11/06/22 07:25 Lymph # (Auto) 2.2 10^3/uL (0.8-4.8) 11/06/22 07:25 [place] # (Auto) 1.3 10^3/uL (0.2-0.9) H 11/06/22 07:25 Eos # (Auto) 0.1 10^3/uL (0.0-0.8) 11/06/22 07:25 Baso # (Auto) 0.1 10^3/uL (0.0-0.1) 11/06/22 07:25 Nucleated RBC % (auto) 0 % 11/06/22 07:25 Nucleated RBCs # 0.0 /100WBC 11/06/22 07:25 Sodium 138 mmol/L (136-145) 11/06/22 07:25 Potassium 3.9 mmol/L (3.5-5.1) 11/06/22 07:25 Chloride 100 mmol/L (98-107) 11/06/22 07:25 Carbon Dioxide 22 mmol/L (22-29) 11/06/22 07:25 Anion Gap 19.9 (5-19) H 11/06/22 07:25 BUN 7 mg/dL (6-20) 11/06/22 07:25 Creatinine 0.8 mg/dL (0.7-1.2) 11/06/22 07:25 GFR Calculation 112.8 mL/min (90-130) 11/06/22 07:25 Glucose 94 mg/dL (65-115) 11/06/22 07:25 Calculated Osmolality 284 mOsm/kg (285-295) L 11/06/22 07:25 Calcium 9.7 mg/dL (8.5-10.5) 11/06/22 07:25 Total Bilirubin 0.9 mg/dL (0.15-1.2) 11/06/22 07:25 AST 20 U/L (0-40) 11/06/22 07:25 ALT 18 U/L (0-41) 11/06/22 07:25 Alkaline Phosphatase 77 U/L (40-130) 11/06/22 07:25 Total Protein 7.7 g/dL (6.6-8.7) 11/06/22 07:25 Albumin 4.8 g/dL (3.5-5.2) 11/06/22 07:25 Globulin 2.9 g/dL (1.3-4.6) 11/06/22 07:25 Salicylates < 0.3 mg/dL (3-10) L 11/06/22 07:25 Acetaminophen < 5.0 ug/mL (10-30) L 11/06/22 07:25 Ethyl Alcohol 30 mg/dL (0-10) H 11/06/22 07:25 Discharge Plan Discharge Patient Disposition: Admitted As Inpatient Admit Provider: Kleber Tubbs Clinical Impression: Chronic schizophrenia, Cannabis abuse, Methamphetamine abuse, Psychiatric care, Acute psychosis Condition: Stable Coding Level of Care Code ED Director Phone for Pete Fwchang Exam Detailed
[2022-11-06 07:32] LABS: Basophils # 0.1 10^3/uL (0.0-0.1); Basophils % 0.4 %; Eosinophils # 0.1 10^3/uL (0.0-0.8); Eosinophils % 0.5 %; Hematocrit 50.4 % (42.0-52.0); Hemoglobin 16.9 g/dL (11.7-16.6); Lymphocytes # 2.2 10^3/uL (0.8-4.8); Lymphocytes % 15.3 %; Mean Corpuscular HGB Conc 33.5 g/dL (30.0-36.0); Mean Corpuscular Hemoglobin 31.6 pg (28.0-34.0); Mean Corpuscular Volume 94.4 fl (80-94); Mean Platelet Volume 10.1 fL (7.4-10.4); Monocytes # 1.3 10^3/uL (0.2-0.9); Monocytes % 9.2 %; Neutrophils # 10.57 10^3/uL (1.8-7.7); Nucleated Red Blood Cells % 0 %; Platelet Count 255 10^3/cmm (130-400); Red Blood Count 5.34 10^6/uL (4.1-5.3); White Blood Count 14.3 10^3/uL (4.0-10.0)
[2022-11-06 07:52] LABS: Alanine Aminotransferase 18 U/L (0-41); Albumin Level 4.8 g/dL (3.5-5.2); Alcohol Level 30 mg/dL (0-10); Alkaline Phosphatase 77 U/L (40-130); Anion Gap 19.9 (5-19); Aspartate Amino Transferase 20 U/L (0-40); Blood Urea Nitrogen 7 mg/dL (6-20); Calcium 9.7 mg/dL (8.5-10.5); Carbon Dioxide 22 mmol/L (22-29); Chloride 100 mmol/L (98-107); Globulin 2.9 g/dL (1.3-4.6); Glomerular Filtration Rate 112.8 mL/min (90-130); Glucose 94 mg/dL (65-115); Osmolality Calculated 284 mOsm/kg (285-295); Potassium 3.9 mmol/L (3.5-5.1); Sodium 138 mmol/L (136-145); Total Bilirubin 0.9 mg/dL (0.15-1.2); Total Protein 7.7 g/dL (6.6-8.7)
[2022-11-06 07:53] LABS: Acetaminophen < 5.0 ug/mL (10-30); Salicylate < 0.3 mg/dL (3-10)
[2022-11-06 09:19] VITALS: BP 140/88; PULSE 129; RESP 20; TEMP 36.9; O2SAT 94
[2022-11-06] MEDS: OLANZapine 5 mg ODT PO (10:23)
[2022-11-06] MEDS: haloperidol 5 mg Tablet PO (10:24)
--- NOTE | 2022-11-06 11:04 | PC.NURSE ---
Patient uncooperative with assessment. Took approximately 20-25 minutes for him to change out of his paper scrubs into cloth scrubs so we could do a skin assessment. Patient answered my questions with rambling. When asked what had caused him to be admitted to the hospital he stated, No respect for this or law enforcement. He states several times that if he had a gun he'd kill himself and at one point mumbled under his breath, if the gun would've been on the stove I would've killed them all. Patient sat and talked to the wall for awhile stating things like, my brother didn't help the kids either, you think it's funny don't you? Patient does not appear to be comprehending what this RN is asking him and is responding inappropriately. Will attempt to assess at a later time.
[2022-11-06] MEDS: diphenhydrAMINE 50 mg/mL SDV 1mL IM (11:07)
[2022-11-06] MEDS: haloperidol inj 5 mg/mL INJ 1 mL IM (11:07)
[2022-11-06] MEDS: LORazepam 2 mg/mL INJ 1 mL IM (11:08)
--- NOTE | 2022-11-06 12:29 | P.NPUHP_ITS ---
Providers/Chief Complaint Admitting Physician: Kleber Tubbs MD Chief Complaint: psych evlaution 96 himself. [facility] NPU History of Present Illness Ruben Horan is a 32 year old male who presented to the emergency department with the following report: Chief Complaint: Psychiatric Symptoms Stated Complaint: Would like to 96 himself. Time Seen by Provider: 11/06/22 06:49 Source: patient Mode of arrival: ambulatory History of Present Illness: 32-year-old male history of schizophrenia presents emergency room initially is asking to be 96. Difficult to get a coherent history from he has a advance a full flight of ideas that are all tangential. He does admit to not having been taking his medications. Similar previous presentations to the emergency room. He is also having some auditory and visual hallucinations although he will not give me specifics on what the voices are telling him. Hallucinations are also similar to what he has presented with in the past. No homicidal or suicidal ideation at this time. Onset (ago): unknown Duration: constant History of same: Yes Relieving factors: none Exacerbating factors: none Context: not taking psychiatric medications Associated psychiatric symptoms: racing thoughts, auditory hallucinations, visual hallucinations and delusions Associated symptoms: Reports auditory hallucinations, visual hallucinations, delusions and racing thoughts Treatments prior to arrival: none. He presented today fully disorganized and unable to ability to stay in the int erview. Increasing from his door making gestures to people walking by as if he was conducting magic. He appeared very guarded when approached and was unable to muster any reasonable answers to basic questions. An excerpt of his previous hospitalization is included below for context and given his inability as a historian. Per his 03/08/2022 [facility] inpatient psychiatric evaluation: History of Present Illness Ruben Horan is a 31 year old male admitted through our emergency department with the following report: Mr. Horan is a 31-year-old gentleman with significant past medical history of schizophrenia who presents the emergency department due to worsening hallucinations. He reports compliance with his medication regimen however baseline there are perhaps intermittent hallucinations. Over the past day these have worsened and are telling him to kill himself. Therefore he has thought about killing himself. He otherwise denies medical complaints or injuries. He has not acted on any suicide attempt. Overall the course of symptoms has worsen ed. Intensity is moderate. No other specific changes in health, exacerbating, or alleviating factors identified. He was admitted to the neuropsychiatry unit for definitive treatment of these issues. He initially said that he has been taking his medications. However, he then stated that he stopped taking the Invega about 5 days ago because it made him drowsy when he took it in the morning. He agreed to change that to bedtime. He also stopped taking the Prozac because he felt it was not helping his anxiety. He has been taking that hydroxyzine which does seem to help. He later said that he has been taking a green and white capsule that have been helping his anxiety. He agreed to restart the Prozac. He said that his voices have not been too bad but yesterday at noon these came back very bad. He says he had been somewhat stressed out because it normal normal base events. He said that he did not have coping mechanisms to use when he was stressed out. He had a therapy appointment after his last admission but he did not keep it. He says that the voices are better today but still there and worse than normal and he denies suicidal ideation. Below is his discharge summary from the last hospitalization in January. Diagnoses at Discharge Discharge Diagnosis (1) Chronic schizophrenia: Status: Acute (2) Depression: Status: Acute (3) Cannabis abuse: Status: Acute (4) Methamphetamine abuse: Status: Acute (5) Posttraumatic stress disorder: Status: Acute Reason for Visit Reason for Visit: SI Brief History: History of Present Illness: HPI Narrative: Patient is a 31-year-old male who presents to ED today stating he is suicidal. He states suicidal thoughts of been present over the past 2 to 3 days. He states he has a lot going on right now that he refuses to elaborate on. He has no specific plan at the moment. He does endorse previous suicide attempts. Patient has a history of chronic schizophrenia. He is not complaining of hallucinations or psychotic symptoms currently. He denies homicidal ideations. complaint: suicidal ideation Onset (ago): day(s) Duration: constant History of same: Yes Context: significant life stressor Associated psychiatric symptoms: depression and suicidal ideation Associated symptoms: Reports depression and suicidal ideation; Deny auditory hallucinations or homicidal ideation Treatments prior to arrival: none If self harm: admits thoughts of self harm He was admitted to the neuropsychiatry unit for medication treatment of these issues. He was released from this hospital in October on Zyprexa 15 mg daily and Lexapro 40 mg daily. He said that he did okay for almost a month but had depression and worsening auditory hallucinations again. He came to our emergency room did not have beds and he was sent to [place]. He said that he was there for about 1 week. He says that family discharged him on Vistaril 50 mg 100 mg at bedtime and trazodone. He said that even with that the voices were improved for about 1 week. However after 1 week started having depression for hallucinations again and now is back in the hospital. He says that he thinks the Invega 6 mg that he was released on in November 2024 depressed. He was able to stay out of the hospital for about 8 months. He was not on antidepressant at that time. When he was admitted in June 2021 he said that he had been noncompliant with his medications most of the time since his last hospitalization. He has not been able to stay out of the hospital for very long since then. He also was not taking medications when he came back into the hospital October of last year. He says that he has been compliant with his m edications since then but has never been able to stay out of the hospital for a few weeks. He is currently drug screen has been consistently positive for marijuana but no other drugs. To try back to the Invega. Hospital Course Hospital Course He slowly acclimated to the individual, group and milieu therapies provided. He was started on Invega 6 mg in the morning. He requested a twisting frame changer from Lexapro to Prozac. He remembers taking a white and green capsule some years ago that was helpful for his anxiety. He tolerated these doses and showed steady improvement during his stay. He was able to contract for safety outside hospital prior to discharge. During the hospitalization, patient had routine laboratory studies which were within normal limits except for few outliers. Additionally there was a general medical evaluation which was also within normal limits and revealed no new acute processes. Discharge Summary: At the time of discharge, lethality was denied and psychosis was resolving. Mood and anxiety were well managed. Patient endorsed a plan to follow-up with the aftercare recommendations of the treatment team. Patient was evaluated and deemed to be absent credible lethality, and had achieved the maximum benefit from an inpatient hospitalization, so was discharged. Meds NPU Home Medications Medication Instructions Recorded Confirmed Last Taken Type fluoxetine 40 mg capsule 80 mg PO DAILY 30 days #60 caps 03/12/22 11/06/22 Unknown Rx hydroxyzine pamoate 25 mg capsule 50 mg PO Q6H PRN Anxiety 30 days 03/12/22 11/06/22 Unknown Rx #60 caps trazodone 100 mg tablet 100 mg PO BEDTIME 30 days #30 tabs 03/12/22 11/06/22 Unknown Rx paliperidone 6 mg tablet,extended 6 mg PO 1700 11/06/22 11/06/22 Unknown History release 24 hr (Invega) Allergies Allergy/AdvReac Type Severity Reaction Status Date / Time nickel Allergy ALGY-Rash Verified 01/12/22 10:04 PFS NPU PFSH: Medical History Cannabis abuse Depression Posttraumatic stress disorder Schizophrenia Social History Smoking and tobacco status: current every day smoker Current gender identity: Male Mental Status Exam MSE Comments: This is an obese, white male in hospital scrubs with limited grooming and eye contact. No abnormal movements, except for mild psychomotor agitation. Cooperative with exam in no acute distress. Speech was increased rate and decreased volume. Mood not described; affect bizarre. Thought process, disorganized. Thought content: patient did not answer questions directly but had no signs aggression toward self or others and there were no delusions reported or noted, he appeared to be attending to internal stimuli. Attention, concent ration, and memory appeared impaired but were not formally tested. He is alert but not oriented. Insight and judgment are impaired, impulse control is impaired. Vitals/I&O/Wt Last Vital Signs Temp 98.5 F 11/06/22 09:19 Pulse 129 H 11/06/22 09:19 Resp 20 H 11/06/22 09:19 BP 140/88 11/06/22 09:19 Pulse Ox 94 11/06/22 09:19 O2 Del Method 11/06/22 10:17 Weight last 48 hrs Weight 113.398 kg Data NPU 11/06/22 07:25 11/06/22 07:25 A&P Assessment and plan (1) Suicidal ideation: (2) History of command hallucinations: (3) Chronic schizophrenia: (4) Depression: (5) Cannabis abuse: (6) Methamphetamine abuse: (7) Psychiatric care: (8) Posttraumatic stress disorder: Plan This is a 39-year-old male who comes in for worsening auditory hallucinations and suicidal ideation. Plan: 1. Continue current medication. 2. Continue every 15 minute checks for safety. 3. Encourage individual, group and milieu therapies. 4. Encourage sober living treatment after discharge at the highest level of care to which he is willing to commit. 5. We will monitor for safety for himself in the community prior to discharge. Involuntary Hold Information 96 Hour Hold: 96 Hour Involuntary Admission: Yes 96 Hour Hold Ending Date: 11/12/22 96 Hour Hold Ending Time: 07:25 Attestations NPU Medical Necessity Statement*: Inpatient hospitalization is medically necessary and the clinically appropriate intervention at this time. We will initiate medications and make changes as indicated. He will be in the hospital for over 2 midnights. Likely length of stay 7-10 days Coding Level of Care Code Acute Blue Split Trimmer for [facility] Fwd Diagnoses Suicidal ideation R45.851 History of command hallucinations Z86.59 Chronic schizophrenia F20.9 Depression F32.9 Cannabis abuse F12.10 Methamphetamine abuse F15.10 Psychiatric care Posttraumatic stress disorder F43.10
[2022-11-06 20:05] VITALS: RESP 18
[2022-11-07 06:00] VITALS: RESP 16
[2022-11-07] MEDS: acetaminophen 325 mg Tablet 650 MG PO ×2 (11:18→19:10)
--- NOTE | 2022-11-07 11:52 | P.NPUPN_ITS ---
Subjective NPU Subjective: Patient presented today reporting that he is feeling better than yesterday. This is fairly obvious as he is able to have some more normal communication. Having fairly normal [id number] conversation. He reports that he has not been taking his medication. He agreed he could review his med ication and consider restarting. We discussed that I would obtain collateral information and get something restarted by the morning. Mental Status Exam MSE Comments: This is an obese, white male in hospital scrubs with limited grooming and eye contact. No abnormal movements, except for mild psychomotor agitation. Cooperative with exam in no acute distress. Speech was increased rate and decreased volume. Mood described as okay; affect odd. Thought process, more organized. Thought content: patient did not answer question directly but had no signs aggression toward self or others and there were no delusions reported or noted, he appeared less internally preoccupied today i. Attention, concentration , and memory appeared to be improving but were not formally tested. He is alert but not oriented. Insight and judgment are impaired, impulse control is impaired. Vitals/I&O/Wt Last Vital Signs Temp 98.5 F 11/06/22 09:19 Pulse 129 H 11/06/22 09:19 Resp 16 11/07/22 06:00 BP 140/88 11/06/22 09:19 Pulse Ox 94 11/06/22 09:19 O2 Del Method 11/06/22 10:17 Weight last 48 hrs Weight 113.398 kg Data NPU 11/06/22 07:25 11/06/22 07:25 A&P Assessment and plan (1) Suicidal ideation: (2) History of command hallucinations: (3) Chronic schizophrenia: (4) Depression: (5) Cannabis abuse: (6) Methamphetamine abuse: (7) Psychiatric care: (8) Posttraumatic stress disorder: Plan This is a 39-year-old male who comes in for worsening auditory hallucinations and suicidal ideation. Plan: 1. Continue current medication. We will identify if Invega was effective and restart versus other antipsychotic. 2. Continue every 15 minute checks for safety. 3. Encourage individual, group and milieu therapies. 4. Encourage sober living treatment after discharge at the highest level of care to which he is willing to commit. 5. We will monitor for safety for himself in the community prior to discharge. Involuntary Hold Information 96 Hour Hold: 96 Hour Involuntary Admission: Yes 96 Hour Hold Ending Date: 11/12/22 96 Hour Hold Ending Time: 07:25 Attestations NPU Medical Necessity Statement*: Inpatient hospitalization is medically necessary and the clinically appropriate intervention at this time. We will initiate medications and make changes as indicated. Likely length of stay 6-9 days Coding Level of Care Code Acute Automotive Lube Technician for [facility] Fwd Diagnoses Suicidal ideation R45.851 History of command hallucinations Z86.59 Chronic schizophrenia F20.9 Depression F32.9 Cannabis abuse F12.10 Methamphetamine abuse F15.10 Psychiatric care Posttraumatic stress disorder F43.10
[2022-11-07 14:00] VITALS: BP 125/82; PULSE 100; RESP 16; TEMP 36.5; O2SAT 99
[2022-11-07] MEDS: trazodone 50 mg Tablet PO (20:36)
[2022-11-08 06:00] VITALS: BP 110/73; PULSE 112; RESP 18; TEMP 37; O2SAT 98
[2022-11-08] MEDS: hyDROXYzine 25 mg Capsule 50 MG PO ×2 (08:20→15:13)
[2022-11-08] MEDS: acetaminophen 325 mg Tablet 650 MG PO ×2 (08:20→12:43)
[2022-11-08] MEDS: paliperidone ER 6 mg Tablet PO (13:40)
[2022-11-08 14:00] VITALS: BP 112/69; PULSE 73; RESP 18; O2SAT 98
--- NOTE | 2022-11-08 15:22 | W.PM.NPUPNS ---
Subjective NPU Subjective: Patient presented today reporting that things are going okay. He identified that he was having some depression since his medications were discontinued by him. The discussed restarting Prozac 20 mg p.o. every morning and he understood and agreed to proceed as is documented in this note. We began discussion about what discharge might look like and when. Mental Status Exam MSE Comments: This is an obese, white male in hospital scrubs with limited grooming and eye contact. No abnormal movements, except for mild psychomotor agitation. Cooperative with exam in no acute distress. Speech was more normal rate and decreased volume. Mood described as depressed; affect congruent and odd. Thought process, more organized. Thought content: He denied suicidal or homicidal ideations, there were no delusions reported or noted, he appeared less internally preoccupied today. Attention, concentration, and memory appeared to be improving but were not formally tested. He is alert but not oriented. Insight and judgment are impaired, impulse control is impaired. Vitals/I&O/Wt Last Vital Signs Temp 98.6 F 11/08/22 06:00 Pulse 73 11/08/22 14:00 Resp 18 11/08/22 14:00 BP 112/69 11/08/22 14:00 Pulse Ox 98 11/08/22 14:00 O2 Del Method 11/08/22 14:00 Data NPU 11/06/22 07:25 11/06/22 07:25 A&P Assessment and plan (1) Suicidal ideation: (2) History of command hallucinations: (3) Chronic schizophrenia: (4) Depression: (5) Cannabis abuse: (6) Methamphetamine abuse: (7) Psychiatric care: (8) Posttraumatic stress disorder: Plan This is a 39-year-old male who comes in for worsening auditory hallucinations and suicidal ideation. Plan: 1. Continue current medication. Restarted Invega 6 mg p.o. daily and start Prozac 20 mg p.o. every morning 2. Continue every 15 minute checks for safety. 3. Encourage individual, group and milieu therapies. 4. Encourage sober living treatment after discharge at the highest level of care to which he is willing to commit. 5. We will monitor for safety for himself in the community prior to discharge. Involuntary Hold Information 96 Hour Hold: 96 Hour Involuntary Admission: Yes 96 Hour Hold Ending Date: 11/12/22 96 Hour Hold Ending Time: 07:25 Attestations NPU Medical Necessity Statement*: Inpatient hospitalization is medically necessary and the clinically appropriate intervention at this time. We will initiate medications and make changes as indicated. Likely length of stay 5-8 days Coding Level of Care Code Acute Manager Consumer for g Fwd Diagnoses Suicidal ideation R45.851 History of command hallucinations Z86.59 Chronic schizophrenia F20.9 Depression F32.9 Cannabis abuse F12.10 Methamphetamine abuse F15.10 Psychiatric care Posttraumatic stress disorder F43.10
[2022-11-08] MEDS: OLANZapine 5 mg ODT PO (15:31)
[2022-11-08] MEDS: fluoxetine 20 mg Capsule PO (16:03)
[2022-11-08] MEDS: ibuprofen 600 mg Tablet PO (17:16)
[2022-11-08 20:08] VITALS: RESP 18
[2022-11-08] MEDS: trazodone 100 mg Tablet PO (21:14)
[2022-11-09 06:00] VITALS: BP 102/57; PULSE 69; RESP 18; TEMP 36.6; O2SAT 97
[2022-11-09] MEDS: fluoxetine 20 mg Capsule PO (08:11)
[2022-11-09] MEDS: paliperidone ER 6 mg Tablet PO (08:11)
[2022-11-09 08:49] LABS: Add Urine Microscopic? YES; Bilirubin Urine Neg (Negative); Blood Urine Neg (Negative); Glucose Urine UA Norm (Normal); Ketones Urine Negative (Negative); Leukocyte Esterase Urine Negative (Negative); Nitrate Urine Negative (Negative); Protein Urine Neg (Negative); Specific Gravity, Urine 1.025 (1.005-1.030); Urine Appearance Hazy (CLEAR); Urine Color Yellow (Yellow); Urobilinogen Urine Norm (Negative); pH Urine 5 (5-7)
[2022-11-09 08:50] LABS: Bacteria Urine TRACE /hpf; Mucus Urine 2+ /hpf; RBC Urine RARE /hpf (0-2); Squamous Epithelial Cell Urine RARE /hpf (0-5); WBC Urine RARE /hpf (0-5)
[2022-11-09] MEDS: acetaminophen 325 mg Tablet 650 MG PO ×2 (11:22→18:34)
[2022-11-09] MEDS: OLANZapine 5 mg ODT PO ×2 (15:07→20:14)
[2022-11-09 15:47] VITALS: BP 145/81; PULSE 74; RESP 18; TEMP 36.5; O2SAT 97
[2022-11-09] MEDS: cetylpyridinium Lozenge 1 EACH MUCOUS MEM (15:54)
[2022-11-09] MEDS: ibuprofen 600 mg Tablet PO (16:46)
--- NOTE | 2022-11-09 17:59 | W.PM.NPUPNS ---
Subjective NPU Subjective: Patient presented today reporting that things are going better. He continues to have prominent improvement from his disorganization at presentation. He reports wanting to return to his friend/employer's house once we feel he is stable. We identified that he is on a 96-hour hold until Saturday. He reports tolerating the restarting of his medication. Mental Status Exam MSE Comments: This is an obese, white male in hospital scrubs with limited grooming and eye contact. No abnormal movements, except for mild psychomotor agitation. Cooperative with exam in no acute distress. Speech was more normal rate and decreased volume. Mood described as better; affect congruent but odd. Thought process, more organized. Thought content: He denied suicidal or homicidal ideations, there were no delusions reported or noted, he appeared less internally preoccupied . Attention, concentration, and memory appeared to be improving but were not formally tested. He is alert but not oriented. Insight and judgment are limited, impulse control is limited. Vitals/I&O/Wt Last Vital Signs Temp 97.7 F 11/09/22 15:47 Pulse 75 11/09/22 20:54 Resp 17 11/09/22 20:54 BP 134/80 11/09/22 20:54 Pulse Ox 99 11/09/22 20:54 O2 Del Method 11/09/22 15:47 Data NPU 11/06/22 07:25 11/06/22 07:25 A&P Assessment and plan (1) Suicidal ideation: (2) History of command hallucinations: (3) Chronic schizophrenia: (4) Depression: (5) Cannabis abuse: (6) Methamphetamine abuse: (7) Psychiatric care: (8) Posttraumatic stress disorder: Plan This is a 39-year-old male who comes in for worsening auditory hallucinations and suicidal ideation. Plan: 1. Continue current medication. Restarted Invega 6 mg p.o. daily and start Prozac 20 mg p.o. every morning 2. Continue every 15 minute checks for safety. 3. Encourage individual, group and milieu therapies. 4. Encourage sober living treatment after discharge at the highest level of care to which he is willing to commit. 5. We will monitor for safety for himself in the community prior to discharge. Involuntary Hold Information 96 Hour Hold: 96 Hour Involuntary Admission: Yes 96 Hour Hold Ending Date: 11/12/22 96 Hour Hold Ending Time: 07:25 Attestations NPU Medical Necessity Statement*: Inpatient hospitalization is medically necessary and the clinically appropriate intervention at this time. We will initiate medications and make changes as indicated. Likely length of stay 3-6 days Coding Level of Care Code Acute Medical Care Administrator for [facility] Fwd Diagnoses Suicidal ideation R45.851 History of command hallucinations Z86.59 Chronic schizophrenia F20.9 Depression F32.9 Cannabis abuse F12.10 Methamphetamine abuse F15.10 Psychiatric care Posttraumatic stress disorder F43.10
[2022-11-09] MEDS: trazodone 100 mg Tablet PO ×2 (20:12→21:56)
[2022-11-09 20:54] VITALS: BP 134/80; PULSE 75; RESP 17; O2SAT 99
[2022-11-09] MEDS: hyDROXYzine 25 mg Capsule 50 MG PO (21:56)
[2022-11-10 06:00] VITALS: RESP 18
--- NOTE | 2022-11-10 08:00 | W.PM.NPUPNS ---
Subjective NPU Subjective: Patient presented today reporting that he is feeling improvement in his functioning with the medications being restarted and he denied any side effects. We discussed a likely plan for discharge on Saturday after we make sure all appointments and follow-up and referrals have been made effectively to avoid him returning in this condition again. We discussed his 96-hour hold ending on that day and him likely needing to sign in for us to manage our plan to which he agreed. Mental Status Exam MSE Comments: This is an obese, white male in hospital scrubs with limited grooming and eye contact. No abnormal movements, except for mild psychomotor agitation. Cooperative with exam in no acute distress. Speech was more normal rate and decreased volume. Mood described as better; affect congruent but odd. Thought process, more organized. Thought content: He denied suicidal or homicidal ideations, there were no delusions reported or noted, he appeared less internally preoccupied . Attention, concentration, and memory appeared to be improving but were not formally tested. He is alert but not oriented. Insight and judgment are limited, impulse control is limited. Vitals/I&O/Wt Last Vital Signs Temp 97.7 F 11/09/22 15:47 Pulse 75 11/09/22 20:54 Resp 18 11/10/22 06:00 BP 134/80 11/09/22 20:54 Pulse Ox 99 11/09/22 20:54 O2 Del Method 11/09/22 15:47 Data NPU 11/06/22 07:25 11/06/22 07:25 A&P Assessment and plan (1) Suicidal ideation: (2) History of command hallucinations: (3) Chronic schizophrenia: (4) Depression: (5) Cannabis abuse: (6) Methamphetamine abuse: (7) Psychiatric care: (8) Posttraumatic stress disorder: Plan This is a 39-year-old male who comes in for worsening auditory hallucinations and suicidal ideation. Plan: 1. Continue current medication. Restarted Invega 6 mg p.o. daily and started Prozac 20 mg p.o. every morning 2. Continue every 15 minute checks for safety. 3. Encourage individual, group and milieu therapies. 4. Encourage sober living treatment after discharge at the highest level of care to which he is willing to commit. 5. We will monitor for safety for himself in the community prior to discharge. Involuntary Hold Information 96 Hour Hold: 96 Hour Involuntary Admission: Yes 96 Hour Hold Ending Date: 11/12/22 96 Hour Hold Ending Time: 07:25 Attestations NPU Medical Necessity Statement*: Inpatient hospitalization is medically necessary and the clinically appropriate intervention at this time. We will initiate medications and make changes as indicated. Likely length of stay 2-4 days Coding Level of Care Code Acute Product Safety Consultant for [facility] Fwd Diagnoses Suicidal ideation R45.851 History of command hallucinations Z86.59 Chronic schizophrenia F20.9 Depression F32.9 Cannabis abuse F12.10 Methamphetamine abuse F15.10 Psychiatric care Posttraumatic stress disorder F43.10
[2022-11-10] MEDS: paliperidone ER 6 mg Tablet PO (09:41)
[2022-11-10] MEDS: fluoxetine 20 mg Capsule PO (09:41)
[2022-11-10] MEDS: acetaminophen 325 mg Tablet 650 MG PO (13:07)
[2022-11-10 14:00] VITALS: BP 118/61; PULSE 80; RESP 16; TEMP 36.6; O2SAT 98
[2022-11-10] MEDS: ibuprofen 600 mg Tablet PO (18:25)
[2022-11-10 20:58] VITALS: BP 114/71; PULSE 77; RESP 16; TEMP 36.4; O2SAT 97
[2022-11-10] MEDS: trazodone 100 mg Tablet PO (21:24)
[2022-11-11 06:00] VITALS: RESP 18; BMI 33.9
[2022-11-11] MEDS: fluoxetine 20 mg Capsule PO (09:17)
[2022-11-11] MEDS: paliperidone ER 6 mg Tablet PO (09:17)
[2022-11-11] MEDS: acetaminophen 325 mg Tablet 650 MG PO ×2 (09:18→20:10)
[2022-11-11] MEDS: hyDROXYzine 25 mg Capsule 50 MG PO ×3 (09:41→21:26)
--- NOTE | 2022-11-11 09:41 | PC.NURSE ---
PRN VISTARIL 50 MG GIVEN PO PER PT C/O STATED ANXIETY
--- NOTE | 2022-11-11 10:21 | P.NPUPN_ITS ---
Subjective NPU Subjective: Patient presented today reporting that he is continuing to feel better and endorsed feeling much better than when he came in which is obvious to the naked eye. He reports that the medication is working really well and we continue to discuss how we could ensure that he actually got it so that he can continue to function how he is functioning today. We discussed the possibility of Invega Sustenna as a long-acting injectable and he reported that he would consider it as we discussed the possibility/likelihood of discharge in the morning. He once again endorsed that he would sign himself in for a short period of time while things are getting arranged for him tomorrow. Mental Status Exam MSE Comments: This is an obese, white male in hospital scrubs with appropriate grooming and eye contact. No abnormal movements. Cooperative with exam in no acute distress. Speech was more normal rate and volume. Mood described as better; affect congruent and less odd. Thought process, more organized. Thought content: He denied suicidal or homicidal ideations, there were no delusions reported or noted, he denied auditory or visual hallucinations. Attention, concentration, and memory appeared to be, but were not formally tested. He is alert but not oriented. Insight and judgment are improving, impulse control is limited, but improving. Vitals/I&O/Wt Last Vital Signs Temp 97.6 F 11/10/22 20:58 Pulse 77 11/10/22 20:58 Resp 18 11/11/22 06:00 BP 114/71 11/10/22 20:58 Pulse Ox 97 11/10/22 20:58 O2 Del Method 11/10/22 14:00 Weight last 48 hrs Weight 113.398 kg Data NPU 11/06/22 07:25 11/06/22 07:25 A&P Assessment and plan (1) Suicidal ideation: (2) History of command hallucinations: (3) Chronic schizophrenia: (4) Depression: (5) Cannabis abuse: (6) Methamphetamine abuse: (7) Psychiatric care: (8) Posttraumatic stress disorder: Plan This is a 39-year-old male who comes in for worsening auditory hallucinations and suicidal ideation. Plan: 1. Continue current medication. Restarted Invega 6 mg p.o. daily and started P rozac 20 mg p.o. every morning 2. Continue every 15 minute checks for safety. 3. Encourage individual, group and milieu therapies. 4. Encourage sober living treatment after discharge at the highest level of care to which he is willing to commit. 5. Likely plan for discharge tomorrow. Involuntary Hold Information 96 Hour Hold: 96 Hour Involuntary Admission: Yes 96 Hour Hold Ending Date: 11/12/22 96 Hour Hold Ending Time: 07:25 Attestations NPU Medical Necessity Statement*: Inpatient hospitalization is medically necessary and the clinically appropriate intervention at this time. We will initiate medications and make changes as indicated. Likely length of stay 1-3 days Coding Level of Care Code Acute [facility] Fwd Diagnoses Suicidal ideation R45.851 History of command hallucinations Z86.59 Chronic schizophrenia F20.9 Depression F32.9 Cannabis abuse F12.10 Methamphetamine abuse F15.10 Psychiatric care Posttraumatic stress disorder F43.10
[2022-11-11 14:00] VITALS: BP 129/82; PULSE 85; RESP 18; TEMP 36.6; O2SAT 98
[2022-11-11] MEDS: ibuprofen 600 mg Tablet PO (14:11)
--- NOTE | 2022-11-11 16:11 | PC.NURSE ---
prn vistaril 50 mg given po per pt c/o stated anxiety
[2022-11-11] MEDS: OLANZapine 5 mg ODT PO (18:37)
--- NOTE | 2022-11-11 18:37 | PC.NURSE ---
PRN ZYPREXA ZYDIS 5 MG GIVEN PO SUBLINGUAL PER PT C/O AGITATION. PT YELLING PROFANITIES AT NURSES STATION, RAPID PRESSURED SPEECH NOTED. HAS BEEN LINGERING AND PACING NEAR NURSES STATION WITH SOMATIC COMPLAINTS....MUCH REDIRECTION REQUIRED BY STAFF.
[2022-11-11 20:03] VITALS: BP 121/73; PULSE 83; RESP 16; TEMP 36.3; O2SAT 97
[2022-11-11] MEDS: trazodone 100 mg Tablet PO (21:18)
--- NOTE | 2022-11-11 21:18 | PC.NURSE ---
pt up to desk for sleep med, trazodone 50mg po given.
--- NOTE | 2022-11-11 21:27 | PC.NURSE ---
pt requested medication for anxiety. Vistril 50mg po given.
[2022-11-12 06:00] VITALS: BP 115/76; PULSE 72; RESP 16; TEMP 36.4; O2SAT 93
[2022-11-12] MEDS: paliperidone ER 6 mg Tablet PO (08:39)
[2022-11-12] MEDS: fluoxetine 20 mg Capsule PO (08:39)
--- NOTE | 2022-11-12 08:41 | PC.NURSE ---
SHIFT ASSESSMENT DENIES SI/HI/AVH CURRENTLY, PLEASANT AFFECT NOTED, ASKED FOR COFFEE WHICH WAS PROVIDED BY STAFF, TOOK MEDICATIONS SCHEDULED
[2022-11-12 11:36] VITALS: BP 115/76; PULSE 72; RESP 16; TEMP 36.4; O2SAT 93
--- NOTE | 2022-11-12 12:12 | P.NPUDS_ITS ---
Diagnoses at Discharge Discharge Diagnosis (1) Suicidal ideation: Status: Resolved (2) History of command hallucinations: Status: Acute (3) Chronic schizophrenia: Status: Acute (4) Depression: Status: Acute (5) Cannabis abuse: Status: Acute (6) Methamphetamine abuse: Status: Acute (7) Psychiatric care: Status: Inactive (8) Posttraumatic stress disorder: Status: Acute Reason for Visit Reason for Visit: psych evlaution 96 himself. Brief History: History of Present Illness Ruben Horan is a 32 year old male who presented to the emergency department with the following report: Chief Complaint: Psychiatric Symptoms Stated Complaint: Would like to 96 himself. Time Seen by Provider: 11/06/22 06:49 Source: patient Mode of arrival: ambulatory History of Present Illness:?? 32-year-old male history of schizophrenia presents emergency room initially is asking to be 96.? Difficult to get a coherent history from he has a advance a full flight of ideas that are all tangential.? He does admit to not having been taking his medications.? Similar previous presentations to the emergency room.? He is also having some auditory and visual hallucinations although he will not give me specifics on what the voices are telling him.? Hallucinations are also similar to what he has presented with in the past.? No homicidal or suicidal ideation at this time. Onset (ago): unknown Duration: constant History of same: Yes Relieving factors: none Exacerbating factors: none Context: not taking psychiatric medications Associated psychiatric symptoms: racing thoughts, auditory hallucinations, visual hallucinations and delusions Associated symptoms: Reports auditory hallucinations, visual hallucinations, delusions and racing thoughts Treatments prior to arrival: none. He presented today fully disorganized and unable to ability to stay in the interview.? Increasing from his door making gestures to people walking by as if he was conducting magic.? He appeared very guarded when approached and was unable to muster any reasonable answers to basic questions.? An excerpt of his previous hospitalization is included below for context and given his inability as a historian. Per his 03/08/2022 [facility] inpatient psychiatric evaluation: History of Present Illness Ruben Horan is a 31 year old male admitted through our emergency department with the following report: Mr. Horan is a 31-year-old gentleman with significant past medical history of schizophrenia who presents the emergency department due to worsening hallucinations.? He reports compliance with his medication regimen however baseline there are perhaps intermittent hallucinations.? Over the past day these have worsened and are telling him to kill himself.? Therefore he has thought about killing himself.? He otherwise denies medical complaints or injuries.? He has not acted on any suicide attempt.? Overall the course of symptoms has worsened.? Intensity is moderate.? No other specific changes in health, exacerbating, or alleviating factors identified. He was admitted to the neuropsychiatry unit for definitive treatment of these issues.? He initially said that he has been taking his medications.? However, he then stated that he stopped taking the Invega about 5 days ago because it made him drowsy when he took it in the morning.? He agreed to change that to bedtime.? He also stopped taking the Prozac because he felt it was not helping his anxiety.? He has been taking that hydroxyzine which does seem to help.? He later said that he has been taking a green and white capsule that have been helping his anxiety.? He agreed to restart the Prozac.? He said that his voices have not been too bad but yesterday at noon these came back very bad.? He says he had been somewhat stressed out because it normal normal base events.? He said that he did not have coping mechanisms to use when he was stressed out.? He had a therapy appointment after his last admission but he did not keep it.? He says that the voices are better today but still there and worse than normal and he denies suicidal ideation. Below is his discharge summary from the last hospitalization in January. Diagnoses at Discharge Discharge Diagnosis (1) Chronic schizophrenia: ? ? ? Status: Acute (2) Depression: ? ? ? Status: Acute (3) Cannabis abuse: ? ? ? Status: Acute (4) Methamphetamine abuse: ? ? ? Status: Acute (5) Posttraumatic stress disorder: ? ? ? Status: Acute Reason for Visit Reason for Visit: ?? SI? Brief History: History of Present Illness:? HPI Narrative: Patient is a 31-year-old male who presents to ED today stating he is suicidal.? He states suicidal thoughts of been present over the past 2 to 3 days.? He states he has a lot going on right now that he refuses to elaborate on.? He has no specific plan at the moment.? He does endorse previous suicide attempts.? Patient has a history of chronic schizophrenia.? He is not complaining of hallucinations or psychotic symptoms currently.? He denies homicidal ideations. complaint: suicidal ideation Onset (ago): day(s) Duration: constant History of same: Yes Context: significant life stressor Associated psychiatric symptoms: depression and suicidal ideation Associated symptoms: Reports depression and suicidal ideation; Deny auditory hallucinations or homicidal ideation Treatments prior to arrival: none If self harm: admits thoughts of self harm He was admitted to the neuropsychiatry unit for medication treatment of these issues.? He was released from this hospital in October on Zyprexa 15 mg daily and Lexapro 40 mg daily.? He said that he did okay for almost a month but had depression and worsening auditory hallucinations again.? He came to our emergency room did not have beds and he was sent to [facility].? He said that he was there for about 1 week.? He says that family discharged him on Vistaril 50 mg 100 mg at bedtime and trazodone.? He said that even with that the voices were improved for about 1 week.? However after 1 week started having depression for hallucinations again and now is back in the hospital.? He says that he thinks the Invega 6 mg that he was released on in November 2024 depressed.? He was able to stay out of the hospital for about 8 months.? He was not on antidepressant at that time.? When he was admitted in June 2021 he said that he had been noncompliant with his medications most of the time since his last hospitalization.? He has not been able to stay out of the hospital for very long since then.? He also was not taking medications when he came back into the hospital October of last year.? He says that he has been compliant with his medications since then but has never been able to stay out of the hospital for a few weeks.? He is currently drug screen has been consistently positive for marij uana but no other drugs.? To try back to the Invega. Hospital Course Hospital Course He slowly acclimated to the individual, group and milieu therapies provided.? He was started on Invega 6 mg in the morning.? He requested a trolley car overhauler from Lexapro to Prozac.? He remembers taking a white and green capsule some years ago that was helpful for his anxiety.? He tolerated these doses and showed steady improvement during his stay. ? He was able to contract for safety outside hospital prior to discharge.? During the hospitalization, patient had routine laboratory studies which were within normal limits except for few outliers.? Additionally there was a general medical evaluation which was also within normal limits and revealed no new acute processes. Discharge Summary: At the time of discharge, lethality was denied and psychosis was resolving.? Mood and anxiety were well managed.? Patient endorsed a plan to follow-up with the aftercare recommendations of the treatment team.? Patient was evaluated and deemed to be absent credible lethality, and had achieved the maximum benefit from an inpatient hospitalization, so was discharged. Hospital Course Hospital Course He slowly acclimated to the individual, group and milieu therapies provided.? He was restarted on Invega 6 mg and prozac 20 mg.? He was fairly psychotic when he arrived likely representing drug use and nonadherence.? He showed very quick/immediate and significant improvement during his stay. ? He was able to contract for safety, outside of the hospital, prior to discharge.? During the hospitalization, patient had routine laboratory studies which were within normal limits except for few outliers.? Additionally there was a general medical evaluation which was also within normal limits and revealed no new acute processes. Discharge Summary: At the time of discharge, lethality was denied and psychosis was resolving.? Mood and anxiety were well managed.? Patient endorsed a plan to follow-up with the aftercare recommendations of the treatment team.? Patient was evaluated and deemed to be absent credible lethality, and had achieved the maximum benefit from an inpatient hospitalization, so was discharged. Involuntary Hold Information 96 Hour Hold: 96 Hour Involuntary Admission: Yes 96 Hour Hold Ending Date: 11/12/22 96 Hour Hold Ending Time: 07:25 Mental Status Exam MSE Comments: This is an obese, white male in hospital scrubs with appropriate grooming and eye contact. No abnormal movements. Cooperative with exam in no acute distress. Speech was more normal rate and volume. Mood described as better; affect congruent and less odd. Thought process, more organized. Thought content: He denied suicidal or homicidal ideations, there were no delusions reported or noted, he denied auditory or visual hallucinations. Attention, concentration, and memory appeared to be, but were not formally tested. He is alert but not oriented. Insight and judgment are improving, impulse control is limited, but improving. Discharge Data Studies Completed and Pending: Pending at discharge Category Date Time Status Drug Screen, Urin e Stat Lab 11/06/22 07:20 Uncollected Laboratory Results WBC 14.3 10^3/uL (4.0 -10.0) H 11/06/22 07:25 RBC 5.34 10^6/uL (4.1 -5.3) H 11/06/22 07:25 Hgb 16.9 g/dL (11.7-1 6.6) H 11/06/22 07:25 Hct 50.4 % (42.0-52.0 ) 11/06/22 07:25 MCV 94.4 fl (80-94) H 11/06/22 07:25 MCH 31.6 pg (28.0-34. 0) 11/06/22 07:25 MCHC 33.5 g/dL (30.0-3 6.0) 11/06/22 07:25 RDW 12.0 % (12.1-15.1 ) L 11/06/22 07:25 Plt Count 255 10^3/cmm (130 -400) 11/06/22 07:25 MPV 10.1 fL (7.4-10.4 ) 11/06/22 07:25 Neut % (Auto) 74.0 % 11/06/22 07:25 Lymph % (Auto) 15.3 % 11/06/22 07:25 Rusk % (Auto) 9.2 % 11/06/22 07:25 Eos % (Auto) 0.5 % 11/06/22 07:25 Baso % (Auto) 0.4 % 11/06/22 07:25 Neut # (Auto) 10.57 10^3/uL (1. 8-7.7) H 11/06/22 07:25 Lymph # (Auto) 2.2 10^3/uL (0.8- 4.8) 11/06/22 07:25 Rusk # (Auto) 1.3 10^3/uL (0.2- 0.9) H 11/06/22 07:25 Eos # (Auto) 0.1 10^3/uL (0.0- 0.8) 11/06/22 07:25 Baso # (Auto) 0.1 10^3/uL (0.0- 0.1) 11/06/22 07:25 Nucleated RBC % (a uto) 0 % 11/06/22 07:25 Nucleated RBCs # 0.0 /100WBC 11/06/22 07:25 Sodium 138 mmol/L (136-1 45) 11/06/22 07:25 Potassium 3.9 mmol/L (3.5-5 .1) 11/06/22 07:25 Chloride 100 mmol/L (98-10 7) 11/06/22 07:25 Carbon Dioxide 22 mmol/L (22-29) 11/06/22 07:25 Anion Gap 19.9 (5-19) H 11/06/22 07:25 BUN 7 mg/dL (6-20) 11/06/22 07:25 Creatinine 0.8 mg/dL (0.7-1. 2) 11/06/22 07:25 GFR Calculation 112.8 mL/min (90- 130) 11/06/22 07:25 Glucose 94 mg/dL (65-115) 11/06/22 07:25 Calculated Osmolal ity 284 mOsm/kg (285- 295) L 11/06/22 07:25 Calcium 9.7 mg/dL (8.5-10 .5) 11/06/22 07:25 Total Bilirubin 0.9 mg/dL (0.15-1 .2) 11/06/22 07:25 AST 20 U/L (0-40) 11/06/22 07:25 ALT 18 U/L (0-41) 11/06/22 07:25 Alkaline Phosphata se 77 U/L (40-130) 11/06/22 07:25 Total Protein 7.7 g/dL (6.6-8.7 ) 11/06/22 07:25 Albumin 4.8 g/dL (3.5-5.2 ) 11/06/22 07:25 Globulin 2.9 g/dL (1.3-4.6 ) 11/06/22 07:25 Urine Color Yellow (Yellow) 11/09/22 08:22 Urine Appearance Hazy (CLEAR) A 11/09/22 08:22 Urine pH 5 (5-7) 11/09/22 08:22 Ur Specific Gravit y 1.025 (1.005-1.0 30) 11/09/22 08:22 Urine Protein Neg (Negative) 11/09/22 08:22 Urine Glucose (UA) Norm (Normal) 11/09/22 08:22 Urine Ketones Negative (Negati ve) 11/09/22 08:22 Urine Blood Neg (Negative) 11/09/22 08:22 Urine Nitrate Negative (Negati ve) 11/09/22 08:22 Urine Bilirubin Neg (Negative) 11/09/22 08:22 Urine Urobilinogen Norm mg/dL (Negat bianca) 11/09/22 08:22 Ur Leukocyte Nette ase Negative (Negati ve) 11/09/22 08:22 Urine RBC Rare /hpf (0-2) 11/09/22 08:22 Urine WBC Rare /hpf (0-5) 11/09/22 08:22 Ur Squamous Epith Cells Rare /hpf (0-5) 11/09/22 08:22 Amorphous Sediment Not Reportable 11/09/22 08:22 Urine Bacteria Trace /hpf (NONE) 11/09/22 08:22 Urine Mucus 2+ /hpf 11/09/22 08:22 Salicylates < 0.3 mg/dL (3-10 ) L 11/06/22 07:25 Acetaminophen < 5.0 ug/mL (10-3 0) L 11/06/22 07:25 Ethyl Alcohol 30 mg/dL (0-10) H 11/06/22 07:25 Vitals: Last Vital Signs Temp 97.6 F 11/12/22 11:36 Pulse 72 11/12/22 11:36 Resp 16 11/12/22 11:36 BP 115/76 11/12/22 11:36 Pulse Ox 93 11/12/22 11:36 O2 Del Method 11/12/22 06:00 Discharge Plan Discharge Patient Disposition: Home Condition: Stable Prescriptions: New Invega Sustenna 156 mg/mL syringe 156 mg IM Q30D 30 Days Qty: 1 2RF Rx Instructions: Next dose 11/19/22 loading dose IM deltoid then 12/17/22 IM fluoxetine 20 mg Capsule 20 mg PO DAILY 30 Days Qty: 30 1RF Continued trazodone 100 mg tablet 100 mg PO BEDTIME 30 Days Qty: 30 1RF hydroxyzine pamoate 25 mg Capsule 50 mg PO Q6H PRN (Reason: Anxiety) 30 Days Qty: 60 1RF Invega 6 mg tablet extended release 24hr 6 mg PO 1700 7 Days Qty: 7 0RF Rx Instructions: Will get second Invega injection in 7 days and d/c oral Discontinued fluoxetine 40 mg capsule 80 mg PO DAILY 30 Days Qty: 60 1RF Discharge Orders: Discharge Order (Routine); Ordered 11/12/22 Ordered By: Kleber Tubbs Referrals: [facility] [Provider Group] - 11/15/22 8:45 am (Initial appointment scheduled for 11/15/22 with a check in 8:45 to see Jossy Florian.) Virgilio Chen MD [Physician] - 11/14/22 9:30 am (New PCP appointment. ) Discharge Diet: Regular Discharge Activity: Resume usual activity Patient Instructions: Fluoxetine (By mouth), Paliperidone (By injection) (Invega Sustenna, Invega Trinza, Invega..., Opioid Safety, Pain Management Discharge Attestations NPU Time Spent in Discharge Care*: less than 30 min Specific Discharge Activities: Specific discharge activities: educating patient, discussing with caseworker intake/social workers/dc planners, documenting/other paperwork and evaluating patient/reviewing data Status at Discharge: Cognitive status at discharge: cognitively intact , Behavioral status at discharge: cooperative , Coding Level of Care Code Acute [facility] DC note Diagnoses Suicidal ideation R45.851 History of command hallucinations Z86.59 Chronic schizophrenia F20.9 Depression F32.9 Cannabis abuse F12.10 Methamphetamine abuse F15.10 Psychiatric care Posttraumatic stress disorder F43.10
[2022-11-12] MEDS: paliperidone palmitate 234 mg Syringe IM (12:46)
--- NOTE | 2022-11-12 12:46 | PC.NURSE ---
INVSADIE SUSTENNA 234 MG GIVEN IM ORDERED BY PHYSICIAN, INJECTION GIVEN IN LEFT DELTOID LOT [id number] EXP 01/2024
[2022-11-12] MEDS: acetaminophen 325 mg Tablet 650 MG PO (13:17)
== END 2022-11-12 14:23 | disposition home or self-care (01) | DRG 885 ==
LOC: ER 07:20 → NP 07:39
PROVIDERS: Admitting Provider Psychiatry & Neurology Psychiatry; Emergency Provider Family Medicine; Visit Provider Psychiatry & Neurology Psychiatry
DX: F20.9 Schizophrenia, unspecified (principal); R45.851 Suicidal ideations; F32.A Depression, unspecified; F12.10 Cannabis abuse, uncomplicated; F15.10 Other stimulant abuse, uncomplicated; F43.10 Post-traumatic stress disorder, unspecified; T50.906A Underdosing of unspecified drugs, medicaments and biological substances, initial encounter; Z91.128 Patient's intentional underdosing of medication regimen for other reason; Z79.899 Other long term (current) drug therapy
CPT/HCPCS: 36415; 80053; 80307; 81001; 85025; 96372; 97150; 97165; 99285; J1200; J1630; J2060

== ENCOUNTER 2023-01-01 22:27 | Inpatient (IN) | payer MEDICAID, SELFPAY ==
[2023-01-01 22:32] VITALS: PULSE 129; RESP 20; TEMP 36.4; O2SAT 99; BMI 40.6
--- NOTE | 2023-01-01 22:47 | W.ED.PSYCHS ---
HPI - Psych General: Chief Complaint: Psychiatric Symptoms Stated Complaint: MHE Time Seen by Provider: 01/01/23 22:41 Source: patient Mode of arrival: ambulatory Limitations: no limitations History of Present Illness: 32-year-old male who is here he states he has been under a lot of stress since he has been feeling extremely paranoid he does have a history of schizophrenia he states that he has been hearing some worse he states he is also been having suicidal ideations he denies a specific plan but states he has been having suicidal thoughts he is very paranoid here as well. Associated symptoms: Reports depression and suicidal ideation Review of Systems Const: Denies: fever(s), chills, body aches or change in appetite Eyes: Denies: blurry vision or eye discomfort ENMT: Denies: throat pain or dental pain Card: Denies: chest pain Resp: Denies: dyspnea GI: Denies: abdominal pain, nausea, vomiting or diarrhea : Denies: dysuria Musc: Denies: neck pain or back pain Skin/Breast: Denies: rash Neuro: Denies: headache(s) Psych: Reports: depression and suicidal ideation Nolan/Lymph: Denies: easy bruising All/Imm: Denies: urticaria PFSH ED PFSH: Medical History Cannabis abuse Depression Methamphetamine abuse Posttraumatic stress disorder Psychiatric care Schizophrenia Family History Family/Other Anesthesia complication Lung disease Psychiatric illness Grandmother CAD (coronary artery disease) Cancer Lung disease Grandfather Clotting disorder Diabetes Hyperlipidemia Hypertension Stroke Denies family history of Dementia Chronic kidney disease (CKD) Bleeding disorder Social History Smoking and tobacco status: current every day smoker cigarettes Packs smoked per day: 1 [ Other cigarette details: 1PPD, 7PY] Alcohol intake: never Desire information about alcohol rehabilitation?: No Desire information about substance/drug rehabilitation?: No Lives independently: Yes Marital status: Single Number of children: 1 Current occupational status: unemployed Current gender identity: Male Physical Exam Const: COMMON NORMALS: patient oriented x3 GENERAL APPEARANCE: anxious HENMT: COMMON NORMALS: normocephalic and atraumatic HEAD & SCALP: normocephalic and atraumatic Eye: COMMON NORMALS: Equal, round and reactive pupils present and EOMs intact bilaterally PUPIL: Yes Equal, round and reactive pupils present Neck/C-Spine: COMMON NORMALS: full ROM and supple Chest: COMMONS NORMALS: normal inspection of the chest and normal palpation of entire chest wall Resp: COMMON NORMALS: normal respiratory effort, No retractions, No use of accessory muscles and clear to auscultation bilaterally AUSCULTATION: clear to auscultation bilaterally Cardio: COMMON NORMALS: regular rate, regular rhythm and No murmurs present (Cardio) RATE: regular rate RHYTHM: regular rhythm GI: COMMON NORMALS: Normal to inspection, nondistended, normoactive bowel sounds present, Soft to palpation, non-tender and no masses PALPATION: Yes Soft to palpation Extremity: COMMON NORMALS: normal to inspection and full ROM Neuro: COMMON NORMALS: patient oriented x3, moves all extremities and no focal motor deficits Psych: COMMON NORMALS: Normal thought process present and cooperative ATTITUDE: Yes paranoid THOUGHT PROCESS: Normal thought process present THOUGHT CONTENT: Yes Suicidality present Skin: COMMON NORMALS: no rashes or lesions noted and no wounds GENERAL SKIN EXAM: no rashes or lesions noted Course Vital Signs: Vital signs: Vital Signs Temperature 97.6 F 01/01/23 22:32 Pulse Rate 96 01/01/23 23:28 Respiratory Rate 18 01/01/23 23:28 Blood Pressure 137/82 01/01/23 23:26 Pulse Oximetry 94 01/01/23 23:28 Oxygen Delivery Me thod 01/01/23 23:28 MDM - Psych Medical Decision Making Patient presents here with suicidal ideation along with acute psychosis with schizophrenia patient's medically cleared placed on a 96-hour hold I spoke to psychiatrist and will admit. Lab Data 01/01/23 22:50 01/01/23 22:50 Laboratory Results WBC 14.6 10^3/uL (4.0-10.0) H 01/01/23 22:50 RBC 5.17 10^6/uL (4.1-5.3) 01/01/23 22:50 Hgb 16.0 g/dL (11.7-16.6) 01/01/23 22:50 Hct 46.9 % (42.0-52.0) 01/01/23 22:50 MCV 90.7 fl (80-94) 01/01/23 22:50 MCH 30.9 pg (28.0-34.0) 01/01/23 22:50 MCHC 34.1 g/dL (30.0-36.0) 01/01/23 22:50 RDW 12.3 % (12.1-15.1) 01/01/23 22:50 Plt Count 249 10^3/cmm (130-400) 01/01/23 22:50 MPV 10.0 fL (7.4-10.4) 01/01/23 22:50 Neut % (Auto) 66.1 % 01/01/23 22:50 Lymph % (Auto) 22.9 % 01/01/23 22:50 [place] % (Auto) 8.7 % 01/01/23 22:50 Eos % (Auto) 1.4 % 01/01/23 22:50 Baso % (Auto) 0.4 % 01/01/23 22:50 Neut # (Auto) 9.62 10^3/uL (1.8-7.7) H 01/01/23 22:50 Lymph # (Auto) 3.3 10^3/uL (0.8-4.8) 01/01/23 22:50 [place] # (Auto) 1.3 10^3/uL (0.2-0.9) H 01/01/23 22:50 Eos # (Auto) 0.2 10^3/uL (0.0-0.8) 01/01/23 22:50 Baso # (Auto) 0.1 10^3/uL (0.0-0.1) 01/01/23 22:50 Nucleated RBC % (auto) 0 % 01/01/23 22:50 Nucleated RBCs # 0.0 /100WBC 01/01/23 22:50 Sodium 137 mmol/L (136-145) 01/01/23 22:50 Potassium 3.9 mmol/L (3.5-5.1) 01/01/23 22:50 Chloride 100 mmol/L (98-107) 01/01/23 22:50 Carbon Dioxide 22 mmol/L (22-29) 01/01/23 22:50 Anion Gap 18.9 (5-19) 01/01/23 22:50 BUN 11 mg/dL (6-20) 01/01/23 22:50 Creatinine 0.7 mg/dL (0.7-1.2) 01/01/23 22:50 GFR Calculation 131.5 mL/min (90-130) H 01/01/23 22:50 Glucose 101 mg/dL (65-115) 01/01/23 22:50 Calculated Osmolality 284 mOsm/kg (285-295) L 01/01/23 22:50 Calcium 9.5 mg/dL (8.5-10.5) 01/01/23 22:50 Total Bilirubin 0.8 mg/dL (0.15-1.2) 01/01/23 22:50 AST 17 U/L (0-40) 01/01/23 22:50 ALT 20 U/L (0-41) 01/01/23 22:50 Alkaline Phosphatase 83 U/L (40-130) 01/01/23 22:50 Total Protein 7.7 g/dL (6.6-8.7) 01/01/23 22:50 Albumin 4.9 g/dL (3.5-5.2) 01/01/23 22:50 Globulin 2.8 g/dL (1.3-4.6) 01/01/23 22:50 Salicylates 0.5 mg/dL (3-10) L 01/01/23 22:50 Acetaminophen < 5.0 ug/mL (10-30) L 01/01/23 22:50 Ethyl Alcohol < 10 mg/dL (0-10) 01/01/23 22:50 Discharge Plan Discharge Patient Disposition: Admitted As Inpatient Admit Provider: Kleber Tubbs Clinical Impression: Suicidal ideation, Acute psychosis Condition: Stable Coding Level of Care Code ED Junior Underwriter for Albertg Fwd Exam Comprehensive
--- NOTE | 2023-01-01 22:54 | PC.NURSE ---
patient's belongings placed in locker #3
[2023-01-01 22:57] LABS: Basophils # 0.1 10^3/uL (0.0-0.1); Basophils % 0.4 %; Eosinophils # 0.2 10^3/uL (0.0-0.8); Eosinophils % 1.4 %; Hematocrit 46.9 % (42.0-52.0); Lymphocytes # 3.3 10^3/uL (0.8-4.8); Lymphocytes % 22.9 %; Mean Corpuscular HGB Conc 34.1 g/dL (30.0-36.0); Mean Corpuscular Hemoglobin 30.9 pg (28.0-34.0); Mean Corpuscular Volume 90.7 fl (80-94); Monocytes # 1.3 10^3/uL (0.2-0.9); Monocytes % 8.7 %; Neutrophils # 9.62 10^3/uL (1.8-7.7); Neutrophils % 66.1 %; Nucleated Red Blood Cells % 0 %; Platelet Count 249 10^3/cmm (130-400); Red Blood Count 5.17 10^6/uL (4.1-5.3); Red Cell Distribution Width 12.3 % (12.1-15.1); White Blood Count 14.6 10^3/uL (4.0-10.0)
[2023-01-01] MEDS: LORazepam 2 mg Tablet PO (22:57)
[2023-01-01] MEDS: haloperidol 5 mg Tablet PO (22:57)
[2023-01-01 23:16] LABS: Acetaminophen < 5.0 ug/mL (10-30); Alanine Aminotransferase 20 U/L (0-41); Albumin Level 4.9 g/dL (3.5-5.2); Alcohol Level < 10 mg/dL (0-10); Alkaline Phosphatase 83 U/L (40-130); Anion Gap 18.9 (5-19); Aspartate Amino Transferase 17 U/L (0-40); Blood Urea Nitrogen 11 mg/dL (6-20); Calcium 9.5 mg/dL (8.5-10.5); Carbon Dioxide 22 mmol/L (22-29); Chloride 100 mmol/L (98-107); Globulin 2.8 g/dL (1.3-4.6); Glomerular Filtration Rate 131.5 mL/min (90-130); Glucose 101 mg/dL (65-115); Osmolality Calculated 284 mOsm/kg (285-295); Potassium 3.9 mmol/L (3.5-5.1); Salicylate 0.5 mg/dL (3-10); Sodium 137 mmol/L (136-145); Total Bilirubin 0.8 mg/dL (0.15-1.2); Total Protein 7.7 g/dL (6.6-8.7)
[2023-01-01] MEDS: acetaminophen 500 mg Tablet 1000 MG PO (23:16)
[2023-01-01 23:26] VITALS: BP 137/82
[2023-01-01 23:28] VITALS: PULSE 96; RESP 18; O2SAT 94
--- NOTE | 2023-01-02 | PC.NURSE ---
32 yr.old male admitted to room 125-1 with dx of psychosis/SI. Patient is involuntary and rights were given in ED. Did review 96 hour hold with patient when he arrived to floor and answered all questions. Arrived to unit via w/c accompanied by ED staff and security. Alert and Ox3. Mood is tearful and sad. Stated he has been overwhelmed with life and was having AVH. Patient reported he was feeling Suicidal so he came in for help. Contracts for safety. Denies HI. No c/o pain voiced. Patient did not give urine for a UDS but stated he has used meth in the past week. Patient noted to have a 50lb weight loss since his admission to [facility] in November 2022. Skin assessment completed with no issues noted and no contraband found. Snack and fluids given and escorted to room.
[2023-01-02 00:02] VITALS: BP 129/85; PULSE 89; RESP 20; TEMP 36.7; O2SAT 100; BMI 33.8
[2023-01-02] MEDS: trazodone 100 mg Tablet PO (00:58)
--- NOTE | 2023-01-02 12:21 | PC.NURSE ---
limited assessment r/t pt sedated, staff said patient name several times & pt would not awaken, no s/s of distress noted currently, pt asleep in bed in room, resp even et unlabored
[2023-01-02 14:00] VITALS: BP 122/82; PULSE 95; RESP 18; TEMP 36.6; O2SAT 96
--- NOTE | 2023-01-02 14:38 | P.NPUHP_ITS ---
Providers/Chief Complaint Admitting Physician: Kleber Tubbs MD Chief Complaint: MHE HPI [facility] History of Present Illness Ruben Horan is a 32 year old male the emergency department with the following report: Chief Complaint: Psychiatric Symptoms Stated Complaint: MHE Time Seen by Provider: 01/01/23 22:41 Source: patient Mode of arrival: ambulatory Limitations: no limitations History of Present Illness: 32-year-old male who is here he states he has been under a lot of stress since he has been feeling extremely paranoid he does have a history of schizophrenia he states that he has been hearing some worse he states he is also been having suicidal ideations he denies a specific plan but states he has been having suicidal thoughts he is very paranoid here as well. Associated symptoms: Reports depression and suicidal ideation. He was admitted to the neuropsychiatric unit for definitive treatment of those issues. He was last seen by this chart writer about 7 weeks ago. He presents as he often does, quite isolative and lying in bed. He is not a great historian but certainly pleasant when awoken reporting recent depression and having not been taking his medications appropriately reporting that he is feeling better or was feeling better and was kind feel like he did not need them. He denied sig nificant changes in his life and excerpt of the discharge summary is included below for context. He was open to restarting his medication including the injection. We agreed we will work with the treatment team to identify what kinds of supports might be helpful to avoid this type of recurrence. He was negative but drug screen not obtained we will request. Per his 11/12/2022 [facility] inpatient psychiatric discharge summary: Discharge Diagnosis (1) Suicidal ideation: Status: Resolved (2) History of command hallucinations: Status: Acute (3) Chronic schizophrenia: Status: Acute (4) Depression: Status: Acute (5) Cannabis abuse: Status: Acute (6) Methamphetamine abuse: Status: Acute (7) Psychiatric care: Status: Inactive (8) Posttraumatic stress disorder: Status: Acute Reason for Visit Reason for Visit: psych evlaution 96 himself. Brief History: History of Present Illness Ruben Horan is a 32 year old male who presented to the emergency department with the following report: Chief Complaint: Psychiatric Symptoms Stated Complaint: Would like to 96 himself. Time Seen by Provider: 11/06/22 06:49 Source: patient Mode of arrival: ambulatory History of Present Illness: 32-year-old male history of schizophrenia presents emergency room initially is asking to be 96. Difficult to get a coherent history from he has a advance a full flight of ideas that are all tangential. He does admit to not having been taking his medications. Similar previous presentations to the emergency room. He is also having some auditory and visual hallucinations although he will not give me specifics on what the voices are telling him. Hallucinations are also similar to what he has presented with in the past. No homicidal or suicidal ideation at this time. Onset (ago): unknown Duration: constant History of same: Yes Relieving factors: none Exacerbating factors: none Context: not taking psychiatric medications Associated psychiatric symptoms: racing thoughts, auditory hallucinations, visual hallucinations and delusions Associated symptoms: Reports auditory hallucinations, visual hallucinations, delusions and racing thoughts Treatments prior to arrival: none. He presented today fully disorganized and unable to ability to stay in the interview. Increasing from his door making gestures to people walking by as if he was conducting magic. He appeared very guarded when approached and was unable to muster any reasonable answers to basic questions. An excerpt of his previous hospitalization is included below for context and given his inability as a historian. Per his 03/08/2022 [facility] inpatient psychiatric evaluation: History of Present Illness Ruben Horan is a 31 year old male admitted through our emergency department with the following report: Mr. Horan is a 31-year-old gentleman with significant past medical history of schizophrenia who presents the emergency department due to worsening hallucinations. He reports compliance with his medication regimen however baseline there are perhaps intermittent hallucinations. Over the past day these have worsened and are telling him to kill himself. Therefore he has thought about killing himself. He otherwise denies medical complaints or injuries. He has not acted on any suicide attempt. Overall the course of symptoms has worsened. Intensity is moderate. No other specific changes in health, exacerbating, or alleviating factors identified. He was admitted to the neuropsychiatry unit for definitive treatment of these issues. He initially said that he has been taking his medications. However, he then stated that he stopped taking the Invega about 5 days ago because it made him drowsy when he took it in the morning. He agreed to change that to bedtime. He also stopped taking the Prozac because he felt it was not helping his anxiety. He has been taking that hydroxyzine which does seem to help. He later said that he has been taking a green and white capsule that have been helping his anxiety. He agreed to restart the Prozac. He said that his voices have not been too bad but yesterday at noon these came back very bad. He says he had been somewhat stressed out because it normal normal base events. He said that he did not have coping mechanisms to use when he was stressed out. He had a therapy appointment after his last admission but he did not keep it. He says that the voices are better today but still there and worse than normal and he denies suicidal ideation. Below is his discharge summary from the last hospitalization in January. Diagnoses at Discharge Discharge Diagnosis (1) Chronic schizophrenia: Status: Acute (2) Depression: Status: Acute (3) Cannabis abuse: Status: Acute (4) Methamphetamine abuse: Status: Acute (5) Posttraumatic stress disorder: Status: Acute Reason for Visit Reason for Visit: SI Brief History: History of Present Illness: HPI Narrative: Patient is a 31-year-old male who presents to ED today stating he is suicidal. He states suicidal thoughts of been present over the past 2 to 3 days. He states he has a lot going on right now that he refuses to elaborate on. He has no specific plan at the moment. He does endorse previous suicide attempts. Patient has a history of chronic schizophrenia. He is not complaining of hallucinations or psychotic symptoms currently. He denies homicidal ideations. MD complaint: suicidal ideation Onset (ago): day(s) Duration: constant History of same: Yes Context: significant life stressor Associated psychiatric symptoms: depression and suicidal ideation Associated symptoms: Reports depression and suicidal ideation; Deny auditory hallucinations or homicidal ideation Treatments prior to arrival: none If self harm: admits thoughts of self harm He was admitted to the neuropsychiatry unit for medication treatment of these issues. He was released from this hospital in October on Zyprexa 15 mg daily and Lexapro 40 mg daily. He said that he did okay for almost a month but had depression and worsening auditory hallucinations again. He came to our emergency room did not have beds and he was sent to [facility]. He said that he was there for about 1 week. He says that family discharged him on Vistaril 50 mg 100 mg at bedtime and trazodone. He said that even with that the voices were improved for about 1 week. However after 1 week started having depression for hallucinations again and now is back in the hospital. He says that he thinks the Invega 6 mg that he was released on in November 2024 depressed. He was able to stay out of the hospital for about 8 months. He was not on antidepressant at that time. When he was admitted in June 2021 he said that he had been noncompliant with his medications most of the time since his last hospitalization. He has not been able to stay out of the hospital for very long since then. He also was not taking medications when he came back into the hospital October of last year. He says that he has been compliant with his medications since then but has never been able to stay out of the hospital for a few weeks. He is currently drug screen has been consistently positive for marijuana but no other drugs. To try back to the Invega. Hospital Course Hospital Course He slowly acclimated to the individual, group and milieu therapies provided. He was started on Invega 6 mg in the morning. He requested a regional climate change analyst from Lexapro to Prozac. He remembers taking a white and green capsule some years ago that was helpful for his anxiety. He tolerated these doses and showed steady improvement during his stay. He was able to contract for safety outside hospital prior to discharge. During the hospitalization, patient had routine laboratory studies which were within normal limits except for few outliers. Additionally there was a general medical evaluation which was also within normal limits and revealed no new acute processes. Discharge Summary: At the time of discharge, lethality was denied and psychosis was resolving. Mood and anxiety were well managed. Patient endorsed a plan to follow-up with the aftercare recommendations of the treatment team. Patient was evaluated and deemed to be absent credible lethality, and had achieved the maximum benefit from an inpatient hospitalization, so was discharged. Hospital Course Hospital Course He slowly acclimated to the individual, group and milieu therapies provided. He was restarted on Invega 6 mg and prozac 20 mg. He was fairly psychotic when he arrived likely representing drug use and nonadherence. He showed very quick/immediate and significant improvement during his stay. He was able to contract for safety, outside of the hospital, prior to discharge. During the hospitalization, patient had routine laboratory studies which were within normal limits except for few outliers. Additionally there was a general medical ev aluation which was also within normal limits and revealed no new acute processes. Discharge Summary: At the time of discharge, lethality was denied and psychosis was resolving. Mood and anxiety were well managed. Patient endorsed a plan to follow-up with the aftercare recommendations of the treatment team. Patient was evaluated and deemed to be absent credible lethality, and had achieved the maximum benefit from an inpatient hospitalization, so was discharged. Meds [facility] Home Medications Medication Instructions Recorded Confirmed Last Taken Type fluoxetine 20 mg capsule 20 mg PO DAILY 30 days #30 caps 11/12/22 01/02/23 01/01/23 Rx hydroxyzine pamoate 25 mg capsule 50 mg PO Q6H PRN Anxiety 30 days 11/12/22 0 01/02/23 Unknown Rx #60 caps paliperidone 6 mg tablet,extended 6 mg PO 1700 7 days #7 tabs 11/12/22 01/02/23 01/01/23 Rx release 24 hr (Invega) paliperidone palmitate 156 mg/mL 156 mg IM Q30D 30 days #1 mL 11/12/22 01/02/23 11/12/22 Rx intramuscular syringe (Invega Sustenna) trazodone 100 mg tablet 100 mg PO BEDTIME 30 days #30 tabs 11/12/22 01/02/23 01/01/23 Rx Allergies Allergy/AdvReac Type Severity Reaction Status Date / Time nickel Allergy ALGY-Rash Verified 11/14/22 09:47 PFSH [facility] PFSH: Medical History Cannabis abuse Depression Methamphetamine abuse Posttraumatic stress disorder Psychiatric care Schizophrenia Family History Family/Other Anesthesia complication Lung disease Psychiatric illness Grandmother CAD (coronary artery disease) Cancer Lung disease Grandfather Clotting disorder Diabetes Hyperlipidemia Hypertension Stroke Denies family history of Dementia Chronic kidney disease (CKD) Bleeding disorder Social History Smoking and tobacco status: current every day smoker cigarettes Packs smoked per day: 1 [ Other cigarette details: 1PPD, 7PY] Alcohol intake: never Desire information about alcohol rehabilitation?: No Desire information about substance/drug rehabilitation?: No Lives independently: Yes Marital status: Single Number of children: 1 Current occupational status: unemployed Current gender identity: Male Mental Status Exam MSE Comments: This is an obese, white male in hospital scrubs with limited grooming and eye contact. No abnormal movements, except for mild psychomotor retardation. Cooperative with exam in no acute distress. Speech was decreased rate and volume. Mood not described; affect bizarre. Thought process, mostly organized. Thought content: patient did not answer questions directly but had no signs aggression toward self or others and there were no delusions reported or noted, he appeared to be attending to internal stimuli. Attention, concentration, and memory appeared impaired but were not formally tested. He is alert but not oriented to person and place. Insight and judgment are impaired, impulse control is impaired. Vitals/I&O/Wt Last Vital Signs Temp 97.8 F 01/02/23 14:00 Pulse 95 01/02/23 14:00 Resp 18 01/02/23 14:00 BP 122/82 01/02/23 14:00 Pulse Ox 96 01/02/23 14:00 O2 Del Method 01/02/23 14:00 Weight last 48 hrs Weight 113.115 kg Weight 136.078 kg Data [facility] 01/01/23 22:50 01/01/23 22:50 A&P Assessment and plan (1) Suicidal ideation: (2) History of command hallucinations: (3) Chronic schizophrenia: (4) Depression: (5) Cannabis abuse: (6) Methamphetamine abuse: (7) Psychiatric care: (8) Posttraumatic stress disorder: Plan This is a 32-year-old male who comes in for worsening depression with a history of psychosis, addiction and frequent hospitalizations. Plan: 1. Continue current medication. 2. Continue every 15 minute checks for safety. 3. Encourage individual, group and milieu therapies. 4. Encourage sober living treatment after discharge at the highest level of care to which he is willing to commit. 5. We will monitor for safety for himself in the community prior to discharge. Involuntary Hold Information 96 Hour Hold: 96 Hour Involuntary Admission: Yes 96 Hour Hold Ending Date: 01/07/23 96 Hour Hold Ending Time: 00:00 Attestations [facility] Medical Necessity Statement*: Inpatient hospitalization is medically necessary and the clinically appropriate intervention at this time. We will initiate medications and make changes as indicated. He will be in the hospital for over 2 midnights. Likely length of stay 5-7 days Coding Level of Care Code Acute Code for Chg Fwd Diagnoses Suicidal ideation R45.851 History of command hallucinations Z86.59 Chronic schizophrenia F20.9 Depression F32.9 Cannabis abuse F12.10 Methamphetamine abuse F15.10 Psychiatric care Posttraumatic stress disorder F43.10
[2023-01-02] MEDS: paliperidone ER 6 mg Tablet PO (17:06)
[2023-01-03] MEDS: acetaminophen 325 mg Tablet 650 MG PO ×2 (08:25→16:36)
[2023-01-03] MEDS: fluoxetine 20 mg Capsule PO (08:26)
--- NOTE | 2023-01-03 09:06 | W.PM.NPUPNS ---
Subjective NPU Subjective: Patient presented today essentially unchanged. Like previous hospitalizations he continues to be isolative in his bed as this hospitalization has started. We continue encouraged him to interact and participate. He denies any changes in how he feels but we discussed the fact that we just restarted his medications and he was behind in his injection. Mental Status Exam MSE Comments: This is an obese, white male in hospital scrubs with limited grooming and eye contact. No abnormal movements, except for mild psychomotor retardation. Cooperative with exam in no acute distress. Speech was decreased rate and volume. Mood not described; affect bizarre. Thought process, mostly organized. Thought content: patient did not answer questions directly but had no signs aggression toward self or others and there were no delusions reported or noted, he appeared to be attending to internal stimuli. Attention, concentration, and memory appeared impaired but were not formally tested. He is alert but not oriented to person and place. Insight and judgment are impaired, impulse control is impaired. Vitals/I&O/Wt Last Vital Signs Temp 97.8 F 01/02/23 14:00 Pulse 95 01/02/23 14:00 Resp 18 01/02/23 14:00 BP 122/82 01/02/23 14:00 Pulse Ox 96 01/02/23 14:00 O2 Del Method 01/02/23 14:00 Weight last 48 hrs Weight 113.115 kg Weight 136.078 kg Data NPU 01/01/23 22:50 01/01/23 22:50 A&P Assessment and plan (1) Suicidal ideation: (2) History of command hallucinations: (3) Chronic schizophrenia: (4) Depression: (5) Cannabis abuse: (6) Methamphetamine abuse: (7) Psychiatric care: (8) Posttraumatic stress disorder: Plan This is a 32-year-old male who comes in for worsening depression with a history of psychosis, addiction and frequent hospitalizations. Plan: 1. Continue current medication. 2. Continue every 15 minute checks for safety. 3. Encourage individual, group and milieu therapies. 4. Encourage sober living treatment after discharge at the highest level of care to which he is willing to commit. 5. We will monitor for safety for himself in the community prior to discharge. Involuntary Hold Information 96 Hour Hold: 96 Hour Involuntary Admission: Yes 96 Hour Hold Ending Date: 01/07/23 96 Hour Hold Ending Time: 00:00 Attestations NPU Medical Necessity Statement*: Inpatient hospitalization is medically necessary and the clinically appropriate intervention at this time. We will initiate medications and make changes as indicated. Likely length of stay 5-7 days Coding Level of Care Code Acute Code for Chg Fwd Diagnoses Suicidal ideation R45.851 History of command hallucinations Z86.59 Chronic schizophrenia F20.9 Depression F32.9 Cannabis abuse F12.10 Methamphetamine abuse F15.10 Psychiatric care Posttraumatic stress disorder F43.10
[2023-01-03] MEDS: ibuprofen 600 mg Tablet PO (12:39)
[2023-01-03 14:00] VITALS: BP 134/87; PULSE 100; RESP 18; TEMP 36.7; O2SAT 98
[2023-01-03] MEDS: paliperidone palmitate 156 mg Syringe IM (16:14)
[2023-01-03] MEDS: paliperidone ER 6 mg Tablet PO (18:40)
[2023-01-03] MEDS: trazodone 100 mg Tablet PO (22:27)
[2023-01-04] MEDS: ibuprofen 600 mg Tablet PO ×2 (05:15→12:44)
[2023-01-04 05:51] VITALS: BP 116/80; PULSE 87; RESP 17; TEMP 37.1; O2SAT 96
[2023-01-04] MEDS: acetaminophen 325 mg Tablet 650 MG PO (08:58)
[2023-01-04] MEDS: fluoxetine 20 mg Capsule PO (08:58)
--- NOTE | 2023-01-04 12:29 | P.NPUPN_ITS ---
Subjective NPU Subjective: Patient presented today reporting that he is starting to feel a little bit better. It seems that may be accurate because this was the first day that he was not mostly completely covered during the interview he actually pulled the blanket down and had some effective eye contact. He reports that he is doing fine with the medication being restarted and reports having less psychotic symptoms. Mental Status Exam MSE Comments: This is an obese, white male in hospital scrubs with limited grooming and eye contact. No abnormal movements, except for mild psychomotor retardation. Cooperative with exam in no acute distress. Speech was decreased rate and volume. Mood not described as a little better; affect less bizarre. Thought process, mostly organized. Thought content: He denies suicidal or homic idal ideation, and there were no delusions reported or noted, he did not appeared to be attending to internal stimuli. Attention, concentration, and memory appeared impaired but were not formally tested. He is alert but not oriented to person and place. Insight and judgment are impaired, impulse control is impaired. Vitals/I&O/Wt Last Vital Signs Temp 98.7 F 01/04/23 05:51 Pulse 87 01/04/23 05:51 Resp 17 01/04/23 05:51 BP 116/80 01/04/23 05:51 Pulse Ox 96 01/04/23 05:51 O2 Del Method 01/04/23 05:51 Data NPU 01/01/23 22:50 01/01/23 22:50 A&P Assessment and plan (1) Suicidal ideation: (2) History of command hallucinations: (3) Chronic schizophrenia: (4) Depression: (5) Cannabis abuse: (6) Methamphetamine abuse: (7) Psychiatric care: (8) Posttraumatic stress disorder: Plan This is a 32-year-old male who comes in for worsening depression with a history of psychosis, addiction and frequent hospitalizations. Plan: 1. Continue current medication. 2. Continue every 15 minute checks for safety. 3. Encourage individual, group and milieu therapies. 4. Encourage sober living treatment after discharge at the highest level of care to which he is willing to commit. 5. We will monitor for safety for himself in the community prior to discharge. Involuntary Hold Information 96 Hour Hold: 96 Hour Involuntary Admission: Yes 96 Hour Hold Ending Date: 01/07/23 96 Hour Hold Ending Time: 00:00 Attestations NPU Medical Necessity Statement*: Inpatient hospitalization is medically necessary and the clinically appropriate intervention at this time. We will initiate medications and make changes as indicated. Likely length of stay 4-6 days Coding Level of Care Code Acute Code for Chg Fwd Diagnoses Suicidal ideation R45.851 History of command hallucinations Z86.59 Chronic schizophrenia F20.9 Depression F32.9 Cannabis abuse F12.10 Methamphetamine abuse F15.10 Psychiatric care Posttraumatic stress disorder F43.10
[2023-01-04 13:47] VITALS: BP 134/74; PULSE 70; RESP 18; TEMP 36.6; O2SAT 96
[2023-01-04] MEDS: paliperidone ER 6 mg Tablet PO (17:01)
[2023-01-04] MEDS: trazodone 100 mg Tablet PO (21:37)
[2023-01-05 05:52] VITALS: RESP 18
[2023-01-05] MEDS: acetaminophen 325 mg Tablet 650 MG PO (08:47)
[2023-01-05] MEDS: fluoxetine 20 mg Capsule PO (08:48)
[2023-01-05] MEDS: ibuprofen 600 mg Tablet PO ×2 (10:22→16:56)
[2023-01-05] MEDS: OLANZapine 5 mg ODT PO (10:22)
--- NOTE | 2023-01-05 12:36 | P.NPUPN_ITS ---
Subjective NPU Subjective: Patient presented today reporting that he is starting to feel better. It is notable that after spending several days with a blanket over his head and mostly in bed he is now being more engaging on the unit and less isolative. He is taking the medication and reporting less symptoms. We discu ssed his 96-hour hold being over on Saturday and is having no inclination to force him to stay after that but we agreed we would discuss whether he is ready on Saturday. Mental Status Exam MSE Comments: This is an versus obese, white male in hospital scrubs with limited grooming and eye contact. No abnormal movements, except for mild psychomotor retardation. Cooperative with exam in no acute distress. Speech was decreased rate and volume. Mood described as a little better; affect less bizarre. Thought process, mostly organized. Thought content: He denies suicidal or homicidal ideation, and there were no delusions reported or noted, he did not appeared to be attending to internal stimuli. Attention and concentration improving and memory appeared more reliable but were not formally tested. He is alert but oriented to person and place. Insight and judgment are improving, impulse control is impaired. Vitals/I&O/Wt Last Vital Signs Temp 98 F 01/04/23 13:47 Pulse 70 01/04/23 13:47 Resp 18 01/05/23 05:52 BP 134/74 01/04/23 13:47 Pulse Ox 96 01/04/23 13:47 O2 Del Method 01/04/23 13:47 Data NPU 01/01/23 22:50 01/01/23 22:50 A&P Assessment and plan (1) Suicidal ideation: (2) History of command hallucinations: (3) Chronic schizophrenia: (4) Depression: (5) Cannabis abuse: (6) Methamphetamine abuse: (7) Psychiatric care: (8) Posttraumatic stress disorder: Plan This is a 32-year-old male who comes in for worsening depression with a history of psychosis, addiction and frequent hospitalizations. Plan: 1. Continue current medication. 2. Continue every 15 minute checks for safety. 3. Encourage individual, group and milieu therapies. 4. Encourage sober living treatment after discharge at the highest level of care to which he is willing to commit. 5. We will monitor for safety for himself in the community prior to discharge. Involuntary Hold Information 96 Hour Hold: 96 Hour Involuntary Admission: Yes 96 Hour Hold Ending Date: 01/07/23 96 Hour Hold Ending Time: 00:00 Attestations NPU Medical Necessity Statement*: Inpatient hospitalization is medically necessary and the clinically appropriate intervention at this time. We will initiate medications and make changes as indicated. Likely length of stay 3-5 days Coding Level of Care Code Acute Code for Chg Fwd Diagnoses Suicidal ideation R45.851 History of command hallucinations Z86.59 Chronic schizophrenia F20.9 Depression F32.9 Cannabis abuse F12.10 Methamphetamine abuse F15.10 Psychiatric care Posttraumatic stress disorder F43.10
[2023-01-05 14:00] VITALS: BP 112/75; PULSE 98; RESP 16; TEMP 36.6; O2SAT 98
[2023-01-05 15:23] LABS: Add Urine Culture? No; Bacteria Urine TRACE /hpf; Bilirubin Urine Neg (Negative); Blood Urine Neg (Negative); Glucose Urine UA Norm (Normal); Ketones Urine Negative (Negative); Leukocyte Esterase Urine Negative (Negative); Nitrate Urine Negative (Negative); Protein Urine Neg (Negative); Specific Gravity, Urine 1.015 (1.005-1.030); Urine Appearance Clear (CLEAR); Urine Color Straw (Yellow); Urobilinogen Urine Norm (Negative); pH Urine 5 (5-7)
[2023-01-05 15:49] LABS: Amphetamines Screen Urine Negative (Negative); Barbiturates Screen Urine Negative (Negative); Benzodiazepines Screen Urine Negative (Negative); Cocaine Screen Urine Negative (Negative); Opiate Screen Urine Negative (Negative); PCP Screen Urine Negative (Negative); THC Screen Urine Positive (Negative)
[2023-01-05] MEDS: paliperidone ER 6 mg Tablet PO (16:56)
[2023-01-05 20:07] VITALS: RESP 16
[2023-01-05] MEDS: trazodone 100 mg Tablet PO (20:41)
[2023-01-06 05:23] VITALS: RESP 16
[2023-01-06] MEDS: acetaminophen 325 mg Tablet 650 MG PO (06:18)
[2023-01-06] MEDS: fluoxetine 20 mg Capsule PO (07:35)
[2023-01-06] MEDS: ibuprofen 600 mg Tablet PO ×2 (07:37→16:35)
--- NOTE | 2023-01-06 07:39 | PC.NURSE ---
shift assessment denies SI/HI but stated some hallucinations currently, stated he's seeing some things does not appear to be responding to internal stimuli
--- NOTE | 2023-01-06 11:35 | W.PM.NPUPNS ---
Subjective NPU Subjective: Patient presented today reporting that he is feeling better. Spending much more time outside of his room and coming from under the covers. He was much more conversant and open to conversations about treatment. We discussed again his 96-hour hold being up tomorrow and thus leading to either have him sign in or discharge. He reported that he would work with us on getting him on track with discharge planning with the treatment team who will be in tomorrow. Mental Status Exam MSE Comments: This is an versus obese, white male in hospital scrubs with limited grooming and eye contact. No abnormal movements, except for mild psychomotor retardation. Cooperative with exam in no acute distress. Speech was decreased rate and volume. Mood described as a little better; affect less bizarre. Thought process, mostly organized. Thought content: He denies suicidal or homicidal ideation, and there were no delusions reported or noted, he did not appear to be attending to internal stimuli. Attention and concentration are improving and memory appeared more reliable but were not formally tested. He is alert but oriented to person and place. Insight and judgment are improving, impulse control is impaired. Vitals/I&O/Wt Last Vital Signs Temp 97.8 F 01/05/23 14:00 Pulse 89 01/05/23 14:00 Resp 18 01/06/23 05:59 BP 135/90 01/05/23 14:00 Pulse Ox 98 01/05/23 14:00 O2 Del Method 01/05/23 14:00 Weight last 48 hrs Weight 114.487 kg Data NPU 01/01/23 22:50 01/01/23 22:50 A&P Assessment and plan (1) Suicidal ideation: (2) History of command hallucinations: (3) Chronic schizophrenia: (4) Depression: (5) Cannabis abuse: (6) Methamphetamine abuse: (7) Psychiatric care: (8) Posttraumatic stress disorder: Plan This is a 32-year-old male who comes in for worsening depression with a history of psychosis, addiction and frequent hospitalizations. Plan: 1. Continue current medication. 2. Continue every 15 minute checks for safety. 3. Encourage individual, group and milieu therapies. 4. Encourage sober living treatment after discharge at the highest level of care to which he is willing to commit. 5. We will monitor for safety for himself in the community prior to discharge. Involuntary Hold Information 96 Hour Hold: 96 Hour Involuntary Admission: Yes 96 Hour Hold Ending Date: 01/07/23 96 Hour Hold Ending Time: 00:00 Attestations NPU Medical Necessity Statement*: Inpatient hospitalization is medically necessary and the clinically appropriate intervention at this time. We will initiate medications and make changes as indicated. Likely length of stay 2-4 days Coding Level of Care Code Acute Code for Chg Fwd Diagnoses Suicidal ideation R45.851 History of command hallucinations Z86.59 Chronic schizophrenia F20.9 Depression F32.9 Cannabis abuse F12.10 Methamphetamine abuse F15.10 Psychiatric care Posttraumatic stress disorder F43.10
[2023-01-06] MEDS: hyDROXYzine 25 mg Capsule 50 MG PO (11:59)
--- NOTE | 2023-01-06 12:00 | PC.NURSE ---
PRN VISTARIL 50 MG GIVEN PO PER PT C/O STATED ANXIETY BUT NO OUTWARD S/S OF ANXIETY NOTED, INITIALLY PATIENT ASKED STAFF FOR SOMETHING FOR GROGGINESS BUT THEN ASKED FOR SOMETHING FOR ANXIETY
[2023-01-06 14:00] VITALS: RESP 18
[2023-01-06] MEDS: paliperidone ER 6 mg Tablet PO (16:30)
[2023-01-06] MEDS: nicotine 2 mg Gum BUCCAL (17:01)
[2023-01-06] MEDS: trazodone 100 mg Tablet PO (20:53)
[2023-01-06 21:51] VITALS: RESP 18
[2023-01-07] MEDS: hyDROXYzine 25 mg Capsule 50 MG PO ×2 (02:13→08:26)
[2023-01-07 05:59] VITALS: BP 135/90; PULSE 89; RESP 18; TEMP 36.6; O2SAT 98
[2023-01-07] MEDS: fluoxetine 20 mg Capsule PO (08:12)
[2023-01-07] MEDS: acetaminophen 325 mg Tablet 650 MG PO ×2 (08:13→15:12)
[2023-01-07] MEDS: nicotine 2 mg Gum BUCCAL (08:26)
[2023-01-07] MEDS: ibuprofen 600 mg Tablet PO ×2 (12:43→18:40)
[2023-01-07 14:00] VITALS: RESP 17
[2023-01-07] MEDS: paliperidone ER 6 mg Tablet PO (17:19)
--- NOTE | 2023-01-07 17:27 | W.PM.NPUPNS ---
Subjective NPU Subjective: Patient presented today reporting that things were going well and reported that he was open to the possibility discharge tomorrow. We discussed transportation arrangements and arrangements for his monthly injectable. He worked with arrangements with the treatment team and we agreed to discharge in the morning. Reports he is sleeping better and eating fine. He is much more alert and interactive on the unit. Mental Status Exam MSE Comments: This is an overweight versus obese, white male in hospital scrubs with improving grooming and eye contact. No abnormal movements. Cooperative with exam in no acute distress. Speech was slightly decreased rate and normal volume. Mood described as better; affect brighter. Thought process, organized. Thought content: He denies suicidal or homicidal ideation, and there were no delusions reported or noted, he did not appear to be attending to internal stimuli. Attention and concentration are improving and memory appeared more reliable but were not formally tested. He is alert but oriented x3. Insight and judgment are improving, impulse control is limited but improving. Vitals/I&O/Wt Last Vital Signs Temp 97.8 F 01/07/23 05:59 Pulse 89 01/07/23 05:59 Resp 17 01/07/23 14:00 BP 135/90 01/07/23 05:59 Pulse Ox 98 01/07/23 05:59 O2 Del Method 01/05/23 14:00 Weight last 48 hrs Weight 114.487 kg Data NPU 01/01/23 22:50 01/01/23 22:50 A&P Assessment and plan (1) Suicidal ideation: (2) History of command hallucinations: (3) Chronic schizophrenia: (4) Depression: (5) Cannabis abuse: (6) Methamphetamine abuse: (7) Psychiatric care: (8) Posttraumatic stress disorder: Plan This is a 32-year-old male who comes in for worsening depression with a history of psychosis, addiction and frequent hospitalizations. Plan: 1. Continue current medication. 2. Continue every 15 minute checks for safety. 3. Encourage individual, group and milieu therapies. 4. Encourage sober living treatment after discharge at the highest level of care to which he is willing to commit. Involuntary Hold Information 96 Hour Hold: 96 Hour Involuntary Admission: Yes 96 Hour Hold Ending Date: 01/07/23 96 Hour Hold Ending Time: 00:00 Attestations NPU Medical Necessity Statement*: Inpatient hospitalization is medically necessary and the clinically appropriate intervention at this time. We will initiate medications and make changes as indicated. Likely length of stay 1-3days. Plan for discharge in the morning. Coding Level of Care Code Acute Code for g Fwd Diagnoses Suicidal ideation R45.851 History of command hallucinations Z86.59 Chronic schizophrenia F20.9 Depression F32.9 Cannabis abuse F12.10 Methamphetamine abuse F15.10 Psychiatric care Posttraumatic stress disorder F43.10
[2023-01-07] MEDS: trazodone 100 mg Tablet PO (20:17)
[2023-01-08 06:00] VITALS: RESP 16
[2023-01-08 07:32] VITALS: RESP 16
[2023-01-08 07:33] VITALS: BP 135/90; PULSE 89; RESP 16; TEMP 36.6; O2SAT 98
[2023-01-08] MEDS: nicotine 2 mg Gum BUCCAL (08:26)
[2023-01-08] MEDS: acetaminophen 325 mg Tablet 650 MG PO (08:26)
[2023-01-08] MEDS: fluoxetine 20 mg Capsule PO (08:26)
--- NOTE | 2023-01-08 11:15 | P.NPUDS_ITS ---
Diagnoses at Discharge Discharge Diagnosis (1) Suicidal ideation: Status: Resolved (2) History of command hallucinations: Status: Acute (3) Chronic schizophrenia: Status: Acute (4) Depression: Status: Acute (5) Cannabis abuse: Status: Acute (6) Methamphetamine abuse: Status: Inactive (7) Psychiatric care: Status: Inactive (8) Posttraumatic stress disorder: Status: Acute Reason for Visit Reason for Visit: MHE Brief History: History of Present Illness Ruben Horan is a 32 year old male the emergency department with the following report: Chief Complaint: Psychiatric Symptoms Stated Complaint: MHE Time Seen by Provider: 01/01/23 22:41 Source: patient Mode of arrival: ambulatory Limitations: no limitations History of Present Illness: 32-year-old male who is here he states he has been under a lot of stress since he has been feeling extremely paranoid he does have a history of schizophrenia he states that he has been hearing some worse he states he is also been having suicidal ideations he denies a specific plan but states he has been having suicidal thoughts he is very paranoid here as well. Associated symptoms: Reports depression and suicidal ideation. He was admitted to the neuropsychiatric unit for definitive treatment of those issues. He was last seen by this inspector automatic typewriter about 7 weeks ago. He presents as he often does, quite isolative and lying in bed. He is not a great historian but certainly pleasant when awoken reporting recent depression and having not been taking his medications appropriately reporting that he is feeling better or was feeling better and was kind feel like he did not need them. He denied significant changes in his life and excerpt of the discharge summary is included below for context. He was open to restarting his medication including the injection. We agreed we will work with the treatment team to identify what kinds of supports might be helpful to avoid this type of recurrence. He was negative but drug screen not obtained we will request. Per his 11/12/2022 [facility] inpatient psychiatric discharge summary: Discharge Diagnosis (1) Suicidal ideation: Status: Resolved (2) History of command hallucinations: Status: Acute (3) Chronic schizophrenia: Status: Acute (4) Depression: Status: Acute (5) Cannabis abuse: Status: Acute (6) Methamphetamine abuse: Status: Acute (7) Psychiatric care: Status: Inactive (8) Posttraumatic stress disorder: Status: Acute Reason for Visit Reason for Visit: psych evlaution 96 himself. Brief History: History of Present Illness Ruben Horan is a 32 year old male who presented to the emergency department with the following report: Chief Complaint: Psychiatric Symptoms Stated Complaint: Would like to 96 himself. Time Seen by Provider: 11/06/22 06:49 Source: patient Mode of arrival: ambulatory History of Present Illness: 32-year-old male history of schizophrenia presents emergency room initially is asking to be 96. Difficult to get a coherent history from he has a advance a full flight of ideas that are all tangential. He does admit to not having been taking his medications. Similar previous presentations to the emergency room. He is also having some auditory and visual hallucinations although he will not give me specifics on what the voices are telling him. Hallucinations are also similar to what he has presented with in the past. No homicidal or suicidal ideation at this time. Onset (ago): unknown Duration: constant History of same: Yes Relieving factors: none Exacerbating factors: none Context: not taking psychiatric medications Associated psychiatric symptoms: racing thoughts, auditory hallucinations, visual hallucinations and delusions Associated symptoms: Reports auditory hallucinations, visual hallucinations, delusions and racing thoughts Treatments prior to arrival: none. He presented today fully disorganized and unable to ability to stay in the interview. Increasing from his door making gestures to people walking by as if he was conducting magic. He appeared very guarded when approached and was unable to muster any reasonable answers to basic questions. An excerpt of his previous hospitalization is included below for context and given his inability as a historian. Per his 03/08/2022 [facility] inpatient psychiatric evaluation: History of Present Illness Ruben Horan is a 31 year old male admitted through our emergency department with the following report: Mr. Horan is a 31-year-old gentleman with significant past medical history of schizophrenia who presents the emergency department due to worsening hallucinations. He reports compliance with his medication regimen however baseline there are perhaps intermittent hallucinations. Over the past day these have worsened and are telling him to kill himself. Therefore he has thought about killing himself. He otherwise denies medical complaints or injuries. He has not acted on any suicide attempt. Overall the course of symptoms has worsened. Intensity is moderate. No other specific changes in health, exacerbating, or alleviating factors identified. He was admitted to the neuropsychiatry unit for definitive treatment of these issues. He initially said that he has been taking his medications. However, he then stated that he stopped taking the Invega about 5 days ago because it made him drowsy when he took it in the morning. He agreed to change that to bedtime. He also stopped taking the Prozac because he felt it was not helping his anxiety. He has been taking that hydroxyzine which does seem to help. He later said that he has been taking a green and white capsule that have been helping his anxiety. He agreed to restart the Prozac. He said that his voices have not been too bad but yesterday at noon these came back very bad. He says he had been somewhat stressed out because it normal normal base events. He said that he did not have coping mechanisms to use when he was stressed out. He had a therapy appointment after his last admission but he did not keep it. He says that the voices are better today but still there and worse than normal and he denies suicidal ideation. Below is his discharge summary from the last hospitalization in January. Diagnoses at Discharge Discharge Diagnosis (1) Chronic schizophrenia: Status: Acute (2) Depression: Status: Acute (3) Cannabis abuse: Status: Acute (4) Methamphetamine abuse: Status: Acute (5) Posttraumatic stress disorder: Status: Acute Reason for Visit Reason for Visit: SI Brief History: History of Present Illness: HPI Narrative: Patient is a 31-year-old male who presents to ED today stating he is suicidal. He states suicidal thoughts of been present over the past 2 to 3 days. He states he has a lot going on right now that he refuses to elaborate on. He has no specific plan at the moment. He does endorse previous suicide attempts. Patient has a history of chronic schizophrenia. He is not complaining of hallucinations or psychotic symptoms currently. He denies homicidal ideations. MD complaint: suicidal ideation Onset (ago): day(s) Duration: constant History of same: Yes Context: significant life stressor Associated psychiatric symptoms: depression and suicidal ideation Associated symptoms: Reports depression and suicidal ideation; Deny auditory hallucinations or homicidal ideation Treatments prior to arrival: none If self harm: admits thoughts of self harm He was admitted to the neuropsychiatry unit for medication treatment of these issues. He was released from this hospital in October on Zyprexa 15 mg daily and Lexapro 40 mg daily. He said that he did okay for almost a month but had depression and worsening auditory hallucinations again. He came to our emergency room did not have beds and he was sent to [place]. He said that he was there for about 1 week. He says that family discharged him on Vistaril 50 mg 100 mg at bedtime and trazodone. He said that even with that the voices were improved for about 1 week. However after 1 week started having depression for hallucinations again and now is back in the hospital. He says that he thinks the Invega 6 mg that he was released on in November 2024 depressed. He was able to stay out of the hospital for about 8 months. He was not on antidepressant at that time. When he was admitted in June 2021 he said that he had been noncompliant with his medications most of the time since his last ho spitalization. He has not been able to stay out of the hospital for very long since then. He also was not taking medications when he came back into the hospital October of last year. He says that he has been compliant with his medications since then but has never been able to stay out of the hospital for a few weeks. He is currently drug screen has been consistently positive for marijuana but no other drugs. To try back to the Invega. Hospital Course Hospital Course He slowly acclimated to the individual, group and milieu therapies provided. He was started on Invega 6 mg in the morning. He requested a loom changer from Lexapro to Prozac. He remembers taking a white and green capsule some years ago that was helpful for his anxiety. He tolerated these doses and showed steady improvement during his stay. He was able to contract for safety outside hospital prior to discharge. During the hospitalization, patient had routine laboratory studies which were within normal limits except for few outliers. Additionally there was a general medical evaluation which was also within normal limits and revealed no new acute processes. Discharge Summary: At the time of discharge, lethality was denied and psychosis was resolving. Mood and anxiety were well managed. Patient endorsed a plan to follow-up with the aftercare recommendations of the treatment team. Patient was evaluated and deemed to be absent credible lethality, and had achieved the maximum benefit from an inpatient hospitalization, so was discharged. Hospital Course Hospital Course He slowly acclimated to the individual, group and milieu therapies provided. He presented as he often does destabilized off of his medications though reporting their effectiveness. He was restarted on Invega 6 mg in the morning as well as Prozac 20 mg p.o. daily. He was ultimately started on the Invega Sustenna with a plan to get his next injection next week and get an oral medication for 2 weeks and if that he is having some issues getting the injection. He had significant improvement with those changes and he was able to contract for [employer] outside hospital prior to discharge. During the hospitalization, patient had routine laboratory studies which were within normal limits except for few outliers. Additionally there was a general medical evaluation which was also within normal limits and revealed no new acute processes. Discharge Summary: At the time of discharge, lethality was denied and psychosis was resolving. Mood and anxiety were well managed. Patient endorsed a plan to follow-up with the aftercare recommendations of the treatment team. Patient was evaluated and deemed to be absent credible lethality, and had achieved the maximum benefit from an inpatient hospitalization, so was discharged. Involuntary Hold Information 96 Hour Hold: 96 Hour Involuntary Admission: Yes 96 Hour Hold Ending Date: 01/07/23 96 Hour Hold Ending Time: 00:00 Mental Status Exam MSE Comments: This is an overweight versus obese, white male in hospital scrubs with improving grooming and eye contact. No abnormal movements. Cooperative with exam in no acute distress. Speech was slightly decreased rate and normal volume. Mood described as better; affect brighter. Thought process, organized. Thought content: He denies suicidal or homicidal ideation, and there were no delusions reported or noted, he did not appear to be attending to internal stimuli. Attention and concentration are improving and memory appeared more reliable but were not formally tested. He is alert but oriented x3. Insight and judgment are improving, impulse control is limited but improving. Discharge Data Studies Completed and Pending: Laboratory Results WBC 14.6 10^3/uL (4.0 -10.0) H 01/01/23 22:50 RBC 5.17 10^6/uL (4.1 -5.3) 01/01/23 22:50 Hgb 16.0 g/dL (11.7-1 6.6) 01/01/23 22:50 Hct 46.9 % (42.0-52.0 ) 01/01/23 22:50 MCV 90.7 fl (80-94) 01/01/23 22:50 MCH 30.9 pg (28.0-34. 0) 01/01/23 22:50 MCHC 34.1 g/dL (30.0-3 6.0) 01/01/23 22:50 RDW 12.3 % (12.1-15.1 ) 01/01/23 22:50 Plt Count 249 10^3/cmm (130 -400) 01/01/23 22:50 MPV 10.0 fL (7.4-10.4 ) 01/01/23 22:50 Neut % (Auto) 66.1 % 01/01/23 22:50 Lymph % (Auto) 22.9 % 01/01/23 22:50 [place] % (Auto) 8.7 % 01/01/23 22:50 Eos % (Auto) 1.4 % 01/01/23 22:50 Baso % (Auto) 0.4 % 01/01/23 22:50 Neut # (Auto) 9.62 10^3/uL (1.8 -7.7) H 01/01/23 22:50 Lymph # (Auto) 3.3 10^3/uL (0.8- 4.8) 01/01/23 22:50 [place] # (Auto) 1.3 10^3/uL (0.2- 0.9) H 01/01/23 22:50 Eos # (Auto) 0.2 10^3/uL (0.0- 0.8) 01/01/23 22:50 Baso # (Auto) 0.1 10^3/uL (0.0- 0.1) 01/01/23 22:50 Nucleated RBC % (a uto) 0 % 01/01/23 22:50 Nucleated RBCs # 0.0 /100WBC 01/01/23 22:50 Sodium 137 mmol/L (136-1 45) 01/01/23 22:50 Potassium 3.9 mmol/L (3.5-5 .1) 01/01/23 22:50 Chloride 100 mmol/L (98-10 7) 01/01/23 22:50 Carbon Dioxide 22 mmol/L (22-29) 01/01/23 22:50 Anion Gap 18.9 (5-19) 01/01/23 22:50 BUN 11 mg/dL (6-20) 01/01/23 22:50 Creatinine 0.7 mg/dL (0.7-1. 2) 01/01/23 22:50 GFR Calculation 131.5 mL/min (90- 130) H 01/01/23 22:50 Glucose 101 mg/dL (65-115 ) 01/01/23 22:50 Calculated Osmolal ity 284 mOsm/kg (285- 295) L 01/01/23 22:50 Calcium 9.5 mg/dL (8.5-10 .5) 01/01/23 22:50 Total Bilirubin 0.8 mg/dL (0.15-1 .2) 01/01/23 22:50 AST 17 U/L (0-40) 01/01/23 22:50 ALT 20 U/L (0-41) 01/01/23 22:50 Alkaline Phosphata se 83 U/L (40-130) 01/01/23 22:50 Total Protein 7.7 g/dL (6.6-8.7 ) 01/01/23 22:50 Albumin 4.9 g/dL (3.5-5.2 ) 01/01/23 22:50 Globulin 2.8 g/dL (1.3-4.6 ) 01/01/23 22:50 Urine Color Straw (Yellow) 01/05/23 15:00 Urine Appearance Clear (CLEAR) 01/05/23 15:00 Urine pH 5 (5-7) 01/05/23 15:00 Ur Specific Gravit y 1.015 (1.005-1.0 30) 01/05/23 15:00 Urine Protein Neg (Negative) 01/05/23 15:00 Urine Glucose (UA) Norm (Normal) 01/05/23 15:00 Urine Ketones Negative (Negati ve) 01/05/23 15:00 Urine Blood Neg (Negative) 01/05/23 15:00 Urine Nitrate Negative (Negati ve) 01/05/23 15:00 Urine Bilirubin Neg (Negative) 01/05/23 15:00 Urine Urobilinogen Norm mg/dL (Negat bianca) 01/05/23 15:00 Ur Leukocyte Nette ase Negative (Negati ve) 01/05/23 15:00 Urine RBC None /hpf (0-2) 01/05/23 15:00 Urine WBC None /hpf (0-5) 01/05/23 15:00 Ur Squamous Epith Cells None /hpf (0-5) 01/05/23 15:00 Amorphous Sediment Not Reportable 01/05/23 15:00 Urine Bacteria Trace /hpf (NONE) 01/05/23 15:00 Salicylates 0.5 mg/dL (3-10) L 01/01/23 22:50 Urine Opiates Scre en Negative ng/mL (N egative) 01/05/23 15:00 Acetaminophen < 5.0 ug/mL (10-3 0) L 01/01/23 22:50 Ur Barbiturates Sc reen Negative ng/mL (N egative) 01/05/23 15:00 Ur Phencyclidine S crn Negative ng/mL (N egative) 01/05/23 15:00 Ur Amphetamines Sc reen Negative ng/mL (N egative) 01/05/23 15:00 U Benzodiazepines Scrn Negative ng/mL (N egative) 01/05/23 15:00 Urine Cocaine Scre en Negative ng/mL (N egative) 01/05/23 15:00 U Marijuana (THC) Screen Positive ng/mL (N egative) H 01/05/23 15:00 Ethyl Alcohol < 10 mg/dL (0-10) 01/01/23 22:50 Vitals: Last Vital Signs Temp 97.8 F 01/07/23 05:59 Pulse 89 01/07/23 05:59 Resp 17 01/07/23 14:00 BP 135/90 01/07/23 05:59 Pulse Ox 98 01/07/23 05:59 O2 Del Method 01/05/23 14:00 Discharge Plan Discharge Patient Disposition: Home Condition: Stable Prescriptions: Continued trazodone 100 mg tablet 100 mg PO BEDTIME 30 Days Qty: 30 1RF fluoxetine 20 mg Capsule 20 mg PO DAILY 30 Days Qty: 30 1RF hydroxyzine pamoate 25 mg Capsule 50 mg PO Q6H PRN (Reason: Anxiety) 30 Days Qty: 60 1RF Invega 6 mg tablet extended release 24hr 6 mg PO 1700 14 Days Qty: 14 0RF Rx Instructions: Take for 14 days and then d/c Invega Sustenna 156 mg/mL syringe 156 mg IM Q30D 30 Days Qty: 1 2RF Rx Instructions: next injection 01/31/23 Discharge Orders: Discharge Order (Routine); Ordered 01/08/23 Ordered By: Kleber Tubbs Referrals: [facility] [Outside] - 01/09/23 8:45 am (Check in at 08:45 with Iraida Logan for 7 day follow up on 01/09/23. ) Virgilio Chen MD [Physician] - 02/06/23 8:30 am (Follow up) Discharge Diet: Regular Discharge Activity: Resume usual activity Patient Instructions: Schizophrenia (DC), Suicide Prevention (DC), Opioid Safety Discharge Attestations NPU Time Spent in Discharge Care*: less than 30 min Specific Discharge Activities: Specific discharge activities: educating pat ient, discussing with family service caseworker/social workers/dc planners, documenting/other paperwork and evaluating patient/reviewing data Status at Discharge: Cognitive status at discharge: cognitively intact , Behavioral status at discharge: cooperative , Coding Level of Care Code Acute Chg FW DC note Diagnoses Suicidal ideation R45.851 History of command hallucinations Z86.59 Chronic schizophrenia F20.9 Depression F32.9 Cannabis abuse F12.10 Methamphetamine abuse F15.10 Psychiatric care Posttraumatic stress disorder F43.10
== END 2023-01-08 13:52 | disposition home or self-care (01) | DRG 885 ==
LOC: ER 22:58 → NP 23:41
PROVIDERS: Admitting Provider Psychiatry & Neurology Psychiatry; Emergency Provider Emergency Medicine; Visit Provider Psychiatry & Neurology Psychiatry
DX: F20.9 Schizophrenia, unspecified (principal); R45.851 Suicidal ideations; F32.A Depression, unspecified; F12.10 Cannabis abuse, uncomplicated; F43.10 Post-traumatic stress disorder, unspecified; F17.210 Nicotine dependence, cigarettes, uncomplicated; Z81.8 Family history of other mental and behavioral disorders
CPT/HCPCS: 80053; 80306; 80307; 81001; 85025; 96372; 97150; 97165; 99238; 99285

== ENCOUNTER → 2023-06-27 12:21 | Outpatient (BNVA) | payer OTHER, SELFPAY | PROVIDERS: Visit Provider Nurse Practitioner | DX: Z79.899 Other long term (current) drug therapy (principal) | CPT/HCPCS: 80061; 83036 ==

== ENCOUNTER → 2023-07-26 10:03 | Outpatient (BNVA) | payer OTHER, SELFPAY | PROVIDERS: Visit Provider Nurse Practitioner | DX: Z02.83 Encounter for blood-alcohol and blood-drug test (principal) | CPT/HCPCS: 80306 ==

== ENCOUNTER 2024-01-24 13:55 | Emergency (ER) | payer MEDICAID, SELFPAY ==
[2024-01-24 14:03] VITALS: BP 139/87; PULSE 99; RESP 16; TEMP 36.8; O2SAT 97
--- NOTE | 2024-01-24 14:25 | ED.C_ITS ---
HPI - Psych 2 General: Chief Complaint: Psychiatric Symptoms Stated Complaint: KALE, SI Time Seen by Provider: 01/24/24 14:00 History of Present Illness: Patient presents to the ER with complaints of mental health evaluation. Patient states he got to a big argument with his mother about 3 days ago he took a full bottle of gabapentin and a lot of Tylenol. Nursing stated family said that he slept for about 36 hours and was very hard to awake and they wanted him to come here to be checked out. Patient is actively denying suicidal or homicidal ideation. Patient stated he took in spite of his mother and not as a suicidal attempt. Patient has been hospitalized multiple times of 4 for acute psychosis and schizophrenia. Patient has no complaints at this time and just wants to be checked out to see if if he hurt himself. Review of Systems 2 General: Reports: 10 or more systems reviewed and unremarkable except in HPI and below PFSH ED 2 PFSH: Medical History Alcohol use disorder, mild, abuse Generalized anxiety disorder Psychiatric care Methamphetamine abuse Depression Posttraumatic stress disorder Cannabis abuse Schizophrenia Family History Family/Other Anesthesia complication Lung disease Psychiatric illness Grandmother CAD (coronary artery disease) Cancer Lung disease Grandfather Clotting disorder Diabetes Hyperlipidemia Hypertension Stroke Denies family history of Dementia Chronic kidney disease (CKD) Bleeding disorder Social History Smoking and tobacco/nicotine status: current every day tobacco/nicotine user cigarettes Packs smoked per day: 1 [ Other cigarette details: 1PPD, 7PY] Alcohol intake: never Substance/Drug Use: current Substance/Drug use frequency: daily Lives independently: Yes Marital status: Single Number of children: 1 Current occupational status: unemployed Current gender identity: Male Physical Exam 2 Const: COMMON NORMALS: no acute distress, average body habitus, patient oriented x3, no limitations, healthy appearing, alert and well nourished HENMT: COMMON NORMALS: normocephalic, atraumatic, hearing grossly normal bilaterally, external ears normal, Normal external nose present, moist oral mucous membranes and oropharynx normal HEAD & SCALP: normocephalic and atraumatic NOSE: Normal external nose present EXTERNAL EAR: Yes external ears normal Eye: COMMON NORMALS: Equal, round and reactive pupils present, EOMs intact bilaterally, conjunctivae normal and no scleral icterus CONJUNCTIVA: Yes conjunctivae normal PUPIL: Yes Equal, round and reactive pupils present Neck/C-Spine: COMMON NORMALS: full ROM, no lymphadenopathy, supple, no meningeal signs, no JVD and Thyroid normal THYROID: Thyroid normal Chest: COMMONS NORMALS: normal inspection of the chest and normal palpation of entire chest wall Resp: COMMON NORMALS: normal respiratory effort, No retractions, No use of accessory muscles and clear to auscultation bilaterally AUSCULTATION: clear to auscultation bilaterally Cardio: COMMON NORMALS: no JVD, regular rate, regular rhythm, S1 normal heart sound present, S2 normal heart sound present, No gallops present (Cardio), No clicks present (Cardio), No murmurs present (Cardio) and No rub (Cardio) R ATE: regular rate RHYTHM: regular rhythm HEART SOUNDS: S1 normal heart sound present and S2 normal heart sound present GI: COMMON NORMALS: Normal to inspection, nondistended, normoactive bowel sounds present, Soft to palpation, non-tender, No hepatosplenomegaly present and no masses PALPATION: Yes Soft to palpation and Yes No hepatosplenomegaly present Neuro: COMMON NORMALS: patient oriented x3 SENSORIUM/ORIENTATION: Yes alert MENINGEAL SIGNS: Yes no meningeal signs Course 2 Vital Signs: Vital signs: Vital Signs Temperature 98.2 F 01/24/24 14:03 Pulse Rate 99 01/24/24 14:03 Respiratory Rate 16 01/24/24 14:03 Blood Pressure 139/87 01/24/24 14:03 Pulse Oximetry 97 01/24/24 14:03 Oxygen Delivery Me thod Room Air 01/24/24 14:03 MDM - Psych Medical Decision Making Further history was taken from his parents. They agreed with that they had a fight and he took too many Neurontin to get back of his mother. This was 3 days ago. Neuro Neurontin symptoms will be all out of his system. Patient was worked up with routine blood work which was essentially negative. Patient is denying suicidal or homicidal ideations as well as family members. Patient be discharged home. Differential Diagnosis Likely chronic schizophrenia and depression; Unlikely acute psychosis, suicidal ideation, bipolar disorder, drug-induced psychotic disorder or acute anxiety Medical Records I reviewed the patient's medical records. Lab Data I reviewed the patient's lab results. 01/24/24 14:16 01/24/24 14:16 Laboratory Results WBC 14.70 10^3/uL (3.29-11.43) H 01/24/24 14:16 RBC 5.19 10^6/uL (3.85-5.65) 01/24/24 14:16 Hgb 16.70 g/dL (11.27-16.99) 01/24/24 14:16 Hct 48.7 % (37-53) 01/24/24 14:16 MCV 93.8 fl (82-101) 01/24/24 14:16 MCH 32.2 pg (27-33) 01/24/24 14:16 MCHC 34.3 g/dL (30-55) 01/24/24 14:16 RDW 12.0 % (12.1-15.1) L 01/24/24 14:16 Plt Count 200 10^3/cmm (157-399) 01/24/24 14:16 MPV 9.9 fL (7.4-10.4) 01/24/24 14:16 Neut % (Auto) 80.3 % 01/24/24 14:16 Lymph % (Auto) 12.5 % 01/24/24 14:16 [place] % (Auto) 6.0 % 01/24/24 14:16 Eos % (Auto) 0.4 % 01/24/24 14:16 Baso % (Auto) 0.4 % 01/24/24 14:16 Neut # (Auto) 11.80 10^3/uL (1.8-7.7) H 01/24/24 14:16 Lymph # (Auto) 1.8 10^3/uL (0.8-4.8) 01/24/24 14:16 [place] # (Auto) 0.9 10^3/uL (0.2-0.9) 01/24/24 14:16 Eos # (Auto) 0.1 10^3/uL (0.0-0.8) 01/24/24 14:16 Baso # (Auto) 0.1 10^3/uL (0.0-0.1) 01/24/24 14:16 Nucleated RBC % (auto) 0 % 01/24/24 14:16 Nucleated RBCs # 0.0 /100WBC 01/24/24 14:16 Sodium 140 mmol/L (136-145) 01/24/24 14:16 Potassium 3.8 mmol/L (3.5-5.1) 01/24/24 14:16 Chloride 101 mmol/L (98-107) 01/24/24 14:16 Carbon Dioxide 24 mmol/L (22-29) 01/24/24 14:16 Anion Gap 18.8 (5-19) 01/24/24 14:16 BUN 8 mg/dL (6-20) 01/24/24 14:16 Creatinine 0.8 mg/dL (0.7-1.2) 01/24/24 14:16 GFR Calculation 112.0 mL/min (90-130) 01/24/24 14:16 Glucose 96 mg/dL (65-115) 01/24/24 14:16 Calculated Osmolality 288 mOsm/kg (285-295) 01/24/24 14:16 Calcium 9.0 mg/dL (8.5-10.5) 01/24/24 14:16 Total Bilirubin 0.5 mg/dL (0.15-1.2) 01/24/24 14:16 AST 17 U/L (0-40) 01/24/24 14:16 ALT 17 U/L (0-41) 01/24/24 14:16 Alkaline Phosphatase 96 U/L (40-130) 01/24/24 14:16 Total Protein 7.7 g/dL (6.6-8.7) 01/24/24 14:16 Albumin 4.7 g/dL (3.5-5.2) 01/24/24 14:16 Globulin 3.0 g/dL (1.3-4.6) 01/24/24 14:16 Salicylates < 0.3 mg/dL (3-10) L 01/24/24 14:16 Acetaminophen < 5.0 ug/mL (10-30) L 01/24/24 14:16 Ethyl Alcohol < 10 mg/dL (0-10) 01/24/24 14:16 All radiology interpretation(s) finalized by discharge Discharge Plan Discharge Patient Disposition: Home Clinical Impression: Overdose Qualifiers: Encounter type: initial encounter Injury intent: undetermined intent Qualified Code(s): T50.904A - Poisoning by unspecified drugs, medicaments and biological substances, undetermined, initial encounter Condition: Stable Prescriptions: No Action Invega Sustenna 234 mg/1.5 mL syringe 234 mg IM Q30D Qty: 1.5 2RF fluoxetine [Prozac] 40 mg capsule 40 mg PO DAILY Qty: 30 1RF fluoxetine [Prozac] 20 mg capsule 20 mg PO DAILY Qty: 30 2RF gabapentin 100 mg capsule 100 mg PO DAILY PRN (Reason: anxiety) Qty: 30 0RF Invega 6 mg tablet extended release 24hr 6 mg PO DAILY PRN (Reason: unknown) multivitamin Tablet 1 tab PO DAILY ibuprofen 200 mg Tablet 800 mg PO Q6H PRN (Reason: Pain) Discharge Orders: Discharge ED (Routine); Ordered 01/24/24 Ordered By: Christiano Cronin Patient Instructions: Adult Overdose (ED) Activity Restrictions/Additional Instructions: Your lab work performed in the ER shows your liver and kidneys did not suffer any harm. Please only take prescription medicine as directed. Please do not take more than you are prescribed. Please do not use illegal substances. Coding Level of Care Code ED Service Center Assistant for Pete Ruiz
[2024-01-24 14:33] LABS: Basophils # 0.1 10^3/uL (0.0-0.1); Basophils % 0.4 %; Eosinophils # 0.1 10^3/uL (0.0-0.8); Eosinophils % 0.4 %; Hematocrit 48.7 % (37-53); Lymphocytes # 1.8 10^3/uL (0.8-4.8); Lymphocytes % 12.5 %; Mean Corpuscular HGB Conc 34.3 g/dL (30-55); Mean Corpuscular Hemoglobin 32.2 pg (27-33); Mean Corpuscular Volume 93.8 fl (82-101); Mean Platelet Volume 9.9 fL (7.4-10.4); Monocytes # 0.9 10^3/uL (0.2-0.9); Neutrophils % 80.3 %; Nucleated Red Blood Cells % 0 %; Platelet Count 200 10^3/cmm (157-399); Red Blood Count 5.19 10^6/uL (3.85-5.65)
[2024-01-24 14:48] LABS: Acetaminophen < 5.0 ug/mL (10-30); Alanine Aminotransferase 17 U/L (0-41); Albumin Level 4.7 g/dL (3.5-5.2); Alcohol Level < 10 mg/dL (0-10); Alkaline Phosphatase 96 U/L (40-130); Anion Gap 18.8 (5-19); Aspartate Amino Transferase 17 U/L (0-40); Blood Urea Nitrogen 8 mg/dL (6-20); Carbon Dioxide 24 mmol/L (22-29); Chloride 101 mmol/L (98-107); Glucose 96 mg/dL (65-115); Osmolality Calculated 288 mOsm/kg (285-295); Potassium 3.8 mmol/L (3.5-5.1); Salicylate < 0.3 mg/dL (3-10); Sodium 140 mmol/L (136-145); Total Bilirubin 0.5 mg/dL (0.15-1.2); Total Protein 7.7 g/dL (6.6-8.7)
--- NOTE | 2024-01-24 15:17 | PC.PHAR ---
pt states he takes care of his own medications-pt states he takes invega er 6mg daily prn ext med history shows lsat filled 01/06/24 14d/s 6mg daily for 14days
== END 2024-01-24 16:11 | disposition home or self-care (01) ==
PROVIDERS: Emergency Medicine; Emergency Provider Emergency Medicine
DX: T42.6X2A Poisoning by other antiepileptic and sedative-hypnotic drugs, intentional self-harm, initial encounter (principal); T39.1X2A Poisoning by 4-Aminophenol derivatives, intentional self-harm, initial encounter; F17.210 Nicotine dependence, cigarettes, uncomplicated
CPT/HCPCS: 80053; 80307; 85025; 99283

== ENCOUNTER 2025-05-25 11:54 | Inpatient (IN) | payer MEDICAID, SELFPAY ==
[2025-05-25 12:01] VITALS: BP 114/83; PULSE 75; RESP 16; TEMP 36.3; O2SAT 99; BMI 39.5
--- NOTE | 2025-05-25 12:12 | ED.C_ITS ---
HPI - Psych 2 General: Chief Complaint: Psychiatric Symptoms Stated Complaint: MHE Time Seen by Provider: 05/25/25 12:03 Source: patient Mode of arrival: ambulatory Limitations: no limitations History of Present Illness: 34-year-old male history of schizophreni a states he has not been taking his meds for over a year patient was brought here from [facility] emergency has been having paranoia he is also been having suicidal thoughts he does admit to suicidal ideations. Denies any attempts Associated symptoms: Reports depression and suicidal ideation Related Data Home Medications ?Medication ?Instructions ?Recorded ?Confirmed ibuprofen 200 mg tablet 800 mg PO Q6H PRN Pain 01/2402/04/24 multivitamin 1 tab PO DAILY 01/24/2404/24 paliperidone 6 mg tablet,extended 6 mg PO DAILY PRN un known 01/24/24 02/04/24 release 24 hr (Invega) Previous Rx's ?Medication ?Instructions ?Recorded fluoxetine 20 mg capsule (Prozac) 20 mg PO DAILY #30 c aps 01/06/24 paliperidone palmitate 234 mg/1.5 234 mg (1.5 mL) IM Q 30D #1.5 mL 01/06/24 mL intramuscular syringe (Invega Sustenna) fluoxetine 40 mg capsule (Prozac) 40 mg PO DAILY #30 c aps 03/11/24 Allergies Allergy/AdvReac Type Severity Reaction Status Date / Time nickel Allergy ALGY-Rash Verified 02/04/24 08:02 Review of Systems 2 Const: Denies: fever(s), chills, body aches or change in appetite ENMT: Denies: throat pain or dental pain Card: Denies: chest pain Resp: Denies: dyspnea GI: Denies: abdominal pain, nausea, vomiting or diarrhea Musc: Denies: neck pain or back pain Skin/Breast: Denies: rash Neuro: Denies: headache(s) Psych: Reports: depression, paranoia and suicidal ideation PFSH ED 2 PFSH: Medical History Alcohol use disorder, mild, abuse Generalized anxiety disorder Methamphetamine abuse Depression Posttraumatic stress disorder Cannabis abuse Schizophrenia Family History Family/Other Anesthesia complication Lung disease Psychiatric illness Grandmother CAD (coronary artery disease) Cancer Lung disease Grandfather Clotting disorder Diabetes Hyperlipidemia Hypertension Stroke Denies family history of Dementia Chronic kidney disease (CKD) Bleeding disorder Social History Smoking and tobacco/nicotine status: current every day tobacco/nicotine user cigarettes Packs smoked per day: 1 [ Other cigarette details: 1PPD, 7PY] Alcohol intake: never Substance/Drug Use: current Substance/Drug use frequency: daily Lives independently: Yes Marital status: Single Number of children: 1 Current occupational status: unemployed Current gender identity: Male Physical Exam 2 Const: COMMON NORMALS: no acute distress, patient oriented x3 and healthy appearing HENMT: COMMON NORMALS: normocephalic and atraumatic HEAD & SCALP: n ormocephalic and atraumatic Neck/C-Spine: COMMON NORMALS: full ROM and supple Chest: COMMONS NORMALS: normal inspection of the chest Resp: COMMON NORMALS: normal respiratory effort Cardio: COMMON NORMALS: regular rate, regular rhythm and No murmurs present (Cardio) RATE: regular rate RHYTHM: regular rhythm Extremity: COMMON NORMALS: normal to inspection and full ROM Neuro: COMMON NORMALS: patient oriented x3, moves all extremities and no focal motor deficits Psych: COMMON NORMALS: mental status grossly normal, Normal thought process present and cooperative MOOD & AFFECT: Yes depressed mood THOUGHT PROCESS: Normal thought process present THOUGHT CONTENT: Yes Suicidality present Skin: COMMON NORMALS: no rashes or lesions noted and no wounds GENERAL SKIN EXAM: no rashes or lesions noted Course 2 Vital Signs: Vital signs: Vital Signs Temperature 97.3 F L 05/25/25 12:01 Pulse Rate 75 05/25/25 12:01 Respiratory Rate 16 05/25/25 12:01 Blood Pressure 114/83 05/25/25 12:01 Pulse Oximetry 99 05/25/25 12:01 Oxygen Delivery Me thod Room Air 05/25/25 12:01 MDM - Psych Medical Decision Making Patient presents here with acute psychosis along with schizophrenia and suicidal ideations he has been out of his meds he is medically cleared I spoke to psychiatrist will admit. Medical Records I reviewed the patient's medical records. Lab Data I reviewed the patient's lab results. 05/25/25 12:50 05/25/25 13:26 Laboratory Results WBC 8.54 10^3/uL (3.29-11.43) 05/25/25 12:50 RBC 4.88 10^6/uL (3.85-5.65) 05/25/25 12:50 Hgb 15.40 g/dL (11.27-16.99) 05/25/25 12:50 Hct 46.4 % (37-53) 05/25/25 12:50 MCV 95.1 fl (82-101) 05/25/25 12:50 MCH 31.6 pg (27-33) 05/25/25 12:50 MCHC 33.2 g/dL (30-55) 05/25/25 12:50 RDW 12.3 % (12.1-15.1) 05/25/25 12:50 Plt Count 232 10^3/cmm (157-399) 05/25/25 12:50 MPV 10.8 fL (7.4-10.4) H 05/25/25 12:50 Neut % (Auto) 62.3 % 05/25/25 12:50 Lymph % (Auto) 24.4 % 05/25/25 12:50 [place] % (Auto) 10.8 % 05/25/25 12:50 Eos % (Auto) 1.4 % 05/25/25 12:50 Baso % (Auto) 0.6 % 05/25/25 12:50 Neut # (Auto) 5.33 10^3/uL (1.8-7.7) 05/25/25 12:50 Lymph # (Auto) 2.1 10^3/uL (0.8-4.8) 05/25/25 12:50 [place] # (Auto) 0.9 10^3/uL (0.2-0.9) 05/25/25 12:50 Eos # (Auto) 0.1 10^3/uL (0.0-0.8) 05/25/25 12:50 Baso # (Auto) 0.1 10^3/uL (0.0-0.1) 05/25/25 12:50 Nucleated RBC % (auto) 0 % 05/25/25 12:50 Nucleated RBCs # 0.0 /100WBC 05/25/25 12:50 Sodium 137 mmol/L (136-145) 05/25/25 13:26 Potassium Cancelled 05/25/25 12:50 Chloride 103 mmol/L (98-107) 05/25/25 13:26 Carbon Dioxide 22 mmol/L (22-29) 05/25/25 13:26 Anion Gap Cancelled 05/25/25 12:50 BUN 14 mg/dL (6-20) 05/25/25 13:26 Creatinine Cancelled 05/25/25 12:50 GFR Calculation Cancelled 05/25/25 12:50 Glucose 102 mg/dL (65-115) 05/25/25 13:26 Calculated Osmolality 285 mOsm/kg (285-295) 05/25/25 13:26 Calcium 8.6 mg/dL (8.5-10.5) 05/25/25 13:26 Total Bilirubin 0.7 mg/dL (0.15-1.2) 05/25/25 13:26 AST 13 U/L (0-40) 05/25/25 13:26 ALT 11 U/L (0-41) 05/25/25 13:26 Alkaline Phosphatase 82 U/L (40-130) 05/25/25 13:26 Total Protein Cancelled 05/25/25 12:50 Albumin 4.1 g/dL (3.5-5.2) 05/25/25 13:26 Globulin 2.1 g/dL (1.3-4.6) 05/25/25 13:26 Salicylates Cancelled 05/25/25 12:50 Urine Opiates Screen Negative ng/mL (Negative) 05/25/25 12:45 Acetaminophen Cancelled 05/25/25 12:50 Ur Barbiturates Screen Negative ng/mL (Negative) 05/25/25 12:45 Ur Phencyclidine Scrn Negative ng/mL (Negative) 05/25/25 12:45 Ur Amphetamines Screen Negative ng/mL (Negative) 05/25/25 12:45 U Benzodiazepines Scrn Negative ng/mL (Negative) 05/25/25 12:45 Urine Cocaine Screen Negative ng/mL (Negative) 05/25/25 12:45 U Marijuana (THC) Screen Positive ng/mL (Negative) H 05/25/25 12:45 Ethyl Alcohol Cancelled 05/25/25 12:50 No radiology studies performed this visit Discharge Plan Discharge Patient Disposition: Admitted As Inpatient Clinical Impression: Chronic schizophrenia, Suicidal ideation Condition: Stable Coding Level of Care Code ED Director Learning for Pete Ruiz
--- OUTSIDE RECORDS SUMMARY | 2025-05-25 12:21 | XMS_ITS | Clinical Summary ---
Author Organization [facility] Address [address] [place]: Epic Prelude ADT ATIYA GARZA [address] Care Team Providers Care Lathe Set Up Person Name Role Phone Unavailable Primary Care Provider Unavailabl e Immunizations Immunization Administration Dates Next Due (M-M-R II/PRIORIX)(12 MO UP) MEASLES, MUMPS AND RUBELLA VIRUS VACCINE, 0.5 ML IM/SUBCUT 01/28/1996,07/03/1995 (TDVAX)(7 YRS UP) TETANUS AN D DIPHTHERIA TOXOIDS, ADSORBED (2 LF OF TETANUS TOXOID AND 2 LF OF DIPHTHERIA TOXOID), 0.5ML (PF), IM 09/09/2003 Dt Dtp Dtap Vaccine 01/29/2006, 6,05/29/1995,1993,01/11/1992,1991 HIB, Unspecified Formulation 01/29/2006, 07/03/1995,01/11/1992,1990 Hepatitis B Vaccine 03/04/1997,08/11/1996,1995 IPV/OPV 05/29/1995, 4,01/11/1992,1990 Social History Tobacco Use Types Packs/Day Years Used Date Smoking Tobacco: Never Assessed Sex and Gender Information Value Date Recorded Sex Assigned at Not on file 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 Gender Identity Not on file Sexual Orientation Not on file Last Filed Vital Signs Vital Sign Reading Time Taken Comments Blood Pressure 138/82 08/13/2022 9:29 PM CDT Pulse - - Temperature 37.4 C (99.3 F) 08/13/2022 9:29 PM CDT Respiratory Rate 18 08/13/2022 9:29 PM CDT Oxygen Saturation 100% 08/13/2022 9:29 PM CDT Inhaled Oxygen Concentration - - Weight 131.5 kg (290 lb) 08/13/2022 9:29 PM CDT Height 182.9 cm (6') 08/13/2022 9:29 PM CDT Body Mass Index 39.33 08/13/2022 9:29 PM CDT Plan of Treatment Health Maintenance Due Date Last Done Comments DTAP/TDAP/TD VACCINES (7 - Tdap) 01/29/2016 01/29/2006, 09/09/2003, 01/28/1996, Additional history exists INFLUENZA VACCINE (#1) 2024 HEPATITIS B VACCINES Completed 03/04/1997, 08/11/1996, 01/28/1996 HPV VACCINES Aged Out No longer eligi ble based on patient's age to complete this topic [place] [address] [address] [place] [address] HEALTH PLAN MEDICAID
--- OUTSIDE RECORDS SUMMARY | 2025-05-25 12:21 | XMS_ITS | Clinical Summary ---
Author Organization [facility] Address [address] 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 Gender Identity Not on file Sexual Orientation Not on file Plan of Treatment Health Maintenance Due Date Last Done Comments DTAP/TDAP/TD VACCINES (7 - Tdap) 01/29/2016 01/29/2006, 09/09/2003, 01/28/1996, Additional history exists INFLUENZA VACCINE (#1) 2024 HEPATITIS B VACCINES Completed 03/04/1997, 08/11/1996, 01/28/1996 HPV VACCINES Aged Out No longer eligi ble based on patient's age to complete this topic Insurance [place] Member Subscriber Plan / Payer (Ef fective 2006-Present) Name:Ruben Graham Relation to Subscriber:Self Name:Ruben Graham Payer ID:[id number] Group ID:Not on file Type:Medicaid Address: [address] MEDICAID [place] Member Subscriber Plan / Payer (Ef fective 2006-Present) Name:Ruben Graham Relation to Subscriber:Self Name:GrahamRuben Payer ID:[id number] Group ID:Not on file Type:Medicaid Address: [address] MEDICAID DENTAL
--- OUTSIDE RECORDS SUMMARY | 2025-05-25 12:21 | XMS_ITS | Encounter Summary ---
Author Organization [facility] Address [address] [place] [address] Care Team Providers Care Mental Tester Name Role Phone Unavailable Primary Care Provider Unavailabl e Encounter Details Date Type Department Care Team (Latest Contact Info) Description 10/27/2007 Outpatient Historical [facility] Oral and Maxillo Surgery- [address] [place] [id number] Roly Diaz, DDS NO ADDRESS ON FILE Tooth Eruption Disturb (Primary Dx) Social History Tobacco Use Types Packs/Day Years Used Date Smoking Tobacco: Never Assessed Sex and Gender Information Value Date Recorded Sex Assigned at Not on file 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
--- OUTSIDE RECORDS SUMMARY | 2025-05-25 12:21 | XMS_ITS | Encounter Summary ---
Author Organization [facility] Address [address] [place] [address] Care Team Providers Care Nephrologist Name Role Phone Unavailable Primary Care Provider Unavailabl e Encounter Details Date Type Department Care Team (Latest Contact Info) Description 11/19/2007 Outpatient Historical [facility] Operating Room [address] [place] [address] Roly Diaz DDS NO ADDRESS ON FILE Hy Kid NOS w Cr Kid I-Iv; Chronic Kidney Disease, Unspecified; Chronic Obstructive Asthma, Unspecified (CMS/HCC); Unspecified Arthropathy, Site Unspecified; DM w/o Complication Type II (CMS/HCC) Social History Tobacco Use Types Packs/Day Years Used Date Smoking Tobacco: Never Assessed Sex and Gender Information Value Date Recorded Sex Assigned at Not on file 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 Gender Identity Not on file Sexual Orientation Not on file documented as of this encounter Plan of Treatment Not on file documented as of this encounter Visit Diagnoses Diagnosis Unspecified hypertensive kidney disease with chronic kidney disease stage I through stage IV, or unspecified(403.90) Unspecified hypertensive 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
[2025-05-25 13:05] LABS: Hematocrit 46.4 % (37-53); Hemoglobin 15.40 g/dL (11.27-16.99); Mean Corpuscular HGB Conc 33.2 g/dL (30-55); Mean Corpuscular Hemoglobin 31.6 pg (27-33); Mean Corpuscular Volume 95.1 fl (82-101); Nucleated Red Blood Cells % 0 %; Platelet Count 232 10^3/cmm (157-399); Red Blood Count 4.88 10^6/uL (3.85-5.65); White Blood Count 8.54 10^3/uL (3.29-11.43)
[2025-05-25 13:48] LABS: PCP Screen Urine Negative (Negative)
[2025-05-25 13:49] LABS: Alanine Aminotransferase 11 U/L (0-41); Albumin Level 4.1 g/dL (3.5-5.2); Alkaline Phosphatase 82 U/L (40-130); Aspartate Amino Transferase 13 U/L (0-40); Blood Urea Nitrogen 14 mg/dL (6-20); Calcium 8.6 mg/dL (8.5-10.5); Carbon Dioxide 22 mmol/L (22-29); Chloride 103 mmol/L (98-107); Creatinine Clr Calc Pharmacy 253.5583; Globulin 2.1 g/dL (1.3-4.6); Glucose 102 mg/dL (65-115); Osmolality Calculated 285 mOsm/kg (285-295); Sodium 137 mmol/L (136-145); Total Protein 6.2 g/dL (6.6-8.7)
[2025-05-25 13:50] LABS: Acetaminophen < 5.0 ug/mL (10-30); Alcohol Level < 10 mg/dL (0-10); Salicylate < 0.3 mg/dL (3-10)
[2025-05-25 13:51] LABS: Anion Gap 15.7 (5-19); Potassium 3.7 mmol/L (3.5-5.1)
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
--- NOTE | 2025-05-25 16:42 | PC.NURSE ---
96 hr rights reviewed with pt @[id number] with assistance of [facility] security officer [place]. All education reviewed with pt at this time. No verbalized questions or concerns when reviewing hold parameters. Pt copy was left @bedside with pt. Pt declined wanting a drink or snack when asked. No further needs.
[2025-05-25 16:56] VITALS: BP 125/78; PULSE 60; RESP 16; TEMP 36.6; O2SAT 98
[2025-05-25 17:02] VITALS: BP 114/75; PULSE 62; O2SAT 100
[2025-05-25 19:45] VITALS: BP 120/81; PULSE 71; RESP 16; O2SAT 98
[2025-05-26 06:00] VITALS: BP 118/72; PULSE 78; RESP 16; O2SAT 100
[2025-05-26 14:00] VITALS: BP 118/71; PULSE 67; RESP 16; TEMP 36.8; O2SAT 99
--- NOTE | 2025-05-26 15:21 | W.PM.NPUH&PS ---
Providers/Chief Complaint Admitting Physician: Kleber Tbubs MD Chief Complaint: MHE HPI NPU History of Present Illness Ruben Horan is a 34 year old male who presented to the emergency department with the following report: Chief Complaint: Psychiatric Symptoms Stated Complaint: MHE Time Seen by Provider: 05/25/25 12:03 Source: patient Mode of arrival: ambulatory Limitations: no limitations History of Present Illness: 34-year-old male history of schizophrenia states he has not been taking his meds for over a year patient was brought here from [facility] emergency has been having paranoia he is also been having suicidal thoughts he does admit to suicidal ideations. Denies any attempts Associated symptoms: Reports depression and suicidal ideation. He was admitted to the neuropsychiatric unit for definitive treatment of those issues. He is known to [facility] psychiatry through inpatient and outpatient services. His last outpatient services were in 2023 in the spring and his most recent inpatient services were in 2022. An excerpt of his last discharge summary is included below for context and the fact that there have been no substantive changes. He presents reporting that his addiction has been more under control. He does continue to use cannabis and did have a UDS positive for cannabis but nothing else that his BAL was unremarkable. He reports that he started getting overwhelmed as he lives at home alone without many supports. He reports he has a lot of financial difficulties because employment is hard to come by. He reports that he has not been on medication and that he has been fairly isolated. He reports that he started having suicidal thoughts and is being upset that he has not gotten things together at this point. We discussed the risks, benefits and alternatives of restarting his Prozac and he understood and agreed to proceed as is documented in this note. Per his 01/08/2023 [facility] inpatient psychiatric discharge summary: Discharge Diagnosis (1) Suicidal ideation: Status: Resolved (2) History of command hallucinations: Status: Acute (3) Chronic schizophrenia: Status: Acute (4) Depression: Status: Acute (5) Cannabis abuse: Status: Acute (6) Methamphetamine abuse: Status: Inactive (7) Psychiatric care: Status: Inactive (8) Posttraumatic stress disorder: Status: Acute Reason for Visit Reason for Visit: MHE Brief History: History of Present Illness Ruben Horan is a 32 year old male the emergency department with the following report: Chief Complaint: Psychiatric Symptoms Stated Complaint: MHE Time Seen by Provider: 01/01/23 22:41 Source: patient Mode of arrival: ambulatory Limitations: no limitations History of Present Illness: 32-year-old male who is here he states he has been under a lot of stress since he has been feeling extremely paranoid he does have a history of schizophrenia he states that he has been hearing some worse he states he is also been having suicidal ideations he denies a specific plan but states he has been having suicidal thoughts he is very paranoid here as well. Associated symptoms: Reports depression and suicidal ideation. He was admitted to the neuropsychiatric unit for definitive treatment of those issues. 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 He presents as he often does, quite isolative and lying in bed. He is not a great historian but certainly pleasant when awoken reporting recent depression and having not been taking his medications appropriately reporting that he is feeling better or was feeling better and was kind feel like he did not need them. He denied significant changes in his life and excerpt of the discharge summary is included below for context. He was open to restarting his medication including the injection. We agreed we will work with the treatment team to identify what kinds of supports might be helpful to avoid this type of recurrence. He was negative but drug screen not obtained we will request. Per his 11/12/2022 [facility] inpatient psychiatric discharge summary: Discharge Diagnosis (1) Suicidal ideation: Status: Resolved (2) History of command hallucinations: Status: Acute (3) Chronic schizophrenia: Status: Acute (4) Depression: Status: Acute (5) Cannabis abuse: Status: Acute (6) Methamphetamine abuse: Status: Acute (7) Psychiatric care: Status: Inactive (8) Posttraumatic stress disorder: Status: Acute Reason for Visit Reason for Visit: psych evlaution 96 himself. Brief History: History of Present Illness Ruben Horan is a 32 year old male who presented to the emergency department with the following report: Chief Complaint: Psychiatric Symptoms Stated Complaint: Would like to 96 himself. Time Seen by Provider: 11/06/22 06:49 Source: patient Mode of arrival: ambulatory History of Present Illness: 32-year-old male history of schizophrenia presents emergency room initially is asking to be 96. Difficult to get a coherent history from he has a advance a full flight of ideas that are all tangential. He does admit to not having been taking his medications. Similar previous presentations to the emergency room. He is also having some auditory and visual hallucinations although he will not give me specifics on what the voices are telling him. Hallucinations are also similar to what he has presented with in the past. No homicidal or suicidal ideation at this time. Onset (ago): unknown Duration: constant History of same: Yes Relieving factors: none Exacerbating factors: none Context: not taking psychiatric medications Associated psychiatric symptoms: racing thoughts, auditory hallucinations, visual hallucinations and delusions Associated symptoms: Reports auditory hallucinations, visual hallucinations, delusions and racing thoughts Treatments prior to arrival: none. He presented today fully disorganized and unable to ability to stay in the interview. Increasing from his door making gestures to people walking by as if he was conducting magic. He appeared very guarded when approached and was unable to muster any reasonable answers to basic questions. An excerpt of his previous hospitalization is included below for context and given his inability as a historian. Per his 03/08/2022 [facility] inpatient psychiatric evaluation: History of Present Illness Ruben Horan is a 31 year old male admitted through our emergency department with the following report: Mr. Horan is a 31-year-old gentleman with significant past medical history of schizophrenia who presents the emergency department due to worsening hallucinations. He reports compliance with his medication regimen however baseline there are perhaps intermittent hallucinations. Over the past day these have worsened and are telling him to kill himself. Therefore he has thought about killing himself. He otherwise denies medical complaints or injuries. He has not acted on any suicide attempt. Overall the course of symptoms has worsened. Intensity is moderate. No other specific changes in health, exacerbating, or alleviating factors identified. He was admitted to the neuropsychiatry unit for definitive treatment of these issues. He initially said that he has been taking his medications. However, he then stated that he stopped taking the Invega about 5 days ago because it made him drowsy when he took it in the morning. He agreed to change that to bedtime. He also stopped taking the Prozac because he felt it was not helping his anxiety. He has been taking that hydroxyzine which does seem to help. He later said that he has been taking a green and white capsule that have been helping his anxiety. He agreed to restart the Prozac. He said that his voices have not been too bad but yesterday at noon these came back very bad. He says he had been somewhat stressed out because it normal normal base events. He said that he did not have coping mechanisms to use when he was stressed out. He had a therapy appointment after his last admission but he did not keep it. He says that the voices are better today but still there and worse than normal and he denies suicidal ideation. Below is his discharge summary from the last hospitalization in January. Diagnoses at Discharge Discharge Diagnosis (1) Chronic schizophrenia: Status: Acute (2) Depression: Status: Acute (3) Cannabis abuse: Status: Acute (4) Methamphetamine abuse: Status: Acute (5) Posttraumatic stress disorder: Status: Acute Reason for Visit Reason for Visit: SI Brief History: History of Present Illness: HPI Narrative: Patient is a 31-year-old male who presents to ED today stating he is suicidal. He states suicidal thoughts of been present over the past 2 to 3 days. He states he has a lot going on right now that he refuses to elaborate on. He has no specific plan at the moment. He does endorse previous suicide attempts. Patient has a history of chronic schizophrenia. He is not complaining of hallucinations or psychotic symptoms currently. He denies homicidal ideations. MD complaint: suicidal ideation Onset (ago): day(s) Duration: constant History of same: Yes Context: significant life stressor Associated psychiatric symptoms: depression and suicidal ideation Associated symptoms: Reports depression and suicidal ideation; Deny auditory hallucinations or homicidal ideation Treatments prior to arrival: none If self harm: admits thoughts of self harm He was admitted to the neuropsychiatry unit for medication treatment of these issues. He was released from this hospital in October on Zyprexa 15 mg daily and Lexapro 40 mg daily. He said that he did okay for almost a month but had depression and worsening auditory hallucinations again. He came to our emergency room did not have beds and he was sent to [place]. He said that he was there for about 1 week. He says that family discharged him on Vistaril 50 mg 100 mg at bedtime and trazodone. He said that even with that the voices were improved for about 1 week. However after 1 week started having depression for hallucinations again and now is back in the hospital. He says that he thinks the Invega 6 mg that he was released on in November 2024 depressed. He was able to stay out of the hospital for about 8 months. He was not on antidepressant at that time. When he was admitted in June 2021 he said that he had been noncompliant with his medications most of the time since his last hospitalization. He has not been able to stay out of the hospital for very long since then. He also was not taking medications when he came back into the hospital October of last year. He says that he has been compliant with his medications since then but has never been able to stay out of the hospital for a few weeks. He is currently drug screen has been consistently positive for marijuana but no other drugs. To try back to the Invega. Hospital Course Hospital Course He slowly acclimated to the individual, group and milieu therapies provided. He was started on Invega 6 mg in the morning. He requested a post exchange manager from Lexapro to Prozac. He remembers taking a white and green capsule some years ago that was helpful for his anxiety. He tolerated these doses and showed steady improvement during his stay. He was able to contract for safety outside hospital prior to discharge. During the hospitalization, patient had routine laboratory studies which were within normal limits except for few outliers. Additionally there was a general medical evaluation which was also within normal limits and revealed no new acute processes. Discharge Summary: At the time of discharge, lethality was denied and psychosis was resolving. Mood and anxiety were well managed. Patient endorsed a plan to follow-up with the aftercare recommendations of the treatment team. Patient was evaluated and deemed to be absent credible lethality, and had achieved the maximum benefit from an inpatient hospitalization, so was discharged. Hospital Course Hospital Course He slowly acclimated to the individual, group and milieu therapies provided. He presented as he often does destabilized off of his medications though reporting their effectiveness. He was restarted on Invega 6 mg in the morning as well as Prozac 20 mg p.o. daily. He was ultimately started on the Invega Sustenna with a plan to get his next injection next week and get an oral medication for 2 weeks and if that he is having some issues getting the injection. He had significant improvement with those changes and he was able to contract for safety outside hospital prior to discharge. During the hospitalization, patient had routine laboratory studies which were within normal limits except for few outliers. Additionally there was a general medical evaluation which was also within normal limits and revealed no new acute processes. Discharge Summary: At the time of discharge, lethality was denied and psychosis was resolving. Mood and anxiety were well managed. Patient endorsed a plan to follow-up with the aftercare recommendations of the treatment team. Patient was evaluated and deemed to be absent credible lethality, and had achieved the maximum benefit from an inpatient hospitalization, so was discharged. Meds NPU Home Medications ?Medication ?Instructions ?Recorded ?Confirmed ?Last Taken ?Type multivitamin 1 tab PO DAILY 01/24/24 05/27/25 Unknown History fluoxetine 40 mg capsule (Prozac) 40 mg PO DAILY #30 caps 03/11/24 05/27/25 Unknown Rx Allergies Allergy/AdvReac Type Severity Reaction Status Date / Time nickel Allergy ALGY-Rash Verified 02/04/24 08:02 [facility] NPU PFSH: Medical History Alcohol use disorder, mild, abuse Generalized anxiety disorder Methamphetamine abuse Depression Posttraumatic stress disorder Cannabis abuse Schizophrenia Family History Family/Other Anesthesia complication Lung disease Psychiatric illness Grandmother CAD (coronary artery disease) Cancer Lung disease Grandfather Clotting disorder Diabetes Hyperlipidemia Hypertension Stroke Denies family history of Dementia Chronic kidney disease (CKD) Bleeding disorder Social History Smoking and tobacco/nicotine status: current every day tobacco/nicotine user cigarettes Packs smoked per day: 1 [ Other cigarette details: 1PPD, 7PY] Alcohol intake: never Substance/Drug Use: current Substance/Drug use frequency: daily Lives independently: Yes Marital status: Single Number of children: 1 Current occupational status: unemployed Current gender identity: Male Mental Status Exam MSE Comments: This is an obese, white male in hospital scrubs with limited grooming and eye contact. No abnormal movements, except for mild psychomotor retardation. Cooperative with exam in mild distress. Speech was decreased rate and volume. Mood described as depressed and anxious; affect congruent and subdued. Thought process, mostly organized. Thought content: patient reports that he was having some suicidal thoughts leading to the hospitalization which are not overwhelming at this point, he denied homicidal ideation, there were no delusions reported or noted, he he denied active auditory or visual hallucinations. Attention, concentration, and memory appeared intact but were not formally tested. He is alert and oriented x 3. Insight and judgment are limited, impulse control is impaired. Vitals/I&O/Wt Last Vital Signs Temp 98.3 F 05/26/25 14:00 Pulse 67 05/26/25 14:00 Resp 16 05/26/25 14:00 BP 118/71 05/26/25 14:00 Pulse Ox 99 05/26/25 14:00 O2 Del Method Room Air 05/26/25 14:00 Weight last 48 hrs Weight 136.078 kg Data NPU 05/25/25 12:50 05/25/25 13:26 A&P Assessment and plan (1) Suicidal ideation: (2) History of command hallucinations: (3) Chronic schizophrenia: (4) Depression: (5) Cannabis abuse: (6) Methamphetamine abuse: (7) Psychiatric care: (8) Posttraumatic stress disorder: (9) Generalized anxiety disorder: (10) Suicidal ideation: Plan This is a 34-year-old male who is known from past hospitalizations the last of which was about 2 years ago who has been treated for depression with a history of psychosis, addiction with a history of frequent hospitalizations and presents today reporting that he has been off of his medication and trying to figure things out economically now that he has his own place but does not have a job and is just stressing about 's challenges. He reports however other than cannabis use he has been doing well from the standpoint of addiction. Plan: 1. Consider restarting some of his previous medications. 2. Continue every 15 minute checks for safety. 3. Encourage individual, group and milieu therapies. 4. Encourage sober living treatment after discharge at the highest level of care to which he is willing to commit. 5. We will evaluate against the backdrop of the 96-hour hold. 6. Obtain collateral information. PDMP PDMP Reviewed: Not Reviewed Involuntary Hold Information Hold Status: Legal Status: 96 Hour Hold Date/Time Hold Expires: 05/31/25 1234pm 96 Hour Hold: 96 Hour Involuntary Admission: Yes Attestations NPU Medical Necessity Statement*: Inpatient hospitalization is medically necessary and the clinically appropriate intervention at this time. We will initiate medications and make changes as indicated. He will be in the hospital for over 2 midnights. Likely length of stay 5-7 days Coding Level of Care Code Acute Code for Chg Fwd Diagnoses Suicidal ideation R45.851 History of command hallucinations Z86.59 Chronic schizophrenia F20.9 Depression F32.9 Cannabis abuse F12.10 Methamphetamine abuse F15.10 Psychiatric care Z76.89 Posttraumatic stress disorder F43.10 Generalized anxiety disorder F41.1
[2025-05-26 20:11] VITALS: BP 114/72; PULSE 64; RESP 17; TEMP 37.1; O2SAT 99
[2025-05-27 06:00] VITALS: BP 116/73; PULSE 71; RESP 17; TEMP 36.6; O2SAT 100
[2025-05-27] MEDS: multivitamin therapeutic Tablet 1 TAB PO (08:31)
--- NOTE | 2025-05-27 11:47 | P.NPUPN_ITS ---
Subjective NPU 2 Subjective: Patient presented today reporting that things are unchanged. We discussed the risk, benefits and alternatives of restarting his Prozac and he understood and agreed to proceed as documented in his note. He continues to report things just being overwhelming and him not having a sense how to get himself back on track. Mental Status Exam 2 MSE Comments: This is an obese, white male in hospital scrubs with limited grooming and eye contact. No abnormal movements, except for mild psychomotor retardation. Cooperative with exam in mild distress. Speech was decreased rate and volume. Mood described as depressed and anxious; affect congruent and subdued. Thought process, mostly organized. Thought content: patient reports that he was having some suicidal thoughts leading to the hospitalization which are not overwhelming at this point, he denied homicidal ideation, there were no delusions reported or noted, he he denied active auditory or visual hallucinations. Attention, concentration, and memory appeared intact but were not formally tested. He is alert and oriented x 3. Insight and judgment are limited, impulse control is impaired. Vitals/I&O/Wt Last Vital Signs Temp 97.8 F 05/27/25 06:00 Pulse 71 05/27/25 06:00 Resp 17 05/27/25 06:00 BP 116/73 05/27/25 06:00 Pulse Ox 100 05/27/25 06:00 O2 Del Method Room Air 05/27/25 06:00 Weight last 48 hrs Weight 136.078 kg Data NPU 05/25/25 12:50 05/25/25 13:26 A&P PDMP PDMP Reviewed: Not Reviewed Involuntary Hold Information 2 Hold Status: Legal Status: 96 Hour Hold Date/Time Hold Expires: 05/31/25 1234pm 96 Hour Hold: 96 Hour Involuntary Admission: Yes Attestations NPU 2 Medical Necessity Statement*: Inpatient hospitalization is medically necessary and the clinically appropriate intervention at this time. We will initiate medications and make changes as indicated. Likely length of stay 3-5 days Coding Level of Care Code Acute Code for Chg Fwd
[2025-05-27 14:00] VITALS: BP 123/76; PULSE 55; RESP 16; TEMP 36.7; O2SAT 99
[2025-05-27 22:00] VITALS: BP 111/71; PULSE 68; RESP 17; TEMP 36.8; O2SAT 98
[2025-05-28 06:00] VITALS: BP 109/70; PULSE 76; RESP 17; TEMP 36.7; O2SAT 99
[2025-05-28] MEDS: multivitamin therapeutic Tablet 1 TAB PO (08:41)
[2025-05-28 14:00] VITALS: BP 119/77; PULSE 73; RESP 17; TEMP 36.7; O2SAT 98
--- NOTE | 2025-05-28 15:26 | P.NPUPN_ITS ---
Subjective NPU 2 Subjective: Patient presents today reporting things are going okay. We discussed the fact that his mother had left a message but he did not know what she was inquiring about. He discussed a desire to continue titrating his medication but reported he was still feeling down. We discussed the fact that he probably would be here to the beginning of the week and he was comfortable with that. He denied any side effects of his medications being restarted. Mental Status Exam 2 MSE Comments: This is an obese, white male in hospital scrubs with limited grooming and eye contact. No abnormal movements, except for mild psychomotor retardation. Cooperative with exam in mild distress. Speech was decreased rate and volume. Mood described as still depressed and anxious but a little better; affect congruent and subdued. Thought process, mostly organized. Thought content: patient reports that he was having some suicidal thoughts leading to the hospitalization which are not overwhelming at this point, he denied homicidal ideation, there were no delusions reported or noted, he he denied active auditory or visual hallucinations. Attention, concentration, and memory appeared intact but were not formally tested. He is alert and oriented x 3. Insight and judgment are limited, impulse control is impaired. Vitals/I&O/Wt Last Vital Signs Temp 98.0 F 05/28/25 06:00 Pulse 76 05/28/25 06:00 Resp 17 05/28/25 06:00 BP 109/70 05/28/25 06:00 Pulse Ox 99 05/28/25 06:00 O2 Del Method Room Air 05/28/25 06:00 Data NPU 05/25/25 12:50 05/25/25 13:26 A&P Assessment and plan (1) Suicidal ideation: (2) History of command hallucinations: (3) Chronic schizophrenia: (4) Depression: (5) Cannabis abuse: (6) Methamphetamine abuse: (7) Psychiatric care: (8) Posttraumatic stress disorder: (9) Generalized anxiety disorder: (10) Suicidal ideation: Plan This is a 34-year-old male who is known from past hospitalizations the last of which was about 2 years ago who has been treated for depression with a history of psychosis, addiction with a history of frequent hospitalizations and presents today reporting that he has been off of his medication and trying to figure things out economically now that he has his own place but does not have a job and is just stressing about 's challenges. He reports however other than cannabis use he has been doing well from the standpoint of addiction. Plan: 1. Consider restarting some of his previous medications. 2. Continue every 15 minute checks for safety. 3. Encourage individual, group and milieu therapies. 4. Encourage sober living treatment after discharge at the highest level of care to which he is willing to commit. 5. We will evaluate against the backdrop of the 96-hour hold. 6. Obtain collateral information. PDMP PDMP Reviewed: Not Reviewed Involuntary Hold Information 2 Hold Status: Legal Status: 96 Hour Hold Date/Time Hold Expires: 05/31/25 1234pm 96 Hour Hold: 96 Hour Involuntary Admission: Yes Attestations NPU 2 Medical Necessity Statement*: Inpatient hospitalization is medically necessary and the clinically appropriate intervention at this time. We will initiate medications and make changes as indicated. Likely length of stay 3-5 days Coding Level of Care Code Acute Code for Chg Fwd Diagnoses Suicidal ideation R45.851 History of command hallucinations Z86.59 Chronic schizophrenia F20.9 Depression F32.9 Cannabis abuse F12.10 Methamphetamine abuse F15.10 Psychiatric care Z76.89 Posttraumatic stress disorder F43.10 Generalized anxiety disorder F41.1
[2025-05-28 20:36] VITALS: BP 119/76; PULSE 60; RESP 18; TEMP 36.8; O2SAT 99
[2025-05-29 06:00] VITALS: BP 122/79; PULSE 67; RESP 16; TEMP 36.6; O2SAT 98
--- NOTE | 2025-05-29 07:53 | P.NPUPN_ITS ---
Subjective NPU 2 Subjective: Patient presented today reporting that he is doing okay. He continues to be fairly isolative per staff reports and direct observation. He continues to spend much of the time in his room but reports that he is feeling better with the medications being restarted. We are trying to connect with his mother because she has some reports she wants to give us regarding his medication as well as the case management. But we have not made that connection and we discussed that we are trying to connect with her. Otherwise she denied any problems and we discussed the possibility of increasing his Prozac. He denied any side effects to his medications. Mental Status Exam 2 MSE Comments: This is an obese, white male in hospital scrubs with limited grooming and eye contact. No abnormal movements, except for mild psychomotor retardation. Cooperative with exam in mild distress. Speech was decreased rate and volume. Mood described as still depressed and anxious but a little better; affect congruent and subdued. Thought process, mostly organized. Thought content: patient reports that he was having some suicidal thoughts leading to the hospitalization which are not overwhelming at this point, he denied homicidal ideation, there were no delusions reported or noted, he he denied active auditory or visual hallucinations. Attention, concentration, and memory appeared intact but were not formally tested. He is alert and oriented x 3. Insight and judgment are limited, impulse control is impaired. Vitals/I&O/Wt Last Vital Signs Temp 97.9 F 05/29/25 06:00 Pulse 67 05/29/25 06:00 Resp 16 05/29/25 06:00 BP 122/79 05/29/25 06:00 Pulse Ox 98 05/29/25 06:00 O2 Del Method Room Air 05/29/25 06:00 Data NPU 05/25/25 12:50 05/25/25 13:26 A&P Assessment and plan (1) Suicidal ideation: (2) History of command hallucinations: (3) Chronic schizophrenia: (4) Depression: (5) Cannabis abuse: (6) Methamphetamine abuse: (7) Psychiatric care: (8) Posttraumatic stress disorder: (9) Generalized anxiety disorder: (10) Suicidal ideation: Plan This is a 34-year-old male who is known from past hospitalizations the last of which was about 2 years ago who has been treated for depression with a history of psychosis, addiction with a history of frequent hospitalizations and presents today reporting that he has been off of his medication and trying to figure things out economically now that he has his own place but does not have a job and is just stressing about 's challenges. He reports however other than cannabis use he has been doing well from the standpoint of addiction. Plan: 1. Consider restarting some of his previous medications. Consider increasing Prozac to 40 mg p.o. daily. 2. Continue every 15 minute checks for safety. 3. Encourage individual, group and milieu therapies. 4. Encourage sober living treatment after discharge at the highest level of care to which he is willing to commit. 5. We will evaluate against the backdrop of the 96-hour hold. 6. Obtain collateral information. PDMP PDMP Reviewed: Not Reviewed Involuntary Hold Information 2 Hold Status: Legal Status: 96 Hour Hold Date/Time Hold Expires: 05/31/25 1234pm 96 Hour Hold: 96 Hour Involuntary Admission: Yes Attestations NPU 2 Medical Necessity Statement*: Inpatient hospitalization is medically necessary and the clinically appropriate intervention at this time. We will initiate medications and make changes as indicated. Likely length of stay 2-4 days Coding Level of Care Code Acute Code for g Fwd Diagnoses Suicidal ideation R45.851 History of command hallucinations Z86.59 Chronic schizophrenia F20.9 Depression F32.9 Cannabis abuse F12.10 Methamphetamine abuse F15.10 Psychiatric care Z76.89 Posttraumatic stress disorder F43.10 Generalized anxiety disorder F41.1
[2025-05-29] MEDS: multivitamin therapeutic Tablet 1 TAB PO (10:11)
[2025-05-29 14:00] VITALS: BP 123/85; PULSE 76; RESP 18; TEMP 36.4; O2SAT 100
[2025-05-29 20:46] VITALS: BP 123/88; PULSE 88; RESP 16; TEMP 36.4; O2SAT 99
[2025-05-30 06:00] VITALS: BP 134/88; PULSE 76; RESP 18; TEMP 36.9; O2SAT 99; BMI 29.0
[2025-05-30] MEDS: multivitamin therapeutic Tablet 1 TAB PO (08:45)
--- NOTE | 2025-05-30 12:18 | PC.NURSE ---
Addendum entered by Manny Garcia RN 05/30/25 14:15: Patient became very agitated when music was playing and was shouting profanity. Patient was able to regulate after the music was turned off. Original Note: Patient became very agitated when music qas
[2025-05-30 14:00] VITALS: BP 116/74; PULSE 61; RESP 17; TEMP 36.8; O2SAT 97
--- NOTE | 2025-05-30 18:01 | W.PM.NPUPNS ---
Subjective NPU Subjective: 34-year-old male with schizophrenia admitted with suicidal ideation. He had not had endorsed having taken his medication for hallucinations in several months. He had continued to report feeling depressed. He had been stating that he was getting aggravated at being here. He reported his energy is okay. There were no acts of aggression seen on the unit. He continued to isolate himself on the milieu. Patient presented today reporting that he is doing okay. He continues to be fairly isolative per staff reports and direct observation. He continues to spend much of the time in his room but reports that he is feeling better with the medications being restarted. We are trying to connect with his mother because she has some reports she wants to give us regarding his medication as well as the case management. But we have not made that connection and we discussed that we are trying to connect with her. Otherwise she denied any problems and we discussed the possibility of increasing his Prozac. He denied any side effects to his medications. Mental Status Exam MSE Comments: This is an obese, white male in hospital scrubs with limited grooming and eye contact. No abnormal movements, except for mild psychomotor retardation. He was minimally cooperative with exam in mild distress. Speech was decreased in rate and volume. Mood described as still depressed and anxious but a little better; His affect appeared blunted. Thought process was linear but superficial. Thought content: patient reports that he was having some suicidal thoughts leading to the hospitalization which are not overwhelming at this point, he denied homicidal ideation, there were no delusions reported or noted, he he denied active auditory or visual hallucinations. Attention, concentration, and memory appeared intact but were not formally tested. He is alert and oriented x 3. Insight and judgment are limited, impulse control is impaired. Vitals/I&O/Wt Last Vital Signs Temp 98.3 F 05/30/25 14:00 Pulse 61 05/30/25 14:00 Resp 17 05/30/25 14:00 BP 116/74 05/30/25 14:00 Pulse Ox 97 05/30/25 14:00 O2 Del Method Room Air 05/30/25 06:00 Weight last 48 hrs Weight 99.96 kg Data NPU 05/25/25 12:50 05/25/25 13:26 A&P Assessment and plan (1) Chronic schizophrenia: (2) Suicidal ideation: (3) History of command hallucinations: (4) Depression: (5) Cannabis abuse: (6) Methamphetamine abuse: (7) Psychiatric care: (8) Posttraumatic stress disorder: (9) Generalized anxiety disorder: (10) Suicidal ideation: Plan This is a 34-year-old male who is known from past hospitalizations the last of which was about 2 years ago who has been treated for depression with a history of psychosis, addiction with a history of frequent hospitalizations and presents today reporting that he has been off of his medication and trying to figure things out economically now that he has his own place but does not have a job and is just stressing about 's challenges. He reports however other than cannabis use he has been doing well from the standpoint of addiction. Plan: 1. Restart invega 6mg at night. Consider increasing Prozac to 40 mg p.o. daily. 2. Continue every 15 minute checks for safety. 3. Encourage individual, group and milieu therapies. 4. Encourage sober living treatment after discharge at the highest level of care to which he is willing to commit. 5. We will evaluate against the backdrop of the 96-hour hold. 6. Obtain collateral information. PDMP PDMP Reviewed: Not Reviewed Involuntary Hold Information Hold Status: Legal Status: 96 Hour Hold Date/Time Hold Expires: 05/31/25 1234pm 96 Hour Hold: 96 Hour Involuntary Admission: Yes Attestations NPU Medical Necessity Statement*: Inpatient hospitalization is medically necessary and the clinically appropriate intervention at this time. We will initiate medications and make changes as indicated. Likely length of stay 3-5 days. Coding Level of Care Code Acute Code for [facility] Fwd Diagnoses Chronic schizophrenia F20.9 Suicidal ideation R45.851 History of command hallucinations Z86.59 Depression F32.9 Cannabis abuse F12.10 Methamphetamine abuse F15.10 Psychiatric care Z76.89 Posttraumatic stress disorder F43.10 Generalized anxiety disorder F41.1
[2025-05-30] MEDS: paliperidone ER 6 mg Tablet PO (20:06)
[2025-05-30 20:23] VITALS: BP 108/81; PULSE 80; RESP 18; TEMP 36.7; O2SAT 98
[2025-05-31 06:00] VITALS: BP 109/69; PULSE 70; RESP 18; TEMP 36.7; O2SAT 100
[2025-05-31] MEDS: multivitamin therapeutic Tablet 1 TAB PO (07:17)
[2025-05-31 14:00] VITALS: BP 107/71; PULSE 121; RESP 18; TEMP 36.6; O2SAT 99
--- NOTE | 2025-05-31 16:21 | P.NPUPN_ITS ---
Subjective NPU 2 Subjective: 34-year-old male with a history of schiz ophrenia who reported that he had been brought here because his mother had stated that he needed help. He continued to report feeling distracted by noise in his head. He had been isolating himself on the milieu. He had reported some depressed mood. He had admitted to noncompliance with his medications for over the a year. He had reported that he was uncertain as to what the noise was saying to him but stated that it was loud and distracting to him. He had not endorsed any suicidal ideation. He had admitted to the use of large amounts of marijuana on a daily basis. He reports that he had been struggling to concentrate. Mental Status Exam 2 MSE Comments: This is an obese, white male in hospital scrubs with limited grooming and eye contact. No abnormal movements, except for mild psychomotor retardation. He was minimally cooperative with exam in mild distress. Speech was decreased in rate and volume. Mood described as depressed. His affect was odd and subdued. Thought process was linear but superficial. Thought content: patient reports no suicidal thoughts. He denied homicidal ideation, there were no delusions reported or noted, He endorsed auditory hallucinations. Attention, concentration, and memory appeared intact but were not formally tested. He is alert and oriented x 3. Insight and judgment are limited, impulse control is impaired. Vitals/I&O/Wt Last Vital Signs Temp 98.1 F 05/31/25 06:00 Pulse 70 05/31/25 06:00 Resp 18 05/31/25 06:00 BP 109/69 05/31/25 06:00 Pulse Ox 100 05/31/25 06:00 O2 Del Method Room Air 05/31/25 06:00 Weight last 48 hrs Weight 99.96 kg Data NPU 05/25/25 12:50 05/25/25 13:26 A&P Assessment and plan (1) Chronic schizophrenia: (2) Suicidal ideation: (3) History of command hallucinations: (4) Depression: (5) Cannabis abuse: (6) Methamphetamine abuse: (7) Psychiatric care: (8) Posttraumatic stress disorder: (9) Generalized anxiety disorder: (10) Suicidal ideation: Plan This is a 34-year-old male who is known from past hospitalizations the last of which was about 2 years ago who has been treated for depression with a history of psychosis, addiction with a history of frequent hospitalizations and presents today reporting that he has been off of his medication and trying to figure things out economically now that he has his own place but does not have a job and is just stressing about 's challenges. He reports however other than cannabis use he has been doing well from the standpoint of addiction. Plan: 1. Continue invega 6mg at night. Increase Prozac to 40 mg p.o. daily. 2. Continue every 15 minute checks for safety. 3. Encourage individual, group and milieu therapies. 4. Encourage sober living treatment after discharge at the highest level of care to which he is willing to commit. 5. We will evaluate against the backdrop of the 96-hour hold. 6. Obtain collateral information. PDMP PDMP Reviewed: Not Reviewed Involuntary Hold Information 2 Hold Status: Legal Status: 96 Hour Hold Date/Time Hold Expires: 05/31/25 1234pm 96 Hour Hold: 96 Hour Involuntary Admission: Yes Attestations NPU 2 Medical Necessity Statement*: Inpatient hospitalization is medically necessary and the clinically appropriate intervention at this time. We will initiate medications and make changes as indicated. The patient's likely length of stay is 3-5 days. Coding Level of Care Code Acute Code for [facility] Fwd Diagnoses Chronic schizophrenia F20.9 Suicidal ideation R45.851 History of command hallucinations Z86.59 Depression F32.9 Cannabis abuse F12.10 Methamphetamine abuse F15.10 Psychiatric care Z76.89 Posttraumatic stress disorder F43.10 Generalized anxiety disorder F41.1
[2025-05-31 19:39] VITALS: BP 117/82; PULSE 70; RESP 19; TEMP 37.1; O2SAT 97
[2025-05-31] MEDS: paliperidone ER 6 mg Tablet PO (20:21)
[2025-06-01 06:00] VITALS: BP 131/77; PULSE 99; RESP 18; TEMP 36.7; O2SAT 100
[2025-06-01] MEDS: multivitamin therapeutic Tablet 1 TAB PO (08:41)
[2025-06-01 14:00] VITALS: BP 120/86; PULSE 83; RESP 18; TEMP 36.7; O2SAT 98
--- NOTE | 2025-06-01 16:19 | P.NPUPN_ITS ---
Subjective NPU 2 Subjective: 34-year-old male with a history of schiz ophrenia with disorganized thinking and noncompliance with his medications. The patient had continued to report that he did not want to be alive. He is scared of heights and stated that no one is telling me anything. The patient had continued to isolate himself on the milieu. He reported continued feelings of hopelessness. He had continued to appear distracted. He did not wish to attend groups. He had isolated himself throughout most of the day. He continued to report having anxiety. Mental Status Exam 2 MSE Comments: This is an obese, white male in hospital scrubs with limited grooming and eye contact. No abnormal involuntary motor movements, except for prominent psychomotor retardation. He was minimally cooperative with exam in mild distress. Speech was decreased in rate and volume. Mood described as depressed. His affect was odd and subdued. Thought process was linear but superficial. Thought content: patient reports no suicidal thoughts. He denied homicidal ideation. There was poverty of content. There were no delusions reported or noted, He endorsed auditory hallucinations and did appear to be responding to internal stimuli. His attention and concentration was impaired. He is alert and oriented to person and place only. Insight and judgment are limited, impulse control is impaired. Vitals/I&O/Wt Last Vital Signs Temp 98.0 F 06/01/25 14:00 Pulse 83 06/01/25 14:00 Resp 18 06/01/25 14:00 BP 120/86 06/01/25 14:00 Pulse Ox 98 06/01/25 14:00 O2 Del Method Room Air 06/01/25 06:00 Data NPU 05/25/25 12:50 05/25/25 13:26 A&P Assessment and plan (1) Chronic schizophrenia: (2) Suicidal ideation: (3) History of command hallucinations: (4) Depression: (5) Cannabis abuse: (6) Methamphetamine abuse: (7) Psychiatric care: (8) Posttraumatic stress disorder: (9) Generalized anxiety disorder: (10) Suicidal ideation: Plan This is a 34-year-old male who is known from past hospitalizations the last of which was about 2 years ago who has been treated for depression with a history of psychosis, addiction with a history of frequent hospitalizations and presents today reporting that he has been off of his medication and trying to figure things out economically now that he has his own place but does not have a job and is just stressing about 's challenges. He reports however other than cannabis use he has been doing well from the standpoint of addiction. Plan: 1. Continue invega 6mg at night. We will restart monthly invega sustenna if improvement occurs with his psychosis on the oral. Continue Prozac to 40 mg p.o. daily. 2. Continue every 15 minute checks for safety. 3. Encourage individual, group and milieu therapies. 4. Encourage sober living treatment after discharge at the highest level of care to which he is willing to commit. 5. Patient has court hearing tommorow for extended stay here. 6. Obtain collateral information. PDMP PDMP Reviewed: Not Reviewed Involuntary Hold Information 2 Hold Status: Legal Status: Hold Date/Time Hold Expires: hearing 06/02/25@1000 96 Hour Hold: 96 Hour Involuntary Admission: Yes Attestations NPU 2 Medical Necessity Statement*: Inpatient hospitalization is medically necessary and the clinically appropriate intervention at this time. We will initiate medications and make changes as indicated. The patient's likely length of stay is 7-10 days. Coding Level of Care Code Acute Code for g Fwd Diagnoses Chronic schizophrenia F20.9 Suicidal ideation R45.851 History of command hallucinations Z86.59 Depression F32.9 Cannabis abuse F12.10 Methamphetamine abuse F15.10 Psychiatric care Z76.89 Posttraumatic stress disorder F43.10 Generalized anxiety disorder F41.1
[2025-06-01 19:45] VITALS: BP 137/89; PULSE 90; RESP 16; TEMP 36.5; O2SAT 97
[2025-06-01] MEDS: paliperidone ER 6 mg Tablet PO (20:47)
[2025-06-02 06:00] VITALS: BP 125/82; PULSE 75; RESP 18; TEMP 37.3; O2SAT 97
[2025-06-02] MEDS: multivitamin therapeutic Tablet 1 TAB PO (08:24)
[2025-06-02 14:00] VITALS: BP 124/86; PULSE 86; RESP 18; TEMP 36.8; O2SAT 99
--- NOTE | 2025-06-02 15:45 | P.NPUPN_ITS ---
Subjective NPU 2 Subjective: 34-year-old male with a history of schiz ophrenia with disorganized thinking and noncompliance with his medications. The patient continued to appear confused on the milieu. He had stated struggling with concentration. He had continued to appear confused when answering questions. He had reported struggles with being distracted by hallucinations. He reported no side effects from his medication regimen. The patient had continued to endorse that he was not feeling like he wanted to be alive. He had reported no previous benefit to Prozac in the past. He was unable to elaborate what problems he had this sides stating that he was feeling suicidal. He he had reported that he had heard noise and has had and stated that it remained loud. Mental Status Exam 2 MSE Comments: This is an obese, white male in hospital scrubs with limited grooming and eye contact. No abnormal involuntary motor movements, except for prominent psychomotor retardation. He was minimally cooperative with exam in mild distress. Speech was decreased in rate and volume. Mood described as depressed. His affect was odd and subdued. Thought process was linear but superficial. Thought content: patient reports suicidal thoughts today with no plan. He denied homicidal ideation. There was poverty of content. There were no delusions reported or noted, He endorsed auditory hallucinations and did appear to be responding to internal stimuli. His attention and concentration was impaired. He is alert and oriented to person and place only. Insight and judgment are limited. impulse control is impaired. Vitals/I&O/Wt Last Vital Signs Temp 99.1 F 06/02/25 06:00 Pulse 75 06/02/25 06:00 Resp 18 06/02/25 06:00 BP 125/82 06/02/25 06:00 Pulse Ox 97 06/02/25 06:00 O2 Del Method Room Air 06/02/25 06:00 Data NPU 05/25/25 12:50 05/25/25 13:26 A&P Assessment and plan (1) Chronic schizophrenia: (2) Suicidal ideation: (3) History of command hallucinations: (4) Depression: (5) Cannabis abuse: (6) Methamphetamine abuse: (7) Psychiatric care: (8) Posttraumatic stress disorder: (9) Generalized anxiety disorder: (10) Suicidal ideation: Plan This is a 34-year-old male who is known from past hospitalizations the last of which was about 2 years ago who has been treated for depression with a history of psychosis, addiction with a history of frequent hospitalizations and presents today reporting that he has been off of his medication and trying to figure things out economically now that he has his own place but does not have a job and is just stressing about 's challenges. He reports however other than cannabis use he has been doing well from the standpoint of addiction. Plan: 1. Increase invega to 9mg at night. We will restart monthly invega sustenna if improvement occurs with his psychosis on the oral. Continue Prozac to 40 mg p.o. daily. 2. Continue every 15 minute checks for safety. 3. Encourage individual, group and milieu therapies. 4. Encourage sober living treatment after discharge at the highest level of care to which he is willing to commit. 5. Patient now on 21 day hold. 6. Obtain collateral information. PDMP PDMP Reviewed: Not Reviewed Involuntary Hold Information 2 Hold Status: Legal Status: 21 Day Hold Date/Time Hold Expires: 06/23/2025 96 Hour Hold: 96 Hour Involuntary Admission: Yes Attestations NPU 2 Medical Necessity Statement*: Inpatient hospitalization is medically necessary and the clinically appropriate intervention at this time. We will initiate medications and make changes as indicated. The patient's likely length of stay is 7-10 days. Coding Level of Care Code Acute Code for [facility] Fwd Diagnoses Chronic schizophrenia F20.9 Suicidal ideation R45.851 History of command hallucinations Z86.59 Depression F32.9 Cannabis abuse F12.10 Methamphetamine abuse F15.10 Psychiatric care Z76.89 Posttraumatic stress disorder F43.10 Generalized anxiety disorder F41.1
[2025-06-02 19:45] VITALS: BP 116/68; PULSE 79; RESP 16; TEMP 36.7; O2SAT 97
[2025-06-02] MEDS: paliperidone ER 9 mg Tablet PO (21:23)
[2025-06-02 22:00] VITALS: BP 116/68; PULSE 79; RESP 16; TEMP 36.7; O2SAT 97
[2025-06-03 06:00] VITALS: BP 110/70; PULSE 98; RESP 18; TEMP 36.5; O2SAT 98
[2025-06-03] MEDS: multivitamin therapeutic Tablet 1 TAB PO (08:35)
--- NOTE | 2025-06-03 09:26 | NUR.SHIFT ---
Pt states that he slept good last night. He rates his anxiety a 3/10 and depression 5/10. No reports of SI/HI and denies hallucinations so far this morning. No pain reported. He is calm and cooperative during assessment.
[2025-06-03 14:00] VITALS: BP 109/70; PULSE 88; RESP 16; O2SAT 99
--- NOTE | 2025-06-03 14:58 | P.NPUPN_ITS ---
Subjective NPU 2 Subjective: 34-year-old male with a history of schiz ophrenia with disorganized thinking and noncompliance with his medications. The patient continued to endorse hearing voices. Continue to isolate himself on the milieu. He reported having difficulties with concentration. He had struggled with completing activities of daily living. He reported no side effects from his medications. He continued to report feeling depressed. He reports being unable to understand what the voices was saying to them but stated that it was less intense and less frequent. Mental Status Exam 2 MSE Comments: This is an obese, white male in hospital scrubs with limited grooming and eye contact. No abnormal involuntary motor movements, except for prominent psychomotor retardation. He was minimally cooperative with exam in mild distress. Speech was decreased in rate and volume with increase speech latency. Mood described as depressed. His affect was odd and subdued. Thought process was linear but superficial. Thought content: patient reports suicidal thoughts today with no plan. He denied homicidal ideation. There was poverty of content. There were no delusions reported or noted, He endorsed auditory hallucinations and did appear to be responding to internal stimuli. His attention and concentration was impaired. He is alert and oriented to person and place only. Insight and judgment are limited. impulse control is impaired. Vitals/I&O/Wt Last Vital Signs Temp 97.7 F 06/03/25 06:00 Pulse 98 06/03/25 06:00 Resp 18 06/03/25 06:00 BP 110/70 06/03/25 06:00 Pulse Ox 98 06/03/25 06:00 O2 Del Method Room Air 06/03/25 06:00 Data NPU 05/25/25 12:50 05/25/25 13:26 A&P Assessment and plan (1) Chronic schizophrenia: (2) Suicidal ideation: (3) History of command hallucinations: (4) Depression: (5) Cannabis abuse: (6) Methamphetamine abuse: (7) Psychiatric care: (8) Posttraumatic stress disorder: (9) Generalized anxiety disorder: (10) Suicidal ideation: Plan This is a 34-year-old male who is known from past hospitalizations the last of which was about 2 years ago who has been treated for depression with a history of psychosis, addiction with a history of frequent hospitalizations and presents today reporting that he has been off of his medication and trying to figure things out economically now that he has his own place but does not have a job and is just stressing about 's challenges. He reports however other than cannabis use he has been doing well from the standpoint of addiction. Plan: 1. Continue invega at 9mg at night. We will restart monthly invega sustenna if improvement occurs with his psychosis on the oral. Continue Prozac to 40 mg p.o. daily. 2. Continue every 15 minute checks for safety. 3. Encourage individual, group and milieu therapies. 4. Encourage sober living treatment after discharge at the highest level of care to which he is willing to commit. 5. Patient now on 21 day hold. 6. Obtain collateral information. PDMP PDMP Reviewed: Not Reviewed Involuntary Hold Information 2 Hold Status: Legal Status: Hold Date/Time Hold Expires: 06/23/2025 96 Hour Hold: 96 Hour Involuntary Admission: Yes Attestations NPU 2 Medical Necessity Statement*: Inpatient hospitalization is medically necessary and the clinically appropriate intervention at this time. We will initiate medications and make changes as indicated. The patient's likely length of stay is 7-10 days. Coding Level of Care Code Acute Code for [facility] Fwd Diagnoses Chronic schizophrenia F20.9 Suicidal ideation R45.851 History of command hallucinations Z86.59 Depression F32.9 Cannabis abuse F12.10 Methamphetamine abuse F15.10 Psychiatric care Z76.89 Posttraumatic stress disorder F43.10 Generalized anxiety disorder F41.1
[2025-06-03 20:32] VITALS: BP 104/67; PULSE 97; RESP 18; TEMP 36.7; O2SAT 98
[2025-06-04 06:00] VITALS: BP 114/67; PULSE 70; RESP 16; TEMP 37.1; O2SAT 97
[2025-06-04] MEDS: multivitamin therapeutic Tablet 1 TAB PO (07:50)
[2025-06-04 14:00] VITALS: BP 103/74; PULSE 88; RESP 16; TEMP 36.6; O2SAT 98
--- NOTE | 2025-06-04 16:00 | P.NPUPN_ITS ---
Subjective NPU 2 Subjective: 34-year-old male with a history of schiz ophrenia with disorganized thinking and noncompliance with his medications. The patient continued to reiterate his fear of heights stating that the reason he is here is because he is scared of heights. Patient had reported that he continued to feel depressed. He had reported that he was distracted by his thoughts. Patient had been less isolative and was more social on the milieu today. He reported no side effects from his medications. The patient had reported that he was feeling less worried. He had reported previous success with Invega. Mental Status Exam 2 MSE Comments: This is an obese, white male in hospital scrubs with improved grooming and eye contact. No abnormal involuntary motor movements, except for prominent psychomotor retardation. He was more cooperative with exam in mild distress. Speech was decreased in rate and volume with continued speech latency. Mood described as depressed. His affect remained odd and subdued. Thought process was linear but superficial. Thought content: patient reports suicidal thoughts today with no plan. He denied homicidal ideation. There was poverty of content. There were no delusions reported or noted, He endorsed auditory hallucinations and did appear to be responding to internal stimuli. There was less paranoia appreciated. His attention and concentration was impaired. He is alert and oriented to person and place only. Insight and judgment are limited. impulse control is impaired. Vitals/I&O/Wt Last Vital Signs Temp 97.8 F 06/04/25 14:00 Pulse 88 06/04/25 14:00 Resp 16 06/04/25 14:00 BP 103/74 06/04/25 14:00 Pulse Ox 98 06/04/25 14:00 O2 Del Method Room Air 06/04/25 06:00 Data NPU 05/25/25 12:50 05/25/25 13:26 A&P Assessment and plan (1) Chronic schizophrenia: (2) Suicidal ideation: (3) History of command hallucinations: (4) Depression: (5) Cannabis abuse: (6) Methamphetamine abuse: (7) Psychiatric care: (8) Posttraumatic stress disorder: (9) Generalized anxiety disorder: (10) Suicidal ideation: Plan This is a 34-year-old male who is known from past hospitalizations the last of which was about 2 years ago who has been treated for depression with a history of psychosis, addiction with a history of frequent hospitalizations and presents today reporting that he has been off of his medication and trying to figure things out economically now that he has his own place but does not have a job and is just stressing about 's challenges. He reports however other than cannabis use he has been doing well from the standpoint of addiction. Plan: 1. Continue invega at 9mg at night. We will restart monthly invega sustenna if improvement occurs with his psychosis on the oral. Continue Prozac to 40 mg p.o. daily. Patient does appear to be improving with less paranoia noted. 2. Continue every 15 minute checks for safety. 3. Encourage individual, group and milieu therapies. 4. Encourage sober living treatment after discharge at the highest level of care to which he is willing to commit. 5. Patient now on 21 day hold. 6. Obtain collateral information. PDMP PDMP Reviewed: Not Reviewed Involuntary Hold Information 2 Hold Status: Legal Status: 21 Day Hold Date/Time Hold Expires: 06/23/2025 96 Hour Hold: 96 Hour Involuntary Admission: Yes Attestations NPU 2 Medical Necessity Statement*: Inpatient hospitalization is medically necessary and the clinically appropriate intervention at this time. We will initiate medications and make changes as indicated. The patient's likely length of stay is 7-10 days. Coding Level of Care Code Acute Code for [facility] Fwd Diagnoses Chronic schizophrenia F20.9 Suicidal ideation R45.851 History of command hallucinations Z86.59 Depression F32.9 Cannabis abuse F12.10 Methamphetamine abuse F15.10 Psychiatric care Z76.89 Posttraumatic stress disorder F43.10 Generalized anxiety disorder F41.1
[2025-06-04] MEDS: paliperidone ER 9 mg Tablet PO (18:54)
[2025-06-04 20:59] VITALS: BP 118/76; PULSE 85; RESP 17; TEMP 36.6; O2SAT 97
[2025-06-05 06:00] VITALS: BP 109/71; PULSE 79; RESP 18; TEMP 36.8; O2SAT 98
[2025-06-05] MEDS: multivitamin therapeutic Tablet 1 TAB PO (08:24)
[2025-06-05 14:00] VITALS: BP 104/65; PULSE 108; RESP 18; TEMP 36.8; O2SAT 98
--- NOTE | 2025-06-05 17:23 | P.NPUPN_ITS ---
Subjective NPU 2 Subjective: 34-year-old male with a history of schiz ophrenia with disorganized thinking and noncompliance with his medications. The patient continues to report hearing voices and stated that they made him scared. He continued to report being scared of heights. He had reported that he continued to hear voices. He had appeared less guarded and paranoid as he appeared out of his room more frequently. He had reported continuing to feel depressed but stated that he did not feel like harming himself. He reported no side effects from his medications. He had denied having any problems with anxiety. He continued to report feeling distracted by his thoughts. Mental Status Exam 2 MSE Comments: This is an obese, white male in hospital scrubs with improved grooming and eye contact. No abnormal involuntary motor movements, except for prominent psychomotor retardation. He was more cooperative with exam in mild distress. Speech was decreased in rate and volume with continued speech latency. Mood described as okay. His affect was blunted. Thought process was linear but superficial. Thought content: patient reports suicidal thoughts today with no plan. There was poverty of content. He denied homicidal ideation. There were no delusions reported or noted, He endorsed auditory hallucinations and did appear to be responding to internal stimuli. There was less paranoia appreciated. His attention and concentration was impaired. He is alert and oriented to person and place only. Insight and judgment are limited. impulse control is impaired. Vitals/I&O/Wt Last Vital Signs Temp 98.2 F 06/05/25 14:00 Pulse 108 H 06/05/25 14:00 Resp 18 06/05/25 14:00 BP 104/65 06/05/25 14:00 Pulse Ox 98 06/05/25 14:00 O2 Del Method Room Air 06/05/25 06:00 Data NPU 05/25/25 12:50 05/25/25 13:26 A&P Assessment and plan (1) Chronic schizophrenia: (2) Suicidal ideation: (3) History of command hallucinations: (4) Depression: (5) Cannabis abuse: (6) Methamphetamine abuse: (7) Psychiatric care: (8) Posttraumatic stress disorder: (9) Generalized anxiety disorder: (10) Suicidal ideation: Plan This is a 34-year-old male who is known from past hospitalizations the last of which was about 2 years ago who has been treated for depression with a history of psychosis, addiction with a history of frequent hospitalizations and presents today reporting that he has been off of his medication and trying to figure things out economically now that he has his own place but does not have a job and is just stressing about 's challenges. He reports however other than cannabis use he has been doing well from the standpoint of addiction. Plan: 1. Continue invega at 9mg at night. We will restart monthly invega sustenna if improvement occurs with his psychosis on the oral. Continue Prozac to 40 mg p.o. daily. 2. Continue every 15 minute checks for safety. 3. Encourage individual, group and milieu therapies. 4. Encourage sober living treatment after discharge at the highest level of care to which he is willing to commit. 5. Patient now on 21 day hold. 6. Obtain collateral information. PDMP PDMP Reviewed: Not Reviewed Involuntary Hold Information 2 Hold Status: Legal Status: 21 Day Hold Date/Time Hold Expires: 06/23/2025 96 Hour Hold: 96 Hour Involuntary Admission: Yes Attestations NPU 2 Medical Necessity Statement*: Inpatient hospitalization is medically necessary and the clinically appropriate intervention at this time. We will initiate medications and make changes as indicated. The patient's likely length of stay is 7-10 days. Coding Level of Care Code Acute Code for [facility] Fw Diagnoses Chronic schizophrenia F20.9 Suicidal ideation R45.851 History of command hallucinations Z86.59 Depression F32.9 Cannabis abuse F12.10 Methamphetamine abuse F15.10 Psychiatric care Z76.89 Posttraumatic stress disorder F43.10 Generalized anxiety disorder F41.1
[2025-06-05 20:12] VITALS: BP 118/79; PULSE 67; RESP 18; O2SAT 99
[2025-06-06] MEDS: paliperidone ER 9 mg Tablet PO ×2 (03:17→20:19)
[2025-06-06 06:00] VITALS: BP 134/76; PULSE 84; RESP 18; TEMP 36.6; O2SAT 100; BMI 29.0
[2025-06-06] MEDS: multivitamin therapeutic Tablet 1 TAB PO (07:41)
[2025-06-06 14:00] VITALS: BP 108/70; PULSE 88; RESP 18; TEMP 37.1; O2SAT 97
--- NOTE | 2025-06-06 16:43 | P.NPUPN_ITS ---
Subjective NPU 2 Subjective: 34-year-old male with a history of schiz ophrenia with disorganized thinking and noncompliance with his medications. The patient had reported that he was less worried. He had reported that he continued to hear voices. He stated that he was unable to determine what the voices were saying but stated that he still felt afraid of heights. He denied any thoughts of hurting himself. He was less isolative on the unit and stated that he was beginning to think about when he might be able to go home. He had reported improved ability to think when he took the intramuscular Invega and requested this today. Mental Status Exam 2 MSE Comments: This is an obese, white male in hospital scrubs with improved grooming and eye contact. No abnormal involuntary motor movements, except for prominent psychomotor retardation. He was more cooperative with exam in mild distress. Speech was decreased in rate and volume with less prominent speech laatency. Mood described as ok. His affect was blunted. Thought process was linear but superficial. Thought content: patient reports suicidal thoughts today with no plan. There was poverty of content. He denied homicidal ideation. There were no delusions reported or noted, He endorsed auditory hallucinations and did appear to be responding to internal stimuli. There was less paranoia appreciated. His attention and concentration was impaired. He is alert and oriented to person and place only. Insight and judgment are limited. impulse control is impaired. Vitals/I&O/Wt Last Vital Signs Temp 98.7 F 06/06/25 14:00 Pulse 88 06/06/25 14:00 Resp 18 06/06/25 14:00 BP 108/70 06/06/25 14:00 Pulse Ox 97 06/06/25 14:00 O2 Del Method Room Air 06/06/25 06:00 Weight last 48 hrs Weight 99.79 kg Data NPU 05/25/25 12:50 05/25/25 13:26 A&P Assessment and plan (1) Chronic schizophrenia: (2) Suicidal ideation: (3) History of command hallucinations: (4) Depression: (5) Cannabis abuse: (6) Methamphetamine abuse: (7) Psychiatric care: (8) Posttraumatic stress disorder: (9) Generalized anxiety disorder: (10) Suicidal ideation: Plan This is a 34-year-old male who is known from past hospitalizations the last of which was about 2 years ago who has been treated for depression with a history of psychosis, addiction with a history of frequent hospitalizations and presents today reporting that he has been off of his medication and trying to figure things out economically now that he has his own place but does not have a job and is just stressing about 's challenges. He reports however other than cannabis use he has been doing well from the standpoint of addiction. Plan: 1. Continue invega at 9mg at night. Order invega IM 234mg today. Continue Prozac to 40 mg p.o. daily. 2. Continue every 15 minute checks for safety. 3. Encourage individual, group and milieu therapies. 4. Encourage sober living treatment after discharge at the highest level of care to which he is willing to commit. 5. Patient now on 21 day hold. 6. Obtain collateral information. PDMP PDMP Reviewed: Not Reviewed Involuntary Hold Information 2 Hold Status: Legal Status: Day Hold Date/Time Hold Expires: 06/23/2025 96 Hour Hold: 96 Hour Involuntary Admission: Yes Attestations NPU 2 Medical Necessity Statement*: Inpatient hospitalization is medically necessary and the clinically appropriate intervention at this time. We will initiate medications and make changes as indicated. The patient's likely length of stay is 5-7 days. Coding Level of Care Code Acute Code for [facility] Fwd Diagnoses Chronic schizophrenia F20.9 Suicidal ideation R45.851 History of command hallucinations Z86.59 Depression F32.9 Cannabis abuse F12.10 Methamphetamine abuse F15.10 Psychiatric care Z76.89 Posttraumatic stress disorder F43.10 Generalized anxiety disorder F41.1
[2025-06-06 20:13] VITALS: BP 117/79; PULSE 84; RESP 18; TEMP 36.6; O2SAT 99
[2025-06-07 06:00] VITALS: BP 124/87; PULSE 73; RESP 18; O2SAT 99
[2025-06-07] MEDS: multivitamin therapeutic Tablet 1 TAB PO (10:10)
[2025-06-07 14:00] VITALS: BP 109/75; PULSE 79; RESP 18; TEMP 36.7; O2SAT 99
--- NOTE | 2025-06-07 17:31 | PC.NURSE ---
Pt has a crack on the side of his Lt foot from being dry. Dr. Trejo gave a v/o to do aquaphor.
[2025-06-07] MEDS: mineral oil-petrolat oint 106 gm 1 APPLIC TOPICAL (17:51)
--- NOTE | 2025-06-07 18:12 | P.NPUPN_ITS ---
Subjective NPU 2 Subjective: 34-year-old male with a history of schiz ophrenia with disorganized thinking and noncompliance with his medications. The patient had denied depressed mood at this time. He had reported no side effects from his medications. He had been less isolative but continued to endorse feeling paranoid. He had reported having problems with concentration and continue to report having fears. He had continued to report hearing voices as well. He had reported that the voices had been quieter. The patient reported that he asked when he could go home. Mental Status Exam 2 MSE Comments: This is an obese, white male in hospital scrubs with improved grooming and eye contact. No abnormal involuntary motor movements, except for prominent psychomotor retardation. He was more cooperative with exam in mild distress. Speech was decreased in rate and volume with less prominent speech latency. Mood described as i don't know, ok i guess. His affect was blunted. Thought process was linear but superficial. Thought content: patient reports suicidal thoughts today with no plan. There was poverty of content. He denied homicidal ideation. There were no delusions reported or noted, He endorsed auditory hallucinations and continued to be responding to internal stimuli. There was less paranoia appreciated. His attention and concentration was impaired. He is alert and oriented to person and place only. Insight and judgment are limited. impulse control is impaired. Vitals/I&O/Wt Last Vital Signs Temp 98.0 F 06/07/25 14:00 Pulse 79 06/07/25 14:00 Resp 18 06/07/25 14:00 BP 109/75 06/07/25 14:00 Pulse Ox 99 06/07/25 14:00 O2 Del Method Room Air 06/07/25 06:00 Weight last 48 hrs Weight 99.79 kg Data NPU 05/25/25 12:50 05/25/25 13:26 A&P Assessment and plan (1) Chronic schizophrenia: (2) Suicidal ideation: (3) History of command hallucinations: (4) Depression: (5) Cannabis abuse: (6) Methamphetamine abuse: (7) Psychiatric care: (8) Posttraumatic stress disorder: (9) Generalized anxiety disorder: (10) Suicidal ideation: Plan This is a 34-year-old male who is known from past hospitalizations the last of which was about 2 years ago who has been treated for depression with a history of psychosis, addiction with a history of frequent hospitalizations and presents today reporting that he has been off of his medication and trying to figure things out economically now that he has his own place but does not have a job and is just stressing about 's challenges. He reports however other than cannabis use he has been doing well from the standpoint of addiction. Plan: 1. Continue invega at 9mg at night. Continue Prozac to 40 mg p.o. daily. Invega 234mg IM daily ordered. 2. Continue every 15 minute checks for safety. 3. Encourage individual, group and milieu therapies. 4. Encourage sober living treatment after discharge at the highest level of care to which he is willing to commit. 5. Patient now on 21 day hold. 6. Obtain collateral information. PDMP PDMP Reviewed: Not Reviewed Involuntary Hold Information 2 Hold Status: Legal Status: Day Hold Date/Time Hold Expires: 06/23/2025 96 Hour Hold: 96 Hour Involuntary Admission: Yes Attestations NPU 2 Medical Necessity Statement*: Inpatient hospitalization is medically necessary and the clinically appropriate intervention at this time. We will initiate medications and make changes as indicated. The patient's likely length of stay is 5-7 days. Coding Level of Care Code Acute Code for [facility] Fwd Diagnoses Chronic schizophrenia F20.9 Suicidal ideation R45.851 History of command hallucinations Z86.59 Depression F32.9 Cannabis abuse F12.10 Methamphetamine abuse F15.10 Psychiatric care Z76.89 Posttraumatic stress disorder F43.10 Generalized anxiety disorder F41.1
[2025-06-07 20:33] VITALS: BP 120/76; PULSE 95; RESP 16; TEMP 36.7; O2SAT 99
[2025-06-07] MEDS: paliperidone ER 9 mg Tablet PO (21:06)
[2025-06-08 06:00] VITALS: BP 103/64; PULSE 69; RESP 16; TEMP 36.4; O2SAT 95
[2025-06-08] MEDS: multivitamin therapeutic Tablet 1 TAB PO (08:26)
[2025-06-08 14:00] VITALS: BP 104/72; PULSE 78; RESP 17; O2SAT 99
--- NOTE | 2025-06-08 14:29 | W.PM.NPUPNS ---
Subjective NPU Subjective: 34-year-old male with a history of schizophrenia with disorganized thinking and noncompliance with his medications with reports of suicidal ideation. The patient had reported feeling less suicidal. He had reported that he still feels down. He reports that he is still distracted by the voices. He reports that he has been frustrated. He did not receive the Invega shot yesterday. He reported that he still had concerns about the voices speaking with them and stated that he still felt scared but was unable to specify what his fear was. He had reported adequate sleep. He had appeared less paranoid and more interactive with peers spending less time in his room. Mental Status Exam MSE Comments: This is an obese, tall white male in hospital scrubs with improved grooming and eye contact. No abnormal involuntary motor movements, except for prominent psychomotor retardation. He was more cooperative with exam in mild distress. Speech was decreased in rate and volume with some speech latency increase and monotone quality. Mood described as not so good. His affect was blunted. Thought process was linear but superficial. Thought content: patient reports suicidal thoughts today with no plan. There was poverty of content. He denied homicidal ideation. There were no delusions reported or noted, He endorsed auditory hallucinations and continued to be responding to internal stimuli. There was less paranoia appreciated. His attention and concentration was impaired. He is alert and oriented to person and place only. Insight and judgment are limited. impulse control is impaired. Vitals/I&O/Wt Last Vital Signs Temp 97.6 F 06/08/25 06:00 Pulse 69 06/08/25 06:00 Resp 16 06/08/25 06:00 BP 103/64 06/08/25 06:00 Pulse Ox 95 06/08/25 06:00 O2 Del Method Room Air 06/08/25 06:00 Data NPU 05/25/25 12:50 05/25/25 13:26 A&P Assessment and plan 1. Chronic schizophrenia: 2. Suicidal ideation: 3. History of command hallucinations: 4. Depression: 5. Cannabis abuse: 6. Methamphetamine abuse: 7. Psychiatric care: 8. Posttraumatic stress disorder: 9. Generalized anxiety disorder: 10. Suicidal ideation: Plan: This is a 34-year-old male who is known from past hospitalizations the last of which was about 2 years ago who has been treated for depression with a history of psychosis, addiction with a history of frequent hospitalizations and presents today reporting that he has been off of his medication and trying to figure things out economically now that he has his own place but does not have a job and is just stressing about 's challenges. He reports however other than cannabis use he has been doing well from the standpoint of addiction. Plan: 1. Continue invega at 9mg at night. Continue Prozac to 40 mg p.o. daily. Invega 234mg IM daily ordered to be given today. 2. Continue every 15 minute checks for safety. 3. Encourage individual, group and milieu therapies. 4. Encourage sober living treatment after discharge at the highest level of care to which he is willing to commit. 5. Patient now on 21 day hold. 6. Obtain collateral information. PDMP PDMP Reviewed: Not Reviewed Involuntary Hold Information Hold Status: Legal Status: 21 Day Hold Date/Time Hold Expires: 06/23/2025 96 Hour Hold: 96 Hour Involuntary Admission: Yes Attestations NPU Medical Necessity Statement*: Inpatient hospitalization is medically necessary and the clinically appropriate intervention at this time. We will initiate medications and make changes as indicated. The patient's likely length of stay is 5-7 days. Coding Level of Care Code Acute Code for [facility] Fwd Diagnoses Chronic schizophrenia F20.9 Suicidal ideation R45.851 History of command hallucinations Z86.59 Depression F32.A Cannabis abuse F12.10 Methamphetamine abuse F15.10 Psychiatric care Z76.89 Posttraumatic stress disorder F43.10 Generalized anxiety disorder F41.1
[2025-06-08] MEDS: paliperidone palmitate 234 mg Syringe IM (15:49)
--- NOTE | 2025-06-08 16:37 | PC.NURSE ---
Pt given IM 234mg Invega, pt tolerated well.
[2025-06-08 19:51] VITALS: BP 99/60; PULSE 80; RESP 18; TEMP 36.4; O2SAT 97
[2025-06-08] MEDS: paliperidone ER 9 mg Tablet PO (21:01)
[2025-06-09 06:00] VITALS: BP 123/74; PULSE 77; RESP 16; TEMP 36.6; O2SAT 98
[2025-06-09] MEDS: multivitamin therapeutic Tablet 1 TAB PO (09:26)
[2025-06-09 14:00] VITALS: BP 93/55; PULSE 86; RESP 18; TEMP 37.3; O2SAT 98
--- NOTE | 2025-06-09 16:02 | W.PM.NPUPNS ---
Subjective NPU Subjective: Patient presented today reporting that he is feeling vet improvements are occurring. We discussed making sure we understood where we were with the Invega injections and no when is the earliest he could leave. He reports failing a little better on optimistic about being able to function all right when he discharges. We discussed making sure we are communicating with his mother about the plan that she has his significant support. He denied any side effects to medication. Mental Status Exam MSE Comments: This is an obese, tall white male in hospital scrubs with improved grooming and eye contact. No abnormal involuntary motor movements, except for prominent psychomotor retardation. He was more cooperative with exam in mild distress. Speech was decreased in rate and volume with some speech latency increase and monotone quality. Mood described as not so good. His affect was blunted. Thought process was linear but superficial. Thought content: patient reports suicidal thoughts today with no plan. There was poverty of content. He denied homicidal ideation. There were no delusions reported or noted, He endorsed auditory hallucinations and continued to be responding to internal stimuli. There was less paranoia appreciated. His attention and concentration was impaired. He is alert and oriented to person and place only. Insight and judgment are limited. impulse control is impaired. Vitals/I&O/Wt Last Vital Signs Temp 99.2 F 06/09/25 14:00 Pulse 86 06/09/25 14:00 Resp 18 06/09/25 14:00 BP 93/55 06/09/25 14:00 Pulse Ox 98 06/09/25 14:00 O2 Del Method Room Air 06/09/25 06:00 Data NPU 05/25/25 12:50 05/25/25 13:26 A&P Assessment and plan 1. Chronic schizophrenia: 2. Suicidal ideation: 3. History of command hallucinations: 4. Depression: 5. Cannabis abuse: 6. Methamphetamine abuse: 7. Psychiatric care: 8. Posttraumatic stress disorder: 9. Generalized anxiety disorder: 10. Suicidal ideation: Plan: This is a 34-year-old male who is known from past hospitalizations the last of which was about 2 years ago who has been treated for depression with a history of psychosis, addiction with a history of frequent hospitalizations and presents today reporting that he has been off of his medication and trying to figure things out economically now that he has his own place but does not have a job and is just stressing about 's challenges. He reports however other than cannabis use he has been doing well from the standpoint of addiction. Plan: 1. Continue invega at 9mg at night. Continue Prozac to 40 mg p.o. daily. 2. Continue every 15 minute checks for safety. 3. Encourage individual, group and milieu therapies. 4. Encourage sober living treatment after discharge at the highest level of care to which he is willing to commit. 5. Patient now on 21 day hold. 6. Obtain collateral information. PDMP PDMP Reviewed: Not Reviewed Involuntary Hold Information Hold Status: Legal Status: 21 Day Hold Date/Time Hold Expires: 06/23/2025 96 Hour Hold: 96 Hour Involuntary Admission: Yes Attestations NPU Medical Necessity Statement*: Inpatient hospitalization is medically necessary and the clinically appropriate intervention at this time. We will initiate medications and make changes as indicated. The patient's likely length of stay is 5-7 days. Coding Level of Care Code Acute Code for [facility] Fwd Diagnoses Chronic schizophrenia F20.9 Suicidal ideation R45.851 History of command hallucinations Z86.59 Depression F32.A Cannabis abuse F12.10 Methamphetamine abuse F15.10 Psychiatric care Z76.89 Posttraumatic stress disorder F43.10 Generalized anxiety disorder F41.1
[2025-06-09] MEDS: paliperidone ER 9 mg Tablet PO (20:32)
[2025-06-09 20:43] VITALS: BP 116/72; PULSE 78; RESP 17; TEMP 36.7; O2SAT 98
[2025-06-10 06:00] VITALS: BP 116/66; PULSE 73; RESP 17; TEMP 36.4; O2SAT 98
[2025-06-10] MEDS: multivitamin therapeutic Tablet 1 TAB PO (08:48)
[2025-06-10 14:00] VITALS: BP 92/53; PULSE 70; RESP 16; TEMP 36.9; O2SAT 98
[2025-06-10] MEDS: paliperidone ER 9 mg Tablet PO (20:02)
[2025-06-10 20:14] VITALS: BP 119/77; PULSE 67; RESP 18; TEMP 36.3; O2SAT 98
--- NOTE | 2025-06-10 20:32 | P.NPUPN_ITS ---
Subjective NPU 2 Subjective: Patient presented today reporting that things are going all right. He is reporting that there is a medication that he was taking back at [place] 3 to 6 years ago that he feels is the one that helped in the most and has tasked this securities underwriter with trying to find out what medication that was. We talked about his time left ear and talking to his mother about how she feels he is doing so the weekend the the process of planning for discharge. He denied any side effects to his medications. Mental Status Exam 2 MSE Comments: This is an obese, tall white male in hospital scrubs with improved grooming and eye contact. No abnormal involuntary motor movements, except for prominent psychomotor retardation. He was more cooperative with exam in mild distress. Speech was decreased in rate and volume with some speech latency increase and monotone quality. Mood described as not so good. His affect was blunted. Thought process was linear but superficial. Thought content: patient reports suicidal thoughts today with no plan. There was poverty of content. He denied homicidal ideation. There were no delusions reported or noted, He endorsed auditory hallucinations and continued to be responding to internal stimuli. There was less paranoia appreciated. His attention and concentration was impaired. He is alert and oriented to person and place only. Insight and judgment are limited. impulse control is impaired. Vitals/I&O/Wt Last Vital Signs Temp 97.3 F L 06/10/25 20:14 Pulse 67 06/10/25 20:14 Resp 18 06/10/25 20:14 BP 119/77 06/10/25 20:14 Pulse Ox 98 06/10/25 20:14 O2 Del Method Room Air 06/10/25 20:14 Data NPU 05/25/25 12:50 05/25/25 13:26 A&P Assessment and plan 1. Chronic schizophrenia: 2. Suicidal ideation: 3. History of command hallucinations: 4. Depression: 5. Cannabis abuse: 6. Methamphetamine abuse: 7. Psychiatric care: 8. Posttraumatic stress disorder: 9. Generalized anxiety disorder: 10. Suicidal ideation: Plan: This is a 34-year-old male who is known from past hospitalizations the last of which was about 2 years ago who has been treated for depression with a history of psychosis, addiction with a history of frequent hospitalizations and presents today reporting that he has been off of his medication and trying to figure things out economically now that he has his own place but does not have a job and is just stressing about 's challenges. He reports however other than cannabis use he has been doing well from the standpoint of addiction. Plan: 1. Continue invega at 9mg at night. Continue Prozac to 40 mg p.o. daily. 2. Continue every 15 minute checks for safety. 3. Encourage individual, group and milieu therapies. 4. Encourage sober living treatment after discharge at the highest level of care to which he is willing to commit. 5. Patient now on 21 day hold. 6. Obtain collateral information. PDMP PDMP Reviewed: Not Reviewed Involuntary Hold Information 2 Hold Status: Legal Status: 21 Day Hold Date/Time Hold Expires: 06/23/2025 96 Hour Hold: 96 Hour Involuntary Admission: Yes Attestations NPU 2 Medical Necessity Statement*: Inpatient hospitalization is medically necessary and the clinically appropriate intervention at this time. We will initiate medications and make changes as indicated. The patient's likely length of stay is 4-6 days. Coding Level of Care Code Acute Code for [facility] Diagnoses Chronic schizophrenia F20.9 Suicidal ideation R45.851 History of command hallucinations Z86.59 Depression F32.A Cannabis abuse F12.10 Methamphetamine abuse F15.10 Psychiatric care Z76.89 Posttraumatic stress disorder F43.10 Generalized anxiety disorder F41.1
[2025-06-11 06:00] VITALS: BP 112/74; PULSE 99; RESP 18; TEMP 36.5; O2SAT 99
[2025-06-11] MEDS: multivitamin therapeutic Tablet 1 TAB PO (08:35)
--- NOTE | 2025-06-11 13:10 | W.PM.NPUPNS ---
Subjective NPU Subjective: Patient presented today reporting that he is doing okay. Patient becoming less isolative per staff reports and direct observation. Seeing him vertical and out of bed for one of the first times recently. He continued to be open to the idea of trying to find the old mood stabilizer he felt worked so well but also we discussed the likelihood of discharge at the beginning of the week if he continues to improve at this place. He denied any side effects of medication. Mental Status Exam MSE Comments: This is an obese, tall white male in hospital scrubs with improved grooming and eye contact. No abnormal involuntary motor movements, except for prominent psychomotor retardation. He was more cooperative with exam in mild distress. Speech was decreased in rate and volume with some speech latency increase and monotone quality. Mood described as not so good. His affect was blunted. Thought process was linear but superficial. Thought content: patient reports suicidal thoughts today with no plan. There was poverty of content. He denied homicidal ideation. There were no delusions reported or noted, He endorsed auditory hallucinations and continued to be responding to internal stimuli. There was less paranoia appreciated. His attention and concentration was impaired. He is alert and oriented to person and place only. Insight and judgment are limited. impulse control is impaired. Vitals/I&O/Wt Last Vital Signs Temp 97.7 F 06/11/25 06:00 Pulse 99 06/11/25 06:00 Resp 18 06/11/25 06:00 BP 112/74 06/11/25 06:00 Pulse Ox 99 06/11/25 06:00 O2 Del Method Room Air 06/11/25 06:00 Data NPU 05/25/25 12:50 05/25/25 13:26 A&P Assessment and plan 1. Chronic schizophrenia: 2. Suicidal ideation: 3. History of command hallucinations: 4. Depression: 5. Cannabis abuse: 6. Methamphetamine abuse: 7. Psychiatric care: 8. Posttraumatic stress disorder: 9. Generalized anxiety disorder: 10. Suicidal ideation: Plan: This is a 34-year-old male who is known from past hospitalizations the last of which was about 2 years ago who has been treated for depression with a history of psychosis, addiction with a history of frequent hospitalizations and presents today reporting that he has been off of his medication and trying to figure things out economically now that he has his own place but does not have a job and is just stressing about 's challenges. He reports however other than cannabis use he has been doing well from the standpoint of addiction. Plan: 1. Continue invega at 9mg at night. Continue Prozac to 40 mg p.o. daily. Continue to work on figuring out the mood stabilizer that he was on before. Tentative plan for discharge at the beginning of the week. 2. Continue every 15 minute checks for safety. 3. Encourage individual, group and milieu therapies. 4. Encourage sober living treatment after discharge at the highest level of care to which he is willing to commit. 5. Patient now on 21 day hold. 6. Obtain collateral information. PDMP PDMP Reviewed: Not Reviewed Involuntary Hold Information Hold Status: Legal Status: Day Hold Date/Time Hold Expires: 06/23/2025 96 Hour Hold: 96 Hour Involuntary Admission: Yes Attestations NPU Medical Necessity Statement*: Inpatient hospitalization is medically necessary and the clinically appropriate intervention at this time. We will initiate medications and make changes as indicated. The patient's likely length of stay is 3-5 days. Coding Level of Care Code Acute Code for [facility] Diagnoses Chronic schizophrenia F20.9 Suicidal ideation R45.851 History of command hallucinations Z86.59 Depression F32.A Cannabis abuse F12.10 Methamphetamine abuse F15.10 Psychiatric care Z76.89 Posttraumatic stress disorder F43.10 Generalized anxiety disorder F41.1
[2025-06-11 14:00] VITALS: BP 121/77; PULSE 70; RESP 18; TEMP 36.4; O2SAT 99
[2025-06-11] MEDS: paliperidone ER 9 mg Tablet PO (20:20)
[2025-06-11 20:24] VITALS: BP 114/82; PULSE 79; RESP 18; TEMP 36.5; O2SAT 97
[2025-06-12 06:00] VITALS: BP 125/83; PULSE 90; RESP 18; TEMP 36.4; O2SAT 99
[2025-06-12] MEDS: multivitamin therapeutic Tablet 1 TAB PO (08:20)
--- NOTE | 2025-06-12 13:27 | P.NPUPN_ITS ---
Subjective NPU 2 Subjective: Patient presented today reporting that things are going well. He discussed feeling better and continued to be less isolative per staff reports and direct observation. We talked about working with his family to consider discharge at the beginning of the week. He was feeling positive about that as a plan. He denied any side effects of the medication. Mental Status Exam 2 MSE Comments: This is an obese, tall white male in hospital scrubs with improved grooming and eye contact. No abnormal involuntary motor movements, except for reducing mild psychomotor retardation. He was more cooperative with exam in no acute distress. Speech was slightly decreased in rate and volume. Mood described as better. His affect was brighter. Thought process was linear and more organized. Thought content: patient denied suicidal or homicidal ideation. There were no delusions reported or noted, He denied hallucinations and did not appear to be responding to internal stimuli. There was less paranoia appreciated. His attention and concentration was improving. He is alert and oriented x 3. Insight and judgment are limited. Impulse control is improving. Vitals/I&O/Wt Last Vital Signs Temp 97.5 F L 06/12/25 06:00 Pulse 90 06/12/25 06:00 Resp 18 06/12/25 06:00 BP 125/83 06/12/25 06:00 Pulse Ox 99 06/12/25 06:00 O2 Del Method Room Air 06/12/25 06:00 Data NPU 05/25/25 12:50 05/25/25 13:26 A&P Assessment and plan 1. Chronic schizophrenia: 2. Suicidal ideation: 3. History of command hallucinations: 4. Depression: 5. Cannabis abuse: 6. Methamphetamine abuse: 7. Psychiatric care: 8. Posttraumatic stress disorder: 9. Generalized anxiety disorder: 10. Suicidal ideation: Plan: This is a 34-year-old male who is known from past hospitalizations the last of which was about 2 years ago who has been treated for depression with a history of psychosis, addiction with a history of frequent hospitalizations and presents today reporting that he has been off of his medication and trying to figure things out economically now that he has his own place but does not have a job and is just stressing about 's challenges. He reports however other than cannabis use he has been doing well from the standpoint of addiction. Plan: 1. Continue invega at 9mg at night. Continue Prozac to 40 mg p.o. daily. Continue to work on figuring out the mood stabilizer that he was on before. Tentative plan for discharge at the beginning of the week. 2. Continue every 15 minute checks for safety. 3. Encourage individual, group and milieu therapies. 4. Encourage sober living treatment after discharge at the highest level of care to which he is willing to commit. 5. Patient now on 21 day hold. 6. Obtain collateral information. PDMP PDMP Reviewed: Not Reviewed Involuntary Hold Information 2 Hold Status: Legal Status: 21 Day Hold Date/Time Hold Expires: 06/23/2025 96 Hour Hold: 96 Hour Involuntary Admission: Yes Attestations NPU 2 Medical Necessity Statement*: Inpatient hospitalization is medically necessary and the clinically appropriate intervention at this time. We will initiate medications and make changes as indicated. The patient's likely length of stay is 2-4 days. Coding Level of Care Code Acute Code for [facility] Diagnoses Chronic schizophrenia F20.9 Suicidal ideation R45.851 History of command hallucinations Z86.59 Depression F32.A Cannabis abuse F12.10 Methamphetamine abuse F15.10 Psychiatric care Z76.89 Posttraumatic stress disorder F43.10 Generalized anxiety disorder F41.1
[2025-06-12 14:00] VITALS: BP 130/89; PULSE 76; RESP 18; TEMP 36.4; O2SAT 99
[2025-06-12] MEDS: paliperidone ER 9 mg Tablet PO (20:08)
[2025-06-12 20:18] VITALS: BP 151/81; PULSE 84; RESP 16; TEMP 36.9; O2SAT 100
[2025-06-13 06:00] VITALS: BP 151/98; PULSE 77; RESP 18; TEMP 36.6; O2SAT 99; BMI 31.7
[2025-06-13] MEDS: multivitamin therapeutic Tablet 1 TAB PO (08:24)
--- NOTE | 2025-06-13 08:40 | P.NPUPN_ITS ---
Subjective NPU 2 Subjective: Patient presented today reporting that things are going well. He continued to look better and be more interactive and less isolative per staff reports and direct observation. We discussed the fact that the social work team will be back tomorrow and we would work on a likely discharge in the next 48 hours. He denied any side effects of his medication but continued to be hopeful for the addition of a medication that was started in [place] in a timeframe that he cannot really quantify likely in the past 3-year 5 years. I agreed to continue to try to track that down. He was positive about the idea of discharge soon. Mental Status Exam 2 MSE Comments: This is an obese, tall white male in hospital scrubs with improved grooming and eye contact. No abnormal involuntary motor movements. He was more cooperative with exam in no acute distress. Speech was slightly decreased in rate and volume. Mood described as better. His affect was brighter. Thought process was linear and more organized. Thought content: patient denied suicidal or homicidal ideation. There were no delusions reported or noted, He denied hallucinations and did not appear to be responding to internal stimuli. There was less paranoia appreciated. His attention and concentration was improving. He is alert and oriented x 3. Insight and judgment are limited. Impulse control is improving. Vitals/I&O/Wt Last Vital Signs Temp 98 F 06/13/25 06:00 Pulse 77 06/13/25 06:00 Resp 18 06/13/25 06:00 BP 151/98 06/13/25 06:00 Pulse Ox 99 06/13/25 06:00 O2 Del Method Room Air 06/13/25 06:00 Weight last 48 hrs Weight 109.089 kg Data NPU 05/25/25 12:50 05/25/25 13:26 A&P Assessment and plan 1. Chronic schizophrenia: 2. Suicidal ideation: 3. History of command hallucinations: 4. Depression: 5. Cannabis abuse: 6. Methamphetamine abuse: 7. Psychiatric care: 8. Posttraumatic stress disorder: 9. Generalized anxiety disorder: 10. Suicidal ideation: Plan: This is a 34-year-old male who is known from past hospitalizations the last of which was about 2 years ago who has been treated for depression with a history of psychosis, addiction with a history of frequent hospitalizations and presents today reporting that he has been off of his medication and trying to figure things out economically now that he has his own place but does not have a job and is just stressing about 's challenges. He reports however other than cannabis use he has been doing well from the standpoint of addiction. Plan: 1. Continue invega at 9mg at night. Continue Prozac to 40 mg p.o. daily. Continue to work on figuring out the mood stabilizer that he was on before. Tentative plan for discharge by Saturday 2. Continue every 15 minute checks for safety. 3. Encourage individual, group and milieu therapies. 4. Encourage sober living treatment after discharge at the highest level of care to which he is willing to commit. 5. Patient now on 21 day hold. 6. Obtain collateral information. PDMP PDMP Reviewed: Not Reviewed Involuntary Hold Information 2 Hold Status: Legal Status: Hold Date/Time Hold Expires: 06/23/2025 96 Hour Hold: 96 Hour Involuntary Admission: Yes Attestations NPU 2 Medical Necessity Statement*: Inpatient hospitalization is medically necessary and the clinically appropriate intervention at this time. We will initiate medications and make changes as indicated. The patient's likely length of stay is 1-3 days. Coding Level of Care Code Acute Code for [facility] Diagnoses Chronic schizophrenia F20.9 Suicidal ideation R45.851 History of command hallucinations Z86.59 Depression F32.A Cannabis abuse F12.10 Methamphetamine abuse F15.10 Psychiatric care Z76.89 Posttraumatic stress disorder F43.10 Generalized anxiety disorder F41.1
[2025-06-13 14:00] VITALS: BP 116/77; PULSE 75; RESP 17; TEMP 36.6; O2SAT 99
[2025-06-13] MEDS: paliperidone ER 9 mg Tablet PO (20:13)
[2025-06-13 21:24] VITALS: BP 106/67; PULSE 78; RESP 18; TEMP 36.8; O2SAT 98
[2025-06-14 06:00] VITALS: BP 110/76; PULSE 83; RESP 20; TEMP 36.8; O2SAT 98
[2025-06-14] MEDS: multivitamin therapeutic Tablet 1 TAB PO (08:47)
[2025-06-14 14:00] VITALS: BP 119/78; PULSE 75; RESP 17; TEMP 36.6; O2SAT 99
[2025-06-14 14:24] VITALS: BP 110/76; PULSE 83; RESP 20; TEMP 36.8; O2SAT 98
--- NOTE | 2025-06-16 08:14 | W.PM.NPUDCS ---
Diagnoses at Discharge Discharge Diagnosis 1. Suicidal ideation: 2. History of command hallucinations: 3. Cannabis abuse: 4. Methamphetamine abuse: 5. Psychiatric care: 6. Posttraumatic stress disorder: 7. Generalized anxiety disorder: Reason for Visit Reason for Visit: MHE Brief History: History of Present Illness Ruben Horan is a 34 year old male who presented to the emergency department with the following report: Chief Complaint: Psychiatric Symptoms Stated Complaint: MHE Time Seen by Provider: 05/25/25 12:03 Source: patient Mode of arrival: ambulatory Limitations: no limitations History of Present Illness: 34-year-old male history of schizophrenia states he has not been taking his meds for over a year patient was brought here from [facility] emergency has been having paranoia he is also been having suicidal thoughts he does admit to suicidal ideations. Denies any attempts Associated symptoms: Reports depression and suicidal ideation. He was admitted to the neuropsychiatric unit for definitive treatment of those issues. He is known to [facility] psychiatry through inpatient and outpatient services. His last outpatient services were in 2023 in the spring and his most recent inpatient services were in 2022. An excerpt of his last discharge summary is included below for context and the fact that there have been no substantive changes. He presents reporting that his addiction has been more under control. He does continue to use cannabis and did have a UDS positive for cannabis but nothing else that his BAL was unremarkable. He reports that he started getting overwhelmed as he lives at home alone without many supports. He reports he has a lot of financial difficulties because employment is hard to come by. He reports that he has not been on medication and that he has been fairly isolated. He reports that he started having suicidal thoughts and is being upset that he has not gotten things together at this point. We discussed the risks, benefits and alternatives of restarting his Prozac and he understood and agreed to proceed as is documented in this note. Per his 01/08/2023 [facility] inpatient psychiatric discharge summary: Discharge Diagnosis (1) Suicidal ideation: Status: Resolved (2) History of command hallucinations: Status: Acute (3) Chronic schizophrenia: Status: Acute (4) Depression: Status: Acute (5) Cannabis abuse: Status: Acute (6) Methamphetamine abuse: Status: Inactive (7) Psychiatric care: Status: Inactive (8) Posttraumatic stress disorder: Status: Acute Reason for Visit Reason for Visit: MHE Brief History: History of Present Illness Ruben Horan is a 32 year old male the emergency department with the following report: Chief Complaint: Psychiatric Symptoms Stated Complaint: MHE Time Seen by Provider: 01/01/23 22:41 Source: patient Mode of arrival: ambulatory Limitations: no limitations History of Present Illness: 32-year-old male who is here he states he has been under a lot of stress since he has been feeling extremely paranoid he does have a history of schizophrenia he states that he has been hearing some worse he states he is also been having suicidal ideations he denies a specific plan but states he has been having suicidal thoughts he is very paranoid here as well. Associated symptoms: Reports depression and suicidal ideation. He was admitted to the neuropsychiatric unit for definitive treatment of those issues. He was last seen by this feature writer about 7 weeks ago. He presents as he often does, quite isolative and lying in bed. He is not a great historian but certainly pleasant when awoken reporting recent depression and having not been taking his medications appropriately reporting that he is feeling better or was feeling better and was kind feel like he did not need them. He denied significant changes in his life and excerpt of the discharge summary is included below for context. He was open to restarting his medication including the injection. We agreed we will work with the treatment team to identify what kinds of supports might be helpful to avoid this type of recurrence. He was negative but drug screen not obtained we will request. Per his 11/12/2022 [facility] inpatient psychiatric discharge summary: Discharge Diagnosis (1) Suicidal ideation: Status: Resolved (2) History of command hallucinations: Status: Acute (3) Chronic schizophrenia: Status: Acute (4) Depression: Status: Acute (5) Cannabis abuse: Status: Acute (6) Methamphetamine abuse: Status: Acute (7) Psychiatric care: Status: Inactive (8) Posttraumatic stress disorder: Status: Acute Reason for Visit Reason for Visit: psych evlaution 96 himself. Brief History: History of Present Illness Ruben Horan is a 32 year old male who presented to the emergency department with the following report: Chief Complaint: Psychiatric Symptoms Stated Complaint: Would like to 96 himself. Time Seen by Provider: 11/06/22 06:49 Source: patient Mode of arrival: ambulatory History of Present Illness: 32-year-old male history of schizophrenia presents emergency room initially is asking to be 96. Difficult to get a coherent history from he has a advance a full flight of ideas that are all tangential. He does admit to not having been taking his medications. Similar previous presentations to the emergency room. He is also having some auditory and visual hallucinations although he will not give me specifics on what the voices are telling him. Hallucinations are also similar to what he has presented with in the past. No homicidal or suicidal ideation at this time. Onset (ago): unknown Duration: constant History of same: Yes Relieving factors: none Exacerbating factors: none Context: not taking psychiatric medications Associated psychiatric symptoms: racing thoughts, auditory hallucinations, visual hallucinations and delusions Associated symptoms: Reports auditory hallucinations, visual hallucinations, delusions and racing thoughts Treatments prior to arrival: none. He presented today fully disorganized and unable to ability to stay in the interview. Increasing from his door making gestures to people walking by as if he was conducting magic. He appeared very guarded when approached and was unable to muster any reasonable answers to basic questions. An excerpt of his previous hospitalization is included below for context and given his inability as a historian. Per his 03/08/2022 [facility] inpatient psychiatric evaluation: History of Present Illness Ruben Horan is a 31 year old male admitted through our emergency department with the following report: Mr. Horan is a 31-year-old gentleman with significant past medical history of schizophrenia who presents the emergency department due to worsening hallucinations. He reports compliance with his medication regimen however baseline there are perhaps intermittent hallucinations. Over the past day these have worsened and are telling him to kill himself. Therefore he has thought about killing himself. He otherwise denies medical complaints or injuries. He has not acted on any suicide attempt. Overall the course of symptoms has worsened. Intensity is moderate. No other specific changes in health, exacerbating, or alleviating factors identified. He was admitted to the neuropsychiatry unit for definitive treatment of these issues. He initially said that he has been taking his medications. However, he then stated that he stopped taking the Invega about 5 days ago because it made him drowsy when he took it in the morning. He agreed to change that to bedtime. He also stopped taking the Prozac because he felt it was not helping his anxiety. He has been taking that hydroxyzine which does seem to help. He later said that he has been taking a green and white capsule that have been helping his anxiety. He agreed to restart the Prozac. He said that his voices have not been too bad but yesterday at noon these came back very bad. He says he had been somewhat stressed out because it normal normal base events. He said that he did not have coping mechanisms to use when he was stressed out. He had a therapy appointment after his last admission but he did not keep it. He says that the voices are better today but still there and worse than normal and he denies suicidal ideation. Below is his discharge summary from the last hospitalization in January. Diagnoses at Discharge Discharge Diagnosis (1) Chronic schizophrenia: Status: Acute (2) Depression: Status: Acute (3) Cannabis abuse: Status: Acute (4) Methamphetamine abuse: Status: Acute (5) Posttraumatic stress disorder: Status: Acute Reason for Visit Reason for Visit: SI Brief History: History of Present Illness: HPI Narrative: Patient is a 31-year-old male who presents to ED today stating he is suicidal. He states suicidal thoughts of been present over the past 2 to 3 days. He states he has a lot going on right now that he refuses to elaborate on. He has no specific plan at the moment. He does endorse previous suicide attempts. Patient has a history of chronic schizophrenia. He is not complaining of hallucinations or psychotic symptoms currently. He denies homicidal ideations. complaint: suicidal ideation Onset (ago): day(s) Duration: constant History of same: Yes Context: significant life stressor Associated psychiatric symptoms: depression and suicidal ideation Associated symptoms: Reports depression and suicidal ideation; Deny auditory hallucinations or homicidal ideation Treatments prior to arrival: none If self harm: admits thoughts of self harm He was admitted to the neuropsychiatry unit for medication treatment of these issues. He was released from this hospital in October on Zyprexa 15 mg daily and Lexapro 40 mg daily. He said that he did okay for almost a month but had depression and worsening auditory hallucinations again. He came to our emergency room did not have beds and he was sent to [place]. He said that he was there for about 1 week. He says that family discharged him on Vistaril 50 mg 100 mg at bedtime and trazodone. He said that even with that the voices were improved for about 1 week. However after 1 week started having depression for hallucinations again and now is back in the hospital. He says that he thinks the Invega 6 mg that he was released on in November 2024 depressed. He was able to stay out of the hospital for about 8 months. He was not on antidepressant at that time. When he was admitted in June 2021 he said that he had been noncompliant with his medications most of the time since his last hospitalization. He has not been able to stay out of the hospital for very long since then. He also was not taking medications when he came back into the hospital October of last year. He says that he has been compliant with his medications since then but has never been able to stay out of the hospital for a few weeks. He is currently drug screen has been consistently positive for marijuana but no other drugs. To try back to the Invega. Hospital Course Hospital Course He slowly acclimated to the individual, group and milieu therapies provided. He presented as he often does destabilized off of his medications though reporting their ineffectiveness. He was restarted on Invega 6 mg in the morning as well as Prozac 20 mg p.o. daily. The Invega was increased to 9 mg p.o. daily and the Prozac was increased to 40 mg p.o. daily and he was allowed to continue with Zyprexa as needed in addition to the Vistaril he had already been on. He was positive for cannabis on his UDS. The absence of drugs of abuse, the resumption of his medications with subsequent increases as well as being in the treatment milieu led to a positive response. He had significant improvement during his stay with those changes. He worked with the social work team for appropriate outpatient follow-up appointments. We communicated with his mother throughout the stay. He was able to contract for safety outside of the hospital, hospital prior to discharge. During the hospitalization, patient had routine laboratory studies which were within normal limits except for few outliers. Additionally there was a general medical evaluation which was also within normal limits and revealed no new acute processes. Discharge Summary: At the time of discharge, lethality was denied and psychosis was resolving. Mood and anxiety were well managed. Patient endorsed a plan to follow-up with the aftercare recommendations of the treatment team. Patient was evaluated and deemed to be absent credible lethality, and had achieved the maximum benefit from an inpatient hospitalization, so was discharged. Involuntary Hold Information Hold Status: Legal Status: 21 Day Hold Date/Time Hold Expires: 06/23/2025 96 Hour Hold: 96 Hour Involuntary Admission: Yes Mental Status Exam MSE Comments: This is an obese, tall white male in hospital scrubs with improved grooming and eye contact. No abnormal involuntary motor movements. He was more cooperative with exam in no acute distress. Speech was slightly decreased in rate and volume. Mood described as better. His affect was brighter. Thought process was linear and more organized. Thought content: patient denied suicidal or homicidal ideation. There were no delusions reported or noted, He denied hallucinations and did not appear to be responding to internal stimuli. There was less paranoia appreciated. His attention and concentration was improving. He is alert and oriented x 3. Insight and judgment are limited. Impulse control is improving. Discharge Data Studies Completed and Pending: Laboratory Results WBC 8.54 10^3/uL (3.2 9-11.43) 05/25/25 12:50 RBC 4.88 10^6/uL (3.8 5-5.65) 05/25/25 12:50 Hgb 15.40 g/dL (11.27 -16.99) 05/25/25 12:50 Hct 46.4 % (37-53) 05/25/25 12:50 MCV 95.1 fl (82-101) 05/25/25 12:50 MCH 31.6 pg (27-33) 05/25/25 12:50 MCHC 33.2 g/dL (30-55) 05/25/25 12:50 RDW 12.3 % (12.1-15.1 ) 05/25/25 12:50 Plt Count 232 10^3/cmm (157 -399) 05/25/25 12:50 MPV 10.8 fL (7.4-10.4 ) H 05/25/25 12:50 Neut % (Auto) 62.3 % 05/25/25 12:50 Lymph % (Auto) 24.4 % 05/25/25 12:50 Clarke % (Auto) 10.8 % 05/25/25 12:50 Eos % (Auto) 1.4 % 05/25/25 12:50 Baso % (Auto) 0.6 % 05/25/25 12:50 Neut # (Auto) 5.33 10^3/uL (1.8 -7.7) 05/25/25 12:50 Lymph # (Auto) 2.1 10^3/uL (0.8- 4.8) 05/25/25 12:50 Clarke # (Auto) 0.9 10^3/uL (0.2- 0.9) 05/25/25 12:50 Eos # (Auto) 0.1 10^3/uL (0.0- 0.8) 05/25/25 12:50 Baso # (Auto) 0.1 10^3/uL (0.0- 0.1) 05/25/25 12:50 Nucleated RBC % (a uto) 0 % 05/25/25 12:50 Nucleated RBCs # 0.0 /100WBC 05/25/25 12:50 Sodium 137 mmol/L (136-1 45) 05/25/25 13:26 Potassium 3.7 mmol/L (3.5-5 .1) 05/25/25 13:26 Chloride 103 mmol/L (98-10 7) 05/25/25 13:26 Carbon Dioxide 22 mmol/L (22-29) 05/25/25 13:26 Anion Gap 15.7 (5-19) 05/25/25 13:26 BUN 14 mg/dL (6-20) 05/25/25 13:26 Creatinine 0.6 mg/dL (0.7-1. 2) L 05/25/25 13:26 GFR Calculation 155.2 mL/min (90- 130) H 05/25/25 13:26 Glucose 102 mg/dL (65-115 ) 05/25/25 13:26 Calculated Osmolal ity 285 mOsm/kg (285- 295) 05/25/25 13:26 Calcium 8.6 mg/dL (8.5-10 .5) 05/25/25 13:26 Total Bilirubin 0.7 mg/dL (0.15-1 .2) 05/25/25 13:26 AST 13 U/L (0-40) 05/25/25 13:26 ALT 11 U/L (0-41) 05/25/25 13:26 Alkaline Phosphata se 82 U/L (40-130) 05/25/25 13:26 Total Protein 6.2 g/dL (6.6-8.7 ) L 05/25/25 13:26 Albumin 4.1 g/dL (3.5-5.2 ) 05/25/25 13:26 Globulin 2.1 g/dL (1.3-4.6 ) 05/25/25 13:26 Salicylates < 0.3 mg/dL (3-10 ) L 05/25/25 13:26 Urine Opiates Scre en Negative ng/mL (N egative) 05/25/25 12:45 Acetaminophen < 5.0 ug/mL (10-3 0) L 05/25/25 13:26 Ur Barbiturates Sc reen Negative ng/mL (N egative) 05/25/25 12:45 Ur Phencyclidine S crn Negative ng/mL (N egative) 05/25/25 12:45 Ur Amphetamines Sc reen Negative ng/mL (N egative) 05/25/25 12:45 U Benzodiazepines Scrn Negative ng/mL (N egative) 05/25/25 12:45 Urine Cocaine Scre en Negative ng/mL (N egative) 05/25/25 12:45 U Marijuana (THC) Screen Positive ng/mL (N egative) H 05/25/25 12:45 Ethyl Alcohol < 10 mg/dL (0-10) 05/25/25 13:26 Vitals: Last Vital Signs Temp 98.2 F 06/14/25 14:24 Pulse 83 06/14/25 14:24 Resp 20 H 06/14/25 14:24 BP 110/76 06/14/25 14:24 Pulse Ox 98 06/14/25 14:24 O2 Del Method Room Air 06/14/25 06:00 Discharge Plan Discharge Patient Disposition: Home Condition: Stable Prescriptions: New olanzapine 5 mg Tablet,Disintegrating 5 mg PO DAILY PRN (Reason: Agitation/Psychosis) 30 Days Qty: 30 1RF hydroxyzine pamoate 25 mg Capsule 25 mg PO TID 30 Days Qty: 90 1RF paliperidone 9 mg Tablet Extended Release 24hr 9 mg PO 2100 30 Days Qty: 30 1RF Continued fluoxetine [Prozac] 40 mg capsule 40 mg PO DAILY Qty: 30 1RF multivitamin Tablet 1 tab PO DAILY Discharge Order = DC NOW: Discharge Order (Routine); Ordered 06/14/25 Ordered By: Kleber Tubbs Referrals: [facility] [Outside, Counselor - Professional] - 06/21/25 8:00 am Referral Note: Assessment for services at [facility] with Tima Wynne Discharge Diet: Regular Discharge Activity: Resume usual activity Patient Instructions: Hydroxyzine (By mouth), Olanzapine (By mouth), Paliperidone (By mouth), Depression (DC), Anxiety (DC), Psychotic Disorder (DC), Suicide Prevention (DC), Opioid Safety, Patient Portal & Zakiya Instructions Discharge Attestations NPU Time Spent in Discharge Care*: less than 30 min Specific Discharge Activities: Specific discharge activities: educating patient, discussing with case manager specialist/social workers/dc planners, documenting/other paperwork and evaluating patient/reviewing data Status at Discharge: Cognitive status at discharge: cognitively intact, Behavioral status at discharge: cooperative, Coding Level of Care Code Acute Code for [facility] Fwd Diagnoses Chronic schizophrenia F20.9 Suicidal ideation R45.851 History of command hallucinations Z86.59 Depression F32.9 Cannabis abuse F12.10 Methamphetamine abuse F15.10 Psychiatric care Z76.89 Posttraumatic stress disorder F43.10 Generalized anxiety disorder F41.1
== END 2025-06-14 15:29 | disposition home or self-care (01) | DRG 881 ==
LOC: ER 12:16 → ER IP 15:30 → NP 15:32
PROVIDERS: Admitting Provider Psychiatry & Neurology Psychiatry; Emergency Provider Emergency Medicine; Visit Provider Psychiatry & Neurology Psychiatry
DX: F32.A Depression, unspecified (principal); R45.851 Suicidal ideations; Z86.59 Personal history of other mental and behavioral disorders; Z91.148 Patient's other noncompliance with medication regimen for other reason; F17.210 Nicotine dependence, cigarettes, uncomplicated; F20.9 Schizophrenia, unspecified; F15.11 Other stimulant abuse, in remission; F43.10 Post-traumatic stress disorder, unspecified; F12.10 Cannabis abuse, uncomplicated; E66.9 Obesity, unspecified; Z68.31 Body mass index [BMI] 31.0-31.9, adult; F41.9 Anxiety disorder, unspecified
CPT/HCPCS: 36415; 80053; 80306; 80307; 85025; 96372; 97150; 97165; 99285; J9999

== ENCOUNTER 2025-07-08 23:50 | Inpatient (IN) | payer MEDICAID, SELFPAY ==
--- OUTSIDE RECORDS SUMMARY | 2025-07-08 23:56 | XMS_ITS | Encounter Summary ---
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
--- OUTSIDE RECORDS SUMMARY | 2025-07-08 23:56 | XMS_ITS | Clinical Summary ---
Author Organization [facility] Address [address] 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
--- OUTSIDE RECORDS SUMMARY | 2025-07-08 23:56 | XMS_ITS | Encounter Summary ---
Author Organization [facility] Address [address] [place] [address] Care Team Providers Care Mis Manager Name Role Phone Unavailable Primary Care Provider Unavailabl e Encounter Details Date Type Department Care Team (Latest Contact Info) Description 10/27/2007 Outpatient Historical [facility]- [address] [place] [id number] Roly Diaz, DDS NO ADDRESS ON FILE Tooth Eruption Disturb (Primary Dx) Social History Tobacco Use Types Packs/Day Years Used Date Smoking Tobacco: Never Assessed Sex and Gender Information Value Date Recorded Sex Assigned at Not on file 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
--- OUTSIDE RECORDS SUMMARY | 2025-07-08 23:56 | XMS_ITS | Clinical Summary ---
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 Gender Identity Not on file Sexual Orientation Not on file Plan of Treatment Health Maintenance Due Date Last Done Comments HPV VACCINES (1 - Male 3-dos e series) 2006 DTAP/TDAP/TD VACCINES (7 - Tdap) 01/29/2016 01/29/2006, 09/09/2003, 01/28/1996, Additional history exists INFLUENZA VACCINE (#1) 2025 HEPATITIS B VACCINES Completed 03/04/1997, 08/11/1996, 01/28/1996 Insurance [place] Member Subscriber Plan / Payer (Ef fective 2006-Present) Name:Ruben Graham Relation to Subscriber:Self Name:Ruben Graham Payer ID:[id number] Group ID:Not on file Type:Medicaid Address: [address] MEDICAID [place] Member Subscriber Plan / Payer (Ef fective 2006-Present) Name:Ruben Graham Relation to Subscriber:Self Name:GrahamRuben Payer ID:[id number] Group ID:Not on file Type:Medicaid Address: [address] MEDICAID DENTAL
[2025-07-09] VITALS: BP 116/67; PULSE 85; RESP 20; TEMP 36.6; O2SAT 97; BMI 39.3
[2025-07-09 00:33] LABS: Glucose Urine UA Negative (Normal); Nitrate Urine Negative (Negative); Specific Gravity, Urine 1.014 (1.005-1.030)
[2025-07-09 00:38] LABS: Add Urine Microscopic? YES
[2025-07-09 00:46] LABS: Hematocrit 42.8 % (37-53); Hemoglobin 14.60 g/dL (11.27-16.99); Mean Corpuscular HGB Conc 34.1 g/dL (30-55); Mean Corpuscular Hemoglobin 31.2 pg (27-33); Mean Corpuscular Volume 91.5 fl (82-101); Nucleated Red Blood Cells % 0 %; Platelet Count 194 10^3/cmm (157-399); Red Blood Count 4.68 10^6/uL (3.85-5.65); White Blood Count 9.30 10^3/uL (3.29-11.43)
[2025-07-09 00:58] LABS: PCP Screen Urine Negative (Negative)
[2025-07-09 00:59] LABS: Alanine Aminotransferase 29 U/L (0-41); Albumin Level 4.0 g/dL (3.5-5.2); Alkaline Phosphatase 79 U/L (40-130); Anion Gap 15.6 (5-19); Aspartate Amino Transferase 27 U/L (0-40); Blood Urea Nitrogen 10 mg/dL (6-20); Calcium 8.9 mg/dL (8.5-10.5); Carbon Dioxide 25 mmol/L (22-29); Chloride 102 mmol/L (98-107); Creatinine Clr Calc Pharmacy 243.3505; Globulin 2.5 g/dL (1.3-4.6); Glucose 118 mg/dL (65-115); Osmolality Calculated 288 mOsm/kg (285-295); Potassium 3.6 mmol/L (3.5-5.1); Sodium 139 mmol/L (136-145); Total Protein 6.5 g/dL (6.6-8.7)
[2025-07-09 01:02] LABS: Acetaminophen < 5.0 ug/mL (10-30); Salicylate < 0.3 mg/dL (3-10)
--- NOTE | 2025-07-09 02:06 | W.ED.PSYCHS ---
HPI - Psych General: Chief Complaint: Psychiatric Symptoms Stated Complaint: SI Time Seen by Provider: 07/09/25 00:20 Source: patient History of Present Illness: Patient reports he is feeling suicidal been feeling worse the past 2 days. Reports smoking weed and cigarettes, no alcohol no illegal drug use. Patient reports he does not have a specific type of plan just general feeling of wanting to harm himself and in this. Also hearing voices that are quite disturbing. Associated symptoms: Deny delusions Related Data Home Medications ?Medication ?Instructions ?Recorded ?Confirmed multivitamin 1 tab PO DAILY 01/24/24 06/21/25 Previous Rx's ?Medication ?Instructions ?Recorded fluoxetine 40 mg capsule (Prozac) 40 mg PO DAILY #30 caps 06/14/25 hydroxyzine pamoate 25 mg capsule 25 mg PO TID 30 days #90 caps 06/14/25 olanzapine 5 mg disintegrating 5 mg PO DAILY PRN 06/14/25 tablet Agitation/Psychosis 30 days #30 tabs paliperidone 9 mg tablet,extended 9 mg PO 2100 30 days #30 tabs 06/14/25 release 24 hr Allergies Allergy/AdvReac Type Severity Reaction Status Date / Time nickel Allergy ALGY-Rash Verified 06/21/25 09:08 Review of Systems General: Reports: 10 or more systems reviewed and unremarkable except in HPI and below PFSH ED PFSH: Medical History (Updated 07/09/25 @ 02:10 by Tex Yee MD) Psychiatric care Alcohol use disorder, mild, abuse Generalized anxiety disorder Methamphetamine abuse Depression Posttraumatic stress disorder Cannabis abuse Schizophrenia Family History Family/Other Anesthesia complication Lung disease Psychiatric illness Grandmother CAD (coronary artery disease) Cancer Lung disease Grandfather Clotting disorder Diabetes Hyperlipidemia Hypertension Stroke Denies family history of Dementia Chronic kidney disease (CKD) Bleeding disorder Social History Smoking and tobacco/nicotine status: current every day tobacco/nicotine user cigarettes Packs smoked per day: 1 [ Other cigarette details: 1PPD, 7PY] Alcohol intake: never Substance/Drug Use: current Substance/Drug use frequency: daily Lives independently: Yes Marital status: Single Number of children: 1 Current occupational status: unemployed Current gender identity: Male Physical Exam Const: COMMON NORMALS: no acute distress, average body habitus, patient oriented x3, healthy appearing, alert and well nourished GENERAL APPEARANCE: well kempt and well developed HENMT: COMMON NORMALS: normocephalic, atraumatic, external ears normal and moist oral mucous membranes HEAD & SCALP: normocephalic and atraumatic EXTERNAL EAR: Yes external ears normal Eye: COMMON NORMALS: Equal, round and reactive pupils present, EOMs intact bilaterally and conjunctivae normal CONJUNCTIVA: Yes conjunctivae normal PUPIL: Yes Equal, round and reactive pupils present Neck/C-Spine: COMMON NORMALS: full ROM, no lymphadenopathy and supple Chest: CHEST: Yes Symmetrical chest wall rise and No Surgical scars present (Chest) Resp: COMMON NORMALS: normal respiratory effort, No retractions, No use of accessory muscles and clear to auscultation bilaterally AUSCULTATION: clear to auscultation bilaterally Cardio: COMMON NORMALS: regular rate, regular rhythm, S1 normal heart sound present, S2 normal heart sound present, No gallops present (Cardio), No clicks present (Cardio), No murmurs present (Cardio) and No rub (Cardio) RATE: regular rate RHYTHM: regular rhythm HEART SOUNDS: S1 normal heart sound present, S2 normal heart sound present and no murmurs PERIPHERAL PULSES: other (Radial pulses 2+ and symmetric) GI: COMMON NORMALS: Soft to palpation, non-tender and no masses INSPECTION: No abdominal distension PALPATION: Yes Soft to palpation, No Guarding due to palpation present (GI) and No Rebound tenderness present : COMMON NORMALS: Yes no CVA tenderness BLADDER/KIDNEY EXAM: Yes no CVA tenderness Back/Pelvis: COMMON NORMALS: no CVA tenderness Extremity: COMMON NORMALS: normal to inspection, full ROM, capillary refill normal and no clubbing, cyanosis or edema Neuro: COMMON NORMALS: patient oriented x3 SENSORIUM/ORIENTATION: Yes alert Psych: COMMON NORMALS: mental status grossly normal, Normal thought process present and speech normal APPEARANCE: Yes well kempt ATTITUDE: Yes calm ACTIVITY/MOTOR BEHAVIOR: Yes appropriate eye contact and No restless SPEECH: Yes normal speech MOOD & AFFECT: Yes depressed mood THOUGHT PROCESS: Normal thought process present THOUGHT CONTENT: Yes Suicidality present, No Homicidality present, No delusions and Yes Hallucination(s) present auditory; not visual ATTENTION/CONCENTRATION: Yes attention grossly intact MEMORY/COGNITION: Yes memory grossly intact INSIGHT: Fair insight present (Psych) JUDGEMENT: Fair judgement present (Psych) Skin: COMMON NORMALS: no rashes or lesions noted, no wounds, turgor normal and no jaundice GENERAL SKIN EXAM: no rashes or lesions noted and turgor normal Course Vital Signs: Vital signs: Vital Signs Temperature 98 F 07/09/25 00:00 Pulse Rate 85 07/09/25 00:00 Respiratory Rate 20 H 07/09/25 00:00 Blood Pressure 116/67 07/09/25 00:00 Pulse Oximetry 97 07/09/25 00:00 MDM - Psych Medical Decision Making Patient with SI and hallucinations, discussed with psychiatry who agrees for admission. Patient's labs have been reviewed and are unremarkable. Lab Data 07/09/25 00:30 07/09/25 00:30 Laboratory Results WBC 9.30 10^3/uL (3.29-11.43) 07/09/25 00:30 RBC 4.68 10^6/uL (3.85-5.65) 07/09/25 00:30 Hgb 14.60 g/dL (11.27-16.99) 07/09/25 00:30 Hct 42.8 % (37-53) 07/09/25 00:30 MCV 91.5 fl (82-101) 07/09/25 00:30 MCH 31.2 pg (27-33) 07/09/25 00:30 MCHC 34.1 g/dL (30-55) 07/09/25 00:30 RDW 12.5 % (12.1-15.1) 07/09/25 00:30 Plt Count 194 10^3/cmm (157-399) 07/09/25 00:30 MPV 9.4 fL (7.4-10.4) 07/09/25 00:30 Neut % (Auto) 62.4 % 07/09/25 00:30 Lymph % (Auto) 24.5 % 07/09/25 00:30 [place] % (Auto) 10.5 % 07/09/25 00:30 Eos % (Auto) 1.5 % 07/09/25 00:30 Baso % (Auto) 0.5 % 07/09/25 00:30 Neut # (Auto) 5.79 10^3/uL (1.8-7.7) 07/09/25 00:30 Lymph # (Auto) 2.3 10^3/uL (0.8-4.8) 07/09/25 00:30 [place] # (Auto) 1.0 10^3/uL (0.2-0.9) H 07/09/25 00:30 Eos # (Auto) 0.1 10^3/uL (0.0-0.8) 07/09/25 00:30 Baso # (Auto) 0.1 10^3/uL (0.0-0.1) 07/09/25 00:30 Nucleated RBC % (auto) 0 % 07/09/25 00:30 Nucleated RBCs # 0.0 /100WBC 07/09/25 00:30 Sodium 139 mmol/L (136-145) 07/09/25 00:30 Potassium 3.6 mmol/L (3.5-5.1) 07/09/25 00:30 Chloride 102 mmol/L (98-107) 07/09/25 00:30 Carbon Dioxide 25 mmol/L (22-29) 07/09/25 00:30 Anion Gap 15.6 (5-19) 07/09/25 00:30 BUN 10 mg/dL (6-20) 07/09/25 00:30 Creatinine 0.6 mg/dL (0.7-1.2) L 07/09/25 00:30 GFR Calculation 154.2 mL/min (90-130) H 07/09/25 00:30 Glucose 118 mg/dL (65-115) H 07/09/25 00:30 Calculated Osmolality 288 mOsm/kg (285-295) 07/09/25 00:30 Calcium 8.9 mg/dL (8.5-10.5) 07/09/25 00:30 Total Bilirubin 0.4 mg/dL (0.15-1.2) 07/09/25 00:30 AST 27 U/L (0-40) 07/09/25 00:30 ALT 29 U/L (0-41) 07/09/25 00:30 Alkaline Phosphatase 79 U/L (40-130) 07/09/25 00:30 Total Protein 6.5 g/dL (6.6-8.7) L 07/09/25 00:30 Albumin 4.0 g/dL (3.5-5.2) 07/09/25 00:30 Globulin 2.5 g/dL (1.3-4.6) 07/09/25 00:30 Urine Color Yellow (Yellow) 07/09/25 00:25 Urine Appearance Clear (CLEAR) 07/09/25 00:25 Urine pH 7.5 (5-7) 07/09/25 00:25 Ur Specific [place] 1.014 (1.005-1.030) 07/09/25 00:25 Urine Protein Negative (Negative) 07/09/25 00:25 Urine Glucose (UA) Negative (Normal) 07/09/25 00:25 Urine Ketones Negative (Negative) 07/09/25 00:25 Urine Blood Negative (Negative) 07/09/25 00:25 Urine Nitrate Negative (Negative) 07/09/25 00:25 Urine Bilirubin Negative (Negative) 07/09/25 00:25 Urine Urobilinogen 1.0 mg/dL (Negative) 07/09/25 00:25 Ur Leukocyte Esterase Negative (Negative) 07/09/25 00:25 Urine RBC 0-2 /hpf (0-2) 07/09/25 00:25 Urine WBC 0-5 /hpf (0-5) 07/09/25 00:25 Ur Squamous Epith Cells 0-5 /hpf (0-5) 07/09/25 00:25 Urine Bacteria None seen /hpf (NONE) 07/09/25 00:25 Hyaline Casts 0-4 /lpf H 07/09/25 00:25 Salicylates < 0.3 mg/dL (3-10) L 07/09/25 00:30 Urine Opiates Screen Negative ng/mL (Negative) 07/09/25 00:25 Acetaminophen < 5.0 ug/mL (10-30) L 07/09/25 00:30 Ur Barbiturates Screen Negative ng/mL (Negative) 07/09/25 00:25 Ur Phencyclidine Scrn Negative ng/mL (Negative) 07/09/25 00:25 Ur Amphetamines Screen Negative ng/mL (Negative) 07/09/25 00:25 U Benzodiazepines Scrn Negative ng/mL (Negative) 07/09/25 00:25 Urine Cocaine Screen Negative ng/mL (Negative) 07/09/25 00:25 U Marijuana (THC) Screen Positive ng/mL (Negative) H 07/09/25 00:25 No radiology studies performed this visit Discharge Plan Discharge Patient Disposition: Admitted As Inpatient Clinical Impression: Suicidal ideations, Auditory hallucination Condition: Stable Coding Level of Care Code ED Commutator Presser for Pete Ruiz
--- NOTE | 2025-07-09 02:33 | PC.NURSE ---
96 Hour Involuntary Hold Patient Rights have been reviewed with the patient and a copy of the same has been provided to him. Core Mounter Claudia Hodges was present at bedside during the presentation of Rights.
[2025-07-09 02:45] VITALS: BP 123/83; PULSE 61; RESP 18; TEMP 36.5; O2SAT 100
[2025-07-09 06:00] VITALS: RESP 18
--- NOTE | 2025-07-09 06:12 | PC.NURSE ---
Patient Refused Charge nurse notified.
[2025-07-09] MEDS: multivitamin therapeutic Tablet 1 TAB PO (08:06)
[2025-07-09 14:00] VITALS: BP 117/79; PULSE 80; RESP 15; TEMP 37; O2SAT 96
--- NOTE | 2025-07-09 18:34 | P.NPUHP_ITS ---
Providers/Chief Complaint 2 Admitting Physician: Kleber Tubbs MD Chief Complaint: SI HPI NPU History of Present Illness Ruben Horan is a 35 year old male who presented to the emergency department with the following report: Chief Complaint: Psychiatric Symptoms Stated Complaint: SI Time Seen by Provider: 07/09/25 00:20 Source: patient History of Present Illness: Patient reports he is feeling suicidal been feeling worse the past 2 days. Reports smoking weed and cigarettes, no alcohol no illegal drug use. Patient reports he does not have a specific type of plan just general feeling of wanting to harm himself and in this. Also hearing voices that are quite disturbing. Associated symptoms: Deny delusions. He was admitted to the neuropsychiatric unit for definitive treatment of those issues. He is known to [facility] psychiatry through inpatient and outpatient services with his recent discharge on June 14, 2025. An excerpt of that discharge summary is included below for context and the fact that there have been no substantive changes. He presented today positive for cannabis but no other substances of abuse. He was fairly poor as a historian mostly spending time in the I do not know aisle. He had great difficulty articulating what brought him here. He continues to report that he lives alone and that he does not struggle with being alone we had a long conversation about the fact that he seems to lack the ability currently for independent functioning. He speaks about suicidal ideation but then when the questions are followed up it is unclear how consistent or credible those feelings are. It seems that mostly he is confused and unsure of what to do and lacks any kind of social structure to support him being successful independently. We discussed that he could have independence but not isolation in some kind of a assisted setting and he seems very optimistic about that as a possibility. We discussed that there could be some options in the community that were more communal in nature but did not have restrictions as far as other aspects of his independence. We discussed working with the social work team on Saturday about what options exist from that standpoint. It was unclear from his responses whether he is completely consistent with his medications. We discussed the risks, benefits and alternatives of continuing his home medications and he understood and agreed to proceed as is documented in this note. Per his 06/14/2025 [facility] inpatient psychiatric discharge summary: Discharge Diagnosis 1. Suicidal ideation: 2. History of command hallucinations: 3. Cannabis abuse: 4. Methamphetamine abuse: 5. Psychiatric care: 6. Posttraumatic stress disorder: 7. Generalized anxiety disorder: Reason for Visit Reason for Visit: MHE Brief History: History of Present Illness Ruben Horan is a 34 year old male who presented to the emergency department with the following report: Chief Complaint: Psychiatric Symptoms Stated Complaint: MHE Time Seen by Provider: 05/25/25 12:03 Source: patient Mode of arrival: ambulatory Limitations: no limitations History of Present Illness: 34-year-old male history of schizophrenia states he has not been taking his meds for over a year patient was brought here from [facility] emergency has been having paranoia he is also been having suicidal thoughts he does admit to suicidal ideations. Denies any attempts Associated symptoms: Reports depression and suicidal ideation. He was admitted to the neuropsychiatric unit for definitive treatment of those issues. He is known to [facility] psychiatry through inpatient and outpatient services. His last outpatient services were in 2023 in the spring and his most recent inpatient services were in 2022. An excerpt of his last discharge summary is included below for context and the fact that there have been no substantive changes. He presents reporting that his addiction has been more under control. He does continue to use cannabis and did have a UDS positive for cannabis but nothing else that his BAL was unremarkable. He reports that he started getting overwhelmed as he lives at home alone without many supports. He reports he has a lot of financial difficulties because employment is hard to come by. He reports that he has not been on medication and that he has been fairly isolated. He reports that he started having suicidal thoughts and is being upset that he has not gotten things together at this point. We discussed the risks, benefits and alternatives of restarting his Prozac and he understood and agreed to proceed as is documented in this note. Per his 01/08/2023 [facility] inpatient psychiatric discharge summary: Discharge Diagnosis (1) Suicidal ideation: Status: Resolved (2) History of command hallucinations: Status: Acute (3) Chronic schizophrenia: Status: Acute (4) Depression: Status: Acute (5) Cannabis abuse: Status: Acute (6) Methamphetamine abuse: Status: Inactive (7) Psychiatric care: Status: Inactive (8) Posttraumatic stress disorder: Status: Acute Reason for Visit Reason for Visit: MHE Brief History: History of Present Illness Ruben Horan is a 32 year old male the emergency department with the following report: Chief Complaint: Psychiatric Symptoms Stated Complaint: MHE Time Seen by Provider: 01/01/23 22:41 Source: patient Mode of arrival: ambulatory Limitations: no limitations History of Present Illness: 32-year-old male who is here he states he has been under a lot of stress since he has been feeling extremely paranoid he does have a history of schizophrenia he states that he has been hearing some worse he states he is also been having suicidal ideations he denies a specific plan but states he has been having suicidal thoughts he is very paranoid here as well. Associated symptoms: Reports depression and suicidal ideation. He was admitted to the neuropsychiatric unit for definitive treatment of those issues. He was last seen by this creative services writer about 7 weeks ago. He presents as he often does, quite isolative and lying in bed. He is not a great historian but certainly pleasant when awoken reporting recent depression and having not been taking his medications appropriately reporting that he is feeling better or was feeling better and was kind feel like he did not need them. He denied significant changes in his life and excerpt of the discharge summary is included below for context. He was open to restarting his medication including the injection. We agreed we will work with the treatment team to identify what kinds of supports might be helpful to avoid this type of recurrence. He was negative but drug screen not obtained we will request. Per his 11/12/2022 [facility] inpatient psychiatric discharge summary: Discharge Diagnosis (1) Suicidal ideation: Status: Resolved (2) History of command hallucinations: Status: Acute (3) Chronic schizophrenia: Status: Acute (4) Depression: Status: Acute (5) Cannabis abuse: Status: Acute (6) Methamphetamine abuse: Status: Acute (7) Psychiatric care: Status: Inactive (8) Posttraumatic stress disorder: Status: Acute Reason for Visit Reason for Visit: psych evlaution 96 himself. Brief History: History of Present Illness Ruben Horan is a 32 year old male who presented to the emergency department with the following report: Chief Complaint: Psychiatric Symptoms Stated Complaint: Would like to 96 himself. Time Seen by Provider: 11/06/22 06:49 Source: patient Mode of arrival: ambulatory History of Present Illness: 32-year-old male history of schizophrenia presents emergency room initially is asking to be 96. Difficult to get a coherent history from he has a advance a full flight of ideas that are all tangential. He does admit to not having been taking his medications. Similar previous presentations to the emergency room. He is also having some auditory and visual hallucinations although he will not give me specifics on what the voices are telling him. Hallucinations are also similar to what he has presented with in the past. No homicidal or suicidal ideation at this time. Onset (ago): unknown Duration: constant History of same: Yes Relieving factors: none Exacerbating factors: none Context: not taking psychiatric medications Associated psychiatric symptoms: racing thoughts, auditory hallucinations, visual hallucinations and delusions Associated symptoms: Reports auditory hallucinations, visual hallucinations, delusions and racing thoughts Treatments prior to arrival: none. He presented today fully disorganized and unable to ability to stay in the interview. Increasing from his door making gestures to people walking by as if he was conducting magic. He appeared very guarded when approached and was unable to muster any reasonable answers to basic questions. An excerpt of his previous hospitalization is included below for context and given his inability as a historian. Per his 03/08/2022 [facility] inpatient psychiatric evaluation: History of Present Illness Ruben Horan is a 31 year old male admitted through our emergency department with the following report: Mr. Horan is a 31-year-old gentleman with significant past medical history of schizophrenia who presents the emergency department due to worsening hallucinations. He reports compliance with his medication regimen however baseline there are perhaps intermittent hallucinations. Over the past day these have worsened and are telling him to kill himself. Therefore he has thought about killing himself. He otherwise denies medical complaints or injuries. He has not acted on any suicide attempt. Overall the course of symptoms has worsened. Intensity is moderate. No other specific changes in health, exacerbating, or alleviating factors identified. He was admitted to the neuropsychiatry unit for definitive treatment of these issues. He initially said that he has been taking his medications. However, he then stated that he stopped taking the Invega about 5 days ago because it made him drowsy when he took it in the morning. He agreed to change that to bedtime. He also stopped taking the Prozac because he felt it was not helping his anxiety. He has been taking that hydroxyzine which does seem to help. He later said that he has been taking a green and white capsule that have been helping his anxiety. He agreed to restart the Prozac. He said that his voices have not been too bad but yesterday at noon these came back very bad. He says he had been somewhat stressed out because it normal normal base events. He said that he did not have coping mechanisms to use when he was stressed out. He had a therapy appointment after his last admission but he did not keep it. He says that the voices are better today but still there and worse than normal and he denies suicidal ideation. Below is his discharge summary from the last hospitalization in January. Diagnoses at Discharge Discharge Diagnosis (1) Chronic schizophrenia: Status: Acute (2) Depression: Status: Acute (3) Cannabis abuse: Status: Acute (4) Methamphetamine abuse: Status: Acute (5) Posttraumatic stress disorder: Status: Acute Reason for Visit Reason for Visit: SI Brief History: History of Present Illness: HPI Narrative: Patient is a 31-year-old male who presents to ED today stating he is suicidal. He states suicidal thoughts of been present over the past 2 to 3 days. He states he has a lot going on right now that he refuses to elaborate on. He has no specific plan at the moment. He does endorse previous suicide attempts. Patient has a history of chronic schizophrenia. He is not complaining of hallucinations or psychotic symptoms currently. He denies homicidal ideations. MD complaint: suicidal ideation Onset (ago): day(s) Duration: constant History of same: Yes Context: significant life stressor Associated psychiatric symptoms: depression and suicidal ideation Associated symptoms: Reports depression and suicidal ideation; Deny auditory hallucinations or homicidal ideation Treatments prior to arrival: none If self harm: admits thoughts of self harm He was admitted to the neuropsychiatry unit for medication treatment of these issues. He was released from this hospital in October on Zyprexa 15 mg daily and Lexapro 40 mg daily. He said that he did okay for almost a month but had depression and worsening auditory hallucinations again. He came to our emergency room did not have beds and he was sent to [facility]. He said that he was there for about 1 week. He says that family discharged him on Vistaril 50 mg 100 mg at bedtime and trazodone. He said that even with that the voices were improved for about 1 week. However after 1 week started having depression for hallucinations again and now is back in the hospital. He says that he thinks the Invega 6 mg that he was released on in November 2024 depressed. He was able to stay out of the hospital for about 8 months. He was not on antidepressant at that time. When he was admitted in June 2021 he said that he had been noncompliant with his medications most of the time since his last hospitalization. He has not been able to stay out of the hospital for very long since then. He also was not taking medications when he came back into the hospital October of last year. He says that he has been compliant with his medications since then but has never been able to stay out of the hospital for a few weeks. He is currently drug screen has been consistently positive for marijuana but no other drugs. To try back to the Invega. Hospital Course He slowly acclimated to the individual, group and milieu therapies provided. He presented as he often does destabilized off of his medications though reporting their ineffectiveness. He was restarted on Invega 6 mg in the morning as well as Prozac 20 mg p.o. daily. The Invega was increased to 9 mg p.o. daily and the Prozac was increased to 40 mg p.o. daily and he was allowed to continue with Zyprexa as needed in addition to the Vistaril he had already been on. He was positive for cannabis on his UDS. The absence of drugs of abuse, the resumption of his medications with subsequent increases as well as being in the treatment milieu led to a positive response. He had significant improvement during his stay with those changes. He worked with the social work team for appropriate outpatient follow-up appointments. We communicated with his mother throughout the stay. He was able to contract for safety outside of the hospital, hospital prior to discharge. During the hospitalization, patient had routine laboratory studies which were within normal limits except for few outliers. Additionally there was a general medical evaluation which was also within normal limits and revealed no new acute processes. Discharge Summary: At the time of discharge, lethality was denied and psychosis was resolving. Mood and anxiety were well managed. Patient endorsed a plan to follow-up with the aftercare recommendations of the treatment team. Patient was evaluated and deemed to be absent credible lethality, and had achieved the maximum benefit from an inpatient hospitalization, so was discharged. Meds NPU Home Medications ?Medication ?Instructions ?Recorded ?Confirmed ?Last Taken ?Type multivitamin 1 tab PO DAILY 01/24/24 08/0 07/26 Unknown History fluoxetine 40 mg capsule (Prozac) 40 mg PO DAILY #30 c aps 06/14/25 07/09/25 Unknown Rx hydroxyzine pamoate 25 mg capsule 25 mg PO TID 30 days #90 caps 06/14/25 07/09/25 Unknown Rx olanzapine 5 mg disintegrating 5 mg PO DAILY PRN 06/1407/09/25 Unknown Rx tablet Agitation/Psychosis 30 days #30 tabs paliperidone 9 mg tablet,extended 9 mg PO 2100 30 days #30 tabs 06/14/25 07/09/25 Unknown Rx release 24 hr Allergies Allergy/AdvReac Type Severity Reaction Status Date / Time nickel Allergy ALGY-Rash Verified 06/21/25 09:08 PFSH NPU 2 PFSH: Medical History (Updated 07/09/25 @ 02:10 by Tex Yee MD) Psychiatric care Alcohol use disorder, mild, abuse Generalized anxiety disorder Methamphetamine abuse Depression Posttraumatic stress disorder Cannabis abuse Schizophrenia Family History Family/Other Anesthesia complication Lung disease Psychiatric illness Grandmother CAD (coronary artery disease) Cancer Lung disease Grandfather Clotting disorder Diabetes Hyperlipidemia Hypertension Stroke Denies family history of Dementia Chronic kidney disease (CKD) Bleeding disorder Social History Smoking and tobacco/nicotine status: current every day tobacco/nicotine user cigarettes Packs smoked per day: 1 [ Other cigarette details: 1PPD, 7PY] Alcohol intake: never Substance/Drug Use: current Substance/Drug use frequency: daily Lives independently: Yes Marital status: Single Number of children: 1 Current occupational status: unemployed Current gender identity: Male Mental Status Exam 2 MSE Comments: This is an obese, white male in hospital scrubs with limited grooming and eye contact. No abnormal movements, except for mild psychomotor retardation. Cooperative with exam in mild to moderate distress. Speech was decreased rate and volume. Mood described as I do not know okay I guess; affect congruent and confused. Thought process, disorganized. Thought content: patient reports that he was having some suicidal thoughts leading to the hospitalization, he denied homicidal ideation, there were no delusions reported or noted, he he denied active auditory or visual hallucinations. Attention, concentration, and memory appeared intact but were not formally tested. He is alert and oriented x 3. Insight and judgment are impaired, impulse control is impaired. Vitals/I&O/Wt Last Vital Signs Temp 98.6 F 07/09/25 14:00 Pulse 80 07/09/25 14:00 Resp 15 07/09/25 14:00 BP 117/79 07/09/25 14:00 Pulse Ox 96 07/09/25 14:00 O2 Del Method Room Air 07/09/25 02:47 07/09/25 07/09/25 07/09/25 06:59 14:59 22:59 Intake Total 0 / 0 Balance 0 / 0 Weight last 48 hrs Weight 131.542 kg Data NPU 07/09/25 00:30 07/09/25 00:30 A&P Assessment and plan 1. Chronic schizophrenia: 2. Suicidal ideation: 3. History of command hallucinations: 4. Depression: 5. Cannabis abuse: 6. Methamphetamine abuse: 7. Psychiatric care: 8. Posttraumatic stress disorder: 9. Generalized anxiety disorder: 10. Suicidal ideation: Plan: This is a 35-year-old male who is known from past hospitalizations but had not been seen for about 2 years until a hospitalization that ended on 06/14/2025 with a history of psychosis, addiction and a half history of frequent hospitalizations presents today reporting an unclear articulation of what is going on. He seems quite thought disordered and unclear of how he has been doing as far as his medication adherence and feeling unable to manage his life. His marijuana use is a consistency. Plan: 1. Resume home medications. 2. Continue every 15 minute checks for safety. 3. Encourage individual, group and milieu therapies. 4. Encourage sober living treatment after discharge at the highest level of care to which he is willing to commit. 5. Observe against the backdrop of the 96-hour hold. 6. Obtain collateral information. 7. Likely needs to consider some kind of living cooperative that does not have him completely independent and isolated after discharge. PDMP PDMP Reviewed: Not Reviewed Involuntary Hold Information 2 Hold Status: Legal Status: 96 Hour Hold Date/Time Hold Expires: 07/15/2025 @ 0206 96 Hour Hold: 96 Hour Involuntary Admission: Yes Attestations NPU 2 Medical Necessity Statement*: Inpatient hospitalization is medically necessary and the clinically appropriate intervention at this time. We will initiate medications and make changes as indicated. Likely length of stay 5-7 days Coding Level of Care Code Acute Code for Chg Fwd Diagnoses Chronic schizophrenia F20.9 Suicidal ideation R45.851 History of command hallucinations Z86.59 Depression F32.A Cannabis abuse F12.10 Methamphetamine abuse F15.10 Psychiatric care Z76.89 Posttraumatic stress disorder F43.10 Generalized anxiety disorder F41.1
[2025-07-09 20:02] VITALS: BP 111/69; PULSE 73; RESP 16; TEMP 36.6; O2SAT 99
[2025-07-09] MEDS: paliperidone ER 9 mg Tablet PO (20:28)
[2025-07-10 06:00] VITALS: BP 102/73; PULSE 70; RESP 16; TEMP 36.4; O2SAT 99
[2025-07-10] MEDS: multivitamin therapeutic Tablet 1 TAB PO (08:02)
--- NOTE | 2025-07-10 09:39 | P.NPUPN_ITS ---
Subjective NPU 2 Subjective: Patient presented today reporting that things are all right. Staff report he continues to be isolative spending much of his time in his room and this was noted on direct observation. He reports that he is very open to the idea of exploring some kind of communal living and agrees that some of the patterns that he has with hospitalizations which almost come in a cluster pattern might be improved by him not being alone to the level that he is. He denied any side effects of medication. Mental Status Exam 2 MSE Comments: This is an obese, white male in hospital scrubs with limited grooming and eye contact. No abnormal movements, except for mild psychomotor retardation. Cooperative with exam in mild to moderate distress. Speech was decreased rate and volume. Mood described as I do not know okay I guess; affect congruent and confused. Thought process, disorganized. Thought content: patient reports that he was having some suicidal thoughts leading to the hospitalization, he denied homicidal ideation, there were no delusions reported or noted, he he denied active auditory or visual hallucinations. Attention, concentration, and memory appeared intact but were not formally tested. He is alert and oriented x 3. Insight and judgment are impaired, impulse control is impaired. Vitals/I&O/Wt Last Vital Signs Temp 97.5 F L 07/10/25 06:00 Pulse 70 07/10/25 06:00 Resp 16 07/10/25 06:00 BP 102/73 07/10/25 06:00 Pulse Ox 99 07/10/25 06:00 O2 Del Method Room Air 07/10/25 06:00 Weight last 48 hrs Weight 131.542 kg Data NPU 07/09/25 00:30 07/09/25 00:30 A&P Assessment and plan 1. Chronic schizophrenia: 2. Suicidal ideation: 3. History of command hallucinations: 4. Depression: 5. Cannabis abuse: 6. Methamphetamine abuse: 7. Psychiatric care: 8. Posttraumatic stress disorder: 9. Generalized anxiety disorder: 10. Suicidal ideation: Plan: This is a 35-year-old male who is known from past hospitalizations but had not been seen for about 2 years until a hospitalization that ended on 06/14/2025 with a history of psychosis, addiction and a half history of frequent hospitalizations presents today reporting an unclear articulation of what is going on. He seems quite thought disordered and unclear of how he has been doing as far as his medication adherence and feeling unable to manage his life. His marijuana use is a consistency. Plan: 1. Resume home medications. 2. Continue every 15 minute checks for safety. 3. Encourage individual, group and milieu therapies. 4. Encourage sober living treatment after discharge at the highest level of care to which he is willing to commit. 5. Observe against the backdrop of the 96-hour hold. 6. Obtain collateral information. 7. Likely needs to consider some kind of living cooperative that does not have him completely independent and isolated after discharge. PDMP PDMP Reviewed: Not Reviewed Involuntary Hold Information 2 Hold Status: Legal Status: 96 Hour Hold Date/Time Hold Expires: 07/15/2025 @ 0206 96 Hour Hold: 96 Hour Involuntary Admission: Yes Attestations NPU 2 Medical Necessity Statement*: Inpatient hospitalization is medically necessary and the clinically appropriate intervention at this time. We will initiate medications and make changes as indicated. Likely length of stay 5-7 days Coding Level of Care Code Acute Code for g Fwd Diagnoses Chronic schizophrenia F20.9 Suicidal ideation R45.851 History of command hallucinations Z86.59 Depression F32.A Cannabis abuse F12.10 Methamphetamine abuse F15.10 Psychiatric care Z76.89 Posttraumatic stress disorder F43.10 Generalized anxiety disorder F41.1
[2025-07-10 14:00] VITALS: BP 118/76; PULSE 84; RESP 18; TEMP 36.8; O2SAT 99
[2025-07-10 19:15] VITALS: BP 112/75; PULSE 66; RESP 18; TEMP 36.4; O2SAT 99
[2025-07-10] MEDS: paliperidone ER 9 mg Tablet PO (21:18)
[2025-07-11 06:00] VITALS: BP 121/82; PULSE 80; RESP 18; TEMP 36.4; O2SAT 98
[2025-07-11] MEDS: multivitamin therapeutic Tablet 1 TAB PO (06:57)
[2025-07-11 14:00] VITALS: BP 130/80; PULSE 104; RESP 18; TEMP 36.5; O2SAT 94
--- NOTE | 2025-07-11 16:20 | P.NPUPN_ITS ---
Subjective NPU 2 Subjective: Patient presented today reporting that he is sleeping well and feels a little better. He continued to be open to a plan to work with the social work team tomorrow to see if they have any options for more communal living but with no overbearing restrictions on egress. He reports an openness to continue his medication and even willing to have oversight in someway whether that is home health there is something else but we were agreeable that other eyes would be beneficial in his regular carmen on. He denied any side effects to the medication. Mental Status Exam 2 MSE Comments: This is an obese, white male in hospital scrubs with limited grooming and eye contact. No abnormal movements, except for mild psychomotor retardation. Cooperative with exam in mild to moderate distress. Speech was decreased rate and volume. Mood described as I do not know okay I guess; affect congruent and confused. Thought process, disorganized. Thought content: patient reports that he was having some suicidal thoughts leading to the hospitalization, he denied homicidal ideation, there were no delusions reported or noted, he he denied active auditory or visual hallucinations. Attention, concentration, and memory appeared intact but were not formally tested. He is alert and oriented x 3. Insight and judgment are impaired, impulse control is impaired. Vitals/I&O/Wt Last Vital Signs Temp 97.7 F 07/11/25 14:00 Pulse 104 H 07/11/25 14:00 Resp 18 07/11/25 14:00 BP 130/80 07/11/25 14:00 Pulse Ox 94 07/11/25 14:00 O2 Del Method Room Air 07/11/25 06:00 Weight last 48 hrs Weight 108.59 kg Data NPU 07/09/25 00:30 07/09/25 00:30 A&P Assessment and plan 1. Chronic schizophrenia: 2. Suicidal ideation: 3. History of command hallucinations: 4. Depression: 5. Cannabis abuse: 6. Methamphetamine abuse: 7. Psychiatric care: 8. Posttraumatic stress disorder: 9. Generalized anxiety disorder: 10. Suicidal ideation: Plan: This is a 35-year-old male who is known from past hospitalizations but had not been seen for about 2 years until a hospitalization that ended on 06/14/2025 with a history of psychosis, addiction and a half history of frequent hospitalizations presents today reporting an unclear articulation of what is going on. He seems quite thought disordered and unclear of how he has been doing as far as his medication adherence and feeling unable to manage his life. His marijuana use is a consistency. Plan: 1. Resume home medications. 2. Continue every 15 minute checks for safety. 3. Encourage individual, group and milieu therapies. 4. Encourage sober living treatment after discharge at the highest level of care to which he is willing to commit. 5. Observe against the backdrop of the 96-hour hold. 6. Obtain collateral information. 7. Likely needs to consider some kind of living cooperative that does not have him completely independent and isolated after discharge. PDMP PDMP Reviewed: Not Reviewed Involuntary Hold Information 2 Hold Status: Legal Status: 96 Hour Hold Date/Time Hold Expires: 07/15/2025 @ 0206 96 Hour Hold: 96 Hour Involuntary Admission: Yes Attestations NPU 2 Medical Necessity Statement*: Inpatient hospitalization is medically necessary and the clinically appropriate intervention at this time. We will initiate medications and make changes as indicated. Likely length of stay 4-6 days Coding Level of Care Code Acute Code for [facility] Fwd Diagnoses Chronic schizophrenia F20.9 Suicidal ideation R45.851 History of command hallucinations Z86.59 Depression F32.A Cannabis abuse F12.10 Methamphetamine abuse F15.10 Psychiatric care Z76.89 Posttraumatic stress disorder F43.10 Generalized anxiety disorder F41.1
[2025-07-11] MEDS: paliperidone ER 9 mg Tablet PO (19:46)
[2025-07-11 20:12] VITALS: BP 113/74; PULSE 64; RESP 19; TEMP 36.4; O2SAT 95
[2025-07-12 06:00] VITALS: BP 117/77; PULSE 85; RESP 18; TEMP 36.4; O2SAT 97
[2025-07-12] MEDS: multivitamin therapeutic Tablet 1 TAB PO (08:12)
[2025-07-12 14:00] VITALS: BP 119/64; PULSE 74; RESP 16; TEMP 36.8; O2SAT 99
--- NOTE | 2025-07-12 17:00 | W.PM.NPUPNS ---
Subjective NPU Subjective: Patient presented today reporting that things are going fine. We discussed the fact that he has limited resources secondary to having no disability or anything of that nature and that given his subacute leg over the past few years that he may want to at least sit minute for disability to see if he would qualify because he is clearly disabled. Otherwise we discussed coming up with a short-term and a long-term plan to try to create some stability and avoid these frequent hospital visits. He said he was open to the idea of being on the long-acting injectable. And he denied any side effects to the medication. Mental Status Exam MSE Comments: This is an obese, white male in hospital scrubs with limited grooming and eye contact. No abnormal movements, except for mild psychomotor retardation. Cooperative with exam in mild to moderate distress. Speech was decreased rate and volume. Mood described as I do not know okay I guess; affect congruent and confused. Thought process, disorganized. Thought content: patient reports that he was having some suicidal thoughts leading to the hospitalization, he denied homicidal ideation, there were no delusions reported or noted, he he denied active auditory or visual hallucinations. Attention, concentration, and memory appeared intact but were not formally tested. He is alert and oriented x 3. Insight and judgment are impaired, impulse control is impaired. Vitals/I&O/Wt Last Vital Signs Temp 98.2 F 07/12/25 14:00 Pulse 74 07/12/25 14:00 Resp 16 07/12/25 14:00 BP 119/64 07/12/25 14:00 Pulse Ox 99 07/12/25 14:00 O2 Del Method Room Air 07/12/25 06:00 Weight last 48 hrs Weight 108.59 kg Data NPU 07/09/25 00:30 07/09/25 00:30 A&P Assessment and plan 1. Chronic schizophrenia: 2. Suicidal ideation: 3. History of command hallucinations: 4. Depression: 5. Cannabis abuse: 6. Methamphetamine abuse: 7. Psychiatric care: 8. Posttraumatic stress disorder: 9. Generalized anxiety disorder: 10. Suicidal ideation: Plan: This is a 35-year-old male who is known from past hospitalizations but had not been seen for about 2 years until a hospitalization that ended on 06/14/2025 with a history of psychosis, addiction and a half history of frequent hospitalizations presents today reporting an unclear articulation of what is going on. He seems quite thought disordered and unclear of how he has been doing as far as his medication adherence and feeling unable to manage his life. His marijuana use is a consistency. Plan: 1. Resume home medications. 2. Continue every 15 minute checks for safety. 3. Encourage individual, group and milieu therapies. 4. Encourage sober living treatment after discharge at the highest level of care to which he is willing to commit. 5. Observe against the backdrop of the 96-hour hold. 6. Obtain collateral information. 7. Likely needs to consider some kind of living cooperative that does not have him completely independent and isolated after discharge. PDMP PDMP Reviewed: Not Reviewed Involuntary Hold Information Hold Status: Legal Status: 96 Hour Hold Date/Time Hold Expires: 07/15/2025 @ 0206 96 Hour Hold: 96 Hour Involuntary Admission: Yes Attestations NPU Medical Necessity Statement*: Inpatient hospitalization is medically necessary and the clinically appropriate intervention at this time. We will initiate medications and make changes as indicated. Likely length of stay 3-5 days Coding Level of Care Code Acute Code for [facility] Fwd Diagnoses Chronic schizophrenia F20.9 Suicidal ideation R45.851 History of command hallucinations Z86.59 Depression F32.A Cannabis abuse F12.10 Methamphetamine abuse F15.10 Psychiatric care Z76.89 Posttraumatic stress disorder F43.10 Generalized anxiety disorder F41.1
[2025-07-12] MEDS: paliperidone ER 9 mg Tablet PO (19:15)
[2025-07-12 19:24] VITALS: BP 132/87; PULSE 72; RESP 16; TEMP 36.7; O2SAT 98
--- NOTE | 2025-07-13 05:23 | PC.NURSE ---
AT THE START OF THIS SHIFT, PATIENT WAS INTRUSIVE, BEING AT THE NURSES DESK TALKING WITH STAFF ALONG WITH OTHER PATIENTS. PATIENT HAS RESTED WELL THIS NIGHT.
[2025-07-13 06:00] VITALS: BP 137/78; PULSE 70; RESP 16; TEMP 36.4; O2SAT 98
[2025-07-13] MEDS: multivitamin therapeutic Tablet 1 TAB PO (07:45)
[2025-07-13] MEDS: paliperidone palmitate 234 mg Syringe IM (13:48)
[2025-07-13 14:00] VITALS: BP 126/77; PULSE 68; RESP 16; TEMP 36.7; O2SAT 98
--- NOTE | 2025-07-13 18:09 | W.PM.NPUPNS ---
Subjective NPU Subjective: Patient presented today reporting things are going okay. He identified that he is working with his parents now as they are pursuing guardianship. We discussed being supportive of this plan given his great challenges that self-management outside of the hospital. We discussed completing an affidavit for this process. [facility] discussed the risks, benefits and alternatives and he understood agreed to proceed as is documented in this note. He denied any side effects to the medication. Mental Status Exam MSE Comments: This is an obese, white male in hospital scrubs with limited grooming and eye contact. No abnormal movements, except for mild psychomotor retardation. Cooperative with exam in mild to moderate distress. Speech was decreased rate and volume. Mood described as fine; affect congruent and confused. Thought process, disorganized. Thought content: patient reports that he was having some suicidal thoughts leading to the hospitalization, he denied homicidal ideation, there were no delusions reported or noted, he he denied active auditory or visual hallucinations. Attention, concentration, and memory appeared intact but were not formally tested. He is alert and oriented x 3. Insight and judgment are impaired, impulse control is impaired. Vitals/I&O/Wt Last Vital Signs Temp 97.4 F L 07/13/25 19:10 Pulse 60 07/13/25 19:10 Resp 18 07/13/25 19:10 BP 125/83 07/13/25 19:10 Pulse Ox 99 07/13/25 19:10 O2 Del Method Room Air 07/13/25 19:10 Data NPU 07/09/25 00:30 07/09/25 00:30 A&P Assessment and plan 1. Chronic schizophrenia: 2. Suicidal ideation: 3. History of command hallucinations: 4. Depression: 5. Cannabis abuse: 6. Methamphetamine abuse: 7. Psychiatric care: 8. Posttraumatic stress disorder: 9. Generalized anxiety disorder: 10. Suicidal ideation: Plan: This is a 35-year-old male who is known from past hospitalizations but had not been seen for about 2 years until a hospitalization that ended on 06/14/2025 with a history of psychosis, addiction and a half history of frequent hospitalizations presents today reporting an unclear articulation of what is going on. He seems quite thought disordered and unclear of how he has been doing as far as his medication adherence and feeling unable to manage his life. His marijuana use is a consistency. Plan: 1. Resume home medications. Restart Invega Sustenna. Initiate 234 mg IM injection to deltoid for loading dose. 2. Continue every 15 minute checks for safety. 3. Encourage individual, group and milieu therapies. 4. Encourage sober living treatment after discharge at the highest level of care to which he is willing to commit. 5. Observe against the backdrop of the 96-hour hold. 6. Obtain collateral information. 7. Likely needs to consider some kind of living cooperative that does not have him completely independent and isolated after discharge. PDMP PDMP Reviewed: Not Reviewed Involuntary Hold Information Hold Status: Legal Status: 96 Hour Hold Date/Time Hold Expires: 07/15/2025 @ 0206 96 Hour Hold: 96 Hour Involuntary Admission: Yes Attestations NPU Medical Necessity Statement*: Inpatient hospitalization is medically necessary and the clinically appropriate intervention at this time. We will initiate medications and make changes as indicated. Likely length of stay 3-5 days Coding Level of Care Code Acute Code for [facility] Fwd Diagnoses Chronic schizophrenia F20.9 Suicidal ideation R45.851 History of command hallucinations Z86.59 Depression F32.A Cannabis abuse F12.10 Methamphetamine abuse F15.10 Psychiatric care Z76.89 Posttraumatic stress disorder F43.10 Generalized anxiety disorder F41.1
--- NOTE | 2025-07-13 18:23 | PC.NURSE ---
Administered Invega Sustenna 234mg IM in left deltoid, pt tolerated well.
[2025-07-13 19:10] VITALS: BP 125/83; PULSE 60; RESP 18; TEMP 36.3; O2SAT 99
[2025-07-13] MEDS: paliperidone ER 9 mg Tablet PO (19:14)
[2025-07-14 06:00] VITALS: RESP 16
[2025-07-14] MEDS: multivitamin therapeutic Tablet 1 TAB PO (08:22)
--- NOTE | 2025-07-14 12:53 | P.NPUPN_ITS ---
Subjective NPU 2 Subjective: Patient presented today reporting that he is doing fine. He continues to show improvement in the less isolative per staff reports of direct observation. We continued to discuss the guardianship process and the fact that we would be filling out some supportive data in hopes that he will have more assistance in his daily living. He reports he is tolerating the injection and we continue to discuss a plan for administration of his second Invega injection hopefully prior to discharge. He denied any side effects to the medication. Mental Status Exam 2 MSE Comments: This is an obese, white male in hospital scrubs with limited grooming and eye contact. No abnormal movements, except for mild psychomotor retardation. Cooperative with exam in mild to moderate distress. Speech was decreased rate and volume. Mood described as fine; affect congruent and confused. Thought process, disorganized. Thought content: patient reports that he was having some suicidal thoughts leading to the hospitalization, he denied homicidal ideation, there were no delusions reported or noted, he he denied active auditory or visual hallucinations. Attention, concentration, and memory appeared intact but were not formally tested. He is alert and oriented x 3. Insight and judgment are impaired, impulse control is impaired. Vitals/I&O/Wt Last Vital Signs Temp 97.4 F L 07/13/25 19:10 Pulse 60 07/13/25 19:10 Resp 16 07/14/25 06:00 BP 125/83 07/13/25 19:10 Pulse Ox 99 07/13/25 19:10 O2 Del Method Room Air 07/13/25 19:10 Data NPU 07/09/25 00:30 07/09/25 00:30 A&P Assessment and plan 1. Chronic schizophrenia: 2. Suicidal ideation: 3. History of command hallucinations: 4. Depression: 5. Cannabis abuse: 6. Methamphetamine abuse: 7. Psychiatric care: 8. Posttraumatic stress disorder: 9. Generalized anxiety disorder: 10. Suicidal ideation: Plan: This is a 35-year-old male who is known from past hospitalizations but had not been seen for about 2 years until a hospitalization that ended on 06/14/2025 with a history of psychosis, addiction and a half history of frequent hospitalizations presents today reporting an unclear articulation of what is going on. He seems quite thought disordered and unclear of how he has been doing as far as his medication adherence and feeling unable to manage his life. His marijuana use is a consistency. Plan: 1. Resume home medications. Restart Invega Sustenna. Initiate 234 mg IM injection to deltoid for loading dose. 2. Continue every 15 minute checks for safety. 3. Encourage individual, group and milieu therapies. 4. Encourage sober living treatment after discharge at the highest level of care to which he is willing to commit. 5. Observe against the backdrop of the 96-hour hold. 6. Obtain collateral information. 7. Likely needs to consider some kind of living cooperative that does not have him completely independent and isolated after discharge. Family pursuing guardianship and we filled out the interrogatories today. No likely need for a level 2 and so discussed stability of discharge for the next 48 hours. PDMP PDMP Reviewed: Not Reviewed Involuntary Hold Information 2 Hold Status: Legal Status: 96 Hour Hold Date/Time Hold Expires: 07/15/2025 @ 0206 96 Hour Hold: 96 Hour Involuntary Admission: Yes Attestations NPU 2 Medical Necessity Statement*: Inpatient hospitalization is medically necessary and the clinically appropriate intervention at this time. We will initiate medications and make changes as indicated. Likely length of stay 2-4 days Coding Level of Care Code Acute Code for [facility] Fwd Diagnoses Chronic schizophrenia F20.9 Suicidal ideation R45.851 History of command hallucinations Z86.59 Depression F32.A Cannabis abuse F12.10 Methamphetamine abuse F15.10 Psychiatric care Z76.89 Posttraumatic stress disorder F43.10 Generalized anxiety disorder F41.1
[2025-07-14 14:00] VITALS: BP 109/71; PULSE 87; RESP 17; TEMP 36.6; O2SAT 100
[2025-07-14 20:28] VITALS: BP 122/64; PULSE 76; RESP 16; TEMP 37; O2SAT 96
[2025-07-14] MEDS: paliperidone ER 9 mg Tablet PO (21:33)
[2025-07-15 06:00] VITALS: BP 109/65; PULSE 66; RESP 16; TEMP 37; O2SAT 98
[2025-07-15] MEDS: multivitamin therapeutic Tablet 1 TAB PO (08:08)
--- NOTE | 2025-07-15 12:46 | P.NPUPN_ITS ---
Subjective NPU 2 Subjective: Patient presented today reporting that things are okay. We discussed him getting his second loading dose injection of Invega Sustenna tomorrow and discharging after. He knows that his parents have a plan for obtaining guardianship which has reportedly been initiated. Thoughts are about finding him a RTF that would allow him with some freedom and flexibility but also some socialization and support. He denied any side effects to the medication Mental Status Exam 2 MSE Comments: This is an obese, white male in hospital scrubs with limited grooming and eye contact. No abnormal movements, except for mild psychomotor retardation. Cooperative with exam in mild to moderate distress. Speech was decreased rate and volume. Mood described as fine; affect congruent and confused. Thought process, disorganized. Thought content: patient reports that he was having some suicidal thoughts leading to the hospitalization, he denied homicidal ideation, there were no delusions reported or noted, he he denied active auditory or visual hallucinations. Attention, concentration, and memory appeared intact but were not formally tested. He is alert and oriented x 3. Insight and judgment are impaired, impulse control is impaired. Vitals/I&O/Wt Last Vital Signs Temp 98.6 F 07/15/25 06:00 Pulse 66 07/15/25 06:00 Resp 16 07/15/25 06:00 BP 109/65 07/15/25 06:00 Pulse Ox 98 07/15/25 06:00 O2 Del Method Room Air 07/14/25 20:28 Data NPU 07/09/25 00:30 07/09/25 00:30 A&P Assessment and plan 1. Chronic schizophrenia: 2. Suicidal ideation: 3. History of command hallucinations: 4. Depression: 5. Cannabis abuse: 6. Methamphetamine abuse: 7. Psychiatric care: 8. Posttraumatic stress disorder: 9. Generalized anxiety disorder: 10. Suicidal ideation: Plan: This is a 35-year-old male who is known from past hospitalizations but had not been seen for about 2 years until a hospitalization that ended on 06/14/2025 with a history of psychosis, addiction and a half history of frequent hospitalizations presents today reporting an unclear articulation of what is going on. He seems quite thought disordered and unclear of how he has been doing as far as his medication adherence and feeling unable to manage his life. His marijuana use is a consistency. Plan: 1. Resume home medications. Restart Invega Sustenna. Initiate 234 mg IM injection to deltoid for loading dose. Plan for second loading dose of Invega 156 mg IM to deltoid as it is a loading dose. This will be a few days early but is next injection of 234 mg IM will be due 08/16/2025. 2. Continue every 15 minute checks for safety. 3. Encourage individual, group and milieu therapies. 4. Encourage sober living treatment after discharge at the highest level of care to which he is willing to commit. 5. Observe against the backdrop of the 96-hour hold. 6. Obtain collateral information. 7. Likely needs to consider some kind of living cooperative that does not have him completely independent and isolated after discharge. Family pursuing guardianship and we filled out the interrogatories 07/14/2025. No likely need for a level 2 and so discussed likelihood of discharge tomorrow. PDMP PDMP Reviewed: Not Reviewed Involuntary Hold Information 2 Hold Status: Legal Status: 96 Hour Hold Date/Time Hold Expires: 07/15/2025 @ 0206 96 Hour Hold: 96 Hour Involuntary Admission: Yes Attestations NPU 2 Medical Necessity Statement*: Inpatient hospitalization is medically necessary and the clinically appropriate intervention at this time. We will initiate medications and make changes as indicated. Likely length of stay 1-3 days Coding Level of Care Code Acute Code for [facility] Fwd Diagnoses Chronic schizophrenia F20.9 Suicidal ideation R45.851 History of command hallucinations Z86.59 Depression F32.A Cannabis abuse F12.10 Methamphetamine abuse F15.10 Psychiatric care Z76.89 Posttraumatic stress disorder F43.10 Generalized anxiety disorder F41.1
[2025-07-15 13:40] VITALS: BP 110/74; PULSE 67; RESP 16; TEMP 37.1; O2SAT 98
[2025-07-15] MEDS: paliperidone ER 9 mg Tablet PO (21:08)
[2025-07-15 21:31] VITALS: BP 116/74; PULSE 63; RESP 18; TEMP 37; O2SAT 98
[2025-07-16 06:00] VITALS: BP 117/71; PULSE 86; RESP 18; TEMP 37; O2SAT 99
[2025-07-16] MEDS: multivitamin therapeutic Tablet 1 TAB PO (08:03)
[2025-07-16] MEDS: PALIPERIDONE PALMITATE 156 MG 156 EACH IM (11:17)
[2025-07-16 14:00] VITALS: BP 123/80; PULSE 71; RESP 16; TEMP 36.7; O2SAT 99
--- NOTE | 2025-07-16 16:06 | P.NPUDS_ITS ---
Diagnoses at Discharge Discharge Diagnosis 1. Chronic schizophrenia: 2. Suicidal ideation: 3. History of command hallucinations: 4. Depression: 5. Cannabis abuse: 6. Methamphetamine abuse: 7. Psychiatric care: 8. Posttraumatic stress disorder: 9. Generalized anxiety disorder: Reason for Visit Reason for Visit: SI Involuntary Hold Information Hold Status: Legal Status: 96 Hour Hold Date/Time Hold Expires: 07/15/2025 @ 0206 96 Hour Hold: 96 Hour Involuntary Admission: Yes Mental Status Exam MSE Comments: This is an obese, white male in hospital scrubs with limited grooming and eye contact. No abnormal movements, except for mild psychomotor retardation. Cooperative with exam in mild to moderate distress. Speech was decreased rate and volume. Mood described as fine; affect congruent and confused. Thought process, disorganized. Thought content: patient reports that he was having some suicidal thoughts leading to the hospitalization, he denied homicidal ideation, there were no delusions reported or noted, he he denied active auditory or visual hallucinations. Attention, concentration, and memory appeared intact but were not formally tested. He is alert and oriented x 3. Insight and judgment are impaired, impulse control is impaired. Discharge Data Studies Completed and Pending: Laboratory Results WBC 9.30 10^3/uL (3.2 9-11.43) 07/09/25 00:30 RBC 4.68 10^6/uL (3.8 5-5.65) 07/09/25 00:30 Hgb 14.60 g/dL (11.27 -16.99) 07/09/25 00:30 Hct 42.8 % (37-53) 07/09/25 00:30 MCV 91.5 fl (82-101) 07/09/25 00:30 MCH 31.2 pg (27-33) 07/09/25 00:30 MCHC 34.1 g/dL (30-55) 07/09/25 00:30 RDW 12.5 % (12.1-15.1 ) 07/09/25 00:30 Plt Count 194 10^3/cmm (157 -399) 07/09/25 00:30 MPV 9.4 fL (7.4-10.4) 07/09/25 00:30 Neut % (Auto) 62.4 % 07/09/25 00:30 Lymph % (Auto) 24.5 % 07/09/25 00:30 Bradford % (Auto) 10.5 % 07/09/25 00:30 Eos % (Auto) 1.5 % 07/09/25 00:30 Baso % (Auto) 0.5 % 07/09/25 00:30 Neut # (Auto) 5.79 10^3/uL (1.8 -7.7) 07/09/25 00:30 Lymph # (Auto) 2.3 10^3/uL (0.8- 4.8) 07/09/25 00:30 Bradford # (Auto) 1.0 10^3/uL (0.2- 0.9) H 07/09/25 00:30 Eos # (Auto) 0.1 10^3/uL (0.0- 0.8) 07/09/25 00:30 Baso # (Auto) 0.1 10^3/uL (0.0- 0.1) 07/09/25 00:30 Nucleated RBC % (a uto) 0 % 07/09/25 00:30 Nucleated RBCs # 0.0 /100WBC 07/09/25 00:30 Sodium 139 mmol/L (136-1 45) 07/09/25 00:30 Potassium 3.6 mmol/L (3.5-5 .1) 07/09/25 00:30 Chloride 102 mmol/L (98-10 7) 07/09/25 00:30 Carbon Dioxide 25 mmol/L (22-29) 07/09/25 00:30 Anion Gap 15.6 (5-19) 07/09/25 00:30 BUN 10 mg/dL (6-20) 07/09/25 00:30 Creatinine 0.6 mg/dL (0.7-1. 2) L 07/09/25 00:30 GFR Calculation 154.2 mL/min (90- 130) H 07/09/25 00:30 Glucose 118 mg/dL (65-115 ) H 07/09/25 00:30 Calculated Osmolal ity 288 mOsm/kg (285- 295) 07/09/25 00:30 Calcium 8.9 mg/dL (8.5-10 .5) 07/09/25 00:30 Total Bilirubin 0.4 mg/dL (0.15-1 .2) 07/09/25 00:30 AST 27 U/L (0-40) 07/09/25 00:30 ALT 29 U/L (0-41) 07/09/25 00:30 Alkaline Phosphata se 79 U/L (40-130) 07/09/25 00:30 Total Protein 6.5 g/dL (6.6-8.7 ) L 07/09/25 00:30 Albumin 4.0 g/dL (3.5-5.2 ) 07/09/25 00:30 Globulin 2.5 g/dL (1.3-4.6 ) 07/09/25 00:30 Urine Color Yellow (Yellow) 07/09/25 00:25 Urine Appearance Clear (CLEAR) 07/09/25 00:25 Urine pH 7.5 (5-7) 07/09/25 00:25 Ur Specific Gravit y 1.014 (1.005-1.0 30) 07/09/25 00:25 Urine Protein Negative (Negati ve) 07/09/25 00:25 Urine Glucose (UA) Negative (Normal ) 07/09/25 00:25 Urine Ketones Negative (Negati ve) 07/09/25 00:25 Urine Blood Negative (Negati ve) 07/09/25 00:25 Urine Nitrate Negative (Negati ve) 07/09/25 00:25 Urine Bilirubin Negative (Negati ve) 07/09/25 00: Urine Urobilinogen 1.0 mg/dL (Negati ve) 07/09/25 00:25 Ur Leukocyte Nette ase Negative (Negati ve) 07/09/25 00:25 Urine RBC 0-2 /hpf (0-2) 07/09/25 00:25 Urine WBC 0-5 /hpf (0-5) 07/09/25 00:25 Ur Squamous Epith Cells 0-5 /hpf (0-5) 07/09/25 00:25 Urine Bacteria None seen /hpf (N ONE) 07/09/25 00:25 Hyaline Casts 0-4 /lpf H 07/09/25 00:25 Salicylates < 0.3 mg/dL (3-10 ) L 07/09/25 00:30 Urine Opiates Scre en Negative ng/mL (N egative) 07/09/25 00:25 Acetaminophen < 5.0 ug/mL (10-3 0) L 07/09/25 00:30 Ur Barbiturates Sc reen Negative ng/mL (N egative) 07/09/25 00:25 Ur Phencyclidine S crn Negative ng/mL (N egative) 07/09/25 00:25 Ur Amphetamines Sc reen Negative ng/mL (N egative) 07/09/25 00:25 U Benzodiazepines Scrn Negative ng/mL (N egative) 07/09/25 00:25 Urine Cocaine Scre en Negative ng/mL (N egative) 07/09/25 00:25 U Marijuana (THC) Screen Positive ng/mL (N egative) H 07/09/25 00:25 Vitals: Last Vital Signs Temp 98.1 F 07/16/25 14:00 Pulse 71 07/16/25 14:00 Resp 16 07/16/25 14:00 BP 123/80 07/16/25 14:00 Pulse Ox 99 07/16/25 14:00 O2 Del Method Room Air 07/16/25 14:00 Discharge Plan Discharge Patient Disposition: Home Condition: Stable Prescriptions: New paliperidone [Invega] 6 mg tablet extended release 24hr 6 mg PO .qhs 30 Days Qty: 30 0RF Invega Sustenna 234 mg/1.5 mL syringe 234 mg IM Q30D 30 Days Qty: 1.5 2RF Rx Instructions: next injection due 08/16/2025 Continued hydroxyzine pamoate 25 mg Capsule 25 mg PO TID 30 Days Qty: 90 1RF fluoxetine [Prozac] 40 mg capsule 40 mg PO DAILY Qty: 30 1RF multivitamin Tablet 1 tab PO DAILY olanzapine 5 mg Tablet,Disintegrating 5 mg PO DAILY PRN (Reason: Agitation/Psychosis) 30 Days Qty: 30 1RF Discontinued paliperidone 9 mg Tablet Extended Release 24hr 9 mg PO 2100 30 Days Qty: 30 1RF Discharge Order = DC NOW: Discharge Order (Routine); Ordered 07/16/25 Ordered By: Kleber Tubbs Referrals: Andrew Wynne [Therapist, Psychology] - 07/19/25 9:00 am Referral Note: Hospital follow up only Yamileth Caraballo APRN [Nurse Practitioner, Nurse Practitioner Psych/MH] - 07/29/25 9:30 am Discharge Diet: Regular Discharge Activity: Resume usual activity Patient Instructions: Opioid Safety, Patient Portal & [facility] Instructions Discharge Attestations NPU Time Spent in Discharge Care*: less than 30 min Specific Discharge Activities: Specific discharge activities: educating patient, discussing with telephonic case manager/social workers/dc planners, documenting/other paperwork and evaluating patient/reviewing data Status at Discharge: Cognitive status at discharge: cognitively intact , Behavioral status at discharge: cooperative , Coding Level of Care Code Acute Code for [facility] Fwd Diagnoses Chronic schizophrenia F20.9 Suicidal ideation R45.851 History of command hallucinations Z86.59 Depression F32.9 Cannabis abuse F12.10 Methamphetamine abuse F15.10 Psychiatric care Z76.89 Posttraumatic stress disorder F43.10 Generalized anxiety disorder F41.1
[2025-07-16 16:17] VITALS: BP 123/80; PULSE 71; RESP 16; TEMP 36.7; O2SAT 99
== END 2025-07-16 16:55 | disposition home or self-care (01) | DRG 885 ==
LOC: ER 07-09 02:10 → NP 07-09 02:23
PROVIDERS: Admitting Provider Psychiatry & Neurology Psychiatry; Emergency Provider Emergency Medicine; Visit Provider Psychiatry & Neurology Psychiatry
DX: F20.9 Schizophrenia, unspecified (principal); R45.851 Suicidal ideations; F12.90 Cannabis use, unspecified, uncomplicated; F17.210 Nicotine dependence, cigarettes, uncomplicated; F41.1 Generalized anxiety disorder; F43.10 Post-traumatic stress disorder, unspecified; E66.9 Obesity, unspecified; Z68.32 Body mass index [BMI] 32.0-32.9, adult; F32.A Depression, unspecified; Z83.3 Family history of diabetes mellitus; Z82.49 Family history of ischemic heart disease and other diseases of the circulatory system; Z83.6 Family history of other diseases of the respiratory system; Z81.8 Family history of other mental and behavioral disorders
CPT/HCPCS: 36415; 80053; 80306; 80307; 81001; 85025; 96372; 97150; 97165; 99285; J9999

== ENCOUNTER → 2025-07-26 11:02 | Outpatient (BNVA) | payer SELFPAY | PROVIDERS: Visit Provider Nurse Practitioner Psychiatric/Mental Health | DX: Z79.899 Other long term (current) drug therapy (principal); F41.1 Generalized anxiety disorder; F12.20 Cannabis dependence, uncomplicated | CPT/HCPCS: 80061; 83036 ==